=== PATIENT | female | born 1975 | race Caucasian/White ===

== ENCOUNTER 2024-06-21 20:29 | Emergency (ER) | payer OTHER, SELFPAY ==
[2024-06-21 20:49] VITALS: BP 163/98; PULSE 90; TEMP 36.3; O2SAT 97; BMI 18.0
--- NOTE | 2024-06-21 21:12 | XR_ITS ---
The [place] [id number] Patient Name: DALLAS ALFORD MRN: [id number] date: 1975 Sex: F Assigned Patient Location: ER Current Patient Location: ED.MAIN Accession/Order Number: [id number] Exam Date: 06/21/2024 21:35 Report Date: 06/21/2024 22:45 At the request of: MELINDA CRUZ Procedure: XR hand RT min 3V EXAMINATION: XR hand RT min 3V, , 06/21/2024 9:35 PM EST INDICATION: injury HISTORY: Ordering Provider Reason for Exam: injury Technologist Note: Additional: COMPARISON: None. TECHNIQUE: Right hand x-ray: 3 view(s). FINDINGS: No acute fracture. Joint alignment is anatomic. Joint spaces are preserved. Soft tissues are within normal limits. XR/XR hand RT min 3V IMPRESSION: No acute fracture or traumatic malalignment. Electronically authenticated by: LATOSHA CRUZ Date: 06/21/2024 22:45
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
[2024-06-21 22:12] LABS: Bilirubin Urine NEGATIVE (NEGATIVE); Blood Urine TRACE-I (NEGATIVE); Glucose Urine UA NEGATIVE (NEGATIVE); Ketones Urine 15 mg/dL (NEGATIVE); Leukocyte Esterase Urine MODERATE (NEGATIVE); Nitrite Urine NEGATIVE (NEGATIVE); Protein Urine 30 mg/dL (NEG/TRACE); Specific Gravity Urine >=1.030 (1.005-1.025); Urobilinogen Urine 0.2 EU/dL (0.2-1.0)
[2024-06-21 22:14] LABS: Clarity Urine SLIGHTLY CLOUDY (CLEAR); Color Urine YELLOW (YELLOW); Urine Microscopic Indicated YES
[2024-06-21 22:16] LABS: Mucus Urine LARGE (NONE SEEN); Squamous Epithelial Cell Urine MANY #/LPF (NONE/RARE)
[2024-06-21 22:17] LABS: Bacteria Urine MODERATE #/HPF (NONE SEEN); Cast Seen? NONE SEEN #/LPF (NONE SEEN); Crystals Seen? None Seen #/HPF (None Seen); RBC Urine 0-2 #/HPF (0-2); Urine Culture Indicated YES
== END 2024-06-21 22:45 | disposition home or self-care (01) ==
PROVIDERS: Emergency Provider Emergency Medicine
DX: S60.221A Contusion of right hand, initial encounter (principal); S32.009A Unspecified fracture of unspecified lumbar vertebra, initial encounter for closed fracture; S09.93XA Unspecified injury of face, initial encounter; S30.0XXA Contusion of lower back and pelvis, initial encounter; S09.90XA Unspecified injury of head, initial encounter; Y04.2XXA Assault by strike against or bumped into by another person, initial encounter
CPT/HCPCS: 70450; 72131; 73130; 81001; 87086; 99285

== ENCOUNTER 2024-06-24 12:31 | Emergency (ER) | payer OTHER, SELFPAY ==
[2024-06-24 12:35] VITALS: BP 126/86; PULSE 72; TEMP 36.6; O2SAT 100; BMI 19.6
[2024-06-24] MEDS: MORPHINE SULFATE 4 MG/ML VIAL 10 MG IM (12:52)
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
== END 2024-06-24 14:58 | disposition home or self-care (01) ==
PROVIDERS: Emergency Provider Emergency Medicine
DX: S32.009A Unspecified fracture of unspecified lumbar vertebra, initial encounter for closed fracture (principal); Y09 Assault by unspecified means; F41.9 Anxiety disorder, unspecified; M54.9 Dorsalgia, unspecified
CPT/HCPCS: 96372; 99284; J2270

== ENCOUNTER 2024-08-02 22:14 | Emergency (ER) | payer OTHER, SELFPAY ==
--- OUTSIDE RECORDS SUMMARY | 2024-08-02 22:25 | XMS_ITS | CCD ---
Author Organization [facility] Care Team Providers Care As400 Administrator Name Role Phone PROVIDER, UNKNOWN Admitting Unavailable PROVIDER, UNKNOWN Attending Unavailable PATIENT, SELF Referring Unavailable URMILA SLADE Primary Care Unavailable Dwight Grant Primary Care Provider Aleksandar Ridley Primary Care Provider Unav ailable HARLEY OLSEN Admitting Unavaila HARLEY Armendariz Attending Unavaila DELMI Ochoa Referring Unavailable DWIGHT GRANT Primary Care Unavailabl e CLIFFORD LUNA Consulting Unavailable SEA LION Consulting Unavailab le AMISHA ABIGAIL Consulting Unavailable LYNN MCMANUS Admitting Unavailable DUSTY ANDREW Referring Unavailable KHBLANKA ANDREA, ALEKSANDAR Primary Care Unavailabl e GABY DO Consulting Unavailable MERCED BUCKNER Attending Unavailable Rey Mendez Aleksandar Primary Care Provider [phone] CJORSAND ANDREA, ALEKSANDAR Primary Care Unavailabl e KHORSAND ANDREA, ALEKSANDAR Primary Care Unavailabl ORLIN Krueger Attending Unavailable FERDINAND MCGRATH Attending Unavailable KHKEVINAND ANDREA, ALEKSANDAR Primary Care UnavailDWIGHT Dodd Referring Unavailable DWIGHT GRANT Primary Care Unavailable MARTA BROWN Attending Unavailable MARTA BROWN Admitting Unavailable RADHA MENDEZ Primary Care Physician [phone] Billie Poon Unavailable Unavailable Paige Laird Unavailable Unavailable Jeanmarie Katie Unavailable Unavailable [facility] Primary Care Unava ilable GORDO, EL Attending Unavailable GORDO, EL Consulting Unavailable GORDO, EL Admitting Unavailable NATALIIA MENON Consulting Unavailable GORDO, EL Attending Unavailable GORDO, EL Consulting Unavailable GORDO, EL Admitting Unavailable [facility] Unava ilable CINDY AGUDELO Consulting Unavailable [facility] Unava ilable ALEXANDER ., ESTHER Attending Unavailable ALEXANDER ., ESTHER Admitting Unavailable Satish VALDEZ Admitting Unavailable Quincy Webb Attending Unavailable [place], Mk Consulting Unavailable [place], Mk Consulting Unavailable [place], Mk Consulting Unavailable [place], Mk Consulting Unavailable [place], Mk Consulting Unavailable [place], Mk Consulting Unavailable [place], Mk Consulting Unavailable [place], Mk Consulting Unavailable [place], Mk Consulting Unavailable Perry Bar Attending Unavailable Rey Mendez MD [facility] Primary Care Provider TC Horne Attending Provide r Lamine Horne Admitting Unava ilable [facility] Unavailabl e Lamine Horne Attending Unava ilable [facility] Unavailabl e Khurram Hercules Attending Unavailable Khurram Hercules Admitting Unavailable Filippo Garcia MD Attending Ward Wagoner MD Primary Care Unavailab Yuan Ramirez MD Admitting Unavail able Yuan Dumont MD Attending Unavail able Ward Mendez MD Primary Care Unavailab Filippo Hernandez MD Consulting Ward Wagoner MD Primary Care Unavailab najma Courtney MD, Lesa Euceda Admitting Martha Courtney MD, Lesa Euceda Attending Filippo Lindsay MD Consulting BAM Moses Admitting Unavailable BAM CAMPOS Attending Unavailable NEHA DONALDSON Attending Unavailable BAM CAMPOS Attending Unavailable BAM CAMPOS Attending Unavailable BAM CAMPOS Attending Unavailable NEHA DONALDSON Referring Unavailable FILIPPO GARCIA Referring Unavailable ESTHER PINA Primary Care Unavailable Allergies Allergy Classification Reported Allergen(s) Allergy Type Date of Onset Reaction(s) Facility (13 sources) fentaNYL; Translations: [fentanyl] Drug Allergy 02-14-20 14 Itching [facility] Phone: Comment on above: Has tolerated morphi ne and hydromorphone in the past without issue (7 sources) Ketorolac Drug Allergy 11-18-19 12 Hives [facility] Phone: (13 sources) methylPREDNISolone; Translations: [methylprednisolone] Drug Allergy 02-14-20 14 Rash [facility] Phone: (3 sources) Morphine; Translations: [MORPHINE] Drug Allergy 05-01-20 13 Rash [facility] Phone: (11 sources) Ondansetron; Translations: [ondansetron] Drug Allergy 11-18-19 12 Nausea And Vomiting [facility] Phone: (7 sources) pantoprazole Drug Allergy 12-18-19 14 Anaphylaxis [facility] Phone: (13 sources) Penicillins; Translations: [penicillins] Propensity to adverse reactions to drug 10-25-19 09 Nausea And Vomiting, Anaphylaxis (disorder) [facility] Phone: (3 sources) Blood-Group Specific Substance; Translations: [BLOOD-GROUP SPECIFIC SUBSTANCE] Propensity to adverse reactions to drug 05-20-20 13 Hives [facility] Phone: (8 sources) Iodides; Translations: [IODIDES] Propensity to adverse reactions to drug 12-17-19 18 Hives, Shortness Of Breath [facility] Phone: (2 sources) Adhesive Tape; Translations: [ADHESIVE TAPE] Propensity to adverse reactions (disorder) 01-14-20 13 [facility] (4 sources) Atropine; Translations: [ATROPINE] Drug Allergy 07-14-20 10 Hives [facility] (4 sources) Ketorolac; Translations: [Toradol] Drug Allergy 05-28-20 09 [facility] (3 sources) Ondansetron Drug Allergy 05-28-20 09 [facility] (4 sources) pantoprazole; Translations: [Protonix] Drug Allergy 12-16-19 14 [facility] (2 sources) Penicillins Drug allergy (disorder) 05-28-20 09 [facility] (3 sources) Adhesive Tape; Translations: [Tape] Drug allergy [facility] (3 sources) Contrast media; Translations: [Contrast Dye] Drug allergy difficulty breathing, [facility] (4 sources) Famotidine; Translations: [famotidine] Drug Allergy 11-18-[address] [facility] (5 sources) Ketorolac; Translations: [ketorolac] Drug Allergy 10-25-[address] [facility] Comment on above: Tolerates ibuprofen (5 sources) Nalbuphine; Translations: [nalbuphine] Drug Allergy 05-16-20 09 itching [facility] (7 sources) pantoprazole; Translations: [pantoprazole] Drug Allergy 12-18-19 14 Weal (disorder), Cutaneous eruption (morphologic abnormality) [facility] Comment on above: pt on protonix iv cu rrently-pt states is ok as long as benedryl is given (1 source) Morphine Drug Allergy [facility] (2 sources) predniSONE Drug Allergy 11-03-19 23 Hives [facility] (2 sources) Omnipaque Drug allergy (disorder) [facility] (1 source) Acetaminophen; Translations: [Ofirmev] Drug Allergy [facility] Repository (1 source) methylPREDNISolone / Neomycin; Translations: [methylprednisolone-n eomycin topical] Drug Allergy [facility] (1 source) pantoprazole; Translations: [Protonix IV] Drug Allergy [facility] (3 sources) Ondansetron; Translations: [ONDANSETRON] Drug Allergy 11-18-19 12 [facility] (1 source) Gadolinium-Containing Contrast Medi Allergy to substance 11-03-19 23 Swelling of Lip/Tongue/Thr oat [facility] (1 source) Iodinated Contrast Media Allergy to substance 11-03-19 23 Swelling of Lip/Tongue/Thr oat [facility] (1 source) MRI contrast Allergy to substance 11-03-19 23 Swelling of Lip/Tongue/Thr oat [facility] (1 source) methylPREDNISolone; Translations: [SOLU-Medrol] Drug Allergy [facility] Rep[facility] (1 source) Penicillin; Translations: [penicillin] Drug Allergy [facility] Rep[facility] (1 source) iodinated radiocontrast dyes; Translations: [iodinated radiocontrast dyes] Propensity to adverse reactions to drug (disorder) [facility] Rep[facility] (2 sources) Adhesive agent; Translations: [ADHESIVE] Propensity to adverse reactions to drug (disorder) 07-21-19 15 [facility] (2 sources) Contrast media; Translations: [DYE] Propensity to adverse reactions to drug (disorder) 11-20-19 18 [facility] (2 sources) Metoclopramide; Translations: [METOCLOPRAMIDE HCL] Drug Allergy 03-21-20 12 [facility] (2 sources) ADHESIVE TAPE-SILICONES; Translations: [ADHESIVE TAPE-SILICONES] Propensity to adverse reactions to drug (disorder) 02-04-20 17 [facility] (1 source) Ondansetron; Translations: [ONDANSETRON HCL (PF)] Drug Allergy 05-27-20 16 [facility] Medications Current Medications Medication Drug Class(es) Dates Sig (Normalized) Sig (Original) Acetaminophen (2 sources) Start: 12-03-2019 acetaminophen (TYLENOL) tablet 650 mg Start: 08-28-2019 acetaminophen (TYLENOL) tablet 650 mg ALPRAZolam 1 mg oral tablet (10 sources) Benzodiazepine Start: 08-28-2019 take 1 mg by mouth three times daily 1 mg, Oral, 3 TIMES DAILY, First dose on Tue08/28/19 at 1500 Start: 02-08-2019 End: 12-02-2019 take 0.5 mg by mouth three times daily Alprazolam (Xanax) 1 mg Tablet Discontinued 0.5 MG PO Three times daily 0 5 February 08, 2019 3:26pm December 02, 2019 8:03am Start: 02-05-2019 End: 02-08-2019 take 1 tablet by mouth three times daily Alprazolam (Xanax) 1 mg Tablet Discontinued 1 MG PO Three times daily February 05, 2019 12:00am February 08, 2019 3:31pm amLODIPine 5 mg oral tablet (3 sources) Dihydropyridine Calcium Channel Rene Start: 07-27-2022 take 1 tablet by mouth once daily Norvasc 5 mg Tab 5 mg = 1 tab(s), Oral, Daily, Refills(s) 0 Start Date: 07/27/22 Status: Ordered Start: 08-29-2019 amLODIPine (NO RVASC) tablet 5 mg apixaban 5 mg oral tablet (6 sources) Factor Xa Inhibitor Start: 12-10-2019 End: 01-09-2020 take 1 tablet by mouth twice daily apixaban (ELIQUIS) 5 MG TABS tablet Take 1 tablet by mouth 2 times daily 60 tablet 0 12/10/2019 01/09/2020 Active Start: 12-10-2019 apixaban (ELIQ UIS) tablet 5 mg Start: 12-03-2019 End: 12-10-2019 apixaban (ELIQUIS) tablet 10 mg Start: 11-29-2019 End: 12-11-2019 take 2 tablets by mouth twice daily apixaban (ELIQUIS) 5 MG TABS tablet Take 2 tablets by mouth 2 times daily for 7 days 28 tablet 0 12/04/2019 12/11/2019 Active busPIRone hydrochloride 10 mg oral tablet (8 sources) Start: 05-28-2020 take 30 mg by mouth once daily Buspirone Active 30 MG PO Daily May 28, 2020 1:00am Start: 02-05-2019 End: 05-28-2020 take 30 mg by mouth once daily in the morning Buspirone Discontinued 30 MG PO Every morning February 05, 2019 12:45pm May 28, 2020 7:15am Start: 12-04-2018 End: 02-05-2019 take 5 mg by mouth three times daily Buspirone Discontinued 5 MG PO Three times daily 90 December 04, 2018 12:00am February 05, 2019 12:45pm take 0.3 mg by mouth three times daily busPIRone HCl (BUSPAR PO) Take 0.3 mg by mouth 3 times daily 0 Active take 0.3 mg by mouth three times daily busPIRone HCl (BUSPAR PO) Take 0.3 mg by mouth 3 times daily 0 Suspended cephalexin 500 mg oral capsule (1 source) Cephalosporin Antibacterial Start: 05-28-2020 take 1 capsule by mouth four times daily Cephalexin (Keflex) 500 mg capsule Active 500 MG PO Four times daily 28 7 May 28, 2020 1:00am clotrimazole 10 mg oral lozenge (1 source) Azole Antifungal Start: 05-28-2020 take 10 mg by mouth five times daily Clotrimazole Active 10 MG PO 5 times per day May 28, 2020 1:00am diphenhydrAMINE hydrochloride 25 mg oral tablet (6 sources) Histamine-1 Receptor Antagonist Start: 12-03-2019 diphenhydrAMINE (BENADRYL) tablet 25 mg Start: 08-28-2019 End: 08-29-2019 diphenhydrAMINE (BENADRYL) i njection 25 mg Start: 08-27-2019 End: 08-27-2019 diphenhydrAMINE (BENADRYL) i njection 50 mg Start: 08-22-2019 End: 08-22-2019 diphenhydrAMINE (BENADRYL) i njection 50 mg DULoxetine 60 mg delayed release oral capsule (3 sources) Serotonin and Norepinephrine Reuptake Inhibitor Start: 03-23-2020 take 120 mg by mouth once daily at bedtime Duloxetine Active 120 MG PO Daily at bedtime March 23, 2020 12:00am Start: 02-05-2019 End: 03-23-2020 take 30 mg by mouth once daily Duloxetine Discontinued 30 MG PO Daily February 05, 2019 12:45pm March 23, 2020 7:31am Start: 12-04-2018 End: 02-05-2019 take 90 mg by mouth once daily Duloxetine Discontinued 90 MG PO Daily December 04, 2018 12:00am February 05, 2019 12:45pm ergocalciferol 92297 unt oral capsule (8 sources) Provitamin D2 Compound Start: 06-16-2016 take 1 capsule by mouth every week vitamin D (ERGOCALCIFEROL) 99801 UNITS capsule Take 1 capsule by mouth once a week for 6 doses 6 capsule 0 06/16/2016 Active estrogens, conjugated (retirement) 0.9 mg oral tablet (11 sources) Estrogen Start: 04-20-2020 take 1 tablet by mouth once daily Premarin 0.9 mg Tab 0.9 mg = 1 tab(s), Oral, Daily, # 30 tab(s), Refills(s) 0 Start Date: 11/10/20 Status: Ordered Start: 11-17-2017 End: 04-20-2020 Conjugated Estrogens (Premar in) 1.25 mg tablet Discontinued 0.9 MG PO Daily November 17, 2017 12:00am April 20, 2020 7:02pm Start: 06-16-2016 End: 12-04-2019 take 1.25 mg by mouth once daily 1.25 mg, Oral, DAILY, First dose on Tue12/03/19 at 1045 Give only if okay with vascular famotidine 20 mg oral tablet (1 source) Histamine-2 Receptor Antagonist Start: 08-28-2019 famotidine (PEPCID) tablet 20 mg ibuprofen 200 mg oral tablet (2 sources) Nonsteroidal Anti-inflammatory Drug Start: 11-10-2020 ibuprofen 200 mg Tab 400 mg = 2 tab(s), Oral, PRN Pain/Fever, Refills(s) 0 Start Date: 11/10/20 Status: Ordered labetalol hydrochloride 100 mg oral tablet (1 source) beta-Adrenergic Rene Start: 05-28-2020 take 100 mg by mouth twice daily Labetalol Active 100 MG PO Twice daily May 28, 2020 1:00am lisinopril 40 mg oral tablet (1 source) Angiotensin Converting Enzyme Inhibitor Start: 05-28-2020 take 40 mg by mouth once daily Lisinopril Active 40 MG PO Daily May 28, 2020 1:00am LORazepam 1 mg oral tablet (13 sources) Benzodiazepine Start: 12-03-2019 take 1 mg by mouth twice daily 1 mg, Oral, 2 TIMES DAILY, First dose on Tue12/03/19 at 1045 Start: 12-02-2019 take 1 tablet by wendy th three times daily LORazepam 1 mg Tab 1 mg = 1 tab(s), Oral, TID, Refills(s) 0 Start Date: 09/24/20 Status: Ordered Start: 08-28-2019 End: 08-28-2019 LORazepam (ATIVAN) injection 2 mg Start: 08-28-2019 End: 08-28-2019 LORazepam (ATIVAN) injection 0.5 mg Start: 08-27-2019 End: 08-27-2019 LORazepam (ATIVAN) injection 1 mg Start: 08-22-2019 End: 08-22-2019 LORazepam (ATIVAN) tablet 1 mg Magic Mouthwash (Miracle Mouthwash) 5 mL (1 source) Start: 12-04-2019 Magic Mouthwas h (Miracle Mouthwash) 5 mL magnesium hydroxide 80 mg/ml oral suspension (2 sources) Start: 08-28-2019 magnesium hydr oxide (MILK OF MAGNESIA) 400 MG/5ML suspension 30 mL Start: 02-08-2019 End: 12-02-2019 take 1 mL by mouth twice daily Magnesium Hydroxide (Mi lk Of Magnesia) 400 mg/5 mL Suspension Discontinued 30 ML PO Twice daily 0 February 08, 2019 12:00am December 02, 2019 8:04am 100 ml magnesium sulfate 10 mg/ml injection (2 sources) Start: 12-03-2019 take 1 mg intravenous route every hour as needed 1 g, Intravenous, at 100 mL/hr, Administ er over 1 Hours, PRN, Other, Per IV Magnesium Replacement Protocol, Starting Tue12/03/19 at 0425 Mg Lab Replacement Action 1.4- 1.6 1 gram IVPB x 2 doses &nb sp; (2 gram Total) 1.0-1.3 1 gram IVPB x 4 doses &nb sp; (4 gram Total) <1.0 CALL PHYSICIAN and &n bsp; 1 gram IVPB x 4 doses (4 gram Total) Infuse at 1 gram/hr Repeat Mag level next AM Protocol not for use in Patients with CrCl<30ml/min Start: 08-28-2019 magnesium sulf ate 1 g in dextrose 5% 100 mL IVPB 24 hr nicotine 0.875 mg/hr transdermal system (6 sources) Cholinergic Nicotinic Agonist Start: 12-03-2019 End: 09-19-2020 apply 1 dose transdermal route every twenty-four hours 1 patch, Transdermal, Administer over 24 Hours, EVERY 24 HOURS, First dose on Tue12/03/19 at 1100 Apply new patch to nonhairy, clean, dry skin on the upper body or upper outer arm. Rotate patch sites. Notify pharmacy if patient or provider prefers patch to be removed at bedtime and replaced in the morning. Hazardous Medication -- Refer to facility policy for handling and disposal. Start: 12-03-2019 apply 1 dose transde rmal route once daily as needed 1 patch, Transdermal, Administer over 24 Hours, DAILY PRN, if pateint smokes, Starting Tue12/03/19 at 0425 Apply new patch to nonhairy, clean, dry skin on the upper body or upper outer arm. Rotate patch sites. Notify pharmacy if patient or provider prefers patch to be removed at bedtime and replaced in the morning. Hazardous Medication -- Refer to facility policy for handling and disposal. Start: 12-04-2018 End: 02-08-2019 Nicotine Discontinued 1 EACH TRANSDERML Daily December 04, 2018 12:00am February 08, 2019 3:31pm 2 ml ondansetron 2 mg/ml injection (1 source) Serotonin-3 Receptor Antagonist Start: 08-28-2019 ondansetron (ZOFRAN) injection 4 mg oxybutynin chloride 5 mg oral tablet (1 source) Cholinergic Muscarinic Antagonist Start: 05-28-2020 take 5 mg by mouth once daily at bedtime Oxybutynin Chloride Active 5 MG PO Daily at bedtime May 28, 2020 1:00am pantoprazole (PROTONIX) injection 40 mg (1 source) Start: 08-29-2019 pantoprazole (PROTONIX) injection 40 mg polyethylene glycol 3350 80058 mg powder for oral solution (1 source) Osmotic Laxative Start: 12-03-2019 17 g, Oral, D AILY PRN, Constipation, Starting 12/03/19 at 0425 First line therapy for constipation Potassium Chloride (3 sources) Start: 12-03-2019 potassium chlo ride (KLOR-CON M) extended release tablet 40 mEq Start: 08-30-2019 End: 08-31-2019 potassium chloride (KLOR-CON M) extended release tablet 40 mEq Start: 08-28-2019 potassium chlo ride (KLOR-CON M) extended release tablet 40 mEq pregabalin 100 mg oral capsule (3 sources) Start: 05-28-2020 take 1 capsule by mouth three times daily pregabalin 100 mg Cap 100 mg = 1 cap(s), Oral, TID, Refills(s) 0 Start Date: 09/24/20 Status: Ordered Promethazine (5 sources) Phenothiazine Start: 12-03-2019 promethazine (PHENERGAN) tablet 12.5 mg Start: 08-29-2019 End: 08-29-2019 promethazine (PHENERGAN) inj ection 12.5 mg Start: 08-27-2019 End: 08-27-2019 promethazine (PHENERGAN) inj ection 25 mg Start: 08-22-2019 End: 08-22-2019 promethazine (PHENERGAN) inj ection 25 mg Start: 01-09-2019 End: 05-28-2020 take 25 mg by mouth every six hours Promethazine Discontinued 25 MG PO Q6H January 09, 2019 12:00am May 28, 2020 7:15am rivaroxaban 20 mg oral tablet (2 sources) Factor Xa Inhibitor Start: 05-28-2020 take 1 tablet by mouth at dinner Rivaroxaban (Xarelto Dvt-Pe Treat 30d Start) 15 mg (42)- 20 mg (9) tablets,dose pack Active 0 PO .COMPLEX 51 May 28, 2020 1:00am must administer with evening meal Start: 12-02-2019 End: 04-20-2020 take 1 tablet by mouth once daily in the evening Rivaroxaban (Xarelto) 20 mg Tablet Discontinued 20 MG PO Every evening December 02, 2019 12:00am April 20, 2020 7:04pm 3 ml sodium chloride 9 mg/ml injection (7 sources) Start: 12-03-2019 10 mL, Intrave nous, EVERY 12 HOURS SCHEDULED (2 times per day), First dose on Tue12/03/19 at 0900 Start: 12-03-2019 take 10 mL intraveno us route once as needed 10 mL, Intravenous, PRN, Line Care, After every IV line use, Starting Tue12/03/19 at 0425 Start: 12-03-2019 End: 12-03-2019 Intravenous, at 75 mL/hr, CONTINUOUS, Starting Tue12/03/19 at 0500 Start: 08-28-2019 0.9 % sodium c hloride infusion Start: 08-28-2019 sodium chlorid e flush 0.9 % injection 10 mL sucralfate 1000 mg oral tablet (4 sources) Aluminum Complex Start: 08-29-2019 sucralfate (C ARAFATE) tablet 1 g Start: 01-09-2019 End: 02-05-2019 take 1 tablet by mouth before mealtime Sucralfate (Carafate) 1 gram tablet Discontinued 1 GM PO before meals 84 January 09, 2019 12:00am February 05, 2019 12:50pm Start: 11-19-2017 End: 11-27-2018 take 1 g by mouth once before mealtime Sucralfate (Carafate) 100 mg/mL suspension Discontinued 1 GM PO 3x/Day before meals & bedtime November 19, 2017 4:33pm November 27, 2018 6:26pm Start: 11-18-2017 End: 11-19-2017 take 1 g by mouth once before mealtime Sucralfate Discontinued 1 GM PO 3x/Day before meals & bedtime November 18, 2017 12:00am November 19, 2017 4:33pm sulfamethoxazole 800 mg / trimethoprim 160 mg oral tablet (1 source) Dihydrofolate Reductase Inhibitor Antibacterial, Sulfonamide Antimicrobial Start: 05-28-2020 take 1 tablet by mouth twice daily Sulfamethoxazole-Trimethoprim (Bactrim Ds) 800-160 mg tablet Active 1 TAB PO Twice daily 28 01May 28, 2020 1:00am teriflunomide 14 mg oral tablet (1 source) Pyrimidine Synthesis Inhibitor Start: 05-28-2020 take 1 tablet by mouth once daily Teriflunomide (Aubagio) 14 mg tablet Active 14 MG PO Daily May 28, 2020 1:00am traMADol hydrochloride 50 mg oral tablet (3 sources) Opioid Agonist Start: 05-28-2020 take 1 tablet by mouth four times daily as needed for pain tramadol 50 mg oral tablet 50 mg = 1 tab(s), Oral, QID, PRN for pain, # 60 tab(s), Refills(s) 0 Start Date: 09/24/20 Status: Ordered traZODone hydrochloride 150 mg oral tablet (9 sources) Serotonin Reuptake Inhibitor Start: 12-03-2019 take 150 mg by mouth once daily 150 mg, Oral, NIGHTLY, First dose on Tue12/03/19 at 2099 Start: 08-28-2019 take 150 mg by mouth once calin y 150 mg, Oral, NIGHTLY, First dose on Tue08/28/19 at 2100 Start: 06-16-2016 End: 09-19-2020 take 1.5 tablets by mouth once daily, then take 0.5 tablet by mouth, then take 1 tablet by mouth traZODone (DESYREL) 100 MG tablet Take 1.5 tablets by mouth nightly 1/2 tab to 1 tab ; Verified by [facility] 02-13-2014 30 tablet 3 06/16/2016 09/19/2020 Discontinued (LIST CLEANUP) zolpidem tartrate 10 mg oral tablet (2 sources) gamma-Aminobutyric Acid-ergic Agonist Start: 05-28-2020 take 10 mg by mouth once daily at bedtime Zolpidem Active 10 MG PO Daily at bedtime May 28, 2020 1:00am Completed/Discontinued Medications Medication Drug Class(es) Dates Sig (Normalized) Sig (Original) acetaminophen 325 mg / HYDROcodone bitartrate 5 mg oral tablet (2 sources) Opioid Agonist Start: 08-28-2019 End: 08-30-2019 HYDROcodone-acetam inophen (NORCO) 5-325 MG per tablet 1 tablet acetaminophen 325 mg / oxyCODONE hydrochloride 5 mg oral tablet (11 sources) Opioid Agonist Start: 09-19-2020 End: 09-19-2020 oxyCODONE-acetamin ophen (PERCOCET) 5-325 MG per tablet 1 tablet Start: 12-03-2019 End: 12-03-2019 oxyCODONE-acetaminophen (PER COCET) 5-325 MG per tablet 1 tablet Start: 08-22-2019 End: 08-22-2019 oxyCODONE-acetaminophen (PER COCET) 5-325 MG per tablet 2 tablet Start: 02-14-2019 End: 12-02-2019 take 1 tablet by mouth every four to six hours Oxycodone-Acetaminophen (Percocet) 7.5-3 25 mg tablet Discontinued 1 TAB PO EVERY 4-6 HOURS 1 5 February 14, 2019 December 02, 2019 8:04am Start: 02-07-2019 End: 02-08-2019 Oxycodone-Acetaminophen Disc ontinued 1 TAB PO Q4H February 07, 2019 12:00am February 08, 2019 3:31pm 1 or 2 tabs Start: 11-17-2017 End: 11-27-2018 take 1 tablet by mouth every four hours Oxycodone-Acetaminophen (Percocet) 5-325 mg tablet Discontinued 1 TAB PO Q4H November 19, 2017 4:33pm November 27, 2018 6:26pm End: 08-30-2019 take 1 tablet by mouth every six hours as needed for pain oxyCODONE-acetaminophen (PERCOCET) 10-32 5 MG per tablet Take 1 tablet by mouth every 6 hours as needed for Pain.. 0 08/30/2019 Discontinued (Stop Taking at Discharge) aspirin 81 mg delayed release oral tablet (1 source) Platelet Aggregation Inhibitor, Nonsteroidal Anti-inflammatory Drug Start: 02-08-2019 End: 12-02-2019 take 81 mg by mouth once daily Aspirin Discontinued 81 MG PO Daily 0 February 08, 2019 12:00am December 02, 2019 8:03am bisacodyl 5 mg delayed release oral tablet (1 source) Stimulant Laxative Start: 02-08-2019 End: 04-20-2020 take 10 mg by mouth once daily Bisacodyl Discontinued 10 MG PO Daily February 08, 2019 12:00am April 20, 2020 7:01pm citalopram 20 mg oral tablet (1 source) Serotonin Reuptake Inhibitor Start: 11-17-2017 End: 11-27-2018 take 1 tablet by mouth once daily Citalopram (Celexa) 20 mg tablet Discontinued 20 MG PO Daily November 17, 2017 12:00am November 27, 2018 6:26pm 50 ml clindamycin 12 mg/ml injection (2 sources) Lincosamide Antibacterial Start: 12-03-2019 End: 12-03-2019 clindamycin (CLEOCIN) 600 mg in dextrose 5 % 50 mL IVPB Start: 12-02-2019 End: 03-22-2020 take 450 mg by mouth three times daily Clindamycin Hcl Discontinued 450 MG PO Three times daily 90 10 December 02, 2019 12:00am March 22, 2020 9:38pm 1 ml enoxaparin sodium 100 mg/ml prefilled syringe (4 sources) Low Molecular Weight Heparin Start: 12-03-2019 End: 12-03-2019 90 mg (rounded from 88.2 mg = 1 mg/kg 88.2 kg), Subcutaneous, 2 TIMES DAILY, First dose on Tue12/03/19 at 0900 Start: 11-29-2019 End: 11-29-2019 enoxaparin (LOVENOX) injecti on 120 mg Start: 02-08-2019 End: 12-02-2019 enoxaparin (LOVENOX) injecti on 40 mg escitalopram 10 mg oral tablet (1 source) Serotonin Reuptake Inhibitor Start: 12-02-2018 End: 12-04-2018 take 10 mg by mouth once daily Escitalopram Oxalate Discontinued 10 MG PO Daily December 02, 2018 12:00am December 04, 2018 9:40am ferrous sulfate 325 mg delayed release oral tablet (4 sources) Start: 12-19-2017 End: 10-23-2019 take 1 tablet by mouth twice daily at mealtime ferrous sulfate 325 (65 Fe) MG EC tablet Take 1 tablet by mouth 2 times daily (with meals) 90 tablet 3 12/19/2017 10/23/2019 Discontinued (LIST CLEANUP) gabapentin 800 mg oral tablet (3 sources) Anti-epileptic Agent Start: 05-28-2020 End: 05-28-2020 take 800 mg by mouth three times daily Gabapentin Discontinued 800 MG PO Three times daily May 28, 2020 1:00am May 28, 2020 7:15am Start: 12-02-2018 End: 05-28-2020 take 1200 mg by mouth three times daily Gabapentin Discontinued 1200 MG PO Three times daily December 02, 2018 12:00am May 28, 2020 7:15am Start: 11-17-2017 End: 11-27-2018 take 1 capsule by mouth once daily Gabapentin (Neurontin) 300 mg capsule Discontinued 300 MG PO Daily November 17, 2017 12:00am November 27, 2018 6:26pm gadoteridol (PROHANCE) injection 16 mL (1 source) Start: 08-28-2019 End: 08-28-2019 gadoteridol (PROHANCE) injection 16 mL HYDROmorphone hydrochloride 4 mg oral tablet (9 sources) Opioid Agonist Start: 12-03-2019 End: 12-03-2019 HYDROmorphone (DILAUDID) injection 1 mg Start: 12-03-2019 take 4 mg by mouth e very four hours as needed for pain 4 mg, Oral, EVERY 4 HOURS PRN, Pain Mild (1-3), Pain Moderate (4-6), Starting 12/03/19 at 1022 Start: 12-02-2019 End: 05-28-2020 Hydromorphone Discontinued T ABLET May 28, 2020 1:00am May 28, 2020 7:15am Start: 11-21-2019 take 1 tablet by wendy th every four hours as needed for pain Dilaudid 4 mg Tab 4 mg = 1 tab(s), Oral, q4hr, PRN for pain, or as needed, Refills(s) 0 Start Date: 11/21/19 Status: Ordered 1 ml ketorolac tromethamine 15 mg/ml cartridge (1 source) Nonsteroidal Anti-inflammatory Drug, Cyclooxygenase Inhibitor Start: 08-29-2019 End: 08-29-2019 ketorolac (TORADOL) injection 15 mg Magic Mouthwash (MIRACLE MOUTHWASH) (2 sources) Start: 12-04-2019 End: 09-19-2020 Magic Mouthwash (MIRACLE MOUTHWASH) Swish and spit 5 mLs 4 times daily as needed for Irritation 200 mL 0 12/04/2019 09/19/2020 Discontinued (LIST CLEANUP) Start: 12-04-2019 Magic Mouthwas h (MIRACLE MOUTHWASH) Swish and spit 5 mLs 4 times daily as needed for Irritation 200 mL 0 12/04/2019 Active methylPREDNISolone sodium (SOLU-MEDROL) 1,000 mg in sodium chloride 0.9 % 250 mL IVPB (2 sources) Start: 08-27-2019 End: 08-27-2019 methylPREDNISolone sodium (SOLU-MEDROL) 1,000 mg in sodium chloride 0.9 % 250 mL IVPB Start: 08-22-2019 End: 08-22-2019 methylPREDNISolone sodium (S COSTA-MEDROL) 1,000 mg in sodium chloride 0.9 % 250 mL IVPB methylPREDNISolone sodium (SOLU-MEDROL) 500 mg in sodium chloride 0.9 % 250 mL IVPB (2 sources) Start: 08-30-2019 End: 08-30-2019 methylPREDNISolone sodium (SOLU-MEDROL) 500 mg in sodium chloride 0.9 % 250 mL IVPB Start: 08-28-2019 End: 08-30-2019 methylPREDNISolone sodium (S COSTA-MEDROL) 500 mg in sodium chloride 0.9 % 250 mL IVPB 2 ml midazolam 1 mg/ml injection (1 source) Benzodiazepine Start: 08-28-2019 End: 08-28-2019 midazolam (VERSED) injection 0.5 mg 1 ml morphine sulfate 4 mg/ml cartridge (6 sources) Opioid Agonist Start: 09-19-2020 End: 09-19-2020 morphine injection 4 mg Start: 08-29-2019 End: 08-30-2019 morphine (PF) injection 1 mg Start: 08-27-2019 End: 08-27-2019 morphine injection 4 mg Start: 08-27-2019 End: 08-27-2019 morphine injection 4 mg Start: 08-22-2019 End: 08-22-2019 morphine injection 4 mg Start: 08-22-2019 End: 08-22-2019 morphine injection 10 mg omeprazole 20 mg delayed release oral capsule (1 source) Proton Pump Inhibitor Start: 11-18-2017 End: 11-27-2018 take 40 mg by mouth once daily Omeprazole Discontinued 40 MG PO Daily November 18, 2017 12:00am November 27, 2018 6:26pm predniSONE 50 mg oral tablet (1 source) Start: 08-28-2019 End: 08-29-2019 predniSONE (DELTASONE) tablet 50 mg sertraline 100 mg oral tablet (3 sources) Serotonin Reuptake Inhibitor Start: 06-16-2016 End: 08-30-2019 take 2 tablets by mouth once daily, then take 7-30 tablets by mouth sertraline (ZOLOFT) 100 MG tablet Take 2 tablets by mouth daily Verified by [facility] on 02-13-2014 30 tablet 3 06/16/2016 08/30/2019 Discontinued (Stop Taking at Discharge) vancomycin 1500 mg injection (1 source) Glycopeptide Antibacterial Start: 02-08-2019 End: 12-02-2019 take 1.5 g intravenously every twelve hours Vancomycin Discontinued 1.5 GM IV Q12H February 08, 2019 12:00am December 02, 2019 8:04am Problems Active Problems Problem Classification Problem Date Documented Da te Episodic/Chronic Anxiety disorders (20 sources) Anxiety; Translations: [Posttraumatic stress disorder] Onset: 3 06-24-2016 Chronic Blindness and vision defects (15 sources) Blurring of visual image; Translations: [Diplopia] 12-18-2017 Episodic Deficiency and other anemia (10 sources) Anemia; Translations: [Anemia, unspecified] Onset: 8 12-18-2017 Episodic Disorders of lipid metabolism (1 source) Hyperlipidemia; Translations: [Hyperlipidemia, unspecified] 11-30-2018 Chronic E Codes: Natural/environment (1 source) Other and unspecified overexertion or strenuous movements or postures, initial encounter; Translations: [OTH AND UNS OVREXRT/STRN MVMT/POS INT] Onset: 3 Episodic Esophageal disorders (2 sources) Gastroesophageal reflux disease without esophagitis 11-21-2019 Chronic Essential hypertension (7 sources) Essential hypertension; Translations: [Hypertensive disorder] Onset: 0 08-29-2019 Chronic Fluid and electrolyte disorders (1 source) Hypokalemia; Translations: [Hypokalemia] 11-28-2018 Episodic Gastroduodenal ulcer (except hemorrhage) (1 source) Peptic ulcer; Translations: [Peptic ulcer, site unspecified, unspecified as acute or chronic, without hemorrhage or perforation] 11-30-2018 Chronic Gastroduodenal ulcer (except hemorrhage) (1 source) H/O: peptic ulcer; Translations: [Personal history of peptic ulcer disease] 11-30-2018 Episodic Gastrointestinal hemorrhage (17 sources) Gastrointestinal hemorrhage; Translations: [Hematemesis] 06-24-2016 Episodic Inflammation; infection of eye (except that caused by tuberculosis or sexually transmitteddisease) (1 source) Optic neuritis; Translations: [Unspecified optic neuritis] Onset: 3 Chronic Malaise and fatigue (3 sources) Right hemiparesis; Translations: [Weakness] Onset: 3 11-28-2018 Episodic Miscellaneous mental health disorders (10 sources) Munchausen's syndrome; 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] Onset: 3 12-18-2017 Chronic Mood disorders (2 sources) Severe major depression, single episode; Translations: [Major depressive disorder, single episode, severe without psychotic features] 11-30-2018 Chronic Multiple sclerosis (20 sources) Exacerbation of multiple sclerosis; Translations: [Multiple sclerosis] Onset: 3 12-18-2017 Chronic Nonspecific chest pain (1 source) Chest pain; Translations: [Chest pain, unspecified] Onset: 3 Episodic Nutritional deficiencies (1 source) Deficiency of macronutrients; Translations: [Unspecified protein-calorie malnutrition] 11-30-2018 Chronic Osteoarthritis (2 sources) Unilateral primary osteoarthritis of first carpometacarpal joint, left hand; Translations: [Unilateral primary osteoarthritis of first carpometacarpal joint, left hand] Onset: 3 Chronic Other aftercare (1 source) Polypharmacy ; Translations: [Other termite control technician (current) drug therapy] 03-23-2020 Episodic Other congenital anomalies (7 sources) Disorder of extremity; Translations: [Acute extremity pain] 06-24-2016 Chronic Other connective tissue disease (2 sources) Arthrodesis status; Translations: [Arthrodesis status] Onset: 3 Episodic Other gastrointestinal disorders (10 sources) Dysphagia; Translations: [Dysphagia, unspecified] 06-27-2016 Episodic Other injuries and conditions due to external causes (8 sources) Self inflicted injury; Translations: [Self-inflicted injury] 06-24-2016 Episodic Other injuries and conditions due to external causes (1 source) Unspecified injury of left wrist, hand and finger(s), initial encounter; Translations: [UNS INJ LT WRIST HAND FINGERS INIT] Onset: 3 Episodic Other nervous system disorders (1 source) Chronic pain; Translations: [Other chronic pain] Onset: 3 Chronic Other nervous system disorders (1 source) Neuropathy; Translations: [Polyneuropathy, unspecified] 02-09-2019 Chronic Other nervous system disorders (1 source) Unable to walk; Translations: [Difficulty in walking, not elsewhere classified] 03-22-2020 Chronic Other nervous system disorders (1 source) Central pain syndrome; 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 Other non-traumatic joint disorders (1 source) Hip pain; Translations: [Chronic left hip pain] Episodic Other non-traumatic joint disorders (3 sources) Pain in left wrist; Translations: [PAIN IN LEFT WRIST] Onset: 3 Episodic Paralysis (7 sources) Left hemiparesis; Translations: [Left-sided weakness] Onset: 4 06-24-2016 Chronic Phlebitis; thrombophlebitis and thromboembolism (16 sources) H/O: Deep vein thrombosis; Translations: [Acute deep venous thrombosis of upper extremity] Onset: 6 06-24-2016 Episodic Phlebitis; thrombophlebitis and thromboembolism (3 sources) Acute deep venous thrombosis of right upper extremity; Translations: [Acute deep vein thrombosis (DVT) of right upper extremity] Onset: 0 12-04-2019 Residual codes; unclassified (2 sources) Patient encounter status; Translations: [Other specified health status] Onset: 3 Episodic Residual codes; unclassified (2 sources) Chronic pain 11-10-2020 Episodic Residual codes; unclassified (1 source) Pain; Translations: [Pain, unspecified] 02-07-2019 Episodic Residual codes; unclassified (1 source) Bilateral upper limb edema; Translations: [Localized edema] 11-28-2018 Episodic Skin and subcutaneous tissue infections (6 sources) Cellulitis; Translations: [Cellulitis, unspecified] Onset: 0 Resolved: 0 12-04-2019 Episodic Spondylosis; intervertebral disc disorders; other back problems (4 sources) Degeneration of intervertebral disc; Translations: [Other intervertebral disc degeneration, lumbar region] Onset: 3 12-27-2013 Chronic Spondylosis; intervertebral disc disorders; other back problems (17 sources) Chronic neck pain; Translations: [Chronic low back pain] Onset: 4 06-24-2016 Episodic Substance-related disorders (12 sources) Substance abuse; Translations: [Smoker] Onset: 3 12-27-2014 Chronic Comment on above: Added secondary to d ocumentation in Social History. Unclassified (7 sources) Postprocedural state finding; Translations: [Spinal cord stimulator status] Unclassified (2 sources) Patient encounter status 07-26-2022 Unclassified (1 source) Low back pain, unspecified; Translations: [Low back pain, unspecified] Onset: 3 Urinary tract infections (2 sources) Escherichia coli urinary tract infection; Translations: [Urinary tract infection, site not specified] 11-30-2018 Episodic Past or Other Problems Problem Classification Problem Date Documented Date Episodic/Chronic Diseases of mouth; excluding dental (3 sources) Stomatitis; Translations: [Oral mucositis] Onset: 12-04-2019 12-04-2019 Episodic E Codes: Fall (1 source) Unspecified fall, initial encounter; Translations: [UNSPECIFIED FALL INITIAL ENCOUNTER] Onset: 04-07-2022 Episodic Other aftercare (1 source) Other termite control technician (current) drug therapy; Translations: [OTH LONG-TERM CURRENT DRUG THERAPY] Onset: 04-07-2022 Episodic Other injuries and conditions due to external causes (1 source) History of falling; Translations: [HISTORY OF FALLING] Onset: 04-07-2022 Episodic Other nervous system disorders (7 sources) Numbness; Translations: [Numbness] Onset: 12-16-2017 12-18-2017 Episodic Other nervous system disorders (2 sources) Other acute postprocedural pain; Translations: [Other acute postprocedural pain] Onset: 12-06-2022 Episodic Other non-traumatic joint disorders (3 sources) Pain in right hip; Translations: [PAIN IN RIGHT HIP] Onset: 04-05-2022 Episodic Pulmonary heart disease (1 source) Personal history of pulmonary embolism; Translations: [PERSONAL HISTORY PULMONARY EMBOLISM] Onset: 04-07-2022 Episodic Residual codes; unclassified (8 sources) History of insertion of inferior vena caval filter; Translations: [S/P IVC filter] Onset: 06-24-2016 12-18-2017 Episodic Superficial injury; contusion (1 source) Contusion of right hip, initial encounter; Translations: [CONTUSION RIGHT HIP INITIAL ENC] Onset: 04-07-2022 Episodic Unclassified (1 source) Low back pain, unspecified; Translations: [Low back pain, unspecified] Onset: 05-06-2023 Results Test Name Value Interpretation Reference Range Facility Cortisol [Mass/Vol]on 2023 CORTISOL 9.4 ug/dL Normal [facility] Comment on above: Result Comment: Due to the diurnal variation of cortisol levels in normal subjects, all cortisol measurements should be referenced to the time of day of sample collection. AM Cortisol Age>=6 6.7-22.4 ug/dL PM Cortisol Age>=6 <10 ug/dL Performed By: #### 2 143-6 #### [facility] ([id number]) [address] [place] [address] THYROID PROFILEon 10-05-2023 Free T4 [Mass/Vol] 0.83 ng/dL Normal 0.61-1.60 [facility] Comment on above: Performed By: #### T HYR #### [facility] ([id number]) [address] [place] [address], [address] [place] [id number] TSH 0.71 uIU/mL Normal 0.49-4.67 [facility] Comment on above: Performed By: #### T HYR #### [facility] ([id number]) [address] [place] [address] [address] [place] [address] 36on 05-19-2023 36 Patient received a call from the radiology and said that she can take one benadryl before she goes and they will give her sedation as well. Her test is still being performed tomorrow. [facility] 36 States patient is allergic to the dye they cannot do the mylegram, they tried contacting patient her vm is full. She will not be getting her mylegram tomorrow. Please advise what other order she would get and send it over to radiology. They also cannot do sedation anymore. [facility] Telephoneon 05-19-2023 Telephone [phone] Heri James 1975 F Date Provider Department [place] 05/19/2023 DIXIE JACKSON MP ORTHO MPORTHO No family history on file [facility] Orders Onlyon 05-13-2023 Orders Only [id number] Heri James 1975 F Date [facility] Department [place] 05/13/[id number]-UNSXA, NICK MP ORTHO MPORTHO No family history on file [facility] Orders Only [id number] Heri James 1975 F Date Provider Department [place] 05/13/[id number] SALEH MP ORTHO MPORTHO No family history on file [facility] Follow-Upon 05-06-2023 Follow-Up [id number] Heri James 1975 Date [facility] Department [place] 05/06/2023 Pamela-NEHA DONALDSON MP ORTHO MPORTHO No family history on file Level of Service:94787 MO OFFICE/OUTPATIENT ESTABLISHED LOW MDM 20-29 MIN Reason for Visit and Comments: New Patient [632] [facility] .eGFRon 05-04-2023 GFR/1.73 sq M.predicted MDRD (S/P/Bld) [Vol rate/Area] mL/min/{1.73_m2} Normal >=60 [facility] Comment on above: Result Comment: [facility] have implemented the eGFR calculation approach that does not have a coefficient for race and that conforms to the NKF-ASN Task Force Recommendations. Stages of Chronic Kidney Disease GFR Stage 3a Mild to moderate loss of kidney function 59 to 45 Stage 3b Moderate to severe loss of kidney function 44 to 33 Stage 4 Severe loss of kidney function 29 to 15 Stage 5 Kidney failure Less than 15 GFR calculated using the CKD-Epi Creatinine Equation (2020): eGFR = 142 X min(SCr/?, 1)? X max(SCr /?, 1)-1.200 X 0.9938Age X 1.012 [if female] Abbreviations/Units: eGFR (estimated glomerular filtration rate) = mL/min/1.73 m2 SCr (standardized serum creatinine) = mg/dL ? = 0.7 (females) or 0.9 (males) ? = -0.241 (females) or -0.302 (males) min = indicates the minimum of SCr/? or 1 max = indicates the maximum of SCr/? or 1 Age = years Performed By: #### M G #### [place] [address] CBC w/ Diffon 05-04-2023 Erythrocyte distribution width (RBC) [Ratio] 13.4 % Normal 11.6-14.8 [facility] Comment on above: Performed By: #### C OMP #### [place] [address] Hematocrit (Bld) [Volume fraction] 39.2 % Normal 36.0-46.0 [facility] Comment on above: Performed By: #### C OMP #### [place] [address] Hemoglobin (Bld) [Mass/Vol] 13.4 g/dL Normal 12.0-16.0 [facility] Comment on above: Performed By: #### C OMP #### [place] [id number] MCH (RBC) [Entitic mass] 29.5 pg Normal 27.0-35.0 [facility] Comment on above: Performed By: #### C OMP #### [place] [id number] MCHC 34.1 % Normal 31.0-37.0 [facility] Comment on above: Performed By: #### C OMP #### [place] [id number] MCV (RBC) [Entitic vol] 86.3 fL Normal 80.0-100.0 [facility] Comment on above: Performed By: #### C OMP #### [address] [address] Platelet 271 x10*3/mcL Normal 150-450 [facility] Comment on above: Performed By: #### C OMP #### [address] [address] Platelet mean volume (Bld) [Entitic vol] 8.3 fL Normal 6.7-10.6 [facility] Comment on above: Performed By: #### C OMP #### [address] [address] RBC 4.54 x10*6/mcL Normal 3.80-5.20 [facility] Comment on above: Performed By: #### C OMP #### [address] [address] WBC 9.6 x10*3/mcL Normal 4.5-11.0 [facility] Comment on above: Performed By: #### C OMP #### [address] [address] CMPon 05-04-2023 Albumin [Mass/Vol] 3.3 g/dL Normal 3.2-4.9 [facility] Comment on above: Performed By: #### . Manual Diff #### [address] [address] Albumin/Globulin [Mass ratio] 1.0 {ratio} Low 1.1-2.2 [facility] Comment on above: Performed By: #### . Manual Diff #### [address] [address] Alk Phos 72 IU/L Normal 32-91 [facility] Comment on above: Performed By: #### . Manual Diff #### [address] [address] ALT [Catalytic activity/Vol] 27 U/L Normal 14-54 [facility] Comment on above: Performed By: #### . Manual Diff #### [address] [address] Anion gap [Moles/Vol] 13 mmol/L Normal 7-17 [facility] Comment on above: Performed By: #### . Manual Diff #### [address] [address] AST [Catalytic activity/Vol] 20 U/L Normal 15-41 [facility] Comment on above: Performed By: #### . Manual Diff #### [address] [address] Bili Total 0.4 mg/dL Normal 0.3-1.2 [facility] Comment on above: Performed By: #### . Manual Diff #### [address] [address] Calcium [Mass/Vol] 8.6 mg/dL Normal 8.5-10.3 [facility] Comment on above: Performed By: #### . Manual Diff #### [address] [address] Chloride [Moles/Vol] 104 mmol/L Normal 98-110 [facility] Comment on above: Performed By: #### . Manual Diff #### [address] [address] CO2 [Moles/Vol] 26 mmol/L Normal 22-32 [facility] Comment on above: Performed By: #### . Manual Diff #### [address] [address] Creatinine [Mass/Vol] 0.82 mg/dL Normal 0.44-1.03 [facility] Comment on above: Performed By: #### . Manual Diff #### [address] [address] Glucose [Mass/Vol] 175 mg/dL High 70-99 [facility] Comment on above: Performed By: #### . Manual Diff #### [address] [address] Potassium [Moles/Vol] 3.9 mmol/L Normal 3.4-4.8 [facility] Comment on above: Performed By: #### . Manual Diff #### [address] [address] Protein [Mass/Vol] 6.5 g/dL Normal 6.5-8.1 [facility] Comment on above: Performed By: #### . Manual Diff #### [address] [address] Sodium [Moles/Vol] 139 mmol/L Normal 133-142 [facility] Comment on above: Performed By: #### . Manual Diff #### [address] [address] Urea nitrogen [Mass/Vol] 25 mg/dL Normal 8-26 [facility] Comment on above: Performed By: #### . Manual Diff #### [address] [address] Urea nitrogen/Creatinine [Mass ratio] 30.5 mg/mg High 10.0-20.0 [facility] Comment on above: Performed By: #### . Manual Diff #### [address] [address] Diff Autoon 05-04-2023 Baso Absolute 0.0 x10*3/mcL Normal 0.0-0.2 [facility] Comment on above: Performed By: #### . Automated Diff #### [address] [address] Basophils/100 WBC (Bld) 0.0 % Normal 0.0-1.5 [facility] Comment on above: Performed By: #### . Automated Diff #### [address] [address] Eos Absolute 0.0 x10*3/mcL Normal 0.0-0.4 [facility] Comment on above: Performed By: #### . Automated Diff #### [address] [address] Eosinophils/100 WBC (Bld) 0.0 % Normal 0.0-5.4 [facility] Comment on above: Performed By: #### . Automated Diff #### [address] [address] Lymph Absolute 0.3 x10*3/mcL Low 1.0-4.8 [facility] Comment on above: Performed By: #### . Automated Diff #### [address] [address] Lymphocytes/100 WBC (Bld) 2.8 % Low 27.2-40.8 [facility] Comment on above: Performed By: #### . Automated Diff #### [address] [address] [place] Absolute 0.1 x10*3/mcL Normal 0.1-1.1 [facility] Comment on above: Performed By: #### . Automated Diff #### [address] [address] Monocytes/100 WBC (Bld) 0.9 % Low 3.7-11.9 [facility] Comment on above: Performed By: #### . Automated Diff #### [address] [address] Neutro Absolute 9.2 x10*3/mcL High 1.8-7.7 [facility] Comment on above: Performed By: #### . Automated Diff #### [address] [address] Neutro Auto 96.3 % High 47.2-70.8 [facility] Comment on above: Performed By: #### . Automated Diff #### [address] [address] Diff Rosemary 05-04-2023 Band form neutrophils/100 WBC (Bld) 2 % Normal 0-5 [facility] Comment on above: Performed By: #### . Manual Diff #### [address] [address] Basophils/100 WBC (Bld) 0 % Normal 0-3 [facility] Comment on above: Performed By: #### . Manual Diff #### [address] [address] Eosinophils/100 WBC (Bld) 0 % Normal 0-7 [facility] Comment on above: Performed By: #### . Manual Diff #### [address] [address] Lymphocytes/100 WBC (Bld) 3 % Low 14-42 [facility] Comment on above: Performed By: #### . Manual Diff #### [address] [address] Monocytes/100 WBC (Bld) 0 % Low 1-11 [facility] Comment on above: Performed By: #### . Manual Diff #### [address] [address] Platelet estimate Adequate Normal [facility] Comment on above: Performed By: #### . Manual Diff #### [address] [address] RBC morphology finding Nom (Bld) Normal Normal [facility] Comment on above: Performed By: #### . Manual Diff #### [address] [address] React Lymph Man 1 % Normal 0-5 [facility] [facility] Comment on above: Performed By: #### . Manual Diff #### [address] [address] Segs Man 94 % High 49-79 [facility] Comment on above: Performed By: #### . Manual Diff #### [address] [address] Inpatient Clinical Summary 05-04-2023 Inpatient Clinical Summary [address] [address] Clinical Summary Person Information Name: Dallas James Age: 48 Years : 1975 Sex: Female PCP: Andrea PATEL, Ward Sorensen Marital Status: Phone: PCP: [phone] Race: White Ethnicity: Not or Language: Ukrainian Visit Id: Visit Reason: Generalized pain; MS flare-up Speciality: Acuity: Enc Type: Inpatient Med Service: Emergency Medicine Arrival: 04/27/2023 19:54:00 Discharge: Dispo Type: Address: [place] [address] Diagnosis: 1:Multiple sclerosis exacerbation Discharged To: Home Treatments: Devices/Equipment: Professional Skilled Services: Special Services and Community Resources: Mode of Discharge Transportation: Discharge Orders Allergies fentaNYL (Headache) Toradol (Hives) Zofran (Hives) Protonix (Hives) (itchy) penicillin (Hives) SOLU-Medrol (hives) (Hives) iodinated radiocontrast dyes (Hives) Functional Status: Sensory Deficits: History of Falls: None Mobility Assistance Prior to Admission: ADLs: Independent Gait: Unable to assess Ambulation Assist: Assistive Device: Walker Special Orthopedic Devices: Current Level of Assistance for Self-Care/Mobility: Cognitive Status: Orientation: Orientation Assessment Oriented x 4 Level of Consciousness: Alert Characteristics of Speech: Clear Aspiration Risk: None Affect/Behavior: Appropriate, Calm, Cooperative Laboratory or Other Results This Visit (last charted value for your 04/27/2023 visit) Hematology 05/04/2023 4:30 AM WBC: 9.6 x10 RBC: 4.54 x10 Segs Man: 94 % -- Normal range between ( 49 and 79 ) Lymph Man: 3 % -- Normal range between ( 14 and 42 ) Neutro Auto: 96.3 % -- Normal range between ( 47.2 and 70.8 ) Lymph Auto: 2.8 % -- Normal range between ( 27.2 and 40.8 ) [place] Auto: 0.9 % -- Normal range between ( 3.7 and 11.9 ) Eos Auto: 0.0 % -- Normal range between ( 0.0 and 5.4 ) Basophil Auto: 0.0 % -- Normal range between ( 0.0 and 1.5 ) Monocyte Man: 0 % -- Normal range between ( 1 and 11 ) Eos Man: 0 % -- Normal range between ( 0 and 7 ) Basophil Man: 0 % -- Normal range between ( 0 and 3 ) Baso Absolute: 0.0 x10 MCV: 86.3 fL -- Normal range between ( 80.0 and 100.0 ) RBC Morph: Normal MCHC: 34.1 % -- Normal range between ( 31.0 and 37.0 ) Lymph Absolute: 0.3 x10 Hct: 39.2 % -- Normal range between ( 36.0 and 46.0 ) React Lymph Man: 1 % -- Normal range between ( 0 and 5 ) [place] Absolute: 0.1 x10 MCH: 29.5 pg -- Normal range between ( 27.0 and 35.0 ) Neutro Absolute: 9.2 x10 Hgb: 13.4 g/dL -- Normal range between ( 12.0 and 16.0 ) Mean Platelet Volume: 8.3 fL -- Normal range between ( 6.7 and 10.6 ) Band Man: 2 % -- Normal range between ( 0 and 5 ) Platelet: 271 x10 Eos Absolute: 0.0 x10 RDW: 13.4 % -- Normal range between ( 11.6 and 14.8 ) Platelet estimate: Adequate Urinalysis 04/27/2023 10:32 PM UA Color: Colorless UA Urobilinogen: Normal mg/dL UA Bili: Negative UA Ketones: Negative mg/dL UA Leukocyte Esterase: Negative UA Nitrite: Negative UA Glucose: Normal mg/dL UA Protein: Negative mg/dL UA Blood: Negative UA Spec Grav: 1.016 -- Normal range between ( 1.003 and 1.035 ) UA pH: 6.5 UA Clarity: Clear UA Source: Clean Catch UA Mucus: Present /LPF UA WBC Quant: 1 /HPF -- Normal range between ( 0 and 5 ) UA RBC Quant: 0 /HPF -- Normal range between ( 0 and 5 ) UA Squepi Cells Quant: 4 /HPF -- Normal range between ( 0 and 29 ) Chemistry 05/04/2023 4:30 AM Creatinine Lvl: 0.82 mg/dL -- Normal range between ( 0.44 and 1.03 ) BUN: 25 mg/dL -- Normal range between ( 8 and 26 ) Glucose Lvl: 175 mg/dL -- Normal range between ( 70 and 99 ) Potassium Lvl: 3.9 mmol/L -- Normal range between ( 3.4 and 4.8 ) AST: 20 IU/L -- Normal range between ( 15 and 41 ) ALT: 27 IU/L -- Normal range between ( 14 and 54 ) Sodium Lvl: 139 mmol/L -- Normal range between ( 133 and 142 ) Calcium Lvl: 8.6 mg/dL -- Normal range between ( 8.5 and 10.3 ) Albumin Lvl: 3.3 g/dL -- Normal range between ( 3.2 and 4.9 ) Total Protein: 6.5 g/dL -- Normal range between ( 6.5 and 8.1 ) Bili Total: 0.4 mg/dL -- Normal range between ( 0.3 and 1.2 ) Alk Phos: 72 IU/L -- Normal range between ( 32 and 91 ) Chloride: 104 mmol/L -- Normal range between ( 98 and 110 ) CO2: 26 mmol/L -- Normal range between ( 22 and 32 ) Anion Gap: 13 -- Normal range between ( 7 and 17 ) Estimated GFR: >60 mL/min/1.73m? BUN Crea Ratio: 30.5 -- Normal range between ( 10.0 and 20.0 ) AG Ratio: 1.0 -- Normal range between ( 1.1 and 2.2 ) 04/27/2023 9:44 PM CRP: 0.22 mg/dL -- Normal range between ( 0.00 and 0.75 ) Phosphorus: 3.6 mg/dL -- Normal range between ( 2.5 and 4.6 ) Magnesium Lvl: 2.0 mg/dL -- Normal range between ( 1.7 and 2.4 ) Molecular 10 (more content not included)... Normal [facility] Progress Note-Nurseon 2022 Progress Note-Nurse PT refused MRI while down in MRI because PT wanted different medication. Radha was notified as well as the hospitalist by RN. They both decided she could be discharged and follow up with Radha outpatient and have the MRI done outpatient. PT stated I am calling Radha's office myself, this is bull shit, I am not going home with no answers about my brain. Radha and hospitalist were contacted a second time by RN. RN was told to go ahead and discharge PT. RN went over discharge papers with PT and was going to discontinue lines, PT stated NO! you are not taking my lines out until I talk to Radha, it may need one to stay in until tomorrow. PT got on her personal phone to call Radha. RN notified Hospitalist of the situation. Electronically signed by Mee Casillas Carlo 05/04/23 12:26 EDT Normal [facility] .eGFRon 05-03-2023 GFR/1.73 sq M.predicted MDRD (S/P/Bld) [Vol rate/Area] mL/min/{1.73_m2} Normal >=60 [facility] Comment on above: Result Comment: [facility] have implemented the eGFR calculation approach that does not have a coefficient for race and that conforms to the NKF-ASN Task Force Recommendations. Stages of Chronic Kidney Disease GFR Stage 3a Mild to moderate loss of kidney function 59 to 45 Stage 3b Moderate to severe loss of kidney function 44 to 33 Stage 4 Severe loss of kidney function 29 to 15 Stage 5 Kidney failure Less than 15 GFR calculated using the CKD-Epi Creatinine Equation (2020): eGFR = 142 X min(SCr/?, 1)? X max(SCr /?, 1)-1.200 X 0.9938Age X 1.012 [if female] Abbreviations/Units: eGFR (estimated glomerular filtration rate) = mL/min/1.73 m2 SCr (standardized serum creatinine) = mg/dL ? = 0.7 (females) or 0.9 (males) ? = -0.241 (females) or -0.302 (males) min = indicates the minimum of SCr/? or 1 max = indicates the maximum of SCr/? or 1 Age = years Performed By: #### E GFR ####[facility] [place] [address] CBC w/ Diffon 05-03-2023 Erythrocyte distribution width (RBC) [Ratio] 13.5 % Normal 11.6-14.8 [facility] Comment on above: Performed By: #### M G #### [facility] [address] [place] [address] Hematocrit (Bld) [Volume fraction] 39.6 % Normal 36.0-46.0 [facility] Comment on above: Performed By: #### M G #### [address] [address] Hemoglobin (Bld) [Mass/Vol] 13.8 g/dL Normal 12.0-16.0 [facility] Comment on above: Performed By: #### M G #### [address] [address] MCH (RBC) [Entitic mass] 30.0 pg Normal 27.0-35.0 [facility] Comment on above: Performed By: #### M G #### [address] [address] MCHC 34.8 % Normal 31.0-37.0 [facility] Comment on above: Performed By: #### M G #### [address] [address] MCV (RBC) [Entitic vol] 86.2 fL Normal 80.0-100.0 [facility] Comment on above: Performed By: #### M G #### [address] [address] Platelet 267 x10*3/mcL Normal 150-450 [facility] Comment on above: Performed By: #### M G #### [address] [address] Platelet mean volume (Bld) [Entitic vol] 8.5 fL Normal 6.7-10.6 [facility] Comment on above: Performed By: #### M G #### [address] [address] RBC 4.60 x10*6/mcL Normal 3.80-5.20 [facility] Comment on above: Performed By: #### M G #### [address] [address] WBC 8.3 x10*3/mcL Normal 4.5-11.0 [facility] Comment on above: Performed By: #### M G #### [address] [address] CMPon 05-03-2023 Albumin [Mass/Vol] 3.3 g/dL Normal 3.2-4.9 [facility] Comment on above: Performed By: #### . Manual Diff #### [address] [address] Albumin/Globulin [Mass ratio] 1.0 {ratio} Low 1.1-2.2 [facility] Comment on above: Performed By: #### . Manual Diff #### [address] [address] Alk Phos 62 IU/L Normal 32-91 [facility] Comment on above: Performed By: #### . Manual Diff #### [address] [address] ALT [Catalytic activity/Vol] 24 U/L Normal 14-54 [facility] Comment on above: Performed By: #### . Manual Diff #### [address] [address] Anion gap [Moles/Vol] 12 mmol/L Normal 7-17 [facility] Comment on above: Performed By: #### . Manual Diff #### [address] [address] AST [Catalytic activity/Vol] 23 U/L Normal 15-41 [facility] Comment on above: Performed By: #### . Manual Diff #### [address] [address] Bili Total 0.5 mg/dL Normal 0.3-1.2 [facility] Comment on above: Performed By: #### . Manual Diff #### [address] [address] Calcium [Mass/Vol] 8.4 mg/dL Low 8.5-10.3 [facility] Comment on above: Performed By: #### . Manual Diff #### [address] [address] Chloride [Moles/Vol] 102 mmol/L Normal 98-110 [facility] Comment on above: Performed By: #### . Manual Diff #### [address] [address] CO2 [Moles/Vol] 27 mmol/L Normal 22-32 [facility] Comment on above: Performed By: #### . Manual Diff #### [address] [address] Creatinine [Mass/Vol] 0.65 mg/dL Normal 0.44-1.03 [facility] Comment on above: Performed By: #### . Manual Diff #### [address] [address] Glucose [Mass/Vol] 126 mg/dL High 70-99 [facility] Comment on above: Performed By: #### . Manual Diff #### [address] [address] Potassium [Moles/Vol] 3.7 mmol/L Normal 3.4-4.8 [facility] Comment on above: Performed By: #### . Manual Diff #### [address] [address] Protein [Mass/Vol] 6.5 g/dL Normal 6.5-8.1 [facility] Comment on above: Performed By: #### . Manual Diff #### [address] [address] Sodium [Moles/Vol] 137 mmol/L Normal 133-142 [facility] Comment on above: Performed By: #### . Manual Diff #### [address] [address] Urea nitrogen [Mass/Vol] 20 mg/dL Normal 8-26 [facility] Comment on above: Performed By: #### . Manual Diff #### [address] [address] Urea nitrogen/Creatinine [Mass ratio] 30.8 mg/mg High 10.0-20.0 [facility] Comment on above: Performed By: #### . Manual Diff #### [address] [address] Diff Autoon 05-03-2023 Baso Absolute 0.0 x10*3/mcL Normal 0.0-0.2 [facility] Comment on above: Performed By: #### . Automated Diff #### [address] [address] Basophils/100 WBC (Bld) 0.1 % Normal 0.0-1.5 [facility] Comment on above: Performed By: #### . Automated Diff #### [address] [address] Eos Absolute 0.0 x10*3/mcL Normal 0.0-0.4 [facility] Comment on above: Performed By: #### . Automated Diff #### [address] [address] Eosinophils/100 WBC (Bld) 0.0 % Normal 0.0-5.4 [facility] Comment on above: Performed By: #### . Automated Diff #### [address] [address] Lymph Absolute 0.4 x10*3/mcL Low 1.0-4.8 [facility] Comment on above: Performed By: #### . Automated Diff #### [address] [address] Lymphocytes/100 WBC (Bld) 5.3 % Low 27.2-40.8 [facility] Comment on above: Performed By: #### . Automated Diff #### [address] [address] [place] Absolute 0.1 x10*3/mcL Normal 0.1-1.1 [facility] Comment on above: Performed By: #### . Automated Diff #### [address] [address] Monocytes/100 WBC (Bld) 1.4 % Low 3.7-11.9 [facility] Comment on above: Performed By: #### . Automated Diff #### [facility] [address] [place] [address] Neutro Absolute 7.7 x10*3/mcL Normal 1.8-7.7 [facility] Comment on above: Performed By: #### . Automated Diff #### [facility] [address] [place] [address] Neutro Auto 93.2 % High 47.2-70.8 [facility] Comment on above: Performed By: #### . Automated Diff #### [address] [place] [address] Neurology Progress Noteon Neurology Progress Note Subjective Patient is still concerned about her facial symptoms. Subsequently she will be scheduled for follow-up brain MRI without and with contrast she will need Ativan 2 mg IV as well as promethazine 50 mg IV before procedure. She will require 1 more dose of IV Solu-Medrol tonight Review of Systems Constitutional: [No fevers, chills, sweats] Eye: [No recent visual problems] ENMT: [No ear pain, nasal congestion, sore throat] Respiratory: [No shortness of breath, cough] Cardiovascular: [No Chest pain, palpitations, syncope] Gastrointestinal: [No nausea, vomiting, diarrhea] Genitourinary: [No hematuria] Objective Vitals & Measurements T: 36.6 ?C (Oral) HR: 80 (Peripheral) RR: 18 BP: 138/81 SpO2: 95% HT: 169 cm WT: 73.8 kg BMI: 24.26 Additional Vitals No qualifying data available. Lab Results Test Name Test Result Date/Time WBC 8.3 x10 Hgb 13.8 g/dL 05/03/2023 04:20 EDT Hct 39.6 % 05/03/2023 04:20 EDT Platelet 267 x10 Sodium Lvl 137 mmol/L 05/03/2023 04:20 EDT Potassium Lvl 3.7 mmol/L 05/03/2023 04:20 EDT Chloride 102 mmol/L 05/03/2023 04:20 EDT CO2 27 mmol/L 05/03/2023 04:20 EDT Glucose Lvl 126 mg/dL (High) 05/03/2023 04:20 EDT BUN 20 mg/dL 05/03/2023 04:20 EDT Creatinine Lvl 0.65 mg/dL 05/03/2023 04:20 EDT Bili Total 0.5 mg/dL 05/03/2023 04:20 EDT Alk Phos 62 IU/L 05/03/2023 04:20 EDT AST 23 IU/L 05/03/2023 04:20 EDT ALT 24 IU/L 05/03/2023 04:20 EDT Microbiology - Current Encounter No qualifying data available. Diagnostic Results Computed Tomography CT Angio Chest w/ Contrast 05/01/23 17:13:38 IMPRESSION: Negative exam. No pulmonary embolism or any acute cardiopulmonary abnormality demonstrated. Signed By: Neymar Lund MD Physical Exam Alert oriented x3 normal speech no weakness cranial nerves II through XII normal motor strength is 5 MRC for the upper extremities right leg 4 MRC left leg little effort and lifting it up Medications Inpatient acetaminophen, 650 mg, Oral, q6hr, PRN acetaminophen, 650 mg, Oral, q6hr, PRN amLODIPine, 10 mg, Oral, qAM Ativan, 1 mg= 0.5 mL, IV Push, q8hr Ativan, 0.5 mg= 0.25 mL, IV Push, BID, PRN Benadryl, 25 mg= 0.5 mL, IV Push, q4hr, PRN Dilaudid, 1 mg= 1 mL, IV Push, q4hr, PRN DULoxetine, 30 mg, Oral, BID enoxaparin, 40 mg= 0.4 mL, Subcutaneous, Daily LORazepam, 2 mg= 1 mL, IV Push, Once Lyrica, 150 mg, Oral, TID methylPREDNISolone, 1000 mg, IV Push, Once naloxone, 0.4 mg= 1 mL, IV Push, q2min, PRN nicotine 10 mg inhalation device, 10 mg= 1 inh, Inhale, q1hr, PRN Normal Saline Flush 0.9% injectable solution, 10 mL, IV Push, As Indicated, PRN Normal Saline Flush 0.9% injectable solution, 10 mL, IV Push, BID oxyCODONE-acetaminophe n 10 mg-325 mg oral tablet, 1 tabs, Oral, QID, PRN ozanimod (Zeposia) 0.92mg caps, 0.92 mg= 1 caps, Oral, Daily Premarin, 0.625 mg, Oral, qAM traMADol, 50 mg, Oral, QID, PRN Assessment/Plan 1. Multiple sclerosis exacerbation IV Solu-Medrol 1 g tonight MRI of brain without and with contrast ordered will require promethazine 50 mg IV and Ativan 2 mg IV before MRI Orders: DULoxetine, 30 mg, Oral, Cap-DR, BID, First Dose: 05/02/23 21:00:00 EDT, Dispense From Location: [id number], 05/02/23 19:48:00 EDT LORazepam, 2 mg, IV Push, Injection, Once, First Dose: 05/03/23 18:16:00 EDT, Stop Date: 05/03/23 18:16:00 EDT, Dispense From Location: [id number], 05/03/23 18:16:00 EDT methylPREDNISolone, 1,000 mg, IV Push, Injection, Once, First Dose: 05/03/23 18:15:00 EDT, Stop Date: 05/03/23 18:15:00 EDT, 05/03/23 18:15:00 EDT MRI Brain w/ + w/o Contrast Electronically signed by Filippo Garcia MD 05/03/23 18:23 EDT Normal [facility] .eGFRon 05-02-2023 GFR/1.73 sq M.predicted MDRD (S/P/Bld) [Vol rate/Area] mL/min/{1.73_m2} Normal >=60 [facility] Comment on above: Result Comment: [facility] have implemented the eGFR calculation approach that does not have a coefficient for race and that conforms to the NKF-ASN Task Force Recommendations. Stages of Chronic Kidney Disease GFR Stage 3a Mild to moderate loss of kidney function 59 to 45 Stage 3b Moderate to severe loss of kidney function 44 to 33 Stage 4 Severe loss of kidney function 29 to 15 Stage 5 Kidney failure Less than 15 GFR calculated using the CKD-Epi Creatinine Equation (2020): eGFR = 142 X min(SCr/?, 1)? X max(SCr /?, 1)-1.200 X 0.9938Age X 1.012 [if female] Abbreviations/Units: eGFR (estimated glomerular filtration rate) = mL/min/1.73 m2 SCr (standardized serum creatinine) = mg/dL ? = 0.7 (females) or 0.9 (males) ? = -0.241 (females) or -0.302 (males) min = indicates the minimum of SCr/? or 1 max = indicates the maximum of SCr/? or 1 Age = years Performed By: #### . Manual Diff #### [place] [address] CBC w/ Diffon 05-02-2023 Erythrocyte distribution width (RBC) [Ratio] 13.6 % Normal 11.6-14.8 [facility] Comment on above: Performed By: #### C OMP #### [place] [id number] Hematocrit (Bld) [Volume fraction] 38.3 % Normal 36.0-46.0 [facility] Comment on above: Performed By: #### C OMP #### [place] [id number] Hemoglobin (Bld) [Mass/Vol] 12.8 g/dL Normal 12.0-16.0 [facility] Comment on above: Performed By: #### C OMP #### [address] [address] MCH (RBC) [Entitic mass] 29.0 pg Normal 27.0-35.0 [facility] Comment on above: Performed By: #### C OMP #### [address] [address] MCHC 33.4 % Normal 31.0-37.0 [facility] Comment on above: Performed By: #### C OMP #### [address] [address] MCV (RBC) [Entitic vol] 86.7 fL Normal 80.0-100.0 [facility] Comment on above: Performed By: #### C OMP #### [address] [address] Platelet 226 x10*3/mcL Normal 150-450 [facility] Comment on above: Performed By: #### C OMP #### [address] [address] Platelet mean volume (Bld) [Entitic vol] 8.5 fL Normal 6.7-10.6 [facility] Comment on above: Performed By: #### C OMP #### [address] [address] RBC 4.42 x10*6/mcL Normal 3.80-5.20 [facility] Comment on above: Performed By: #### C OMP #### [address] [address] WBC 11.3 x10*3/mcL High 4.5-11.0 [facility] Comment on above: Performed By: #### C OMP #### [address] [address] CMPon 05-02-2023 Albumin [Mass/Vol] 3.2 g/dL Normal 3.2-4.9 [facility] Comment on above: Performed By: #### C OMP #### [address] [address] Albumin/Globulin [Mass ratio] 1.1 {ratio} Normal 1.1-2.2 [facility] Comment on above: Performed By: #### C OMP #### [address] [address] Alk Phos 54 IU/L Normal 32-91 [facility] Comment on above: Performed By: #### C OMP #### [address] [address] ALT [Catalytic activity/Vol] 21 U/L Normal 14-54 [facility] Comment on above: Performed By: #### C OMP #### [address] [address] Anion gap [Moles/Vol] 11 mmol/L Normal 7-17 [facility] Comment on above: Performed By: #### C OMP #### [address] [address] AST [Catalytic activity/Vol] 22 U/L Normal 15-41 [facility] Comment on above: Performed By: #### C OMP #### [address] [address] Bili Total 0.7 mg/dL Normal 0.3-1.2 [facility] Comment on above: Performed By: #### C OMP #### [address] [address] Calcium [Mass/Vol] 8.5 mg/dL Normal 8.5-10.3 [facility] Comment on above: Performed By: #### C OMP #### [address] [address] Chloride [Moles/Vol] 105 mmol/L Normal 98-110 [facility] Comment on above: Performed By: #### C OMP #### [address] [address] CO2 [Moles/Vol] 26 mmol/L Normal 22-32 [facility] Comment on above: Performed By: #### C OMP #### [address] [address] Creatinine [Mass/Vol] 0.53 mg/dL Normal 0.44-1.03 [facility] Comment on above: Performed By: #### C OMP #### [address] [place] [address] Glucose [Mass/Vol] 82 mg/dL Normal 70-99 [facility] Comment on above: Performed By: #### C OMP #### [address] [address] Potassium [Moles/Vol] 3.7 mmol/L Normal 3.4-4.8 [facility] Comment on above: Performed By: #### C OMP #### [address] [address] Protein [Mass/Vol] 6.2 g/dL Low 6.5-8.1 [facility] Comment on above: Performed By: #### C OMP #### [address] [address] Sodium [Moles/Vol] 138 mmol/L Normal 133-142 [facility] Comment on above: Performed By: #### C OMP #### [address] [address] Urea nitrogen [Mass/Vol] 17 mg/dL Normal 8-26 [facility] Comment on above: Performed By: #### C OMP #### [address] [address] Urea nitrogen/Creatinine [Mass ratio] 32.1 mg/mg High 10.0-20.0 [facility] Comment on above: Performed By: #### C OMP #### [address] [address] Diff Autoon 05-02-2023 Baso Absolute 0.0 x10*3/mcL Normal 0.0-0.2 [facility] Comment on above: Performed By: #### . Automated Diff #### [address] [address] Basophils/100 WBC (Bld) 0.4 % Normal 0.0-1.5 [facility] Comment on above: Performed By: #### . Automated Diff #### [address] [address] Eos Absolute 0.2 x10*3/mcL Normal 0.0-0.4 [facility] Comment on above: Performed By: #### . Automated Diff #### [address] [address] Eosinophils/100 WBC (Bld) 1.4 % Normal 0.0-5.4 [facility] Comment on above: Performed By: #### . Automated Diff #### [address] [address] Lymph Absolute 2.1 x10*3/mcL Normal 1.0-4.8 [facility] Comment on above: Performed By: #### . Automated Diff #### [address] [address] Lymphocytes/100 WBC (Bld) 18.6 % Low 27.2-40.8 [facility] Comment on above: Performed By: #### . Automated Diff #### [address] [address] [place] Absolute 0.8 x10*3/mcL Normal 0.1-1.1 [facility] Comment on above: Performed By: #### . Automated Diff #### [address] [address] Monocytes/100 WBC (Bld) 7.3 % Normal 3.7-11.9 [facility] Comment on above: Performed By: #### . Automated Diff #### [address] [address] Neutro Absolute 8.2 x10*3/mcL High 1.8-7.7 [facility] Comment on above: Performed By: #### . Automated Diff #### [address] [address] Neutro Auto 72.3 % High 47.2-70.8 [facility] Comment on above: Performed By: #### . Automated Diff #### [address] [address] Diff [facility] 05-02-2023 Band form neutrophils/100 WBC (Bld) 0 % Normal 0-5 [facility] Comment on above: Performed By: #### . Manual Diff #### [address] [address] Basophils/100 WBC (Bld) 0 % Normal 0-3 [facility] Comment on above: Performed By: #### . Manual Diff #### [address] [address] Eosinophils/100 WBC (Bld) 0 % Normal 0-7 [facility] Comment on above: Performed By: #### . Manual Diff #### [address] [address] Lymphocytes/100 WBC (Bld) 21 % Normal 14-42 [facility] Comment on above: Performed By: #### . Manual Diff #### [address] [address] Monocytes/100 WBC (Bld) 8 % Normal 1-11 [facility] Comment on above: Performed By: #### . Manual Diff #### [address] [address] Platelet estimate Adequate Normal [facility] Comment on above: Performed By: #### . Manual Diff #### [address] [address] RBC morphology finding Nom (Bld) Normal Normal [facility] Comment on above: Performed By: #### . Manual Diff #### [address] [address] Segs Man 71 % Normal 49-79 [facility] Comment on above: Performed By: #### . Manual Diff #### [address] [address] Neurology Progress Noteon Neurology Progress Note Subjective Experiencing depression which makes her nerve pain worse still weakness in left leg she had a CT angiogram of the chest last night which was normal she does have a midline placed has very poor venous access. She is agreeable to starting duloxetine Review of Systems Constitutional: [No fevers, chills, sweats] Eye: [No recent visual problems] ENMT: [No ear pain, nasal congestion, sore throat] Respiratory: [No shortness of breath, cough] Cardiovascular: [No Chest pain, palpitations, syncope] Gastrointestinal: [No nausea, vomiting, diarrhea] Genitourinary: [No hematuria] Objective Vitals & Measurements T: 36.6 ?C (Oral) HR: 73 (Peripheral) RR: 18 BP: 113/76 SpO2: 98% HT: 169 cm WT: 73.4 kg BMI: 24.26 Additional Vitals No qualifying data available. Lab Results Microbiology - Current Encounter No qualifying data available. Diagnostic Results Computed Tomography CT Angio Chest w/ Contrast 05/01/23 17:13:38 IMPRESSION: Negative exam. No pulmonary embolism or any acute cardiopulmonary abnormality demonstrated. Signed By: Neymar Lund MD Physical Exam Alert tearful cranial nerves II through XII are symmetric motor strength is normal for both upper extremities able to lift right leg off the bed fairly easy does not make much effort to lift up left leg no new deficits Medications Inpatient acetaminophen, 650 mg, Oral, q6hr, PRN acetaminophen, 650 mg, Oral, q6hr, PRN amLODIPine, 10 mg, Oral, qAM Ativan, 1 mg= 0.5 mL, IV Push, q8hr Ativan, 0.5 mg= 0.25 mL, IV Push, BID, PRN Benadryl, 25 mg= 0.5 mL, IV Push, q4hr, PRN Dilaudid, 1 mg= 1 mL, IV Push, q4hr, PRN DULoxetine, 30 mg, Oral, BID enoxaparin, 40 mg= 0.4 mL, Subcutaneous, Daily Lyrica, 150 mg, Oral, TID naloxone, 0.4 mg= 1 mL, IV Push, q2min, PRN nicotine 10 mg inhalation device, 10 mg= 1 inh, Inhale, q1hr, PRN Normal Saline Flush 0.9% injectable solution, 10 mL, IV Push, As Indicated, PRN Normal Saline Flush 0.9% injectable solution, 10 mL, IV Push, BID oxyCODONE-acetaminophe n 10 mg-325 mg oral tablet, 1 tabs, Oral, QID, PRN ozanimod (Zeposia) 0.92mg caps, 0.92 mg= 1 caps, Oral, Daily Premarin, 0.625 mg, Oral, qAM traMADol, 50 mg, Oral, QID, PRN Assessment/Plan 1. Multiple sclerosis exacerbation She was started on Cymbalta 30 mg twice a day to help with nerve pain as well as depression Orders: DULoxetine, 30 mg, Oral, Cap-DR, BID, First Dose: 05/02/23 21:00:00 EDT, Dispense From Location: [address], 05/02/23 19:48:00 EDT Central Venous Line Care Measure Circumference Nurse PICC Insertion Patient Education Electronically signed by Filippo Garcia MD 05/02/23 19:50 EDT Normal [facility] VL Extremity Venous Duplex U pper Lefton 05-02-2023 VL Extremity Venous Duplex Upper Left Preliminary Technologist Report A left upper extremity venous study was performed. Appeared to be a normal venous study of the visualized veins of the left upper extremity. No evidence of acute or chronic DVT. Limited visualization of the radial and ulnar arteries due to IV and distal bandaging but appeared to be patent from proximal to mid. Limited visualization of the basilic and cephalic veins due to small vessel size but appeared to be patent. Normal comparative of the right subclavian vein. Preliminary results were called to Yue HIDALGO on 6th floor at 07:50. Pumper Head: Nina Booker RVT Radiologist Report CLINICAL HISTORY: Left arm swelling. EXAMINATION: Real-time sonogram of the left upper extremity was performed and supplemented with compression, augmentation and color flow Doppler. There is no prior study available for comparison. FINDINGS: Deep Veins: No thrombus. Compression and augmentation: Normal. Venous blood flow: Normal phasic flow. Superficial Veins: No thrombus. Varicosities: None. Collaterals: Unremarkable. Other: Unremarkable. CONCLUSIONS: No evidence of deep venous thrombosis. Final Signed by: Vishal Coreas MD Signed (Electronic Signature): 05.02.2023 4:43 pm Transcribed by: Nina Booker Transcribed DT/TM: 05.02.2023 10:46 (If Report is Signed, Electronically Signed in Other Vendor System) Normal [facility] .eGFRon 05-01-2023 GFR/1.73 sq M.predicted MDRD (S/P/Bld) [Vol rate/Area] mL/min/{1.73_m2} Normal >=60 [facility] Comment on above: Result Comment: [facility] have implemented the eGFR calculation approach that does not have a coefficient for race and that conforms to the NKF-ASN Task Force Recommendations. Stages of Chronic Kidney Disease GFR Stage 3a Mild to moderate loss of kidney function 59 to 45 Stage 3b Moderate to severe loss of kidney function 44 to 33 Stage 4 Severe loss of kidney function 29 to 15 Stage 5 Kidney failure Less than 15 GFR calculated using the CKD-Epi Creatinine Equation (2020): eGFR = 142 X min(SCr/?, 1)? X max(SCr /?, 1)-1.200 X 0.9938Age X 1.012 [if female] Abbreviations/Units: eGFR (estimated glomerular filtration rate) = mL/min/1.73 m2 SCr (standardized serum creatinine) = mg/dL ? = 0.7 (females) or 0.9 (males) ? = -0.241 (females) or -0.302 (males) min = indicates the minimum of SCr/? or 1 max = indicates the maximum of SCr/? or 1 Age = years Performed By: #### . Automated Diff #### [place] [address] CBC w/ Diffon 05-01-2023 Erythrocyte distribution width (RBC) [Ratio] 13.7 % Normal 11.6-14.8 [facility] Comment on above: Performed By: #### . Manual Diff #### [place] [address] Hematocrit (Bld) [Volume fraction] 37.0 % Normal 36.0-46.0 [facility] Comment on above: Performed By: #### . Manual Diff #### [place] [id number] Hemoglobin (Bld) [Mass/Vol] 12.7 g/dL Normal 12.0-16.0 [facility] Comment on above: Performed By: #### . Manual Diff #### [place] [id number] MCH (RBC) [Entitic mass] 30.0 pg Normal 27.0-35.0 [facility] Comment on above: Performed By: #### . Manual Diff #### [place] [address] MCHC 34.3 % Normal 31.0-37.0 [facility] Comment on above: Performed By: #### . Manual Diff #### [place] [address] MCV (RBC) [Entitic vol] 87.7 fL Normal 80.0-100.0 [facility] Comment on above: Performed By: #### . Manual Diff #### [place] [address] Platelet 203 x10*3/mcL Normal 150-450 [facility] Comment on above: Performed By: #### . Manual Diff #### [place] [address] Platelet mean volume (Bld) [Entitic vol] 8.7 fL Normal 6.7-10.6 [facility] Comment on above: Performed By: #### . Manual Diff #### [place] [address] RBC 4.22 x10*6/mcL Normal 3.80-5.20 [facility] Comment on above: Performed By: #### . Manual Diff #### [place] [address] WBC 12.5 x10*3/mcL High 4.5-11.0 [facility] Comment on above: Performed By: #### . Manual Diff #### [place] [address] CMPon 05-01-2023 Albumin [Mass/Vol] 3.5 g/dL Normal 3.2-4.9 [facility] Comment on above: Performed By: #### C BCI #### [place] [address] Albumin/Globulin [Mass ratio] 1.1 {ratio} Normal 1.1-2.2 [facility] Comment on above: Performed By: #### C BCI #### [address] [address] Alk Phos 59 IU/L Normal 32-91 [facility] Comment on above: Performed By: #### C BCI #### [address] [place] [address] ALT [Catalytic activity/Vol] 34 U/L Normal 14-54 [facility] Comment on above: Performed By: #### C BCI #### [address] [address] Anion gap [Moles/Vol] 13 mmol/L Normal 7-17 [facility] Comment on above: Performed By: #### C BCI #### [address] [address] AST [Catalytic activity/Vol] 28 U/L Normal 15-41 [facility] Comment on above: Performed By: #### C BCI #### [address] [place] [address] Bili Total 0.4 mg/dL Normal 0.3-1.2 [facility] Comment on above: Performed By: #### C BCI #### [address] [address] Calcium [Mass/Vol] 8.9 mg/dL Normal 8.5-10.3 [facility] Comment on above: Performed By: #### C BCI #### [address] [place] [address] Chloride [Moles/Vol] 108 mmol/L Normal 98-110 [facility] Comment on above: Performed By: #### C BCI #### [address] [place] [address] CO2 [Moles/Vol] 25 mmol/L Normal 22-32 [facility] Comment on above: Performed By: #### C BCI #### [address] [address] Creatinine [Mass/Vol] 0.75 mg/dL Normal 0.44-1.03 [facility] Comment on above: Performed By: #### C BCI #### [address] [address] Glucose [Mass/Vol] 137 mg/dL High 70-99 [facility] Comment on above: Performed By: #### C BCI #### [address] [address] Potassium [Moles/Vol] 3.7 mmol/L Normal 3.4-4.8 [facility] Comment on above: Performed By: #### C BCI #### [address] [address] Protein [Mass/Vol] 6.7 g/dL Normal 6.5-8.1 [facility] Comment on above: Performed By: #### C BCI #### [address] [address] Sodium [Moles/Vol] 142 mmol/L Normal 133-142 [facility] Comment on above: Performed By: #### C BCI #### [address] [address] Urea nitrogen [Mass/Vol] 22 mg/dL Normal 8-26 [facility] Comment on above: Performed By: #### C BCI #### [address] [address] Urea nitrogen/Creatinine [Mass ratio] 29.3 mg/mg High 10.0-20.0 [facility] Comment on above: Performed By: #### C BCI #### [address] [address] [address] Angio Chest w/ Contraston 05-01-2023 CT Angio Chest w/ Contrast EXAM: CT Angio Chest w/ Contrast; [id number] REASON FOR EXAM: Other (please specify), Pulmonary embolism (PE) suspected, unknown D-dimer TECHNIQUE: Helical CT images of the chest were obtained after the administration of IV contrast. Multiplanar reformats and maximum intensity projection images were created at the scanner. Dose reduction technique used: Automated exposure control and/or adjustment of the mA and/or kV according to patient size and/or use of iterative reconstruction technique. COMPARISON: None. FINDINGS: Technical quality: Good. Chest: Support devices: None. Visualized Thyroid: No nodules. Chest wall: Within normal limits. Sammie/mediastinum/esoph beka: No mass. Thoracic lymph nodes: No enlarged supraclavicular, mediastinal, hilar or axillary lymph nodes. Heart and vasculature: -No pulmonary artery filling defect to suggest pulmonary embolism. -No pericardial effusion or aortic aneurysm. Visualized portions of the upper abdomen: Within normal limits. Musculoskeletal: No acute abnormality or suspicious osseous lesion. Lungs/airways: -No significant nodule or infiltrate. -The central airways are patent. Pleura: No pleural effusion or pneumothorax. IMPRESSION: Negative exam. No pulmonary embolism or any acute cardiopulmonary abnormality demonstrated. Radiation Dose Estimate: CTDI(mGy):0.377764 / / / kVp:120.611679 / mAs:0.945476 / / / DLP(mGy-cm):2.261849Bl dy Part: Abdomen CTDI(mGy):2.363147 / / / kVp:120.383211 / mAs:39.056240 / / / DLP(mGy-cm):2.207840Mr dy Part: Abdomen CTDI(mGy):23.383306 / / / kVp:120.622036 / mAs:39.361554 / / / DLP(mGy-cm):23.626042E jose juan Part: Abdomen CTDI(mGy):4.190349 / / / kVp:100.121416 / mAs:129.468709 / / / DLP(mGy-cm):127.930274 Body Part: Abdomen Final Dictated by: Neymar Lund MD Dictated DT/TM: 05.01.2023 5:10 pm Signed by: Neymar Lund MD Signed (Electronic Signature): 05.01.2023 5:13 pm (If Report Is Signed, Electronically Signed in Other Vendor System) Normal [facility] Diff Autoon 05-01-2023 Baso Absolute 0.0 x10*3/mcL Normal 0.0-0.2 [facility] Comment on above: Performed By: #### . Manual Diff #### [address] [address] Basophils/100 WBC (Bld) 0.2 % Normal 0.0-1.5 [facility] Comment on above: Performed By: #### . Manual Diff #### [address] [address] Eos Absolute 0.0 x10*3/mcL Normal 0.0-0.4 [facility] Comment on above: Performed By: #### . Manual Diff #### [address] [address] Eosinophils/100 WBC (Bld) 0.0 % Normal 0.0-5.4 [facility] Comment on above: Performed By: #### . Manual Diff #### [address] [address] Lymph Absolute 0.5 x10*3/mcL Low 1.0-4.8 [facility] Comment on above: Performed By: #### . Manual Diff #### [address] [address] Lymphocytes/100 WBC (Bld) 4.2 % Low 27.2-40.8 [facility] Comment on above: Performed By: #### . Manual Diff #### [address] [address] [place] Absolute 0.2 x10*3/mcL Normal 0.1-1.1 [facility] Comment on above: Performed By: #### . Manual Diff #### [address] [address] Monocytes/100 WBC (Bld) 1.2 % Low 3.7-11.9 [facility] Comment on above: Performed By: #### . Manual Diff #### [address] [address] Neutro Absolute 11.8 x10*3/mcL High 1.8-7.7 [facility] Comment on above: Performed By: #### . Manual Diff #### [facility] [address] [place] [address] Neutro Auto 94.4 % High 47.2-70.8 [facility] Comment on above: Performed By: #### . Manual Diff #### [facility] [address] [place] [address] Neurology Progress Noteon Neurology Progress Note Subjective Continues to have problems with vascular access as well as left facial and extremity pain and some heaviness of her left leg she may need 2 extra days of IV Solu-Medrol. There is been no changes in her exam however some of her strength appears to be functional Review of Systems Constitutional: [No fevers, chills, sweats] Eye: [No recent visual problems] ENMT: [No ear pain, nasal congestion, sore throat] Respiratory: [No shortness of breath, cough] Cardiovascular: [No Chest pain, palpitations, syncope] Gastrointestinal: [No nausea, vomiting, diarrhea] Genitourinary: [No hematuria] Objective Vitals & Measurements T: 36.5 ?C (Oral) HR: 71 (Monitored) RR: 16 BP: 126/77 SpO2: 98% HT: 169 cm WT: 73.4 kg BMI: 24.26 Additional Vitals No qualifying data available. Lab Results Test Name Test Result Date/Time WBC 12.5 x10 Hgb 12.7 g/dL 05/01/2023 05:22 EDT Hct 37.0 % 05/01/2023 05:22 EDT Platelet 203 x10 Sodium Lvl 142 mmol/L 05/01/2023 05:22 EDT Potassium Lvl 3.7 mmol/L 05/01/2023 05:22 EDT Chloride 108 mmol/L 05/01/2023 05:22 EDT CO2 25 mmol/L 05/01/2023 05:22 EDT Glucose Lvl 137 mg/dL (High) 05/01/2023 05:22 EDT BUN 22 mg/dL 05/01/2023 05:22 EDT Creatinine Lvl 0.75 mg/dL 05/01/2023 05:22 EDT Bili Total 0.4 mg/dL 05/01/2023 05:22 EDT Alk Phos 59 IU/L 05/01/2023 05:22 EDT AST 28 IU/L 05/01/2023 05:22 EDT ALT 34 IU/L 05/01/2023 05:22 EDT Microbiology - Current Encounter No qualifying data available. Diagnostic Results Diagnostic Radiology XR Neck Soft Tissue 04/28/23 16:15:44 IMPRESSION: No radiopaque foreign body. Signed By: Vishal Coreas MD XR Chest 1 View 04/28/23 16:14:21 IMPRESSION: No acute cardiopulmonary process. Signed By: Vishal Coreas MD Physical Exam Alert oriented x3 cranial nerves II through XII are symmetric motor exam shows left-sided weakness involving the leg although she does not give great effort she moves her right leg and upper extremities well deep tendon reflexes are 1-2+ throughout toes are downgoing Medications Inpatient acetaminophen, 650 mg, Oral, q6hr, PRN acetaminophen, 650 mg, Oral, q6hr, PRN amLODIPine, 10 mg, Oral, qAM Ativan, 1 mg= 0.5 mL, IV Push, q8hr Ativan, 0.5 mg= 0.25 mL, IV Push, BID, PRN Benadryl, 25 mg= 0.5 mL, IV Push, q4hr, PRN Benadryl, 50 mg, Oral, Daily Dilaudid, 1 mg= 1 mL, IV Push, q4hr, PRN enoxaparin, 40 mg= 0.4 mL, Subcutaneous, Daily Lyrica, 150 mg, Oral, TID methylPREDNISolone naloxone, 0.4 mg= 1 mL, IV Push, q2min, PRN nicotine 10 mg inhalation device, 10 mg= 1 inh, Inhale, q1hr, PRN Normal Saline Flush 0.9% injectable solution, 10 mL, IV Push, As Indicated, PRN Normal Saline Flush 0.9% injectable solution, 10 mL, IV Push, BID oxyCODONE-acetaminophe n 10 mg-325 mg oral tablet, 1 tabs, Oral, QID, PRN ozanimod (Zeposia) 0.92mg caps, 0.92 mg= 1 caps, Oral, Daily Premarin, 0.625 mg, Oral, qAM traMADol, 50 mg, Oral, QID, PRN Assessment/Plan 1. Multiple sclerosis exacerbation Venous access awaiting placement of a midline. Problem is frequent. However when she had her first port it was infected within 48 hours and subsequently they have not been placed again Electronically signed by Filippo Garcia MD 05/01/23 13:21 EDT Normal [facility] .eGFRon 04-30-2023 GFR/1.73 sq M.predicted MDRD (S/P/Bld) [Vol rate/Area] mL/min/{1.73_m2} Normal >=60 [facility] Comment on above: Result Comment: [facility] have implemented the eGFR calculation approach that does not have a coefficient for race and that conforms to the NKF-ASN Task Force Recommendations. Stages of Chronic Kidney Disease GFR Stage 3a Mild to moderate loss of kidney function 59 to 45 Stage 3b Moderate to severe loss of kidney function 44 to 33 Stage 4 Severe loss of kidney function 29 to 15 Stage 5 Kidney failure Less than 15 GFR calculated using the CKD-Epi Creatinine Equation (2020): eGFR = 142 X min(SCr/?, 1)? X max(SCr /?, 1)-1.200 X 0.9938Age X 1.012 [if female] Abbreviations/Units: eGFR (estimated glomerular filtration rate) = mL/min/1.73 m2 SCr (standardized serum creatinine) = mg/dL ? = 0.7 (females) or 0.9 (males) ? = -0.241 (females) or -0.302 (males) min = indicates the minimum of SCr/? or 1 max = indicates the maximum of SCr/? or 1 Age = years Performed By: #### E GFR #### [facility] [address] [place] [id number] CBC w/ Diffon 04-30-2023 Erythrocyte distribution width (RBC) [Ratio] 13.6 % Normal 11.6-14.8 [facility] Comment on above: Performed By: #### C BC ####[address] [address] Hematocrit (Bld) [Volume fraction] 36.5 % Normal 36.0-46.0 [facility] Comment on above: Performed By: #### C BC ####[address] [address] Hemoglobin (Bld) [Mass/Vol] 12.1 g/dL Normal 12.0-16.0 [facility] Comment on above: Performed By: #### C BC ####[address] [address] MCH (RBC) [Entitic mass] 28.8 pg Normal 27.0-35.0 [facility] Comment on above: Performed By: #### C BC ####[address] [address] MCHC 33.3 % Normal 31.0-37.0 [facility] Comment on above: Performed By: #### C BC ####[address] [address] MCV (RBC) [Entitic vol] 86.6 fL Normal 80.0-100.0 [facility] Comment on above: Performed By: #### C BC ####[address] [address] Platelet 177 x10*3/mcL Normal 150-450 [facility] Comment on above: Performed By: #### C BC ####[address] [address] Platelet mean volume (Bld) [Entitic vol] 9.8 fL Normal 6.7-10.6 [facility] Comment on above: Performed By: #### C BC ####[address] [address] RBC 4.22 x10*6/mcL Normal 3.80-5.20 [facility] Comment on above: Performed By: #### C BC ####[address] [place] [address] WBC 15.6 x10*3/mcL High 4.5-11.0 [facility] Comment on above: Performed By: #### C BC ####[address] [address] CMPon 04-30-2023 Albumin [Mass/Vol] 3.6 g/dL Normal 3.2-4.9 [facility] Comment on above: Performed By: #### M G #### [address] [address] Albumin/Globulin [Mass ratio] 1.1 {ratio} Normal 1.1-2.2 [facility] Comment on above: Performed By: #### M G #### [address] [address] Alk Phos 61 IU/L Normal 32-91 [facility] Comment on above: Performed By: #### M G #### [address] [address] ALT [Catalytic activity/Vol] 26 U/L Normal 14-54 [facility] Comment on above: Performed By: #### M G #### [address] [address] Anion gap [Moles/Vol] 12 mmol/L Normal 7-17 [facility] Comment on above: Performed By: #### M G #### [address] [address] AST [Catalytic activity/Vol] 24 U/L Normal 15-41 [facility] Comment on above: Performed By: #### M G #### [address] [address] Bili Total 0.4 mg/dL Normal 0.3-1.2 [facility] Comment on above: Performed By: #### M G #### [address] [address] Calcium [Mass/Vol] 9.1 mg/dL Normal 8.5-10.3 [facility] Comment on above: Performed By: #### M G #### [address] [address] Chloride [Moles/Vol] 107 mmol/L Normal 98-110 [facility] Comment on above: Performed By: #### M G #### [address] [address] CO2 [Moles/Vol] 23 mmol/L Normal 22-32 [facility] Comment on above: Performed By: #### M G #### [address] [address] Creatinine [Mass/Vol] 0.72 mg/dL Normal 0.44-1.03 [facility] Comment on above: Performed By: #### M G #### [address] [address] Glucose [Mass/Vol] 135 mg/dL High 70-99 [facility] Comment on above: Performed By: #### M G #### [address] [address] Potassium [Moles/Vol] 4.1 mmol/L Normal 3.4-4.8 [facility] Comment on above: Performed By: #### M G #### [address] [address] Protein [Mass/Vol] 6.9 g/dL Normal 6.5-8.1 [facility] Comment on above: Performed By: #### M G #### [address] [address] Sodium [Moles/Vol] 138 mmol/L Normal 133-142 [facility] Comment on above: Performed By: #### M G #### [address] [address] Urea nitrogen [Mass/Vol] 21 mg/dL Normal 8-26 [facility] Comment on above: Performed By: #### M G #### [address] [address] Urea nitrogen/Creatinine [Mass ratio] 29.2 mg/mg High 10.0-20.0 [facility] Comment on above: Performed By: #### M G #### [address] [address] Diff Autoon 04-30-2023 Baso Absolute 0.1 x10*3/mcL Normal 0.0-0.2 [facility] Comment on above: Performed By: #### C OMP #### [address] [address] Basophils/100 WBC (Bld) 0.4 % Normal 0.0-1.5 [facility] Comment on above: Performed By: #### C OMP #### [address] [address] Eos Absolute 0.0 x10*3/mcL Normal 0.0-0.4 [facility] Comment on above: Performed By: #### C OMP #### [address] [address] Eosinophils/100 WBC (Bld) 0.0 % Normal 0.0-5.4 [facility] Comment on above: Performed By: #### C OMP #### [address] [address] Lymph Absolute 1.2 x10*3/mcL Normal 1.0-4.8 [facility] Comment on above: Performed By: #### C OMP #### [address] [address] Lymphocytes/100 WBC (Bld) 7.7 % Low 27.2-40.8 [facility] Comment on above: Performed By: #### C OMP #### [address] [address] [place] Absolute 0.1 x10*3/mcL Normal 0.1-1.1 [facility] Comment on above: Performed By: #### C OMP #### [address] [address] Monocytes/100 WBC (Bld) 0.6 % Low 3.7-11.9 [facility] Comment on above: Performed By: #### C OMP #### [address] [address] Neutro Absolute 14.2 x10*3/mcL High 1.8-7.7 [facility] Comment on above: Performed By: #### C OMP #### [address] [address] Neutro Auto 91.3 % High 47.2-70.8 [facility] Comment on above: Performed By: #### C OMP #### [address] [address] Diff Rosemary 04-30-2023 Band form neutrophils/100 WBC (Bld) 1 % Normal 0-5 [facility] Comment on above: Performed By: #### C OMP #### [address] [address] Basophils/100 WBC (Bld) 0 % Normal 0-3 [facility] Comment on above: Performed By: #### C OMP #### [address] [address] Eosinophils/100 WBC (Bld) 0 % Normal 0-7 [facility] Comment on above: Performed By: #### C OMP #### [address] [address] Lymphocytes/100 WBC (Bld) 13 % Low 14-42 [facility] Comment on above: Performed By: #### C OMP #### [address] [address] Monocytes/100 WBC (Bld) 1 % Normal 1-11 [facility] Comment on above: Performed By: #### C OMP #### [address] [address] Platelet estimate Adequate Normal [facility] Comment on above: Performed By: #### C OMP #### [address] [address] RBC morphology finding Nom (Bld) Normal Normal [facility] Comment on above: Performed By: #### C OMP #### [facility] [address] [place] [address] Segs Man 85 % High 49-79 [facility] Comment on above: Performed By: #### C OMP #### [facility] [address] [place] [address] Neurology Progress Noteon Neurology Progress Note Subjective No new problems still has her pain but not as severe still not moving her left leg very well she does have 2 more days of IV Solu-Medrol Review of Systems Constitutional: [No fevers, chills, sweats] Eye: [No recent visual problems] ENMT: [No ear pain, nasal congestion, sore throat] Respiratory: [No shortness of breath, cough] Cardiovascular: [No Chest pain, palpitations, syncope] Gastrointestinal: [No nausea, vomiting, diarrhea] Genitourinary: [No hematuria] Objective Vitals & Measurements T: 36.5 ?C (Oral) HR: 74 (Peripheral) RR: 16 BP: 145/98 SpO2: 95% HT: 169 cm WT: 71.6 kg BMI: 24.26 Additional Vitals No qualifying data available. Lab Results Test Name Test Result Date/Time WBC 15.6 x10 Hgb 12.1 g/dL 04/30/2023 06:21 EDT Hct 36.5 % 04/30/2023 06:21 EDT Platelet 177 x10 Sodium Lvl 138 mmol/L 04/30/2023 06:21 EDT Potassium Lvl 4.1 mmol/L 04/30/2023 06:21 EDT Chloride 107 mmol/L 04/30/2023 06:21 EDT CO2 23 mmol/L 04/30/2023 06:21 EDT Glucose Lvl 135 mg/dL (High) 04/30/2023 06:21 EDT BUN 21 mg/dL 04/30/2023 06:21 EDT Creatinine Lvl 0.72 mg/dL 04/30/2023 06:21 EDT Bili Total 0.4 mg/dL 04/30/2023 06:21 EDT Alk Phos 61 IU/L 04/30/2023 06:21 EDT AST 24 IU/L 04/30/2023 06:21 EDT ALT 26 IU/L 04/30/2023 06:21 EDT Microbiology - Current Encounter No qualifying data available. Diagnostic Results Diagnostic Radiology XR Neck Soft Tissue 04/28/23 16:15:44 IMPRESSION: No radiopaque foreign body. Signed By: Vishal Coreas MD XR Chest 1 View 04/28/23 16:14:21 IMPRESSION: No acute cardiopulmonary process. Signed By: Vishal Coreas MD Physical Exam Alert oriented x3 cranial nerves II through XII are symmetric motor exam shows giveaway strength in the right and left leg. She has difficulties raising her left leg off the bed strength in both arms is normal no new deficits Medications Inpatient acetaminophen, 650 mg, Oral, q6hr, PRN acetaminophen, 650 mg, Oral, q6hr, PRN amLODIPine, 10 mg, Oral, qAM Ativan, 1 mg= 0.5 mL, IV Push, q8hr Ativan, 0.5 mg= 0.25 mL, IV Push, BID, PRN Benadryl, 25 mg= 0.5 mL, IV Push, q4hr, PRN Dilaudid, 1 mg= 1 mL, IV Push, q4hr, PRN enoxaparin, 40 mg= 0.4 mL, Subcutaneous, Daily Lyrica, 150 mg, Oral, TID methylPREDNISolone naloxone, 0.4 mg= 1 mL, IV Push, q2min, PRN nicotine 10 mg inhalation device, 10 mg= 1 inh, Inhale, q1hr, PRN Normal Saline Flush 0.9% injectable solution, 10 mL, IV Push, As Indicated, PRN Normal Saline Flush 0.9% injectable solution, 10 mL, IV Push, BID oxyCODONE-acetaminophe n 10 mg-325 mg oral tablet, 1 tabs, Oral, QID, PRN ozanimod (Zeposia) 0.92mg caps, 0.92 mg= 1 caps, Oral, Daily Premarin, 0.625 mg, Oral, qAM traMADol, 50 mg, Oral, QID, PRN Assessment/Plan 1. Multiple sclerosis exacerbation Day #4 of IV Solu-Medrol later this evening Orders: Up ad Luna Electronically signed by Filippo Garcia MD 04/30/23 13:09 EDT Normal [facility] .eGFRon 04-29-2023 GFR/1.73 sq M.predicted MDRD (S/P/Bld) [Vol rate/Area] mL/min/{1.73_m2} Normal >=60 [facility] Comment on above: Result Comment: [facility] have implemented the eGFR calculation approach that does not have a coefficient for race and that conforms to the NKF-ASN Task Force Recommendations. Stages of Chronic Kidney Disease GFR Stage 3a Mild to moderate loss of kidney function 59 to 45 Stage 3b Moderate to severe loss of kidney function 44 to 33 Stage 4 Severe loss of kidney function 29 to 15 Stage 5 Kidney failure Less than 15 GFR calculated using the CKD-Epi Creatinine Equation (2020): eGFR = 142 X min(SCr/?, 1)? X max(SCr /?, 1)-1.200 X 0.9938Age X 1.012 [if female] Abbreviations/Units: eGFR (estimated glomerular filtration rate) = mL/min/1.73 m2 SCr (standardized serum creatinine) = mg/dL ? = 0.7 (females) or 0.9 (males) ? = -0.241 (females) or -0.302 (males) min = indicates the minimum of SCr/? or 1 max = indicates the maximum of SCr/? or 1 Age = years Performed By: #### M G #### [facility] [address] [place] [address] CBC w/ Diffon 04-29-2023 Erythrocyte distribution width (RBC) [Ratio] 13.6 % Normal 11.6-14.8 [facility] Comment on above: Performed By: #### C BCI #### [facility] [address] [place] [address] Hematocrit (Bld) [Volume fraction] 38.3 % Normal 36.0-46.0 [facility] Comment on above: Performed By: #### C BCI #### [place] [id number] Hemoglobin (Bld) [Mass/Vol] 12.9 g/dL Normal 12.0-16.0 [facility] Comment on above: Performed By: #### C BCI #### [place] [id number] MCH (RBC) [Entitic mass] 29.0 pg Normal 27.0-35.0 [facility] Comment on above: Performed By: #### C BCI #### [place] [id number] MCHC 33.6 % Normal 31.0-37.0 [facility] Comment on above: Performed By: #### C BCI #### [place] [id number] MCV (RBC) [Entitic vol] 86.2 fL Normal 80.0-100.0 [facility] Comment on above: Performed By: #### C BCI #### [address] [address] Platelet 222 x10*3/mcL Normal 150-450 [facility] Comment on above: Performed By: #### C BCI #### [address] [address] Platelet mean volume (Bld) [Entitic vol] 9.1 fL Normal 6.7-10.6 [facility] Comment on above: Performed By: #### C BCI #### [address] [address] RBC 4.45 x10*6/mcL Normal 3.80-5.20 [facility] Comment on above: Performed By: #### C BCI #### [address] [address] WBC 15.6 x10*3/mcL High 4.5-11.0 [facility] Comment on above: Performed By: #### C BCI #### [address] [place] [address] CMPon 04-29-2023 Albumin [Mass/Vol] 3.5 g/dL Normal 3.2-4.9 [facility] Comment on above: Performed By: #### C OMP #### [address] [address] Albumin/Globulin [Mass ratio] 1.0 {ratio} Low 1.1-2.2 [facility] Comment on above: Performed By: #### C OMP #### [address] [address] Alk Phos 65 IU/L Normal 32-91 [facility] Comment on above: Performed By: #### C OMP #### [address] [address] ALT [Catalytic activity/Vol] 21 U/L Normal 14-54 [facility] Comment on above: Performed By: #### C OMP #### [address] [address] Anion gap [Moles/Vol] 12 mmol/L Normal 7-17 [facility] Comment on above: Performed By: #### C OMP #### [address] [address] AST [Catalytic activity/Vol] 24 U/L Normal 15-41 [facility] Comment on above: Performed By: #### C OMP #### [address] [address] Bili Total 0.4 mg/dL Normal 0.3-1.2 [facility] Comment on above: Performed By: #### C OMP #### [address] [address] Calcium [Mass/Vol] 9.0 mg/dL Normal 8.5-10.3 [facility] Comment on above: Performed By: #### C OMP #### [address] [address] Chloride [Moles/Vol] 110 mmol/L Normal 98-110 [facility] Comment on above: Performed By: #### C OMP #### [address] [address] CO2 [Moles/Vol] 21 mmol/L Low 22-32 [facility] Comment on above: Performed By: #### C OMP #### [address] [address] Creatinine [Mass/Vol] 0.48 mg/dL Normal 0.44-1.03 [facility] Comment on above: Performed By: #### C OMP #### [address] [address] Glucose [Mass/Vol] 159 mg/dL High 70-99 [facility] Comment on above: Performed By: #### C OMP #### [address] [address] Potassium [Moles/Vol] 4.0 mmol/L Normal 3.4-4.8 [facility] Comment on above: Performed By: #### C OMP #### [address] [address] Protein [Mass/Vol] 6.9 g/dL Normal 6.5-8.1 [facility] Comment on above: Performed By: #### C OMP #### [address] [address] Sodium [Moles/Vol] 139 mmol/L Normal 133-142 [facility] Comment on above: Performed By: #### C OMP #### [address] [address] Urea nitrogen [Mass/Vol] 16 mg/dL Normal 8-26 [facility] Comment on above: Performed By: #### C OMP #### [address] [address] Urea nitrogen/Creatinine [Mass ratio] 33.3 mg/mg High 10.0-20.0 [facility] Comment on above: Performed By: #### C OMP #### [address] [address] Diff Autoon 04-29-2023 Baso Absolute 0.0 x10*3/mcL Normal 0.0-0.2 [facility] Comment on above: Performed By: #### E GFR #### [address] [address] Basophils/100 WBC (Bld) 0.2 % Normal 0.0-1.5 [facility] Comment on above: Performed By: #### E GFR #### [address] [address] Eos Absolute 0.0 x10*3/mcL Normal 0.0-0.4 [facility] Comment on above: Performed By: #### E GFR #### [address] [address] Eosinophils/100 WBC (Bld) 0.0 % Normal 0.0-5.4 [facility] Comment on above: Performed By: #### E GFR #### [address] [address] Lymph Absolute 1.3 x10*3/mcL Normal 1.0-4.8 [facility] Comment on above: Performed By: #### E GFR #### [address] [address] Lymphocytes/100 WBC (Bld) 8.0 % Low 27.2-40.8 [facility] Comment on above: Performed By: #### E GFR #### [address] [address] [place] Absolute 0.2 x10*3/mcL Normal 0.1-1.1 [facility] Comment on above: Performed By: #### E GFR #### [address] [address] Monocytes/100 WBC (Bld) 1.2 % Low 3.7-11.9 [facility] Comment on above: Performed By: #### E GFR #### [address] [address] Neutro Absolute 14.1 x10*3/mcL High 1.8-7.7 [facility] Comment on above: Performed By: #### E GFR #### [facility] [address] [place] [address] Neutro Auto 90.6 % High 47.2-70.8 [facility] Comment on above: Performed By: #### E GFR #### [place] [address] [place] [id number] Neurology Progress Noteon Neurology Progress Note Subjective Beginning to walk facial pain better since increasing Lyrica to start day 3 of IV Solu-Medrol Review of Systems Constitutional: [No fevers, chills, sweats] Eye: [No recent visual problems] ENMT: [No ear pain, nasal congestion, sore throat] Respiratory: [No shortness of breath, cough] Cardiovascular: [No Chest pain, palpitations, syncope] Gastrointestinal: [No nausea, vomiting, diarrhea] Genitourinary: [No hematuria] Objective Vitals & Measurements T: 36.7 ?C (Oral) HR: 89 (Peripheral) RR: 14 BP: 128/83 SpO2: 94% HT: 169 cm WT: 69 kg BMI: 24.26 Additional Vitals No qualifying data available. Lab Results Test Name Test Result Date/Time WBC 15.6 x10 Hgb 12.9 g/dL 04/29/2023 05:44 EDT Hct 38.3 % 04/29/2023 05:44 EDT Platelet 222 x10 Sodium Lvl 139 mmol/L 04/29/2023 05:44 EDT Potassium Lvl 4.0 mmol/L 04/29/2023 05:44 EDT Chloride 110 mmol/L 04/29/2023 05:44 EDT CO2 21 mmol/L (Low) 04/29/2023 05:44 EDT Glucose Lvl 159 mg/dL (High) 04/29/2023 05:44 EDT BUN 16 mg/dL 04/29/2023 05:44 EDT Creatinine Lvl 0.48 mg/dL 04/29/2023 05:44 EDT Bili Total 0.4 mg/dL 04/29/2023 05:44 EDT Alk Phos 65 IU/L 04/29/2023 05:44 EDT AST 24 IU/L 04/29/2023 05:44 EDT ALT 21 IU/L 04/29/2023 05:44 EDT Microbiology - Current Encounter No qualifying data available. Diagnostic Results Diagnostic Radiology XR Neck Soft Tissue 04/28/23 16:15:44 IMPRESSION: No radiopaque foreign body. Signed By: Vishal Coreas MD XR Chest 1 View 04/28/23 16:14:21 IMPRESSION: No acute cardiopulmonary process. Signed By: Vishal Coreas MD Physical Exam Alert oriented x3 cranial nerves II through XII are symmetric motor exam shows normal strength in the upper extremities right leg approximately 4 MRC left leg 2 MRC however testing for weakness only has fair effort Medications Inpatient acetaminophen, 650 mg, Oral, q6hr, PRN acetaminophen, 650 mg, Oral, q6hr, PRN amLODIPine, 10 mg, Oral, qAM Ativan, 1 mg= 0.5 mL, IV Push, q8hr Ativan, 0.5 mg= 0.25 mL, IV Push, BID, PRN Benadryl, 25 mg= 0.5 mL, IV Push, q4hr, PRN Dilaudid, 1 mg= 1 mL, IV Push, q4hr, PRN enoxaparin, 40 mg= 0.4 mL, Subcutaneous, Daily Lyrica, 150 mg, Oral, TID methylPREDNISolone naloxone, 0.4 mg= 1 mL, IV Push, q2min, PRN nicotine 10 mg inhalation device, 10 mg= 1 inh, Inhale, q1hr, PRN Normal Saline Flush 0.9% injectable solution, 10 mL, IV Push, As Indicated, PRN Normal Saline Flush 0.9% injectable solution, 10 mL, IV Push, BID oxyCODONE-acetaminophe n 10 mg-325 mg oral tablet, 1 tabs, Oral, QID, PRN Premarin, 0.625 mg, Oral, qAM traMADol, 50 mg, Oral, QID, PRN Assessment/Plan 1. Multiple sclerosis exacerbation Day #3 of IV Solu-Medrol Orders: methylPREDNISolone, 1,000 mg, IV Piggyback, Soln-IV, q24hr for 4 doses, infuse over 1 hr, First Dose: 04/28/23 18:00:00 EDT, Stop Date: 05/02/23 17:59:00 EDT, [facility] 04/28/23 18:00:00 EDT pregabalin, 150 mg, Oral, Cap, TID, First Dose: 04/28/23 14:00:00 EDT, Dispense From Location: [id number], 04/28/23 13:17:00 EDT Electronically signed by Filippo Garcia MD 04/29/23 13:06 EDT Normal [facility] .UA Microscp Aon 04-28-2023 UA Mucus Present Abnormal Absent [facility] Comment on above: Performed By: #### . Automated Diff #### [place] [address] UA RBC Quant 0 /HPF Normal 0-5 [facility] Comment on above: Performed By: #### . Automated Diff #### [place] [address] UA Squepi Cells Quant 4 /HPF Normal 0-29 [facility] Comment on above: Performed By: #### . Automated Diff #### [place] [address] UA WBC Quant 1 /HPF Normal 0-5 [facility] Comment on above: Performed By: #### . Automated Diff #### [place] [address] .eGFRon 04-28-2023 GFR/1.73 sq M.predicted MDRD (S/P/Bld) [Vol rate/Area] mL/min/{1.73_m2} Normal >=60 [facility] Comment on above: Result Comment: [facility] have implemented the eGFR calculation approach that does not have a coefficient for race and that conforms to the NKF-ASN Task Force Recommendations. Stages of Chronic Kidney Disease GFR Stage 3a Mild to moderate loss of kidney function 59 to 45 Stage 3b Moderate to severe loss of kidney function 44 to 33 Stage 4 Severe loss of kidney function 29 to 15 Stage 5 Kidney failure Less than 15 GFR calculated using the CKD-Epi Creatinine Equation (2020): eGFR = 142 X min(SCr/?, 1)? X max(SCr /?, 1)-1.200 X 0.9938Age X 1.012 [if female] Abbreviations/Units: eGFR (estimated glomerular filtration rate) = mL/min/1.73 m2 SCr (standardized serum creatinine) = mg/dL ? = 0.7 (females) or 0.9 (males) ? = -0.241 (females) or -0.302 (males) min = indicates the minimum of SCr/? or 1 max = indicates the maximum of SCr/? or 1 Age = years Performed By: #### E GFR #### [address] [address] CMPon 04-28-2023 Albumin [Mass/Vol] 3.7 g/dL Normal 3.2-4.9 [facility] Comment on above: Performed By: #### C OMP ####[address] [address] Albumin/Globulin [Mass ratio] 1.2 {ratio} Normal 1.1-2.2 [facility] Comment on above: Performed By: #### C OMP ####[address] [address] Alk Phos 74 IU/L Normal 32-91 [facility] Comment on above: Performed By: #### C OMP ####[address] [address] ALT [Catalytic activity/Vol] 22 U/L Normal 14-54 [facility] Comment on above: Performed By: #### C OMP ####[address] [address] Anion gap [Moles/Vol] 13 mmol/L Normal 7-17 [facility] Comment on above: Performed By: #### C OMP ####[address] [address] AST [Catalytic activity/Vol] 27 U/L Normal 15-41 [facility] Comment on above: Performed By: #### C OMP ####[address] [address] Bili Total 0.7 mg/dL Normal 0.3-1.2 [facility] Comment on above: Performed By: #### C OMP ####[address] [address] Calcium [Mass/Vol] 8.9 mg/dL Normal 8.5-10.3 [facility] Comment on above: Performed By: #### C OMP ####[address] [address] Chloride [Moles/Vol] 107 mmol/L Normal 98-110 [facility] Comment on above: Performed By: #### C OMP ####[address] [address] CO2 [Moles/Vol] 21 mmol/L Low 22-32 [facility] Comment on above: Performed By: #### C OMP ####[address] [address] Creatinine [Mass/Vol] 0.58 mg/dL Normal 0.44-1.03 [facility] Comment on above: Performed By: #### C OMP ####[address] [place] [address] Glucose [Mass/Vol] 93 mg/dL Normal 70-99 [facility] Comment on above: Performed By: #### C OMP ####[address] [address] Potassium [Moles/Vol] 3.9 mmol/L Normal 3.4-4.8 [facility] Comment on above: Performed By: #### C OMP ####[address] [place] [address] Protein [Mass/Vol] 6.8 g/dL Normal 6.5-8.1 [facility] Comment on above: Performed By: #### C OMP ####[place] [id number] Sodium [Moles/Vol] 137 mmol/L Normal 133-142 [facility] Comment on above: Performed By: #### C OMP ####[place] [id number] Urea nitrogen [Mass/Vol] 16 mg/dL Normal 8-26 [facility] Comment on above: Performed By: #### C OMP ####[place] [id number] Urea nitrogen/Creatinine [Mass ratio] 27.6 mg/mg High 10.0-20.0 [facility] Comment on above: Performed By: #### C OMP ####[place] [id number] COV19 Rapidon 04-28-2023 LAB ONLY Result Called? No Normal [facility] Comment on above: Performed By: #### M G #### [place] [id number] Reason for Rapid Test Inpatient Normal [facility] Comment on above: Performed By: #### M G #### [place] [id number] SARS-CoV-2 (COVID-19) RNA YANELIS+probe Ql (Unsp spec) Negative Normal Negative [facility] Comment on above: Result Comment: The 2019 novel coronavirus SARS-CoV-2 target nucleic acids are not detected. This test is for the detection of SARS-CoV-2 RNA. Positive results are indicative of active infection with SARS-CoV-2. Positive results do not rule out bacterial infection or co-infection with other viruses. Negative results should be treated as presumptive and, if inconsistent with clinical signs and symptoms or necessary for patient management, should be tested with an alternative molecular assay.Negative results do not preclude SARS-CoV-2 infection and should not be used as the sole basis for treatment or other patient management decisions. Clinical correlation with patient history and other diagnostic information is necessary to determine patient infection status. ADDITIONAL INFORMATION: Testing was performed using the ID NOW COVID-19 test by [employer], which has received Emergency Use Authorization (EUA) by the U.S. Food and Drug Administration. The [employer] ID NOW COVID-19 test performs best when patients are tested within the first 7 days of symptom onset. Results should be interpreted with caution for asymptomatic patients or those tested outside the 7 day target. Refer to CDC guidelines for further testing algorithms. Fact sheets for this Emergency Use Authorization (EUA) assay can be found at the following links: Fact Sheet for HealthCare Providers: https://www.[employer].gov/media/321587/download Fact Sheet for Patients: https://www.fda.gov/media/217855/download Performed By: #### M G #### [place] [address] CRPon 04-28-2023 CRP 0.22 mg/dL Normal 0.00-0.75 [facility] Comment on above: Result Comment: CRP measurement is useful for assessment of non-specific INFLAMMATORY RESPONSE to infection or injury AND is a sensitive MARKER of ACUTE INFLAMMATION including CARDIAC RISK ASSESSMENT. CARDIAC patients with elevated CRP are POTENTIALLY at a HIGHER RISK OF FUTURE CARDIAC EVENTS. Performed By: #### C OMP #### [place] [id number] ED Clinical Summaryon 2022 ED Clinical Summary [place] [id number] ED Clinical Summary Person Information Name: Dallas James Altagracia/[facility] Age: 48 Years : 1975 Sex: Female PCP: Ward Mendez MD Marital Status: Phone: Race: White Ethnicity: Not or Language: Ukrainian [facility]: [id number] Visit Reason: Generalized pain; MS flare-up Acuity: 3 Enc Type: Inpatient Med Service: Emergency Medicine Arrival: 04/27/2023 19:54:00 Discharge: LOS: 000 04:39 Checkin: 04/27/2023 19:54:00 Checkout: 04/28/2023 00:33:52 Dispo Type: Address: [address] [place] [address] Provider Notes: History of Present Illness Patient is a 48-year-old female with a history of MS,?avascular necrosis,?and DVTs presenting for?3 days of?left facial pain, left?eye blurriness, and left leg?weakness. ?She states the pain started at her hairline?of the left side of her scalp and progressed on the left side of her face and has since?proceeded?to cause slight blurriness in her left eye.? Today she also started losing?function of her left leg saying that she has to? lug?it around ?to be able to walk. ?She follows closely?with for her MS and has been repeatedly admitted to the hospital for MS flares?including optic neuritis.? She denies slurred speech or facial droop. ?Denies saddle paresthesias or?urinary/bowel incontinence. Review of Systems As reviewed in the HPI. All other systems reviewed are negative or normal. Physical Exam CONSTITUTIONAL: [well appearing in no acute distress] SKIN: [Warm, dry, and intact without rash] EYES: [extraocular movements are grossly intact, clear conjunctiva] HENT: [Normocephalic, atraumatic, moist mucus membranes] NECK: [no obvious swelling, normal range of motion] PULMONARY: [normal chest rise and fall, no respiratory distress or stridor CARDIOVASCULAR: [regular rate, distal extremities are warm and well perfused] GASTROINSTESTINAL: [nondistended, non-tender] GENITOURINARY: [deferred] NEUROLOGIC: [normal speech, unable to move?left leg. ?No facial droop, palsy, aphasia] MUSCULOSKELETAL: [no gross deformities, atraumatic] PSYCHIATRIC: [normal mood and affect] Reexamination/Reevalua tion Patient rested comfortably in bed during handoff, vital stable. Diagnosis: 1:Multiple sclerosis exacerbation Problems No Problems Documented Smoking Status: Smoking Status 10 or more cigarettes (1/2 pack or more)/day in last 30 days Functional Status: Sensory Deficits: History of Falls: Mobility Assistance Prior to Admission: ADLs: Current Level of Assistance for Self-Care/Mobility: Cognitive Status: Allergies fentaNYL (Headache) Toradol (Hives) Zofran (Hives) Protonix (Hives) (itchy) penicillin (Hives) iodinated radiocontrast dyes (Hives) Laboratory or Other Results This Visit (last charted value for your 04/27/2023 visit) Hematology 04/27/2023 9:44 PM WBC: 6.2 x10 RBC: 4.22 x10 Neutro Auto: 49.9 % -- Normal range between ( 47.2 and 70.8 ) Lymph Auto: 37.8 % -- Normal range between ( 27.2 and 40.8 ) [place] Auto: 9.3 % -- Normal range between ( 3.7 and 11.9 ) Eos Auto: 1.9 % -- Normal range between ( 0.0 and 5.4 ) Basophil Auto: 1.1 % -- Normal range between ( 0.0 and 1.5 ) Baso Absolute: 0.1 x10 MCV: 87.6 fL -- Normal range between ( 80.0 and 100.0 ) MCHC: 34.2 % -- Normal range between ( 31.0 and 37.0 ) Lymph Absolute: 2.4 x10 Hct: 37.0 % -- Normal range between ( 36.0 and 46.0 ) [place] Absolute: 0.6 x10 MCH: 30.0 pg -- Normal range between ( 27.0 and 35.0 ) Neutro Absolute: 3.1 x10 Hgb: 12.7 g/dL -- Normal range between ( 12.0 and 16.0 ) Mean Platelet Volume: 8.3 fL -- Normal range between ( 6.7 and 10.6 ) Platelet: 220 x10 Eos Absolute: 0.1 x10 RDW: 13.9 % -- Normal range between ( 11.6 and 14.8 ) Urinalysis 04/27/2023 10:32 PM UA Color: Colorless UA Urobilinogen: Normal mg/dL UA Bili: Negative UA Ketones: Negative mg/dL UA Leukocyte Esterase: Negative UA Nitrite: Negative UA Glucose: Normal mg/dL UA Protein: Negative mg/dL UA Blood: Negative UA Spec Grav: 1.016 -- Normal range between ( 1.003 and 1.035 ) UA pH: 6.5 UA Clarity: Clear UA Source: Clean Catch UA Mucus: Present /LPF UA WBC Quant: 1 /HPF -- Normal range between ( 0 and 5 ) UA RBC Quant: 0 /HPF -- Normal range between ( 0 and 5 ) UA Squepi Cells Quant: 4 /HPF -- Normal range between ( 0 and 29 ) Chemistry 04/27/2023 9:44 PM Creatinine Lvl: 0.58 mg/dL -- Normal range between ( 0.44 and 1.03 ) BUN: 16 mg/dL -- Normal range between ( 8 and 26 ) Glucose Lvl: 93 mg/dL -- Normal range between ( 70 and 99 ) Potassium Lvl: 3.9 mmol/L -- Normal range between ( 3.4 and 4.8 ) CRP: 0.22 mg/dL -- Normal range between ( 0.00 and 0.75 ) AST: 27 IU/L -- Normal range between ( 15 and 41 ) ALT: 22 IU/L -- Normal range between ( 14 and 54 ) Sodium Lvl: 137 (more content not included)... Normal [facility] Magnesiumon 04-28-2023 Magnesium [Mass/Vol] 2.0 mg/dL Normal 1.7-2.4 [facility] Comment on above: Performed By: #### M G #### [place] [address] Phosphoruson 04-28-2023 Phosphate [Mass/Vol] 3.6 mg/dL Normal 2.5-4.6 [facility] Comment on above: Performed By: #### C OMP #### [place] [address] UA w Culture if Indon 2022 Color (U) Colorless Normal [facility] Comment on above: Performed By: #### . Automated Diff #### [place] [id number] Ketones Ql (U) Negative Normal Negative [facility] Comment on above: Performed By: #### . Automated Diff #### [place] [id number] UA Blood Negative Normal Negative [facility] Comment on above: Performed By: #### . Automated Diff #### [place] [id number] UA Clarity Clear Normal [facility] Comment on above: Performed By: #### . Automated Diff #### [address] [address] UA Glucose Normal Normal Negative [facility] Comment on above: Performed By: #### . Automated Diff #### [address] [address] UA Leukocyte Esterase Negative Normal Negative [facility] Comment on above: Performed By: #### . Automated Diff #### [address] [address] UA Nitrite Negative Normal Negative [facility] Comment on above: Performed By: #### . Automated Diff #### [place] [address] UA pH 6.5 Normal 4.5 - 7.8 [facility] Comment on above: Performed By: #### . Automated Diff #### [place] [id number] UA Protein Negative Normal Negative [facility] Comment on above: Performed By: #### . Automated Diff #### [place] [address] UA Source Clean Catch Normal [facility] Comment on above: Performed By: #### . Automated Diff #### [place] [id number] UA Spec Grav 1.016 Normal 1.003-1.035 [facility] Comment on above: Performed By: #### . Automated Diff #### [address] [address] UA Urobilinogen Normal Normal 0.2 - 1.0 [facility] Comment on above: Performed By: #### . Automated Diff #### [place] [id number] Urobilinogen (U) [Mass/Vol] Negative Normal Negative [facility] Comment on above: Performed By: #### . Automated Diff #### [place] [address] XR Chest 1 Viewon 04-28-2023 XR Chest 1 View CLINICAL HISTORY: Feels like meat is a stuck in chest. EXAMINATION: Upright frontal image of the chest was obtained and compared to an examination dated 08/25/2022. FINDINGS: Cardiac silhouette is normal in size. The aorta is mildly tortuous. There is no focal consolidation, pleural effusion or pneumothorax. There is no radiopaque foreign body. There is fusion hardware in the cervical spine. An IVC filter is partially imaged. There are clips from previous cholecystectomy. IMPRESSION: No acute cardiopulmonary process. Final Dictated by: Vishal Coreas MD Dictated DT/TM: 04/28/2023 4:12 pm Signed by: Vishal Coreas MD Signed (Electronic Signature): 04/28/2023 4:14 pm (If Report Is Signed, Electronically Signed in Other Vendor System) Normal [facility] XR Neck Soft Tissueon 2022 XR Neck Soft Tissue CLINICAL HISTORY: Feels like a chunk of meat is in esophagus. EXAMINATION: Frontal and lateral images of the neck were obtained with attention to the soft tissues. FINDINGS: There is fusion at C5-C6. Surgical hardware is intact. Prevertebral soft tissues are unremarkable. Epiglottis is normal. There is no radiopaque foreign body. Imaged lung apices are clear. IMPRESSION: No radiopaque foreign body. Final Dictated by: Vishal Coreas MD Dictated DT/TM: 04/28/2023 4:14 pm Signed by: Vishal Coreas MD Signed (Electronic Signature): 04/28/2023 4:15 pm (If Report Is Signed, Electronically Signed in Other Vendor System) Normal [facility] CBC w/ Diffon 04-27-2023 Erythrocyte distribution width (RBC) [Ratio] 13.9 % Normal 11.6-14.8 [facility] Comment on above: Performed By: #### . Automated Diff #### [facility] [address] [place] [address] Hematocrit (Bld) [Volume fraction] 37.0 % Normal 36.0-46.0 [facility] Comment on above: Performed By: #### . Automated Diff #### [address] [address] Hemoglobin (Bld) [Mass/Vol] 12.7 g/dL Normal 12.0-16.0 [facility] Comment on above: Performed By: #### . Automated Diff #### [address] [address] MCH (RBC) [Entitic mass] 30.0 pg Normal 27.0-35.0 [facility] Comment on above: Performed By: #### . Automated Diff #### [address] [address] MCHC 34.2 % Normal 31.0-37.0 [facility] Comment on above: Performed By: #### . Automated Diff #### [address] [address] MCV (RBC) [Entitic vol] 87.6 fL Normal 80.0-100.0 [facility] Comment on above: Performed By: #### . Automated Diff #### [address] [address] Platelet 220 x10*3/mcL Normal 150-450 [facility] Comment on above: Performed By: #### . Automated Diff #### [address] [address] Platelet mean volume (Bld) [Entitic vol] 8.3 fL Normal 6.7-10.6 [facility] Comment on above: Performed By: #### . Automated Diff #### [address] [address] RBC 4.22 x10*6/mcL Normal 3.80-5.20 [facility] Comment on above: Performed By: #### . Automated Diff #### [address] [address] WBC 6.2 x10*3/mcL Normal 4.5-11.0 [facility] Comment on above: Performed By: #### . Automated Diff #### [address] [place] [address] Diff Autoon 04-27-2023 Baso Absolute 0.1 x10*3/mcL Normal 0.0-0.2 [facility] Comment on above: Performed By: #### . Automated Diff #### [address] [address] Basophils/100 WBC (Bld) 1.1 % Normal 0.0-1.5 [facility] Comment on above: Performed By: #### . Automated Diff #### [address] [address] Eos Absolute 0.1 x10*3/mcL Normal 0.0-0.4 [facility] Comment on above: Performed By: #### . Automated Diff #### [address] [address] Eosinophils/100 WBC (Bld) 1.9 % Normal 0.0-5.4 [facility] Comment on above: Performed By: #### . Automated Diff #### [address] [address] Lymph Absolute 2.4 x10*3/mcL Normal 1.0-4.8 [facility] Comment on above: Performed By: #### . Automated Diff #### [address] [address] Lymphocytes/100 WBC (Bld) 37.8 % Normal 27.2-40.8 [facility] Comment on above: Performed By: #### . Automated Diff #### [address] [address] [place] Absolute 0.6 x10*3/mcL Normal 0.1-1.1 [facility] Comment on above: Performed By: #### . Automated Diff #### [address] [address] Monocytes/100 WBC (Bld) 9.3 % Normal 3.7-11.9 [facility] Comment on above: Performed By: #### . Automated Diff #### [address] [address] Neutro Absolute 3.1 x10*3/mcL Normal 1.8-7.7 [facility] Comment on above: Performed By: #### . Automated Diff #### [facility] [address] [place] [address] Neutro Auto 49.9 % Normal 47.2-70.8 [facility] Comment on above: Performed By: #### . Automated Diff #### [facility] [address] [place] [address] ED Note-Physicianon 04-27-20 ED Note-Physician Chief Complaint PAtient states she is having MS flare up that has been [place] on for three days History of Present Illness Patient is a 48-year-old female with a history of MS, avascular necrosis, and DVTs presenting for 3 days of left facial pain, left eye blurriness, and left leg weakness. She states the pain started at her hairline of the left side of her scalp and progressed on the left side of her face and has since proceeded to cause slight blurriness in her left eye. Today she also started losing function of her left leg saying that she has to lug it around to be able to walk. She follows closely with Dr. Stephen for her MS and has been repeatedly admitted to the hospital for MS flares including optic neuritis. She denies slurred speech or facial droop. Denies saddle paresthesias or urinary/bowel incontinence. Review of Systems As reviewed in the HPI. All other systems reviewed are negative or normal. Physical Exam CONSTITUTIONAL: [well appearing in no acute distress] SKIN: [Warm, dry, and intact without rash] EYES: [extraocular movements are grossly intact, clear conjunctiva] HENT: [Normocephalic, atraumatic, moist mucus membranes] NECK: [no obvious swelling, normal range of motion] PULMONARY: [normal chest rise and fall, no respiratory distress or stridor CARDIOVASCULAR: [regular rate, distal extremities are warm and well perfused] GASTROINSTESTINAL: [nondistended, non-tender] GENITOURINARY: [deferred] NEUROLOGIC: [normal speech, unable to move left leg. No facial droop, palsy, aphasia] MUSCULOSKELETAL: [no gross deformities, atraumatic] PSYCHIATRIC: [normal mood and affect] Vitals & Measurements T: 36.4 ?C (Oral) HR: 71 (Peripheral) RR: 16 BP: 130/87 SpO2: 94% Medical Decision Making This report has been created using voice recognition software. It may contain minor errors which are inherent in voice recognition technology. History of multiple sclerosis with an episode of optic neuritis, DVT, avascular necrosis of the hip. Followed closely by Dr. Garcia. She has had multiple admits for multiple sclerosis flareups. Charles with left facial pain, left eye blurriness, and left leg weakness or known symptoms of her MS. Exam shows no facial droop, slurred speech, neurological deficits. Has received multiple MRIs in the past. CBC, CMP, CRP and UA ordered. Consulted Dr. Garcia at 2030 as he is familiar with her case and has recommended admit for her multiple times. He recommends admit once again today as she will need IV steroids as in the past she has had bad reactions to IVIG. He states he knows the patient is difficult to get a line in and if we are able to establish a line in the ED to start 1 g of IV Solu-Medrol and admit to medicine for a inpatient treatment of steroids for MS flare. I appreciate Dr. Garcia time. Patient states she is allergic to Solu-Medrol but can take as long as she receives Benadryl before hand. IV Benadryl administered before 1 g of Solu-Medrol was begun in the ED. Dr. Tone Barton with the hospitalist group consulted at 2300 for admit for IV Solu-Medrol and observation of her MS exacerbation. After reviewing the case Dr. Willingham was agreeable to admit. I appreciate Dr. Vasquez's time. Patient informed of admit to which she was agreeable to and voiced understanding of. I handed off this patient to Dr. Rosas for the night with admit orders in and admit accepted as well as IV Benadryl and Solu-Medrol started. Differential Diagnosis: Multiple sclerosis exacerbation CVA Facial palsy Data and analysis: ? Patients chart reviewed historically as needed ? Independent Historian: ? XR: ? Labs: CRP 0.22 ED Course / Patient Re-evaluation: ? Time: The results of pertinent diagnostic studies and exam findings were discussed. The patient?s provisional diagnosis and plan of care were discussed with the patient and present family. The patient and/or present family expressed understanding of the diagnosis and plan. The nurse was instructed to provide written instructions and appropriate follow-up information. The patient understands their need and responsibility to obtain additional follow-up as instructed. The risks of medications administered and prescribed were discussed with the patient and family present. Reexamination/Reevalua tion Patient rested comfortably in bed during handoff, vital stable. Assessment/Plan 1. Multiple sclerosis exacerbation IV Benadryl and Solu-Medrol Admit Orders: C-Reactive Protein Complete Blood Count w/ Differential Comprehensive Metabolic Panel Consult to Neurology Urinalysis with Culture, if indicated Refresh vitals and sections below: Problem List/Past Medical History Ongoing Avascular necrosis of bone of left hip Chronic pain Deep vein thrombosis (DVT) of right upper extremity Degenerative tear of acetabular labrum of right hip Drug-seeking behavior H/O factitious disorder Hypertension Intentional self-exposure to bleach Adriana-W (more content not included)... Normal [facility] Insurance Correspondence Off 03-14-2023 Insurance Correspondence Office [id number] [id number]#1. 00CD:127 Normal [facility] Insurance Correspondence Off [facility]02-22-2023 Insurance Correspondence Office [phone] [id number]#1. 00CD:127 Normal [facility] .eGFRon 02-05-2023 GFR/1.73 sq M.predicted MDRD (S/P/Bld) [Vol rate/Area] mL/min/{1.73_m2} Normal >=60 [facility] Comment on above: Result Comment: [facility] have implemented the eGFR calculation approach that does not have a coefficient for race and that conforms to the NKF-ASN Task Force Recommendations. Stages of Chronic Kidney Disease GFR Stage 3a Mild to moderate loss of kidney function 59 to 45 Stage 3b Moderate to severe loss of kidney function 44 to 33 Stage 4 Severe loss of kidney function 29 to 15 Stage 5 Kidney failure Less than 15 GFR calculated using the CKD-Epi Creatinine Equation (2020): eGFR = 142 X min(SCr/?, 1)? X max(SCr /?, 1)-1.200 X 0.9938Age X 1.012 [if female] Abbreviations/Units: eGFR (estimated glomerular filtration rate) = mL/min/1.73 m2 SCr (standardized serum creatinine) = mg/dL ? = 0.7 (females) or 0.9 (males) ? = -0.241 (females) or -0.302 (males) min = indicates the minimum of SCr/? or 1 max = indicates the maximum of SCr/? or 1 Age = years Performed By: #### E GFR ####[address] [address] Basic Metabolic Profileon Anion gap [Moles/Vol] 11 mmol/L Normal 7-17 [facility] Comment on above: Performed By: #### . Manual Diff #### [address] [address] Calcium [Mass/Vol] 8.9 mg/dL Normal 8.5-10.3 [facility] Comment on above: Performed By: #### . Manual Diff #### [address] [address] Chloride [Moles/Vol] 100 mmol/L Normal 98-110 [facility] Comment on above: Performed By: #### . Manual Diff #### [address] [address] CO2 [Moles/Vol] 26 mmol/L Normal 22-32 [facility] Comment on above: Performed By: #### . Manual Diff #### [address] [address] Creatinine [Mass/Vol] 0.60 mg/dL Normal 0.44-1.03 [facility] Comment on above: Performed By: #### . Manual Diff #### [address] [address] Glucose [Mass/Vol] 130 mg/dL High 70-99 [facility] Comment on above: Performed By: #### . Manual Diff #### [address] [address] Potassium [Moles/Vol] 4.1 mmol/L Normal 3.4-4.8 [facility] Comment on above: Performed By: #### . Manual Diff #### [address] [address] Sodium [Moles/Vol] 133 mmol/L Normal 133-142 [facility] Comment on above: Performed By: #### . Manual Diff #### [address] [address] Urea nitrogen [Mass/Vol] 14 mg/dL Normal 8-26 [facility] Comment on above: Performed By: #### . Manual Diff #### [address] [address] Urea nitrogen/Creatinine [Mass ratio] 23.3 mg/mg High 10.0-20.0 [facility] Comment on above: Performed By: #### . Manual Diff #### [place] [id number] CBCon 02-05-2023 Erythrocyte distribution width (RBC) [Ratio] 13.6 % Normal 11.6-14.8 [facility] Comment on above: Performed By: #### . Automated Diff #### [address] [address] Hematocrit (Bld) [Volume fraction] 39.9 % Normal 36.0-46.0 [facility] Comment on above: Performed By: #### . Automated Diff #### [address] [address] Hemoglobin (Bld) [Mass/Vol] 13.6 g/dL Normal 12.0-16.0 [facility] Comment on above: Performed By: #### . Automated Diff #### [address] [address] MCH (RBC) [Entitic mass] 28.7 pg Normal 27.0-35.0 [facility] Comment on above: Performed By: #### . Automated Diff #### [address] [address] MCHC 34.1 % Normal 31.0-37.0 [facility] Comment on above: Performed By: #### . Automated Diff #### [place] [address] MCV (RBC) [Entitic vol] 84.2 fL Normal 80.0-100.0 [facility] Comment on above: Performed By: #### . Automated Diff #### [place] [address] Platelet 303 x10*3/mcL Normal 150-450 [facility] Comment on above: Performed By: #### . Automated Diff #### [place] [address] Platelet mean volume (Bld) [Entitic vol] 8.0 fL Normal 6.7-10.6 [facility] Comment on above: Performed By: #### . Automated Diff #### [place] [address] RBC 4.73 x10*6/mcL Normal 3.80-5.20 [facility] Comment on above: Performed By: #### . Automated Diff #### [place] [address] WBC 10.1 x10*3/mcL Normal 4.5-11.0 [facility] Comment on above: Performed By: #### . Automated Diff #### [place] [address] Inpatient Clinical Summaryon 02-05-2023 [place]patient [place] [address] [place] [address] Clinical Summary Person Information Name: Dallas James Age: 47 Years : 1975 Sex: Female PCP: Ward Mendez MD Marital Status: Phone: PCP: [phone] Race: White Ethnicity: Not or Language: Ukrainian Visit Id: Visit Reason: Blurred Vision Speciality: Acuity: Enc Type: Inpatient Med Service: Emergency Medicine Arrival: 01/28/2023 08:30:57 Discharge: Dispo Type: Address: [place] [address] Diagnosis: 1:Optic neuritis, left; 2:Multiple sclerosis exacerbation; 3:Fall; 4:Hip pain; 5:Left wrist pain; 6:Left ankle pain; Oral thrush Discharged To: Home Treatments: Devices/Equipment: Professional Skilled Services: Special Services and Community Resources: Mode of Discharge Transportation: Discharge Orders Allergies fentaNYL (Headache) Toradol (Hives) Zofran (Hives) Protonix (Hives) (itchy) penicillin (Hives) iodinated radiocontrast dyes (Hives) Functional Status: Sensory Deficits: None History of Falls: None Mobility Assistance Prior to Admission: ADLs: Independent Gait: Unable to assess Ambulation Assist: Assistive Device: Gait belt, Walker Special Orthopedic Devices: Current Level of Assistance for Self-Care/Mobility: Cognitive Status: Orientation: Orientation Assessment Oriented x 4 Level of Consciousness: Alert Characteristics of Speech: Clear Aspiration Risk: None Affect/Behavior: Appropriate Laboratory or Other Results This Visit (last charted value for your 01/28/2023 visit) Hematology 02/05/2023 5:46 AM WBC: 10.1 x10 RBC: 4.73 x10 MCV: 84.2 fL -- Normal range between ( 80.0 and 100.0 ) MCHC: 34.1 % -- Normal range between ( 31.0 and 37.0 ) Hct: 39.9 % -- Normal range between ( 36.0 and 46.0 ) MCH: 28.7 pg -- Normal range between ( 27.0 and 35.0 ) Hgb: 13.6 g/dL -- Normal range between ( 12.0 and 16.0 ) Mean Platelet Volume: 8.0 fL -- Normal range between ( 6.7 and 10.6 ) Platelet: 303 x10 RDW: 13.6 % -- Normal range between ( 11.6 and 14.8 ) 01/28/2023 9:35 AM Neutro Auto: 48.7 % -- Normal range between ( 47.2 and 70.8 ) Lymph Auto: 40.1 % -- Normal range between ( 27.2 and 40.8 ) [place] Auto: 7.9 % -- Normal range between ( 3.7 and 11.9 ) Eos Auto: 2.2 % -- Normal range between ( 0.0 and 5.4 ) Basophil Auto: 1.1 % -- Normal range between ( 0.0 and 1.5 ) Baso Absolute: 0.1 x10 Lymph Absolute: 2.5 x10 [place] Absolute: 0.5 x10 Neutro Absolute: 3.0 x10 Eos Absolute: 0.1 x10 Sed Rate: 11 mm/hr -- Normal range between ( 0 and 23 ) Chemistry 02/05/2023 5:46 AM Creatinine Lvl: 0.60 mg/dL -- Normal range between ( 0.44 and 1.03 ) BUN: 14 mg/dL -- Normal range between ( 8 and 26 ) Glucose Lvl: 130 mg/dL -- Normal range between ( 70 and 99 ) Potassium Lvl: 4.1 mmol/L -- Normal range between ( 3.4 and 4.8 ) Sodium Lvl: 133 mmol/L -- Normal range between ( 133 and 142 ) Calcium Lvl: 8.9 mg/dL -- Normal range between ( 8.5 and 10.3 ) Chloride: 100 mmol/L -- Normal range between ( 98 and 110 ) CO2: 26 mmol/L -- Normal range between ( 22 and 32 ) Anion Gap: 11 -- Normal range between ( 7 and 17 ) Estimated GFR: >60 mL/min/1.73m? BUN Crea Ratio: 23.3 -- Normal range between ( 10.0 and 20.0 ) 01/29/2023 9:33 AM Phosphorus: 3.0 mg/dL -- Normal range between ( 2.5 and 4.6 ) Magnesium Lvl: 1.9 mg/dL -- Normal range between ( 1.7 and 2.4 ) 01/28/2023 9:35 AM CRP: 0.13 mg/dL -- Normal range between ( 0.00 and 0.75 ) Computed Tomography 01/29/2023 2:[address] Hip w/o Contrast Left: CT Hip w/o Contrast Left Diagnostic Radiology 01/29/2023 1:26 PM XR Ankle 2 Views Left: XR Ankle 2 Views Left 01/29/2023 8:18 AM XR Hip 2-3 Views Left: XR Hip 2-3 Views Left 01/29/2023 8:17 AM XR Wrist 3 or More Views Left: XR Wrist 3 or More Views Left Magnetic Resonance Imaging 02/02/2023 2:48 PM MRI Pelvis w/o Contrast: MRI Pelvis w/o Contrast 01/28/2023 10:45 AM MRI Orbits w/ + w/o Contrast: MRI Orbits w/ + w/o Contrast Measurements: Height: Weight: Blood Pressure: 137 mmHg / BMI: Respiratory: Respirations: Unlabored Respiratory Symptoms: None Cardiovascular: Heart Sounds: Heart Rhythm: Regular Gastrointestinal: GI Symptoms: Bowel Sounds: Present Vital Signs: Temp Axillary: Temp Temporal Artery: Temp Oral: 36.5 degC Temp Rectal: Apical Heart Rate: Peripheral Pulse Rate: 98 bpm Heart Rate: 78 bpm Respiratory Rate: 18 br/min Diet Diet: Feeding Tolerance: Appetite: Fair Ministerio Assessment: 21 Procedures No Procedures Documented Immunizations No Immunizations Documented This Visit HERE ARE THE MEDICATION CHANGES THAT OCCURRED DURING YOUR HOSPITAL STAY New Medications [id number], [address], [place] [id number], [phone] nystat (more content not included)... Normal [facility] Neurology Progress Noteon Neurology Progress Note Subjective Patient is scheduled to complete her last day of IV Solu-Medrol later this afternoon and then can be discharged. Her left leg is moving much better. Her IV Dilaudid was discontinued but she does have Percocet at home which she takes on a regular basis Review of Systems Constitutional: [No fevers, chills, sweats] Eye: [No recent visual problems] ENMT: [No ear pain, nasal congestion, sore throat] Respiratory: [No shortness of breath, cough] Cardiovascular: [No Chest pain, palpitations, syncope] Gastrointestinal: [No nausea, vomiting, diarrhea] Genitourinary: [No hematuria] Objective Vitals & Measurements T: 36.5 ?C (Oral) HR: 98 (Peripheral) RR: 18 BP: 137/86 SpO2: 99% HT: 170.2 cm WT: 66.5 kg (Dosing) BMI: 22.09 Additional Vitals No qualifying data available. Lab Results Test Name Test Result Date/Time WBC 10.1 x10 Hgb 13.6 g/dL 02/05/2023 05:46 EDT Hct 39.9 % 02/05/2023 05:46 EDT Platelet 303 x10 Sodium Lvl 133 mmol/L 02/05/2023 05:46 EDT Potassium Lvl 4.1 mmol/L 02/05/2023 05:46 EDT Chloride 100 mmol/L 02/05/2023 05:46 EDT CO2 26 mmol/L 02/05/2023 05:46 EDT Glucose Lvl 130 mg/dL (High) 02/05/2023 05:46 EDT BUN 14 mg/dL 02/05/2023 05:46 EDT Creatinine Lvl 0.60 mg/dL 02/05/2023 05:46 EDT Microbiology - Current Encounter No qualifying data available. Diagnostic Results Magnetic Resonance Imaging MRI Pelvis w/o Contrast 02/02/23 15:27:48 IMPRESSION: 1. Subtle signal abnormalities in the subchondral marrow at the superior aspect of the left femoral head, nonspecific but possible early changes of avascular necrosis. Consider follow-up with CT or MRI as clinically indicated. 2. Normal signal intensity of the right femoral head. 3. Likely postoperative atrophy with concomitant signal abnormality in the lower paraspinal muscles. Signed By: Joesph Miller MD Physical Exam Alert oriented x3 normal speech cranial nerves II through XII are symmetric motor exam shows that she is moving her left leg much better Medications Inpatient acetaminophen, 650 mg, Oral, q6hr, PRN acetaminophen, 650 mg, Oral, q6hr, PRN amLODIPine, 10 mg, Oral, qAM amoxicillin, 875 mg, Oral, BID cyclobenzaprine, 5 mg, Oral, TID diphenhydrAMINE, 50 mg= 1 mL, IV Push, q6hr, PRN docusate-senna 50 mg-8.6 mg oral tablet, 2 tabs, Oral, BID, PRN enoxaparin, 40 mg= 0.4 mL, Subcutaneous, Daily LORazepam, 1 mg, Oral, TID Lyrica, 100 mg, Oral, TID magnesium oxide, 400 mg, Oral, qAM methylPREDNISolone + Sodium Chloride 0.9% intravenous solution 250 mL midazolam, 1 mg= 1 mL, IV Push, q15min, PRN naloxone, 0.4 mg= 1 mL, IV Push, q2min, PRN nicotine 21 mg/24 hr transdermal film, extended release, 1 patches, TD, Daily, PRN Normal Saline Flush 0.9% injectable solution, 10 mL, IV Push, As Indicated, PRN Normal Saline Flush 0.9% injectable solution, 10 mL, IV Push, BID nystatin, 212714 units= 5 mL, Oral, QID oxyCODONE-acetaminophe n 10 mg-325 mg oral tablet, 1 tabs, Oral, q4hr, PRN Pepcid, 20 mg= 2 mL, IV Push, [id number] Times Phenergan, 25 mg, Oral, q4hr, PRN Premarin, 0.9 mg, Oral, qAM prochlorperazine, 5 mg= 1 mL, IV Push, q4hr, PRN Zeposia (ozanimod) capsules, 1 caps, Oral, Daily Assessment/Plan 1. Optic neuritis, left 2. Multiple sclerosis exacerbation Completes IV Solu-Medrol today was not able to tolerate IVIG on a positive note MRI of the left hip looks much better with less avascular necrosis 3. Fall 4. Hip pain 5. Left wrist pain 6. Left ankle pain Electronically signed by Filippo Garcia MD 02/05/23 12:24 EDT Normal [facility] Insurance Correspondence Off ice02-04-2023 Insurance Correspondence Office [id number] [id number]#1. [id number]:[id number] Normal [facility] Neurology Progress Noteon Neurology Progress Note Subjective Patient is scheduled to finish IV Solu-Medrol on February 06. She did have to miss a day when she had no IV access. She was not a candidate for a PICC line but she did have another line placed which appears to be working. There have been no changes in her medication regimen and affect is brighter today she is encouraged that she is moving her left leg better Review of Systems Constitutional: [No fevers, chills, sweats] Eye: [No recent visual problems] ENMT: [No ear pain, nasal congestion, sore throat] Respiratory: [No shortness of breath, cough] Cardiovascular: [No Chest pain, palpitations, syncope] Gastrointestinal: [No nausea, vomiting, diarrhea] Genitourinary: [No hematuria] Objective Vitals & Measurements T: 36.6 ?C (Oral) HR: 81 (Peripheral) RR: 18 BP: 129/84 SpO2: 97% HT: 170.2 cm WT: 66.4 kg (Dosing) BMI: 22.09 Additional Vitals No qualifying data available. Lab Results Microbiology - Current Encounter No qualifying data available. Diagnostic Results Magnetic Resonance Imaging MRI Pelvis w/o Contrast 02/02/23 15:27:48 IMPRESSION: 1. Subtle signal abnormalities in the subchondral marrow at the superior aspect of the left femoral head, nonspecific but possible early changes of avascular necrosis. Consider follow-up with CT or MRI as clinically indicated. 2. Normal signal intensity of the right femoral head. 3. Likely postoperative atrophy with concomitant signal abnormality in the lower paraspinal muscles. Signed By: Paul PATEL, Joesph Richter Physical Exam Alert oriented x3 cranial nerves II through XII are symmetric motor exam shows some persistent weakness of the left leg but she is able to lift her left leg off the bed some flexion and extension of the left leg. No dysmetria normal strength both arms and right leg Medications Inpatient acetaminophen, 650 mg, Oral, q6hr, PRN acetaminophen, 650 mg, Oral, q6hr, PRN amLODIPine, 10 mg, Oral, qAM amoxicillin, 875 mg, Oral, BID cyclobenzaprine, 5 mg, Oral, TID Dilaudid, 1 mg= 1 mL, IV Push, q2hr, PRN diphenhydrAMINE, 50 mg= 1 mL, IV Push, q6hr, PRN docusate-senna 50 mg-8.6 mg oral tablet, 2 tabs, Oral, BID, PRN enoxaparin, 40 mg= 0.4 mL, Subcutaneous, Daily LORazepam, 1 mg, Oral, TID Lyrica, 100 mg, Oral, TID magnesium oxide, 400 mg, Oral, qAM methylPREDNISolone + Sodium Chloride 0.9% intravenous solution 250 mL midazolam, 1 mg= 1 mL, IV Push, q15min, PRN naloxone, 0.4 mg= 1 mL, IV Push, q2min, PRN nicotine 21 mg/24 hr transdermal film, extended release, 1 patches, TD, Daily, PRN Normal Saline Flush 0.9% injectable solution, 10 mL, IV Push, As Indicated, PRN Normal Saline Flush 0.9% injectable solution, 10 mL, IV Push, BID nystatin, 212637 units= 5 mL, Oral, QID oxyCODONE-acetaminophe n 10 mg-325 mg oral tablet, 1 tabs, Oral, q4hr, PRN Pepcid, 20 mg= 2 mL, IV Push, [id number] Times Phenergan, 25 mg, Oral, q4hr, PRN Premarin, 0.9 mg, Oral, qAM prochlorperazine, 5 mg= 1 mL, IV Push, q4hr, PRN Zeposia (ozanimod) capsules, 1 caps, Oral, Daily Assessment/Plan 1. Optic neuritis, left 2. Multiple sclerosis exacerbation Scheduled to complete IVIG on February 06 3. Fall 4. Hip pain 5. Left wrist pain 6. Left ankle pain Electronically signed by Radha PATEL, Filippo Devine 02/04/23 19:56 EDT Normal [facility] Neurology Progress Noteon Neurology Progress Note Subjective Patient had a very emotional day with talking to relatives i.e. mother and daughter which apparently did not go well her IV infiltrated and she will need a PICC line which I will order for tomorrow on a positive note her MRIs of the hip look much better there was essentially no avascular necrosis of the right femoral head and the left femoral head was much improved however she has been off steroids for over a year and a half. I did tell her to notify her orthopedic surgeon that her studies have been done. We will work on getting a PICC line for tomorrow by radiology Review of Systems Constitutional: [No fevers, chills, sweats] Eye: [No recent visual problems] ENMT: [No ear pain, nasal congestion, sore throat] Respiratory: [No shortness of breath, cough] Cardiovascular: [No Chest pain, palpitations, syncope] Gastrointestinal: [No nausea, vomiting, diarrhea] Genitourinary: [No hematuria] Objective Vitals & Measurements T: 36.7 ?C (Oral) HR: 90 (Peripheral) RR: 18 BP: 160/95 SpO2: 95% HT: 170.2 cm WT: 62.2 kg BMI: 22.09 Additional Vitals No qualifying data available. Lab Results Test Name Test Result Date/Time WBC 12.4 x10 Hgb 13.1 g/dL 02/02/2023 05:21 EDT Hct 38.3 % 02/02/2023 05:21 EDT Platelet 272 x10 Sodium Lvl 134 mmol/L 02/02/2023 05:21 EDT Potassium Lvl 4.7 mmol/L 02/02/2023 05:21 EDT Chloride 103 mmol/L 02/02/2023 05:21 EDT CO2 24 mmol/L 02/02/2023 05:21 EDT Glucose Lvl 133 mg/dL (High) 02/02/2023 05:21 EDT BUN 21 mg/dL 02/02/2023 05:21 EDT Creatinine Lvl 0.60 mg/dL 02/02/2023 05:21 EDT Microbiology - Current Encounter No qualifying data available. Diagnostic Results Magnetic Resonance Imaging MRI Pelvis w/o Contrast 02/02/23 15:27:48 IMPRESSION: 1. Subtle signal abnormalities in the subchondral marrow at the superior aspect of the left femoral head, nonspecific but possible early changes of avascular necrosis. Consider follow-up with CT or MRI as clinically indicated. 2. Normal signal intensity of the right femoral head. 3. Likely postoperative atrophy with concomitant signal abnormality in the lower paraspinal muscles. Signed By: Joesph Miller MD Physical Exam Alert oriented x3 normal speech able to lift her left leg off the bed and move it laterally normal strength of right side and left arm no new issues Medications Inpatient acetaminophen, 650 mg, Oral, q6hr, PRN acetaminophen, 650 mg, Oral, q6hr, PRN amLODIPine, 10 mg, Oral, qAM amoxicillin, 875 mg, Oral, BID cyclobenzaprine, 5 mg, Oral, TID Dilaudid, 1 mg= 1 mL, IV Push, q2hr, PRN diphenhydrAMINE, 50 mg= 1 mL, IV Push, q6hr, PRN docusate-senna 50 mg-8.6 mg oral tablet, 2 tabs, Oral, BID, PRN enoxaparin, 40 mg= 0.4 mL, Subcutaneous, Daily LORazepam, 1 mg, Oral, TID Lyrica, 100 mg, Oral, TID magnesium oxide, 400 mg, Oral, qAM methylPREDNISolone + Sodium Chloride 0.9% intravenous solution 250 mL midazolam, 1 mg= 1 mL, IV Push, q15min, PRN naloxone, 0.4 mg= 1 mL, IV Push, q2min, PRN nicotine 21 mg/24 hr transdermal film, extended release, 1 patches, TD, Daily, PRN Normal Saline Flush 0.9% injectable solution, 10 mL, IV Push, As Indicated, PRN Normal Saline Flush 0.9% injectable solution, 10 mL, IV Push, BID oxyCODONE-acetaminophe n 10 mg-325 mg oral tablet, 1 tabs, Oral, q4hr, PRN Pepcid, 20 mg= 2 mL, IV Push, [id number] Times Phenergan, 25 mg, Oral, q4hr, PRN Premarin, 0.9 mg, Oral, qAM prochlorperazine, 5 mg= 1 mL, IV Push, q4hr, PRN Zeposia (ozanimod) capsules, 1 caps, Oral, Daily Assessment/Plan 1. Optic neuritis, left 2. Multiple sclerosis exacerbation Will place order for PICC line 3. Fall 4. Hip pain 5. Left wrist pain 6. Left ankle pain Electronically signed by Filippo Garcia MD 02/03/23 18:40 EDT Normal [facility] .eGFRon 02-02-2023 GFR/1.73 sq M.predicted MDRD (S/P/Bld) [Vol rate/Area] mL/min/{1.73_m2} Normal >=60 [facility] Comment on above: Result Comment: [facility] have implemented the eGFR calculation approach that does not have a coefficient for race and that conforms to the NKF-ASN Task Force Recommendations. Stages of Chronic Kidney Disease GFR Stage 3a Mild to moderate loss of kidney function 59 to 45 Stage 3b Moderate to severe loss of kidney function 44 to 33 Stage 4 Severe loss of kidney function 29 to 15 Stage 5 Kidney failure Less than 15 GFR calculated using the CKD-Epi Creatinine Equation (2020): eGFR = 142 X min(SCr/?, 1)? X max(SCr /?, 1)-1.200 X 0.9938Age X 1.012 [if female] Abbreviations/Units: eGFR (estimated glomerular filtration rate) = mL/min/1.73 m2 SCr (standardized serum creatinine) = mg/dL ? = 0.7 (females) or 0.9 (males) ? = -0.241 (females) or -0.302 (males) min = indicates the minimum of SCr/? or 1 max = indicates the maximum of SCr/? or 1 Age = years Performed By: #### C [id number] #### [address] [address] Basic Metabolic Profileon Anion gap [Moles/Vol] 12 mmol/L Normal 7-17 [facility] Comment on above: Performed By: #### E GFR #### [address] [address] Calcium [Mass/Vol] 9.0 mg/dL Normal 8.5-10.3 [facility] Comment on above: Performed By: #### E GFR #### [address] [address] Chloride [Moles/Vol] 103 mmol/L Normal 98-110 [facility] Comment on above: Performed By: #### E GFR #### [address] [address] CO2 [Moles/Vol] 24 mmol/L Normal 22-32 [facility] Comment on above: Performed By: #### E GFR #### [address] [address] Creatinine [Mass/Vol] 0.60 mg/dL Normal 0.44-1.03 [facility] Comment on above: Performed By: #### E GFR #### [address] [address] Glucose [Mass/Vol] 133 mg/dL High 70-99 [facility] Comment on above: Performed By: #### E GFR #### [address] [address] Potassium [Moles/Vol] 4.7 mmol/L Normal 3.4-4.8 [facility] Comment on above: Performed By: #### E GFR #### [address] [address] Sodium [Moles/Vol] 134 mmol/L Normal 133-142 [facility] Comment on above: Performed By: #### E GFR #### [address] [address] Urea nitrogen [Mass/Vol] 21 mg/dL Normal 8-26 [facility] Comment on above: Performed By: #### E GFR #### [address] [address] Urea nitrogen/Creatinine [Mass ratio] 35.0 mg/mg High 10.0-20.0 [facility] Comment on above: Performed By: #### E GFR #### [address] [address] CBCon 02-02-2023 Erythrocyte distribution width (RBC) [Ratio] 13.9 % Normal 11.6-14.8 [facility] Comment on above: Performed By: #### C BCI #### [address] [address] Hematocrit (Bld) [Volume fraction] 38.3 % Normal 36.0-46.0 [facility] Comment on above: Performed By: #### C BCI #### [address] [address] Hemoglobin (Bld) [Mass/Vol] 13.1 g/dL Normal 12.0-16.0 [facility] Comment on above: Performed By: #### C BCI #### [address] [address] MCH (RBC) [Entitic mass] 28.9 pg Normal 27.0-35.0 [facility] Comment on above: Performed By: #### C BCI #### [place] [id number] MCHC 34.3 % Normal 31.0-37.0 [facility] Comment on above: Performed By: #### C BCI #### [place] [id number] MCV (RBC) [Entitic vol] 84.4 fL Normal 80.0-100.0 [facility] Comment on above: Performed By: #### C BCI #### [place] [id number] Platelet 272 x10*3/mcL Normal 150-450 [facility] Comment on above: Performed By: #### C BCI #### [address] [address] Platelet mean volume (Bld) [Entitic vol] 8.4 fL Normal 6.7-10.6 [facility] Comment on above: Performed By: #### C BCI #### [place] [id number] RBC 4.53 x10*6/mcL Normal 3.80-5.20 [facility] Comment on above: Performed By: #### C BCI #### [place] [id number] WBC 12.4 x10*3/mcL High 4.5-11.0 [facility] Comment on above: Performed By: #### C BCI #### [address] [address] Neurology Progress Noteon Neurology Progress Note Subjective Moving left leg better able to lift off bed and move it laterally in both directions. Doing better with IV Solu-Medrol. Patient did talk to orthopedics they want her to have repeat MRIs of both hips without contrast to look for her avascular necrosis evaluate severity. Subsequently those tests were ordered she will require Versed 1 mg IV before MRI may repeat x2 Review of Systems Constitutional: [No fevers, chills, sweats] Eye: [No recent visual problems] ENMT: [No ear pain, nasal congestion, sore throat] Respiratory: [No shortness of breath, cough] Cardiovascular: [No Chest pain, palpitations, syncope] Gastrointestinal: [No nausea, vomiting, diarrhea] Genitourinary: [No hematuria] Objective Vitals & Measurements T: 36.6 ?C (Oral) HR: 80 (Monitored) RR: 16 BP: 124/78 SpO2: 96% HT: 170.2 cm WT: 64 kg BMI: 22.09 Additional Vitals No qualifying data available. Lab Results Test Name Test Result Date/Time WBC 12.4 x10 Hgb 13.1 g/dL 02/02/2023 05:21 EDT Hct 38.3 % 02/02/2023 05:21 EDT Platelet 272 x10 Sodium Lvl 134 mmol/L 02/02/2023 05:21 EDT Potassium Lvl 4.7 mmol/L 02/02/2023 05:21 EDT Chloride 103 mmol/L 02/02/2023 05:21 EDT CO2 24 mmol/L 02/02/2023 05:21 EDT Glucose Lvl 133 mg/dL (High) 02/02/2023 05:21 EDT BUN 21 mg/dL 02/02/2023 05:21 EDT Creatinine Lvl 0.60 mg/dL 02/02/2023 05:21 EDT Microbiology - Current Encounter No qualifying data available. Physical Exam Alert oriented x3 normal speech cranial nerves II through XII are symmetric motor strength is 5 MRC for both upper extremities and the right leg she is able to lift her left leg off the bed and move it laterally strength up to approximately 3+ Medications Inpatient acetaminophen, 650 mg, Oral, q6hr, PRN acetaminophen, 650 mg, Oral, q6hr, PRN amLODIPine, 10 mg, Oral, qAM amoxicillin, 875 mg, Oral, BID cyclobenzaprine, 5 mg, Oral, TID Dilaudid, 1 mg= 1 mL, IV Push, q2hr, PRN diphenhydrAMINE, 50 mg= 1 mL, IV Push, q6hr, PRN docusate-senna 50 mg-8.6 mg oral tablet, 2 tabs, Oral, BID, PRN enoxaparin, 40 mg= 0.4 mL, Subcutaneous, Daily Gammagard Liquid, 30 g= 300 mL, IV Piggyback, q24hr LORazepam, 1 mg, Oral, TID Lyrica, 100 mg, Oral, TID magnesium oxide, 400 mg, Oral, qAM methylPREDNISolone + Sodium Chloride 0.9% intravenous solution 250 mL midazolam, 1 mg= 1 mL, IV Push, q15min, PRN naloxone, 0.4 mg= 1 mL, IV Push, q2min, PRN nicotine 21 mg/24 hr transdermal film, extended release, 1 patches, TD, Daily, PRN Normal Saline Flush 0.9% injectable solution, 10 mL, IV Push, As Indicated, PRN Normal Saline Flush 0.9% injectable solution, 10 mL, IV Push, BID oxyCODONE-acetaminophe n 10 mg-325 mg oral tablet, 1 tabs, Oral, q4hr, PRN Pepcid, 20 mg= 2 mL, IV Push, [id number] Times Phenergan, 25 mg, Oral, q4hr, PRN Premarin, 0.9 mg, Oral, qAM prochlorperazine, 5 mg= 1 mL, IV Push, q4hr, PRN Zeposia (ozanimod) capsules, 1 caps, Oral, Daily Assessment/Plan 1. Optic neuritis, left 2. Multiple sclerosis exacerbation 3. Fall 4. Hip pain 5. Left wrist pain 6. Left ankle pain 7. History of avascular necrosis of both hips orthopedics i.e. [facility] is requesting bilateral repeat MRIs of both hips Orders: midazolam, 1 mg, IV Push, Injection, q15min, PRN anxiety, First Dose: 02/02/23 13:19:00 EDT, Dispense From Location: [id number], 02/02/23 13:19:00 EDT MRI Hip w/o Contrast Left MRI Hip w/o Contrast Right Electronically signed by Filippo Garcia MD 02/02/23 13:23 EDT Normal [facility] .eGFRon 02-01-2023 GFR/1.73 sq M.predicted MDRD (S/P/Bld) [Vol rate/Area] mL/min/{1.73_m2} Normal >=60 [facility] Comment on above: Result Comment: [facility] have implemented the eGFR calculation approach that does not have a coefficient for race and that conforms to the NKF-ASN Task Force Recommendations. Stages of Chronic Kidney Disease GFR Stage 3a Mild to moderate loss of kidney function 59 to 45 Stage 3b Moderate to severe loss of kidney function 44 to 33 Stage 4 Severe loss of kidney function 29 to 15 Stage 5 Kidney failure Less than 15 GFR calculated using the CKD-Epi Creatinine Equation (2020): eGFR = 142 X min(SCr/?, 1)? X max(SCr /?, 1)-1.200 X 0.9938Age X 1.012 [if female] Abbreviations/Units: eGFR (estimated glomerular filtration rate) = mL/min/1.73 m2 SCr (standardized serum creatinine) = mg/dL ? = 0.7 (females) or 0.9 (males) ? = -0.241 (females) or -0.302 (males) min = indicates the minimum of SCr/? or 1 max = indicates the maximum of SCr/? or 1 Age = years Performed By: #### M G #### [address] [address] Basic Metabolic Profileon Anion gap [Moles/Vol] 16 mmol/L Normal 7-17 [facility] Comment on above: Performed By: #### . Automated Diff #### [address] [address] Calcium [Mass/Vol] 9.3 mg/dL Normal 8.5-10.3 [facility] Comment on above: Performed By: #### . Automated Diff #### [address] [address] Chloride [Moles/Vol] 98 mmol/L Normal 98-110 [facility] Comment on above: Performed By: #### . Automated Diff #### [address] [address] CO2 [Moles/Vol] 20 mmol/L Low 22-32 [facility] Comment on above: Performed By: #### . Automated Diff #### [address] [address] Creatinine [Mass/Vol] 1.02 mg/dL Normal 0.44-1.03 [facility] Comment on above: Performed By: #### . Automated Diff #### [address] [address] Glucose [Mass/Vol] 153 mg/dL High 70-99 [facility] Comment on above: Performed By: #### . Automated Diff #### [address] [address] Potassium [Moles/Vol] 4.5 mmol/L Normal 3.4-4.8 [facility] Comment on above: Performed By: #### . Automated Diff #### [address] [address] Sodium [Moles/Vol] 130 mmol/L Low 133-142 [facility] Comment on above: Performed By: #### . Automated Diff #### [address] [address] Urea nitrogen [Mass/Vol] 27 mg/dL High 8-26 [facility] Comment on above: Performed By: #### . Automated Diff #### [address] [address] Urea nitrogen/Creatinine [Mass ratio] 26.5 mg/mg High 10.0-20.0 [facility] Comment on above: Performed By: #### . Automated Diff #### [address] [address] CBCon 02-01-2023 Erythrocyte distribution width (RBC) [Ratio] 14.1 % Normal 11.6-14.8 [facility] Comment on above: Performed By: #### M G #### [address] [address] Hematocrit (Bld) [Volume fraction] 40.9 % Normal 36.0-46.0 [facility] Comment on above: Performed By: #### M G #### [address] [address] Hemoglobin (Bld) [Mass/Vol] 14.4 g/dL Normal 12.0-16.0 [facility] Comment on above: Performed By: #### M G #### [address] [address] MCH (RBC) [Entitic mass] 29.8 pg Normal 27.0-35.0 [facility] Comment on above: Performed By: #### M G #### [address] [address] MCHC 35.2 % Normal 31.0-37.0 [facility] Comment on above: Performed By: #### M G #### [address] [address] MCV (RBC) [Entitic vol] 84.5 fL Normal 80.0-100.0 [facility] Comment on above: Performed By: #### M G #### [address] [address] Platelet 312 x10*3/mcL Normal 150-450 [facility] Comment on above: Performed By: #### M G #### [address] [address] Platelet mean volume (Bld) [Entitic vol] 7.8 fL Normal 6.7-10.6 [facility] Comment on above: Performed By: #### M G #### [address] [address] RBC 4.84 x10*6/mcL Normal 3.80-5.20 [facility] Comment on above: Performed By: #### M G #### [address] [address] WBC 4.5 x10*3/mcL Normal 4.5-11.0 [facility] Comment on above: Performed By: #### M G #### [address] [place] [address] Insurance Correspondence Off iceon 02-01-2023 Insurance Correspondence Office [phone] [id number]. [id number]:[id number] Normal [facility] Neurology Progress Noteon Neurology Progress Note Subjective He does want to do the full 5-day course of IV Solu-Medrol. She is aware to contact the orthopedic surgeon regarding fixing her left avascular necrosis of the hip given that she will need to do IV Solu-Medrol for exacerbation she could not tolerate the IVIG. On a positive note we were able to obtain approval for her Zeposia Review of Systems Constitutional: [No fevers, chills, sweats] Eye: [No recent visual problems] ENMT: [No ear pain, nasal congestion, sore throat] Respiratory: [No shortness of breath, cough] Cardiovascular: [No Chest pain, palpitations, syncope] Gastrointestinal: [No nausea, vomiting, diarrhea] Genitourinary: [No hematuria] Objective Vitals & Measurements T: 36.7 ?C (Oral) HR: 82 (Peripheral) RR: 16 BP: 117/81 SpO2: 96% HT: 170.2 cm WT: 64 kg BMI: 22.09 Additional Vitals No qualifying data available. Lab Results Test Name Test Result Date/Time WBC 4.5 x10 Hgb 14.4 g/dL 02/01/2023 05:36 EDT Hct 40.9 % 02/01/2023 05:36 EDT Platelet 312 x10 Sodium Lvl 130 mmol/L (Low) 02/01/2023 05:00 EDT Potassium Lvl 4.5 mmol/L 02/01/2023 05:00 EDT Chloride 98 mmol/L 02/01/2023 05:00 EDT CO2 20 mmol/L (Low) 02/01/2023 05:00 EDT Glucose Lvl 153 mg/dL (High) 02/01/2023 05:00 EDT BUN 27 mg/dL (High) 02/01/2023 05:00 EDT Creatinine Lvl 1.02 mg/dL 02/01/2023 05:00 EDT Microbiology - Current Encounter No qualifying data available. Diagnostic Results Computed Tomography CT Hip w/o Contrast Left 01/29/23 14:34:20 IMPRESSION: 1. Normal CT of the left hip. Signed By: Santos Myrick MD Physical Exam Alert oriented x3 cranial nerves II through XII are symmetric motor exam shows persistent weakness of her left leg she is able to lift it slightly off the bed effort for testing sometimes marginal Medications Inpatient acetaminophen, 650 mg, Oral, q6hr, PRN acetaminophen, 650 mg, Oral, q6hr, PRN amLODIPine, 10 mg, Oral, qAM amoxicillin, 875 mg, Oral, BID cyclobenzaprine, 5 mg, Oral, TID Dilaudid, 1 mg= 1 mL, IV Push, q2hr, PRN diphenhydrAMINE, 50 mg= 1 mL, IV Push, q6hr, PRN docusate-senna 50 mg-8.6 mg oral tablet, 2 tabs, Oral, BID, PRN enoxaparin, 40 mg= 0.4 mL, Subcutaneous, Daily Gammagard Liquid, 30 g= 300 mL, IV Piggyback, q24hr LORazepam, 1 mg, Oral, TID Lyrica, 100 mg, Oral, TID magnesium oxide, 400 mg, Oral, qAM methylPREDNISolone + Sodium Chloride 0.9% intravenous solution 250 mL naloxone, 0.4 mg= 1 mL, IV Push, q2min, PRN nicotine 21 mg/24 hr transdermal film, extended release, 1 patches, TD, Daily, PRN Normal Saline Flush 0.9% injectable solution, 10 mL, IV Push, As Indicated, PRN Normal Saline Flush 0.9% injectable solution, 10 mL, IV Push, BID oxyCODONE-acetaminophe n 10 mg-325 mg oral tablet, 1 tabs, Oral, q4hr, PRN Pepcid, 20 mg= 2 mL, IV Push, [id number]-[id number] Times Phenergan, 25 mg, Oral, q4hr, PRN Premarin, 0.9 mg, Oral, qAM prochlorperazine, 5 mg= 1 mL, IV Push, q4hr, PRN Zeposia (ozanimod) capsules, 1 caps, Oral, Daily Assessment/Plan 1. Optic neuritis, left 2. Multiple sclerosis exacerbation To his IV Solu-Medrol she does want a full 5 days IVIG cannot be tolerated 3. Fall 4. Hip pain 5. Left wrist pain 6. Left ankle pain Orders: cyclobenzaprine, 5 mg, Oral, Tab, TID, First Dose: 01/31/23 14:00:00 EDT, Dispense From Location: [id number], 01/31/23 13:42:00 EDT methylPREDNISolone + Sodium Chloride 0.9% intravenous solution 250 mL, 1,000 mg, IV Piggyback, Soln-IV, q24hr for 5 days, infuse over 1 hr, First Dose: 01/31/23 15:00:00 EDT, Stop Date: 02/05/23 14:59:00 EDT[facility] 15:00:00 EDT Electronically signed by Filippo Garcia MD 02/01/23 13:39 EDT Normal [facility] .eGFRon 01-31-2023 GFR/1.73 sq M.predicted MDRD (S/P/Bld) [Vol rate/Area] mL/min/{1.73_m2} Normal >=60 [facility] Comment on above: Order Comment: Order added by Discern rule Result Comment: [facility] have implemented the eGFR calculation approach that does not have a coefficient for race and that conforms to the NKF-ASN Task Force Recommendations. Stages of Chronic Kidney Disease GFR Stage 3a Mild to moderate loss of kidney function 59 to 45 Stage 3b Moderate to severe loss of kidney function 44 to 33 Stage 4 Severe loss of kidney function 29 to 15 Stage 5 Kidney failure Less than 15 GFR calculated using the CKD-Epi Creatinine Equation (2020): eGFR = 142 X min(SCr/?, 1)? X max(SCr /?, 1)-1.200 X 0.9938Age X 1.012 [if female] Abbreviations/Units: eGFR (estimated glomerular filtration rate) = mL/min/1.73 m2 SCr (standardized serum creatinine) = mg/dL ? = 0.7 (females) or 0.9 (males) ? = -0.241 (females) or -0.302 (males) min = indicates the minimum of SCr/? or 1 max = indicates the maximum of SCr/? or 1 Age = years Performed By: #### . Automated Diff #### [address] [address] Basic Metabolic Profileon Anion gap [Moles/Vol] 11 mmol/L Normal 7-17 [facility] Comment on above: Performed By: #### C [id number] ####[address] [address] Calcium [Mass/Vol] 9.1 mg/dL Normal 8.5-10.3 [facility] Comment on above: Performed By: #### C [id number] ####[address] [address] Chloride [Moles/Vol] 99 mmol/L Normal 98-110 [facility] Comment on above: Performed By: #### C [id number] ####[address] [address] CO2 [Moles/Vol] 26 mmol/L Normal 22-32 [facility] Comment on above: Performed By: #### C [id number] ####[address] [address] Creatinine [Mass/Vol] 0.92 mg/dL Normal 0.44-1.03 [facility] Comment on above: Performed By: #### C [id number] ####[address] [address] Glucose [Mass/Vol] 119 mg/dL High 70-99 [facility] Comment on above: Performed By: #### C [id number] ####[address] [address] Potassium [Moles/Vol] 3.8 mmol/L Normal 3.4-4.8 [facility] Comment on above: Performed By: #### C [id number] ####[address] [address] Sodium [Moles/Vol] 132 mmol/L Low 133-142 [facility] Comment on above: Performed By: #### C [id number] ####[address] [address] Urea nitrogen [Mass/Vol] 14 mg/dL Normal 8-26 [facility] Comment on above: Performed By: #### C [id number] ####[address] [address] Urea nitrogen/Creatinine [Mass ratio] 15.2 mg/mg Normal 10.0-20.0 [facility] Comment on above: Performed By: #### C [id number] ####[address] [address] CBCon 01-31-2023 Erythrocyte distribution width (RBC) [Ratio] 14.1 % Normal 11.6-14.8 [facility] Comment on above: Performed By: #### . Manual Diff #### [address] [address] Hematocrit (Bld) [Volume fraction] 40.2 % Normal 36.0-46.0 [facility] Comment on above: Performed By: #### . Manual Diff #### [address] [address] Hemoglobin (Bld) [Mass/Vol] 14.0 g/dL Normal 12.0-16.0 [facility] Comment on above: Performed By: #### . Manual Diff #### [address] [address] MCH (RBC) [Entitic mass] 29.5 pg Normal 27.0-35.0 [facility] Comment on above: Performed By: #### . Manual Diff #### [address] [address] MCHC 34.9 % Normal 31.0-37.0 [facility] Comment on above: Performed By: #### . Manual Diff #### [place] [id number] MCV (RBC) [Entitic vol] 84.6 fL Normal 80.0-100.0 [facility] Comment on above: Performed By: #### . Manual Diff #### [place] [id number] Platelet 318 x10*3/mcL Normal 150-450 [facility] Comment on above: Performed By: #### . Manual Diff #### [place] [id number] Platelet mean volume (Bld) [Entitic vol] 8.4 fL Normal 6.7-10.6 [facility] Comment on above: Performed By: #### . Manual Diff #### [place] [address] RBC 4.75 x10*6/mcL Normal 3.80-5.20 [facility] Comment on above: Performed By: #### . Manual Diff #### [place] [address] WBC 10.9 x10*3/mcL Normal 4.5-11.0 [facility] Comment on above: Performed By: #### . Manual Diff #### [place] [address] Neurology Progress Noteon Neurology Progress Note Subjective Patient was unable to tolerate IV Ig subsequently she will be started on IV Solu-Medrol today however she has had a favorable response she is already able to lift her left leg up some off of the bed she is having more spasticity and spasms and was agreeable to low-dose Flexeril Review of Systems Constitutional: [No fevers, chills, sweats] Eye: [No recent visual problems] ENMT: [No ear pain, nasal congestion, sore throat] Respiratory: [No shortness of breath, cough] Cardiovascular: [No Chest pain, palpitations, syncope] Gastrointestinal: [No nausea, vomiting, diarrhea] Genitourinary: [No hematuria] Objective Vitals & Measurements T: 37.4 ?C (Oral) HR: 87 (Peripheral) RR: 18 BP: 125/84 SpO2: 98% HT: 170.2 cm WT: 64 kg BMI: 22.09 Additional Vitals No qualifying data available. Lab Results Test Name Test Result Date/Time WBC 10.9 x10 Hgb 14.0 g/dL 01/31/2023 05:11 EDT Hct 40.2 % 01/31/2023 05:11 EDT Platelet 318 x10 Sodium Lvl 132 mmol/L (Low) 01/31/2023 05:11 EDT Potassium Lvl 3.8 mmol/L 01/31/2023 05:11 EDT Chloride 99 mmol/L 01/31/2023 05:11 EDT CO2 26 mmol/L 01/31/2023 05:11 EDT Glucose Lvl 119 mg/dL (High) 01/31/2023 05:11 EDT BUN 14 mg/dL 01/31/2023 05:11 EDT Creatinine Lvl 0.92 mg/dL 01/31/2023 05:11 EDT Microbiology - Current Encounter No qualifying data available. Diagnostic Results Diagnostic Radiology XR Ankle 2 Views Left 01/29/23 13:42:30 IMPRESSION: Mild soft tissue swelling. No acute osseous abnormality. Signed By: Joesph Miller MD XR Wrist 3 or More Views Left 01/29/23 11:57:10 IMPRESSION: Soft tissue swelling. No acute osseous abnormality. Signed By: Joesph Miller MD XR Hip 2-3 Views Left 01/29/23 11:04:44 IMPRESSION: No acute abnormality of the pelvis or left hip. Signed By: Joesph Miller MD Computed Tomography CT Hip w/o Contrast Left 01/29/23 14:34:20 IMPRESSION: 1. Normal CT of the left hip. Signed By: Santos Myrick MD Physical Exam Alert oriented x3 cranial nerves II through XII are symmetric motor exam shows increased movement of the left leg she can lift it off the bed Medications Inpatient acetaminophen, 650 mg, Oral, q6hr, PRN acetaminophen, 650 mg, Oral, q6hr, PRN amLODIPine, 10 mg, Oral, qAM amoxicillin, 875 mg, Oral, BID cyclobenzaprine, 5 mg, Oral, TID Dilaudid, 1 mg= 1 mL, IV Push, q2hr, PRN diphenhydrAMINE, 25 mg= 0.5 mL, IV Push, q6hr, PRN enoxaparin, 40 mg= 0.4 mL, Subcutaneous, Daily Gammagard Liquid, 30 g= 300 mL, IV Piggyback, q24hr LORazepam, 1 mg, Oral, TID Lyrica, 100 mg, Oral, TID magnesium oxide, 400 mg, Oral, qAM methylPREDNISolone, 1000 mg= 25 mL, IV Push, Daily naloxone, 0.4 mg= 1 mL, IV Push, q2min, PRN nicotine 21 mg/24 hr transdermal film, extended release, 1 patches, TD, Daily, PRN Normal Saline Flush 0.9% injectable solution, 10 mL, IV Push, As Indicated, PRN Normal Saline Flush 0.9% injectable solution, 10 mL, IV Push, BID oxyCODONE-acetaminophe n 10 mg-325 mg oral tablet, 1 tabs, Oral, q4hr, PRN Pepcid, 20 mg= 2 mL, IV Push, [id number]-[id number] Times Phenergan, 25 mg, Oral, q4hr, PRN Premarin, 0.9 mg, Oral, qAM prochlorperazine, 5 mg= 1 mL, IV Push, q4hr, PRN Zeposia (ozanimod) capsules, 1 caps, Oral, Daily Assessment/Plan 1. Optic neuritis, left 2. Multiple sclerosis exacerbation Could only tolerate 3 days of IV Ig secondary to nausea and vomiting was switched over to Solu-Medrol 1 g daily for 3 to 5 days I did add Flexeril 5 mg 3 times daily 3. Fall 4. Hip pain 5. Left wrist pain 6. Left ankle pain Orders: cyclobenzaprine, 5 mg, Oral, Tab, TID, First Dose: 01/31/23 14:00:00 EDT, Dispense From Location: [id number], 01/31/23 13:42:00 EDT methylPREDNISolone, 1,000 mg, IV Push, Injection, Daily for 5 days, First Dose: 01/31/23 15:00:00 EDT, Stop Date: 02/05/23 8:59:00 EDT, Dispense From Location: [facility], 01/31/23 15:00:00 EDT promethazine, 25 mg, Oral, Tab, q4hr, PRN nausea/vomiting, First Dose: 01/30/23 18:41:00 EDT, Dispense From Location: [address], 01/30/23 18:41:00 EDT Electronically signed by Filippo Garcia MD 01/31/23 13:44 EDT Normal [facility] .eGFRon 01-30-2023 GFR/1.73 sq M.predicted MDRD (S/P/Bld) [Vol rate/Area] mL/min/{1.73_m2} Normal >=60 [facility] Comment on above: Order Comment: Order added by Discern rule Result Comment: [facility] have implemented the eGFR calculation approach that does not have a coefficient for race and that conforms to the NKF-ASN Task Force Recommendations. Stages of Chronic Kidney Disease GFR Stage 3a Mild to moderate loss of kidney function 59 to 45 Stage 3b Moderate to severe loss of kidney function 44 to 33 Stage 4 Severe loss of kidney function 29 to 15 Stage 5 Kidney failure Less than 15 GFR calculated using the CKD-Epi Creatinine Equation (2020): eGFR = 142 X min(SCr/?, 1)? X max(SCr /?, 1)-1.200 X 0.9938Age X 1.012 [if female] Abbreviations/Units: eGFR (estimated glomerular filtration rate) = mL/min/1.73 m2 SCr (standardized serum creatinine) = mg/dL ? = 0.7 (females) or 0.9 (males) ? = -0.241 (females) or -0.302 (males) min = indicates the minimum of SCr/? or 1 max = indicates the maximum of SCr/? or 1 Age = years Performed By: #### E GFR ####[address] [address] Basic Metabolic Profileon Anion gap [Moles/Vol] 12 mmol/L Normal 7-17 [facility] Comment on above: Performed By: #### C [id number] #### [address] [address] Calcium [Mass/Vol] 8.7 mg/dL Normal 8.5-10.3 [facility] Comment on above: Performed By: #### C [id number] #### [address] [address] Chloride [Moles/Vol] 110 mmol/L Normal 98-110 [facility] Comment on above: Performed By: #### C [id number] #### [address] [address] CO2 [Moles/Vol] 22 mmol/L Normal 22-32 [facility] Comment on above: Performed By: #### C [id number] #### [address] [address] Creatinine [Mass/Vol] 0.80 mg/dL Normal 0.44-1.03 [facility] Comment on above: Performed By: #### C [id number] #### [address] [address] Glucose [Mass/Vol] 89 mg/dL Normal 70-99 [facility] Comment on above: Performed By: #### C [id number] #### [address] [address] Potassium [Moles/Vol] 4.5 mmol/L Normal 3.4-4.8 [facility] Comment on above: Performed By: #### C [id number] #### [address] [address] Sodium [Moles/Vol] 140 mmol/L Normal 133-142 [facility] Comment on above: Performed By: #### C [id number] #### [place] [id number] Urea nitrogen [Mass/Vol] 20 mg/dL Normal 8-26 [facility] Comment on above: Performed By: #### C [id number] #### [place] [id number] Urea nitrogen/Creatinine [Mass ratio] 25.0 mg/mg High 10.0-20.0 [facility] Comment on above: Performed By: #### C [id number] #### [place] [id number] CBCon 01-30-2023 Erythrocyte distribution width (RBC) [Ratio] 14.3 % Normal 11.6-14.8 [facility] Comment on above: Performed By: #### C OMP #### [place] [id number] Hematocrit (Bld) [Volume fraction] 36.1 % Normal 36.0-46.0 [facility] Comment on above: Performed By: #### C OMP #### [place] [id number] Hemoglobin (Bld) [Mass/Vol] 12.4 g/dL Normal 12.0-16.0 [facility] Comment on above: Performed By: #### C OMP #### [place] [id number] MCH (RBC) [Entitic mass] 29.9 pg Normal 27.0-35.0 [facility] Comment on above: Performed By: #### C OMP #### [place] [id number] MCHC 34.3 % Normal 31.0-37.0 [facility] Comment on above: Performed By: #### C OMP #### [place] [id number] MCV (RBC) [Entitic vol] 87.0 fL Normal 80.0-100.0 [facility] Comment on above: Performed By: #### C OMP #### [facility] [address] [place] [address] Platelet 256 x10*3/mcL Normal 150-450 [facility] Comment on above: Performed By: #### C OMP #### [address] [address] Platelet mean volume (Bld) [Entitic vol] 8.2 fL Normal 6.7-10.6 [facility] Comment on above: Performed By: #### C OMP #### [facility] [address] [place] [address] RBC 4.14 x10*6/mcL Normal 3.80-5.20 [facility] Comment on above: Performed By: #### C OMP #### [address] [address] WBC 5.1 x10*3/mcL Normal 4.5-11.0 [facility] Comment on above: Performed By: #### C OMP #### [address] [address] Neurology Progress Noteon Neurology Progress Note Subjective We will start day 3 of IVIG this afternoon no significant improvement in left leg strength other than she can flex her foot up somewhat. Did discuss diagnostic studies CT of the left hip shows no fracture. I did tell her however avascular necrosis is diagnosed by MRI and not CT and the CT was looking for fracture Review of Systems Constitutional: [No fevers, chills, sweats] Eye: [No recent visual problems] ENMT: [No ear pain, nasal congestion, sore throat] Respiratory: [No shortness of breath, cough] Cardiovascular: [No Chest pain, palpitations, syncope] Gastrointestinal: [No nausea, vomiting, diarrhea] Genitourinary: [No hematuria] Objective Vitals & Measurements T: 36.6 ?C (Oral) HR: 76 (Peripheral) RR: 20 BP: 129/76 SpO2: 95% HT: 170.2 cm WT: 67 kg BMI: 22.09 Additional Vitals No qualifying data available. Lab Results Test Name Test Result Date/Time WBC 5.1 x10 Hgb 12.4 g/dL 01/30/2023 06:03 EDT Hct 36.1 % 01/30/2023 06:03 EDT Platelet 256 x10 Sodium Lvl 140 mmol/L 01/30/2023 05:51 EDT Potassium Lvl 4.5 mmol/L 01/30/2023 05:51 EDT Chloride 110 mmol/L 01/30/2023 05:51 EDT CO2 22 mmol/L 01/30/2023 05:51 EDT Glucose Lvl 89 mg/dL 01/30/2023 05:51 EDT BUN 20 mg/dL 01/30/2023 05:51 EDT Creatinine Lvl 0.80 mg/dL 01/30/2023 05:51 EDT Microbiology - Current Encounter No qualifying data available. Diagnostic Results Diagnostic Radiology XR Ankle 2 Views Left 01/29/23 13:42:30 IMPRESSION: Mild soft tissue swelling. No acute osseous abnormality. Signed By: Joesph Miller MD XR Wrist 3 or More Views Left 01/29/23 11:57:10 IMPRESSION: Soft tissue swelling. No acute osseous abnormality. Signed By: Joesph Miller MD XR Hip 2-3 Views Left 01/29/23 11:04:44 IMPRESSION: No acute abnormality of the pelvis or left hip. Signed By: Joesph Miller MD Computed Tomography CT Hip w/o Contrast Left 01/29/23 14:34:20 IMPRESSION: 1. Normal CT of the left hip. Signed By: Santos Myrick MD Magnetic Resonance Imaging MRI Orbits w/ + w/o Contrast 01/28/23 11:49:29 IMPRESSION: 1. Questionable mild enhancement involving the left-sided optic nerve. Given the patient?s history of multiple sclerosis and left visual changes, optic neuritis can?t be excluded.. 2. Stable white matter changes. Signed By: Darian Gregorio MD Physical Exam Awake conversive cranial nerves II through XII are symmetric motor exam shows decreased range of motion of the left leg although effort at times for testing is not the best deep tendon reflexes are 2+ throughout toes are downgoing there is no significant dysmetria Medications Inpatient acetaminophen, 650 mg, Oral, q6hr, PRN acetaminophen, 650 mg, Oral, q6hr, PRN amLODIPine, 10 mg, Oral, qAM amoxicillin, 875 mg, Oral, BID Dilaudid, 1 mg= 1 mL, IV Push, q2hr, PRN diphenhydrAMINE, 25 mg= 0.5 mL, IV Push, q6hr, PRN enoxaparin, 40 mg= 0.4 mL, Subcutaneous, Daily Gammagard Liquid, 30 g= 300 mL, IV Piggyback, q24hr LORazepam, 1 mg, Oral, TID Lyrica, 100 mg, Oral, TID magnesium oxide, 400 mg, Oral, qAM naloxone, 0.4 mg= 1 mL, IV Push, q2min, PRN nicotine 21 mg/24 hr transdermal film, extended release, 1 patches, TD, Daily, PRN Normal Saline Flush 0.9% injectable solution, 10 mL, IV Push, As Indicated, PRN Normal Saline Flush 0.9% injectable solution, 10 mL, IV Push, BID oxyCODONE-acetaminophe n 10 mg-325 mg oral tablet, 1 tabs, Oral, q4hr, PRN Pepcid, 20 mg= 2 mL, IV Push, [id number]-[id number] Times Premarin, 0.9 mg, Oral, qAM Zeposia (ozanimod) capsules, 1 caps, Oral, Daily Assessment/Plan 1. Optic neuritis, left 2. Multiple sclerosis exacerbation Day #3 of IVIG 3. Fall 4. Hip pain 5. Left wrist pain 6. Left ankle pain Electronically signed by Filippo Garcia MD 07/16/23 12:05 EDT Normal [facility] Progress Note-Nurseon 2022 Progress Note-Nurse Pt reused all evenin g medications including IVIG. I asked the patient if the new order of oral Phenergan had worked and she stated it had not worked at all. I offered the patient IV Compazine since she was continuing to have nausea and she refused that as well. The pt also refused oral and IV pain medications. Electronically signed by Johny Acevedo 01/30/23 23:43 EDT Normal [facility] .eGFRon 01-29-2023 GFR/1.73 sq M.predicted MDRD (S/P/Bld) [Vol rate/Area] mL/min/{1.73_m2} Normal >=60 [facility] Comment on above: Result Comment: [facility] have implemented the eGFR calculation approach that does not have a coefficient for race and that conforms to the NKF-ASN Task Force Recommendations. Stages of Chronic Kidney Disease GFR Stage 3a Mild to moderate loss of kidney function 59 to 45 Stage 3b Moderate to severe loss of kidney function 44 to 33 Stage 4 Severe loss of kidney function 29 to 15 Stage 5 Kidney failure Less than 15 GFR calculated using the CKD-Epi Creatinine Equation (2020): eGFR = 142 X min(SCr/?, 1)? X max(SCr /?, 1)-1.200 X 0.9938Age X 1.012 [if female] Abbreviations/Units: eGFR (estimated glomerular filtration rate) = mL/min/1.73 m2 SCr (standardized serum creatinine) = mg/dL ? = 0.7 (females) or 0.9 (males) ? = -0.241 (females) or -0.302 (males) min = indicates the minimum of SCr/? or 1 max = indicates the maximum of SCr/? or 1 Age = years Performed By: #### E GFR ####[address] [address] Basic Metabolic Profileon Anion gap [Moles/Vol] 11 mmol/L Normal 7-17 [facility] Comment on above: Order Comment: guille duran pt asked us to come back around 8:00 01/29/2023 06:54:55 EDT tj Performed By: #### C [id number] ####[address] [address] Calcium [Mass/Vol] 8.3 mg/dL Low 8.5-10.3 [facility] Comment on above: Order Comment: guille tariq x2 pt asked us to come back around 8:00 01/29/2023 06:54:55 EDT tj Performed By: #### C [id number] ####[address] [address] Chloride [Moles/Vol] 107 mmol/L Normal 98-110 [facility] Comment on above: Order Comment: guille duran pt asked us to come back around 8:00 01/29/2023 06:54:55 EDT tj Performed By: #### C [id number] ####[address] [address] CO2 [Moles/Vol] 22 mmol/L Normal 22-32 [facility] Comment on above: Order Comment: guille duran pt asked us to come back around 8:00 01/29/2023 06:54:55 EDT tj Performed By: #### C [id number] ####[address] [address] Creatinine [Mass/Vol] 0.69 mg/dL Normal 0.44-1.03 [facility] Comment on above: Order Comment: guille tariq x2 pt asked us to come back around 8:00 01/29/2023 06:54:55 EDT tj Performed By: #### C [id number] ####[address] [address] Glucose [Mass/Vol] 98 mg/dL Normal 70-99 [facility] Comment on above: Order Comment: guille tariq x2 pt asked us to come back around 8:00 01/29/2023 06:54:55 EDT tj Performed By: #### C [id number] ####[address] [address] Potassium [Moles/Vol] 3.4 mmol/L Normal 3.4-4.8 [facility] Comment on above: Order Comment: guille duran pt asked us to come back around 8:00 01/29/2023 06:54:55 EDT tj Performed By: #### C [id number] ####[address] [address] Sodium [Moles/Vol] 137 mmol/L Normal 133-142 [facility] Comment on above: Order Comment: guille tariq x2 pt asked us to come back around 8:00 01/29/2023 06:54:55 EDT tj Performed By: #### C [id number] ####[address] [address] Urea nitrogen [Mass/Vol] 12 mg/dL Normal 8-26 [facility] Comment on above: Order Comment: guille tariq x2 pt asked us to come back around 8:00 01/29/2023 06:54:55 EDT tj Performed By: #### C [id number] ####[address] [address] Urea nitrogen/Creatinine [Mass ratio] 17.4 mg/mg Normal 10.0-20.0 [facility] Comment on above: Order Comment: guille duran pt asked us to come back around 8:00 01/29/2023 06:54:55 EDT tj Performed By: #### C [id number] ####[address] [address] CBCon 01-29-2023 Erythrocyte distribution width (RBC) [Ratio] 14.0 % Normal 11.6-14.8 [facility] Comment on above: Performed By: #### E GFR #### [address] [address] Hematocrit (Bld) [Volume fraction] 33.8 % Low 36.0-46.0 [facility] Comment on above: Performed By: #### E GFR #### [place] [id number] Hemoglobin (Bld) [Mass/Vol] 11.7 g/dL Low 12.0-16.0 [facility] Comment on above: Performed By: #### E GFR #### [place] [id number] MCH (RBC) [Entitic mass] 29.8 pg Normal 27.0-35.0 [facility] Comment on above: Performed By: #### E GFR #### [place] [address] MCHC 34.6 % Normal 31.0-37.0 [facility] Comment on above: Performed By: #### E GFR #### [place] [id number] MCV (RBC) [Entitic vol] 86.2 fL Normal 80.0-100.0 [facility] Comment on above: Performed By: #### E GFR #### [place] [id number] Platelet 266 x10*3/mcL Normal 150-450 [facility] Comment on above: Performed By: #### E GFR #### [place] [id number] Platelet mean volume (Bld) [Entitic vol] 8.1 fL Normal 6.7-10.6 [facility] Comment on above: Performed By: #### E GFR #### [place] [id number] RBC 3.92 x10*6/mcL Normal 3.80-5.20 [facility] Comment on above: Performed By: #### E GFR #### [address] [address] WBC 7.7 x10*3/mcL Normal 4.5-11.0 [facility] Comment on above: Performed By: #### E GFR #### [address] [address] [address] Hip w/o Contrast Lefton 0 01-29-2023 CT Hip w/o Contrast Left CT Hip w/o Contrast Left, 01/29/2023 2:14 PM EDT INDICATION: Injury. Left hip pain. COMPARISON: Plain radiographs of the left hip dated January 29, 2023. TECHNIQUE: Axial images were obtained through the left hip without intravenous contrast administration. Additional images were reconstructed in coronal and sagittal planes. DOSE OPTIMIZATION: This facility uses dose optimization techniques as appropriate to perform exams, including at least one of the following techniques: 1. Automated exposure control. 2. Adjustment of the mA and/or kV according to patient size (this includes techniques or standardized protocols for targeted exams where dose is matched to the indication/reason for exam, i.e. extremities or head). 3. Use of iterative reconstructive technique. FINDINGS: There is no acute fracture or dislocation. There is no bony destructive process. The left hip joint is normal and intact. There are no appreciable arthritic changes. There is no soft tissue mass or drainable fluid collection. IMPRESSION: 1. Normal CT of the left hip. Radiation Dose Estimate: CTDI(mGy):0.652488 / / / kVp:120.390950 / mAs:0.185032 / / / DLP(mGy-cm):2.563784Tk dy Part: Pelvis CTDI(mGy):17.926549 / / / kVp:100.231027 / mAs:313.836750 / / / DLP(mGy-cm):346.565945 Body Part: Pelvis Final Dictated by: Santos Myrick MD Dictated DT/TM: 01.29.2023 2:31 pm Signed by: Santos Myrick MD Signed (Electronic Signature): 01.29.2023 2:34 pm (If Report Is Signed, Electronically Signed in Other Vendor System) Normal [facility] Magnesiumon 01-29-2023 Magnesium [Mass/Vol] 1.9 mg/dL Normal 1.7-2.4 [facility] Comment on above: Performed By: #### . Manual Diff #### [address] [place] [address] Neurology Progress Noteon Neurology Progress Note Subjective Patient had a fall today landed on her left hip and side x-rays were negative for fracture but she is can have a CT of the left hip given her history of avascular necrosis. Remains weak in the left leg new IV placed she did have a previous port but it became infected within 72 hours under unusual circumstances Review of Systems Constitutional: [No fevers, chills, sweats] x-rays of the left ankle, hip, and leg were unremarkable for fracture Eye: [No recent visual problems] ENMT: [No ear pain, nasal congestion, sore throat] Respiratory: [No shortness of breath, cough] Cardiovascular: [No Chest pain, palpitations, syncope] Gastrointestinal: [No nausea, vomiting, diarrhea] Genitourinary: [No hematuria] Objective Vitals & Measurements T: 36.4 ?C (Oral) HR: 92 (Monitored) RR: 20 BP: 168/89 SpO2: 94% HT: 170.2 cm WT: 64 kg (Dosing) WT: 64.00 kg BMI: 22.09 Additional Vitals No qualifying data available. Lab Results Test Name Test Result Date/Time WBC 7.7 x10 Hgb 11.7 g/dL (Low) 01/29/2023 09:33 EDT Hct 33.8 % (Low) 01/29/2023 09:33 EDT Platelet 266 x10 Sodium Lvl 137 mmol/L 01/29/2023 09:33 EDT Potassium Lvl 3.4 mmol/L 01/29/2023 09:33 EDT Chloride 107 mmol/L 01/29/2023 09:33 EDT CO2 22 mmol/L 01/29/2023 09:33 EDT Glucose Lvl 98 mg/dL 01/29/2023 09:33 EDT BUN 12 mg/dL 01/29/2023 09:33 EDT Creatinine Lvl 0.69 mg/dL 01/29/2023 09:33 EDT Microbiology - Current Encounter No qualifying data available. Diagnostic Results Diagnostic Radiology XR Ankle 2 Views Left 01/29/23 13:42:30 IMPRESSION: Mild soft tissue swelling. No acute osseous abnormality. Signed By: Paul PATEL, Joesph Richter XR Wrist 3 or More Views Left 01/29/23 11:57:10 IMPRESSION: Soft tissue swelling. No acute osseous abnormality. Signed By: Joesph Miller MD XR Hip 2-3 Views Left 01/29/23 11:04:44 IMPRESSION: No acute abnormality of the pelvis or left hip. Signed By: Joesph Miller MD Magnetic Resonance Imaging MRI Orbits w/ + w/o Contrast 01/28/23 11:49:29 IMPRESSION: 1. Questionable mild enhancement involving the left-sided optic nerve. Given the patient?s history of multiple sclerosis and left visual changes, optic neuritis can?t be excluded.. 2. Stable white matter changes. Signed By: Jg PATEL, Darian Poon Physical Exam Alert oriented x3 emotionally labile some swelling of her left ankle from where she fell cranial nerves II through XII are symmetric she does have persistent weakness of the left arm and leg with the leg more involved. Medications Inpatient acetaminophen, 650 mg, Oral, q6hr, PRN acetaminophen, 650 mg, Oral, q6hr, PRN amLODIPine, 10 mg, Oral, qAM amoxicillin, 875 mg, Oral, BID Dilaudid, 1 mg= 1 mL, IV Push, q2hr, PRN diphenhydrAMINE, 25 mg= 0.5 mL, IV Push, q6hr, PRN enoxaparin, 40 mg= 0.4 mL, Subcutaneous, Daily Gammagard Liquid, 30 g= 300 mL, IV Piggyback, q24hr LORazepam, 1 mg, Oral, TID Lyrica, 100 mg, Oral, TID magnesium oxide, 400 mg, Oral, qAM naloxone, 0.4 mg= 1 mL, IV Push, q2min, PRN nicotine 21 mg/24 hr transdermal film, extended release, 1 patches, TD, Daily, PRN Normal Saline Flush 0.9% injectable solution, 10 mL, IV Push, As Indicated, PRN Normal Saline Flush 0.9% injectable solution, 10 mL, IV Push, BID oxyCODONE-acetaminophe n 10 mg-325 mg oral tablet, 1 tabs, Oral, q4hr, PRN Pepcid, 20 mg= 2 mL, IV Push, [id number] Times Premarin, 0.9 mg, Oral, qAM Zeposia (ozanimod) capsules, 1 caps, Oral, Daily Assessment/Plan 1. Optic neuritis, left 2. Multiple sclerosis exacerbation 2 of IVIG more left hip pain following her fall. CT of the left hip has already been ordered 3. Fall 4. Hip pain 5. Left wrist pain 6. Left ankle pain Orders: EKG Electronically signed by Filippo Garcia MD 01/29/23 14:11 EDT Normal [facility] Phosphoruson 01-29-2023 Phosphate [Mass/Vol] 3.0 mg/dL Normal 2.5-4.6 [facility] Comment on above: Performed By: #### M G #### [place] [id number] .eGFRon 01-28-2023 GFR/1.73 sq M.predicted MDRD (S/P/Bld) [Vol rate/Area] mL/min/{1.73_m2} Normal >=60 [facility] Comment on above: Result Comment: [facility] have implemented the eGFR calculation approach that does not have a coefficient for race and that conforms to the NKF-ASN Task Force Recommendations. Stages of Chronic Kidney Disease GFR Stage 3a Mild to moderate loss of kidney function 59 to 45 Stage 3b Moderate to severe loss of kidney function 44 to 33 Stage 4 Severe loss of kidney function 29 to 15 Stage 5 Kidney failure Less than 15 GFR calculated using the CKD-Epi Creatinine Equation (2020): eGFR = 142 X min(SCr/?, 1)? X max(SCr /?, 1)-1.200 X 0.9938Age X 1.012 [if female] Abbreviations/Units: eGFR (estimated glomerular filtration rate) = mL/min/1.73 m2 SCr (standardized serum creatinine) = mg/dL ? = 0.7 (females) or 0.9 (males) ? = -0.241 (females) or -0.302 (males) min = indicates the minimum of SCr/? or 1 max = indicates the maximum of SCr/? or 1 Age = years Performed By: #### C OMP #### [address] [address] Basic Metabolic Profileon Anion gap [Moles/Vol] 11 mmol/L Normal 7-17 [facility] Comment on above: Performed By: #### M G #### [address] [address] Calcium [Mass/Vol] 9.0 mg/dL Normal 8.5-10.3 [facility] Comment on above: Performed By: #### M G #### [address] [address] Chloride [Moles/Vol] 106 mmol/L Normal 98-110 [facility] Comment on above: Performed By: #### M G #### [address] [address] CO2 [Moles/Vol] 25 mmol/L Normal 22-32 [facility] Comment on above: Performed By: #### M G #### [address] [address] Creatinine [Mass/Vol] 0.71 mg/dL Normal 0.44-1.03 [facility] Comment on above: Performed By: #### M G #### [address] [address] Glucose [Mass/Vol] 88 mg/dL Normal 70-99 [facility] Comment on above: Performed By: #### M G #### [address] [address] Potassium [Moles/Vol] 4.1 mmol/L Normal 3.4-4.8 [facility] Comment on above: Performed By: #### M G #### [address] [address] Sodium [Moles/Vol] 138 mmol/L Normal 133-142 [facility] Comment on above: Performed By: #### M G #### [address] [address] Urea nitrogen [Mass/Vol] 18 mg/dL Normal 8-26 [facility] Comment on above: Performed By: #### M G #### [address] [address] Urea nitrogen/Creatinine [Mass ratio] 25.4 mg/mg High 10.0-20.0 [facility] Comment on above: Performed By: #### M G #### [address] [address] CBC w/ Diffon 01-28-2023 Erythrocyte distribution width (RBC) [Ratio] 13.8 % Normal 11.6-14.8 [facility] Comment on above: Performed By: #### C OMP #### [address] [address] Hematocrit (Bld) [Volume fraction] 36.7 % Normal 36.0-46.0 [facility] Comment on above: Performed By: #### C OMP #### [address] [address] Hemoglobin (Bld) [Mass/Vol] 12.7 g/dL Normal 12.0-16.0 [facility] Comment on above: Performed By: #### C OMP #### [address] [address] MCH (RBC) [Entitic mass] 30.1 pg Normal 27.0-35.0 [facility] Comment on above: Performed By: #### C OMP #### [address] [address] MCHC 34.6 % Normal 31.0-37.0 [facility] Comment on above: Performed By: #### C OMP #### [address] [address] MCV (RBC) [Entitic vol] 86.8 fL Normal 80.0-100.0 [facility] Comment on above: Performed By: #### C OMP #### [address] [address] Platelet 271 x10*3/mcL Normal 150-450 [facility] Comment on above: Performed By: #### C OMP #### [address] [address] Platelet mean volume (Bld) [Entitic vol] 8.4 fL Normal 6.7-10.6 [facility] Comment on above: Performed By: #### C OMP #### [address] [address] RBC 4.23 x10*6/mcL Normal 3.80-5.20 [facility] Comment on above: Performed By: #### C OMP #### [address] [address] WBC 6.2 x10*3/mcL Normal 4.5-11.0 [facility] Comment on above: Performed By: #### C OMP #### [address] [address] CRPon 01-28-2023 CRP 0.13 mg/dL Normal 0.00-0.75 [facility] Comment on above: Result Comment: CRP measurement is useful for assessment of non-specific INFLAMMATORY RESPONSE to infection or injury AND is a sensitive MARKER of ACUTE INFLAMMATION including CARDIAC RISK ASSESSMENT. CARDIAC patients with elevated CRP are POTENTIALLY at a HIGHER RISK OF FUTURE CARDIAC EVENTS. Performed By: #### . Manual Diff #### [address] [address] Diff Autoon 01-28-2023 Baso Absolute 0.1 x10*3/mcL Normal 0.0-0.2 [facility] Comment on above: Performed By: #### . Automated Diff ####[address] [address] Basophils/100 WBC (Bld) 1.1 % Normal 0.0-1.5 [facility] Comment on above: Performed By: #### . Automated Diff ####[address] [address] Eos Absolute 0.1 x10*3/mcL Normal 0.0-0.4 [facility] Comment on above: Performed By: #### . Automated Diff ####[address] [address] Eosinophils/100 WBC (Bld) 2.2 % Normal 0.0-5.4 [facility] Comment on above: Performed By: #### . Automated Diff ####[address] [address] Lymph Absolute 2.5 x10*3/mcL Normal 1.0-4.8 [facility] Comment on above: Performed By: #### . Automated Diff ####[address] [address] Lymphocytes/100 WBC (Bld) 40.1 % Normal 27.2-40.8 [facility] Comment on above: Performed By: #### . Automated Diff ####[address] [address] [place] Absolute 0.5 x10*3/mcL Normal 0.1-1.1 [facility] Comment on above: Performed By: #### . Automated Diff ####[address] [address] Monocytes/100 WBC (Bld) 7.9 % Normal 3.7-11.9 [facility] Comment on above: Performed By: #### . Automated Diff ####[address] [address] Neutro Absolute 3.0 x10*3/mcL Normal 1.8-7.7 [facility] Comment on above: Performed By: #### . Automated Diff ####[address] [address] Neutro Auto 48.7 % Normal 47.2-70.8 [facility] Comment on above: Performed By: #### . Automated Diff ####[facility] [place] [address] ED Clinical Summaryon 2022 ED Clinical Summary [facility] [address] [place], [place] [id number] ED Clinical Summary Person Information Name: Dallas James Altagracia/[facility] Age: 47 Years : 1975 Sex: Female PCP: Ward Mendez MD Marital Status: Phone: Race: White Ethnicity: Not or Language: Ukrainian Visit Reason: Pain in eye; Lower leg pain-swelling; Blurred Vision Acuity: 3 Enc Type: Inpatient Med Service: Emergency Medicine Arrival: 01/28/2023 08:30:57 Discharge: LOS: 000 05:59 Checkin: 01/28/2023 08:30:57 Checkout: 01/28/2023 14:29:04 Dispo Type: Address: [address] [place] [address] [facility] [address] Provider Notes: History of Present Illness 47-year-old female who is presenting with a left sided eye pain?as chief complaint. ?Patient has a history of multiple sclerosis.? She has had several flareups in the past?specifically targeting her eyes. ?States that around Tuesday?at 4 AM she woke up and started to have left eye pain specific to eye movements?no redness or erythema?no swelling?when she does feel that her eye has been tearful she also complains that the pain is behind her left eye is definitely is worse with?extraocular movements. ?She also endorsed some muscle cramping that she has been having.? She has been trying to supplement with potassium and magnesium for her muscle cramping.? She had an office visit with Dr. Garcia?who suggested that she be admitted for IVIG therapy for 5 days. ?Patient does endorse several allergies including iodine?and steroids she states that she needs to be pretreated with Benadryl before receiving these medications and then she tolerates it.? She endorses blurry vision of the left eye but no?signs of?color change?no?scotoma no?signs of actual vision loss. Physical Exam Eye Exam Method of inspection: manual Visual acuity: as measured in chart Lashes intact without discharge Lids without abrasion, edema, erythema or ptosis Conjunctiva bilateral without chemosis, erythema, hemorrhage Cornea clear Sclera clear without icterus, hemorrhage, erythema Icare pressure OS 12.5mmHg ? ? ? Diagnosis: 1:Optic neuritis, left; 2:Multiple sclerosis exacerbation Problems No Problems Documented Smoking Status: Smoking Status 10 or more cigarettes (1/2 pack or more)/day in last 30 days Functional Status: Sensory Deficits: History of Falls: Mobility Assistance Prior to Admission: ADLs: Current Level of Assistance for Self-Care/Mobility: Cognitive Status: Allergies fentaNYL (severe Headache) Toradol (Hives) Zofran (Hives) Protonix (Hives) (itchy) penicillin (Hives) iodinated radiocontrast dyes (Hives) Laboratory or Other Results This Visit (last charted value for your 01/28/2023 visit) Hematology 01/28/2023 9:35 AM WBC: 6.2 x10 RBC: 4.23 x10 Neutro Auto: 48.7 % -- Normal range between ( 47.2 and 70.8 ) Lymph Auto: 40.1 % -- Normal range between ( 27.2 and 40.8 ) [place] Auto: 7.9 % -- Normal range between ( 3.7 and 11.9 ) Eos Auto: 2.2 % -- Normal range between ( 0.0 and 5.4 ) Basophil Auto: 1.1 % -- Normal range between ( 0.0 and 1.5 ) Baso Absolute: 0.1 x10 MCV: 86.8 fL -- Normal range between ( 80.0 and 100.0 ) MCHC: 34.6 % -- Normal range between ( 31.0 and 37.0 ) Lymph Absolute: 2.5 x10 Hct: 36.7 % -- Normal range between ( 36.0 and 46.0 ) [place] Absolute: 0.5 x10 MCH: 30.1 pg -- Normal range between ( 27.0 and 35.0 ) Neutro Absolute: 3.0 x10 Hgb: 12.7 g/dL -- Normal range between ( 12.0 and 16.0 ) Mean Platelet Volume: 8.4 fL -- Normal range between ( 6.7 and 10.6 ) Platelet: 271 x10 Eos Absolute: 0.1 x10 RDW: 13.8 % -- Normal range between ( 11.6 and 14.8 ) Sed Rate: 11 mm/hr -- Normal range between ( 0 and 23 ) Chemistry 01/28/2023 9:35 AM Creatinine Lvl: 0.71 mg/dL -- Normal range between ( 0.44 and 1.03 ) BUN: 18 mg/dL -- Normal range between ( 8 and 26 ) Glucose Lvl: 88 mg/dL -- Normal range between ( 70 and 99 ) Potassium Lvl: 4.1 mmol/L -- Normal range between ( 3.4 and 4.8 ) CRP: 0.13 mg/dL -- Normal range between ( 0.00 and 0.75 ) Sodium Lvl: 138 mmol/L -- Normal range between ( 133 and 142 ) Calcium Lvl: 9.0 mg/dL -- Normal range between ( 8.5 and 10.3 ) Chloride: 106 mmol/L -- Normal range between ( 98 and 110 ) CO2: 25 mmol/L -- Normal range between ( 22 and 32 ) Anion Gap: 11 -- Normal range between ( 7 and 17 ) Estimated GFR: >60 mL/min/1.73m? BUN Crea Ratio: 25.4 -- Normal range between ( 10.0 and 20.0 ) Magnetic Resonance Imaging 01/28/2023 10:45 AM MRI Orbits w/ + w/o Contrast: MRI Orbits w/ + w/o Contrast Measurements: Height: Weight: 64 kg Blood Pressure: /87 mmHg BMI: Procedures No Procedures Documented Immunizations No Immunizations Documented This Visit Final Med List: Medications that have not changed Other Medications amLODIPine (amLODIPine 10 mg oral tablet) 1 Tabs Oral (gi (more content not included)... Normal [facility] ED Note-Nursingon 01-28-2023 ED Note-Nursing Patient was medicate d as prescribed prior to MRI. fish roe technician called nurse, patient was requesting more medication for sedation. Provider notified. 2mg of versed given as prescribed. Patient attached to pulse machine and 2liters of o2 applied. Electronically signed by Juventino October01/28/23 10:19 EDT Normal [facility] ED Note-Physicianon 01-29-20 ED Note-Physician Chief Complaint Pt states that she was Seen in Dr. Stephen yesterday and that he would like the patient to be evaluated in the ER for admission of MS exacerbation, and for a 5 day IVIG treatment. Pt complains of Blurred vision and pain in extemites. History of Present Illness 47-year-old female who is presenting with a left sided eye pain as chief complaint. Patient has a history of multiple sclerosis. She has had several flareups in the past specifically targeting her eyes. States that around Tuesday at 4 AM she woke up and started to have left eye pain specific to eye movements no redness or erythema no swelling when she does feel that her eye has been tearful she also complains that the pain is behind her left eye is definitely is worse with extraocular movements. She also endorsed some muscle cramping that she has been having. She has been trying to supplement with potassium and magnesium for her muscle cramping. She had an office visit with Dr. Garcia who suggested that she be admitted for IVIG therapy for 5 days. Patient does endorse several allergies including iodine and steroids she states that she needs to be pretreated with Benadryl before receiving these medications and then she tolerates it. She endorses blurry vision of the left eye but no signs of color change no scotoma no signs of actual vision loss. Physical Exam Eye Exam Method of inspection: manual Visual acuity: as measured in chart Lashes intact without discharge Lids without abrasion, edema, erythema or ptosis Conjunctiva bilateral without chemosis, erythema, hemorrhage Cornea clear Sclera clear without icterus, hemorrhage, erythema Icare pressure OS 12.5mmHg Vitals & Measurements T: 36.7 ?C (Oral) HR: 71 (Peripheral) RR: 15 BP: 131/87 SpO2: 99% HT: 170.2 cm WT: 64 kg (Dosing) Additional Vitals No qualifying data available. Procedure No qualifying data available. ASA Documentation Medical Decision Making 47-year-old female who is having a left eye complaint in the setting of MS I saw the patient took a history and physical examination ensuring to try to look for other differential causes besides her multiple sclerosis considered glaucoma I checked intraocular pressure of the left eye at 12.5 mmHg there is no obvious signs of glaucoma She may have optic neuritis which is the most likely diagnosis today we will obtain an MRI of the orbits to evaluate Patient does have pain with extraocular eye movements but no vision loss She was sent in by her neurologist to be admitted for IVIG therapy I will start the patient on an dexamethasone 10 mg pretreating with Benadryl due to her allergy Patient will require admission at this time for presumed MS flare optic neuritis being the chief differential diagnosis There is no obvious signs of infectious causes that I could appreciate on her physical examination Patient's MRI of the orbits shows that there is signs of possible optic neuritis Patient remains hemodynamically well she was given pain medication in the MRI machine she required 2 mg of Versed Called and spoke with Dr. Garcia who recommended admission to the hospital Spoke with hospitalist who also agreed to admit the plan was to start IVIG I will have the hospitalist start this medication Assessment/Plan Lower leg pain-swelling (Complaint of) Pain in eye (Complaint of) Orders: dexamethasone, 10 mg, IV Push, Injection, Once, First Dose: 01/28/23 9:09:00 EDT, Stop Date: 01/28/23 9:09:00 EDT, STAT, Dispense From Location: [facility] [place], 01/28/23 9:09:00 EDT diphenhydrAMINE, 50 mg, IV Push, Injection, Once, First Dose: 01/28/23 9:09:00 EDT, Stop Date: 01/28/23 9:09:00 EDT, STAT, Dispense From Location: [facility] [place], 01/28/23 9:09:00 EDT morphine, 4 mg, IV Push, Injection, Once, PRN pain, First Dose: 01/28/23 9:12:00 EDT, Dispense From Location: [facility], 01/28/23 9:12:00 EDT tetracaine ophthalmic, 2 drops, Eye-Left, Soln-Ophth, Once, First Dose: 01/28/23 8:55:00 EDT, Stop Date: 01/28/23 8:55:00 EDT, STAT, Dispense From Location: [facility], 01/28/23 8:55:00 EDT Basic Metabolic Profile C-Reactive Protein Complete Blood Count w/ Differential Erythrocyte Sedimentation Rate MRI Brain w/ + w/o Contrast MRI Orbits w/ Contrast Refresh vitals and sections below: Problem List/Past Medical History Ongoing Avascular necrosis of bone of left hip Chronic pain Deep vein thrombosis (DVT) of right upper extremity Degenerative tear of acetabular labrum of right hip Drug-seeking behavior H/O factitious disorder Hypertension Intentional self-exposure to bleach Adriana-Núñez tear Multiple gastric ulcers Multiple sclerosis Munchausen's syndrome Historical No qualifying data Procedure/Surgical History Cholecystectomy Cervical spinal fusion (07/18/1999) Esophagogastroduodenos copy (11/23/2017) Esophagogastroduodenos copy (08/26/2019) Insertion Implantable Venous Access Port (Left) (03/28/2020) Fusion Spine L (more content not included)... Normal [facility] ESRon 01-28-2023 Sed Rate 11 mm/hr Normal 0-23 [facility] Comment on above: Performed By: #### M G #### [facility] [address] [place] [address] MRI Orbits w/ + w/o Contrast on 01-28-2023 MRI Orbits w/ + w/o Contrast MR Orbits with and without contrast on 01/28/2023 Provided History: Multiple sclerosis. Visual changes in the left eye.. Comparison: MRI brain on 05/04/2021. Technical: Multiplanar and multi sequential MRI images of the orbits were obtained with and without contrast. Findings: Unremarkable bilateral eye globes, extraocular muscles and retrobulbar fat. No masses or abnormal enhancement. Unremarkable optic chiasm. The bilateral cavernous sinuses are symmetric. Normal signal voids are seen in the bilateral cavernous internal carotid arteries. The bilateral lacrimal glands are unremarkable. Questionable ill-defined enhancement involving the left-sided optic nerve. An Overall stable foci of signal abnormality in the centrum semiovale, subcortical and periventricular white matter. IMPRESSION: 1. Questionable mild enhancement involving the left-sided optic nerve. Given the patient's history of multiple sclerosis and left visual changes, optic neuritis can't be excluded.. 2. Stable white matter changes. Final Dictated by: Darian Gregorio MD Dictated DT/TM: 01/28/2023 11:34 am Signed by: Darian Gregorio MD Signed (Electronic Signature): 01/28/2023 11:49 am (If Report Is Signed, Electronically Signed in Other Vendor System) Normal [facility] Neurology Consultationon Neurology Consultation Chief Complaint Pt states that she was Seen in Dr. Stephen yesterday and that he would like the patient to be evaluated in the ER for admission of MS exacerbation, and for a 5 day IVIG treatment. Pt complains of Blurred vision and pain in extemites. Reason for Consultation Evaluate for worsening multiple sclerosis History of Present Illness Is a 47-year-old female very well-known to me who has had a history of multiple sclerosis dating back to 2014 with a history of bilateral aseptic necrosis involving the hips who did not want to pursue surgery and is on no immune mediated therapy until yesterday when she was initiated on Zeposia titration given her her worsening symptoms for approximately a week she has had some blurred vision affecting the left eye, problems with balance, and difficulties with coordination due to left leg weakness. She did come to the ER today work-up included a brain MRI without and with contrast as well as an orbital MRI she had stable white matter disease of a mild to moderate load and a questionable demyelination of her left optic nerve. Patient is being admitted for IVIG she is really not a candidate for IV Solu-Medrol anymore due to her aseptic necrosis. Patient has a longstanding history of multiple hospitalizations but has not been at [facility] since May 042020 at time she can be a little drug-seeking and histrionic in her presentation. She does suffer from a chronic pain syndrome and she currently is on a combination of Ativan 1 mg 3 times a day, Cymbalta 60 mg 2 capsules daily, Percocet 10 mg 4 times a day pregabalin 100 mg 3 times a day and tramadol 50 mg 4 times a day however upon admission she was started on as needed IV Dilaudid and [place] and this would be the medications that she will be making for now. She was already restarted on her Lyrica at 100 mg 3 times a day she is complaining of cramps. Electrolytes upon admission were normal however phosphorus and magnesium were not checked and they will be checked tomorrow pertinent labs sed rate 11 CT reactive protein 0.3 calcium 9 GFR greater than 60 Review of Systems Constitutional: [No fevers, chills, sweats] Eye: [Blurred vision left eye for greater than a week ENMT: [No ear pain, nasal congestion, sore throat] Respiratory: [No shortness of breath, cough] Cardiovascular: [No Chest pain, palpitations, syncope] Gastrointestinal: [No nausea, vomiting, diarrhea] Genitourinary: [No hematuria] Bossman/Lymph: [Negative for bruising tendency, swollen lymph glands] Endocrine: [Negative for excessive thirst, excessive hunger] Musculoskeletal: [No back pain, neck pain, joint pain, muscle pain, decreased range of motion] Integumentary: [No rash, pruritus, abrasions] Neurologic: [Alert & oriented X 4] creased difficulties with gait due to left leg weakness Psychiatric: [No anxiety Physical Exam Vitals & Measurements T: 36.4 ?C (Oral) TMIN: 36.4 ?C (Oral) TMAX: 36.7 ?C (Oral) HR: 60 (Monitored) RR: 16 BP: 130/86 SpO2: 95% HT: 170.2 cm WT: 64.00 kg WT: 64 kg (Dosing) BMI: 22.09 47-year-old white female well-developed well-nourished alert oriented x3 friendly cooperative for exam HEENT shows the head is normocephalic atraumatic pupils react to light neck is supple cranial nerves II through XII show full extraocular movements jaw and facial strength are normal hearing is intact tongue trapezius and sternocleidomastoid strength are normal motor exam shows a mild to moderate left leg weakness characterized by decreased foot flexion and extension as well as spasticity of the left leg when she walks she does have good strength of her upper extremities in the right leg deep tendon reflexes are 2-3+ throughout toes are downgoing sensory exam is intact there is no gross dysmetria Additional Vitals No qualifying data available. Assessment/Plan 1. Optic neuritis, left MRI has questionable left optic neuritis she does have a flare of her MS. She will be on IVIG 30 g daily for 5 days we did add a magnesium and phosphorus level to her work-up. Time showed patient chart electronic records 50 minutes 2. Multiple sclerosis exacerbation Orders: EKG Magnesium Level Phosphorus Level Problem List/Past Medical History Ongoing Avascular necrosis of bone of left hip Chronic pain Deep vein thrombosis (DVT) of right upper extremity Degenerative tear of acetabular labrum of right hip Drug-seeking behavior H/O factitious disorder Hypertension Intentional self-exposure to bleach Adriana-Núñez tear Multiple gastric ulcers Multiple sclerosis Munchausen's syndrome Historical No qualifying data Procedure/Surgical History Cholecystectomy Cervical spinal fusion (07/18/1999) Esophagogastroduodenos copy (11/23/2017) Esophagogastroduodenos copy (08/26/2019) Insertion Implantable Venous Access Port (Left) (03/28/2020) Fusion Spine Lumbar Posterior with Navigation (01/05/2021) Medications Inpatient acetaminophen, 650 mg, Oral, q6hr, PRN mallorie (more content not included)... [facility] 3612-24-[address] Campos pt to come in this afternoon, appt scheduled for today 3:30pm [facility] [address] I reached out to Dr. Campos, waiting on an update [facility] 36 Patient stated that she fell on the hand that she jsut had surgery on and went to the urgent care last night and found out shes broken 2 bones in that hand. She wants an appt rob. [facility] Follow-Upon 12-24-2022 Follow-Up [id number] Heri James 1975 F Date Provider Department Center 12/24/2022 [id number] CAMPOS MP ORTHO MPORTHO No family history on file Level of Service:92058 MO OFFICE/OUTPATIENT ESTABLISHED LOW MDM 20-29 MIN Reason for Visit and Comments: Follow-up [[id number]] - Pt fell last night [facility] 36on 12-23-2022 36 User informed patien t of Dr. Campos message that was noted on duplicate encounter for refill request for pain meds. Patient was informed that Dr. Campos would like for her to follow up with the physician who she have the pain contract with. Patient was very upset user informed patient by law once the pain contract is signed that she cannot not go outside of her contract and get narcotics prescribed by another physician and that it's Dr. Campos discretion, patient was upset and hung up the phone. No further action needed at this time. [facility] [address] Campos pt is t o follow up with pain management where she has a contract through. I called pt to notify her pt VM was full. [facility] 36on 12-22-2022 36 The pharmacist from [facility] pharmacy called and stated that the patient have an exsiting contract with Dr. Filippo Garcia for percocet 10/325mg qty 120 for a 30 supply and tramadol. He wanted to check and see if the office is aware of this due to patient having a pain contract agreement with this doctor. [phone]. [facility] 36 Script was fixed and sent to correct pharmacy, pt was notified [facility] 36 Patient stated that the oncall dr called in the wrong script last night. Shes supposed to get percocet 5-325 not percocet 10 [facility] Orders Onlyon 12-22-2022 Orders Only [id number] Heri James 1975 F Date Provider Department Center 12/22/2022 MIO SANFORD MP ORTHO MPORTHO No family history on file [facility] Telephoneon 12-22-2022 Telephone [id number] Heri James 1975 F Date Provider Department Center 12/22/2022 BLAZE RAYA MP ORTHO MPORTHO No family history on file Reason for Visit and Comments: assisting pain contract [Other] [facility] Office Visiton 12-21-2022 Follow-up visit [id number] Heri James 1975 F Date Provider Department Center 12/21/2022 BAM SINGH MP ORTHO MPORTHO No family history on file Level of Service:99774 MO POSTOP FOLLOW UP VISIT RELATED TO ORIGINAL PX Reason for Visit and Comments: Post-op [483] [facility] 36on 12-15-2022 36 Pt notified [facility] 36 I spoke with pt, she requested to have something called in for muscle spasms Normal [facility] Orders Onlyon 12-15-2022 Orders Only [id number] Heri James 1975 F Date Provider Department Center 12/15/2022 MIO SANFORD MP ORTHO MPORTHO No family history on file [facility] 36on 12-14-2022 36 Pt called stating th at she had surgery last week, and states that she is having muscle spasms in that area and pain. She wants to know if this is normal, or if she needs something called in to help with this issue. Please give pt a call back regarding this. [facility] XR WRIST LT MIN 3 Von 2022 XR WRIST LT MIN 3 V EXAM: XR WRIST LT NV N 3 V HISTORY: pain COMPARISON: Left wrist radiographs dated 10/28/2021. TECHNIQUE: 3 views of the left wrist were obtained. FINDINGS: A plaster splint is seen at the radial aspect of the left wrist. No acute fracture or dislocation is seen. The joint spaces are preserved. IMPRESSION: 1. No acute osseous abnormality of the left wrist is seen. Electronically authenticated by: Franchesca MENON Date: 2022-12-12 00:38 Normal [facility] Orders Onlyon 12-11-2022 Orders Only [id number] Heri James 1975 Date Provider Department Center 12/11/2022 [id number] MORRISON MP ORTHO MPORTHO No family history on file [facility] HPon 12-06-2022 HP H&P reviewed. The patient was examined and there are no changes to the H&P. She is scheduled for a left Hedrick arthroplasty today. [facility] OPNOTEon 12-06-2022 OPNOTE Operative Note Patient: Dallas James Date of Surgery: 12/06/2022 : 1975 Pre-operative Diagnosis: Carpometacarpal joint arthritis of the left thumb Post-operative Diagnosis: same Operation: Ligament reconstruction and tendon interposition arthroplasty of the left thumb (51467), Using flexor carpi radialis tendon graft harvested through a separate incision (59159) Surgeon: Bam Campos MD Vehicle Detailer: Fox Tripathi MD Staff: Faceter: Remedios Jennings RN Relief Faceter: Mio Eng Relief Scrub: Gosia Restrepo CST Scrub Person: Vianney Arrieta Anesthesia Type: Regional Indications: Dallas James is a 47 y.o. female with worsening pain at the basilar joint of the left thumb. This has been a worsening problem over time and has been treated nonoperatively. The symptoms are to a point where it is interfering with required daily activities. It was felt that a soft tissue arthroplasty is indicated for treatment at this time. The risks and benefits of the procedure were explained, and with good understanding it is agreed to proceed. Procedure: The patient is brought to the operating room and placed on the table in a supine position. An axillary block had been administered per the anesthesia service in the holding area. A tourniquet is placed around the proximal left arm. Preoperative antibiotics were given. The upper extremity is then prepped and draped out in a sterile fashion. To begin the procedure, after a standard timeout, the arm is exsanguinated with an Esmarch bandage and the tourniquet is inflated to 250 mmHg. Using a 15 blade, a curvilinear incision is made along the lateral aspect of the base of the thumb. Blunt dissection is carried out through the subcutaneous tissue. Care was taken to identify branches of the superficial radial nerve.Two Glendy rakes were used to protect the soft tissues.The APL and EPB tendons were identified. The EPB tendon was dissected free and retracted dorsally. Using a Bovie, we use the plane between the 2 tendons to expose the base of the thumb metacarpal, the CMC joint and the trapezium. Once we had adequate exposure, and the anatomic landmarks were clearly defined, the trapezium was excised in a piecemeal fashion using a small rongeur. The CMC joint had significant degenerative changes. Care was taken toavoid the FCR tendon as we resected the volar portion of the bone. Once the trapezium was resected, we looked at the STT joint. There was no arthritis seen We then made sure that there were no residual osteophytes between the base of the thumb and index metacarpals. Next, we grasped the FCR tendon with a Ragnell retractor. By placing tension on the tendon it is easily palpable at the junction of the middle and distal thirds of the forearm. The tendons it is exposed through a transverse incision at that level. The tendon is dissected free, isolated, and then transected using a Bovie. We use the Ragnell retractor to pull the tendon into the wound at the base of the thumb. The tendon is split in half longitudinally, creating two slips of tendon. We then turned our attention to the base of the thumb metacarpal. An oblique drill hole is made that is perpendicular with the thumb nail plate and exits right near the FCR tendon insertion. Using a [employer] suture passer, one slip of the FCR tendon was pulled through our drill hole. The tendon was looped around the base of the metacarpal and then tied together with, and sutured to, the other slip of tendon. The wound is irrigated thoroughly with normal saline solution. The remaining tendon from both slips is rolled up onto a forceps and sutured together into a ball. That tendon ball is used to fill the space from where the trapezium was excised. The capsule is closed with [id number] sutures of 3-0 Vicryl. The skin is closed on both incisions using 5-0 Novafil suture. A sterile dressing of Xeroflo gauze, 4 x 4 fluffs, web roll and a short arm thumb spica plaster splint is applied. The drapes were removed and the tourniquet is released. The arm was placed into a sling because of the regional block. All sponge and needle counts were correct at the time of closure. She was then brought to the recovery room in stable condition, having tolerated the procedure well. Estimate Blood Loss: Minimal Specimens: No specimens collected Implants: Complications: None; patient tolerated the procedure well. Bam Campos MD Normal [facility] POCT GLUCOSE METER UNSOLICIT ED RESULTSon 12-06-2022 Glucose [Mass/Vol] 97 mg/dL Normal 70-105 [facility] Comment on above: Result Comment: ngro kevin Performed By: #### L [id number] ####[facility] ([facility]AKER)[address] [place] [address] [id number] 11-29-2022 [id number] Additional Instructions: NPO AFTER MIDNIGHT. MUST HAVE A RETAIL SALES CONSULTANT TO TAKE YOU HOME AND SOMEONE TO STAY FOR 24 HOURS AFTER SURGERY. NO JEWELRY OR VALUABLES. HOLD THE MEDS WE SPOKE ABOUT: NONE. TAKE THE MEDS WE SPOKE ABOUT WITH A SIP OF WATER DOS:NORVASC, PREMARIN. PAIN MEDS IF NEEDED. BRING INSURANCE CARD AND PHOTO ID AND MED LIST. Normal [facility] HPon 11-17-2022 Orthopedic Surgery Subjective Chief complaint: Chief Complaint Patient presents with Left Thumb - New Patient Dallas James is a 47 y.o. year old female presenting for evaluation of pain at the basilar area of the left thumb. She states that this has been present for a little over a year. It is significantly getting worse fairly rapidly and starting to limit her ability to do her daily activities. She has tried a CMC wrap which helps a little bit she also had a corticosteroid injection which helped for about a month or so. She is done some research on this and feels as though she would like to try a soft tissue arthroplasty. Previous Treatments: Splinting and cortisone injection Patient History No past surgical history on file. Past Medical History: Diagnosis Date Diabetes mellitus ([facility] Hypertension Objective General: There is no height or weight on file to calculate BMI. No acute distress, comfortable Respiratory: Unlabored breathing with normal rate, no cough Cardiovascular: Warm well perfused extremities Psych: Appropriate mood behavior Hand/Wrist Musculoskeletal Exam Inspection Left Left hand/wrist inspection is normal. Palpation Left Left hand palpation is normal. Thumb tenderness to palpation: carpometacarpal joint Dorsal hand - 1st metacarpal tenderness to palpation: CMC Range of Motion Left Hand Left hand range of motion is normal. Strength Left Hand Left hand strength is normal. Neurovascular Left Left neurovascular exam is normal. Special Tests Left Will's test: negative CMC grind test: positive Tinel's - carpal tunnel: negative Imaging: Imaging from outside showed some mild arthritic changes with some subluxation of the joint. Assessment/Plan Dallas James is a 47 y.o. year old female with Arthritis of carpometacarpal (CMC) joint of left thumb Encounter for pre-operative laboratory testing PLAN: We discussed options for treatment. She is a little bit on the younger side for this but her physical examination is clearly consistent with CMC joint arthritis. She would very much like to proceed with surgical treatment I think that is appropriate. We will set her up for a Hedrick arthroplasty of her left thumb. The surgical procedure along with the risks and benefits were discussed today in the clinic. Consent for the surgery was reviewed and signed. We will see them back in clinic following the procedure. [facility] Office Visiton 11-17-2022 Follow-up visit [id number] Heri James 1975 F Date Provider Department Center 11/17/2022 BAM SINGH [facility] No family history on file Level of Service:05155 MO OFFICE/OUTPATIENT NEW LOW MDM 30-44 MINUTES Reason for Visit and Comments: New Patient [632] [facility] Coding Summary.on 11-05-2022 Coding Summary. CD:[id number] Ww +PGhlYWQ+YE5UATIwK33sx TOtkM2uN4XOLLrTNiwzRYW CZSeAJxFnquFnSI8rqRWcZ XJu IC8+KL2gWTDfJvwjpAFaa7 O1iYV4F60cpp7jLQbtwEQ9 WVUpAiLutoweg9dxcEs4VC cuNmluOyBt DLTopG84BCI9lH59Nb60eP CnqNAsf7iujHn5QdYoYARd JVP8eCjzMOeaf7SuJHIyK1 3mpQDtd7L7 XJByiLpwlQHqXbZyhKY4dS 8zGKdeyowyo2dxleupRtn4 ap83cFMqb2F4sYW6G7Fqas Q2SYSywSLq GknmyYMJaR5ahhrjt3bkpx qnOqBnEDJoCZb3CPk6BSTz pVzjQkUxPV30ZWH1ZBVuox BvE7ReMREm qYyvAfK7n2I6Mk2SE4DEYy alF9ESTXVDOPtqeGX+PC90 mh95A0EfWpmwSyv5YUXlUE N4kPJ0fC1l DNFlWTyuq5G2vZW3N7Ohsm Xmhc7kv3rzHUGcKCyuT28t dCBgg1V1LNYydYU2CIXzdQ rsFfQlsY13 Oyc+BGOnwXzbx8IrFrahy3 zsp8ursYa5WripQQDktmYz bBhlLBV2g9MbOb3rYWKrzR U2kLO5sT2q WvRbBtX3ZBffB314QdJvlG PfNnrxL91aC5UdfEV+PHRy Xtx5WPOxqKrhEB2sK5GnTK RpbmctbGVm mGqhUO0rFBAhoeksSRRfhQ 5aGYGbG5h7BlSpFfG4BRkg I1LvBULfrbeyJt37zU4mDg YvMxC7QGzj P0HaphG5CEXxlIByRAaaUJ C3D08qo6T8LMEoZZDsAIZ8 cDR3pN0iqPdvshcrsRSesP sgdmVydGlj JBjnZYswU163YTQfgYxtKa NvZGluZyBEYXRlOiAgMDQv MjEvMjAyMzwvdGQ+PHRkIH S4pLdbQBRx yOYbWSyiUj3iiWuslWnxFL 3oVZElkvjjFVCafS0mOBZm rZIteUvrTL1sMZWowdutl4 22GaTzQWN7 IZRrkEFzJ1FpvY6gIcXuQF BhETLmQ6ItvRSmNVtpF452 WSiwIrE6VHDkcbTqJ2XiVL FsaWduOiB0 h0P7Ev7Rr3HpgssxV1JkuB VoPhSpXejhDKv8R3MsNtbw dHI+OL61SYHgZX14FJz8KQ J9dDmrKUnr OUWmQ8BjgM1uKmZmHTYcAR RkOyc+PHRhYmxlIHdpZHRo HVwdUDVcUrIgpJndAP4yVn 9yZGVyLWNv zXwihBZoGlEvk3fzDFSwWR htYN0ecCbsO9AnzFG4BXMd b1r6Qk11O00uR7BofKG+PG QhfFC6xKX8 qG5fWuHpLfS6FBbvE594Ob OjjZSyZrzkz0amo1ahmZa2 RmR9BHPvufHpoGvlEAZ4i7 RaTw41X90a IHdpZHRoPSIxNSUiIHZhbG zbzr4mxD6nQr7+PGNvbCB3 iEY2qF5jUuDvDxK2BVvyV4 49InRvcCIv Jtlkz3mei6chrMx4CrDoHG VptwXxuJvcKZO4d4GoBj86 X1FtdJhcd8TiKjs1xl09rI Lwf9M5gTY9 V6GrMBUkturutORzxLpgIO 8zQFVloxihAXJcnW4hFCAr B9v9LvIlVzD5BPmgE2Ffat A1PEEfsXMs KDKsoRXNsN5hgkczw3suds onNoTeKPJgVJt2LDc0WKCd dUciYdKxRER7YtM0BTD6mM ZieE6znJzt ioqgsM3gZyg+XRA5fLDtaB ZNHZ5ePrbzrRR+PHRkIHN0 vAbmJUeyESVgeN4hUJDbW0 q4MbNqLrB7 JAefQ6JhhrD9BTYvzTBkUO HaaCHNsU6zgjsnr7tilcfx EqNoMEXwANe5XRy8WQGjbW duOiBsZWZ0 LiE3ISF9qHWwvV4qsCvzzm zngC9tJmc+QmlydGggRGF0 SSv3T6ScAsy1CPFapEyvNO 0ncGFkZGlu Ld9lwAsdnIypJV6iASDlhx xhd095ZjXaa3spHMXvtFAy SXmjAAX3E12gx8I7EAQeYU NqANK6sNR1 wT3mdBdiquuchDYziRnbeg SdwQgkPJwkDSupN911PCFa pJkoGmFfUAg0B1KuBjp9HE YqiXkfEJ0w rKIeXVgcNz6jvYldcTlhWU 6dASUcjrzfv658AxXwj1gg VENmhKUoCQfpQXE0X51nn4 F8XCSfHHZv VQU5oKQ0cJ4ceXazkvhhaF VmdDsgdmVydGljYWwtYWxp A656SKUswDgcFlKeeEv8P9 RzQds2CMIe bQscXV9jnQBzWXawGp5rvG zekJgrPY5jXIEvkeoma080 GdFfr6ryXSTqgTFlOJzhHZ N8L59dv2U4 AZVwHJMrCUG1xCE7hE5cyF lnbjogbGVmdDsgdmVydGlj SKkqALmlG031EIFrlLgiZm BhdGllbnQg BIuqNAm7Z1PmTqdfyBK+PC 68TJNbZP29rXAbfNNtd2tw yFz7WdOpOETdTPO2gXhcOB vsk6AlEHEz K82xwXSin2V8VETfrGgvfL VjSsIccYQ6hM0iAPwujeer h6idpczaHjnhv1qhjz94bF 21C65gFCgb ZHRoPSIzMCUiIHZhbGlnbj 7vwQ3gAp8+LYGzzBF5hDV8 qY3bLROuZyW7ZGlfE387Na RvcCIvPjxj j0dgo0odxZw8QzE1GXZogx LvdQysNRP7c6GcTc30L76s IHdpZHRoPSIyMCUiIHZhbG yyks1xlX7f Ii8+MURwyPO4tYU0cP7zDq MqDvI0WQznM708VpXrwSGo XsdlT36hB2PfuEP+PHRyPj o8QWSlaIiq OP1xjKCjICriPd6dAKT3Cl WbQoZbHHvrF0YyOPMiweje bziwjFK5CHFbWSYjsY72Oy 9udDogMTBw wIUZoL3ctjdlp7rvpylfFz WqYPDsTSw6CDd4GDMtkGix WhTeBXM4EyV7ZXU4nWDdbC 1hbGlnbjog vP0iK0XyOEMcjneeNg15eG 3eIwWyRgQ8DOraRmr+Q0FO IPMtDR6BK8sFKRIeSObwnW Q+PHRkIHN0 gLmfXDljHRKwcH2eBOGnE1 d5GqCtJyZ9IErgA1KmCCFv toevJw71fI5sBwKdTiB7XF yoJ5TmpqR2 MHIltRIwKCwvLIR9N05av7 R4WYJkZORaTBM8bEU8lD3b bGlnbjogbGVmdDsgdmVydG ljYWwtYWxp X079RWYopCacOsX3SqV1My S7RtO8W1NfXfu7KDQwjFzc HQ2opULdTEayYe4orLacpC guFY0aNDHv qomjEDDviQ5bELBeyUQweF qqSQ8yJISnhlmex717GvLg FQP9NSQlyUYzZ6SegI0uSk AjMDAwMDAw C2TgnSRcZUueE863DIctRr Q7RPZqbaGqQ9ZeJCVzrQud QnF9z7M5Me61XZDELIWkvv wvdGQ+PHRk GES4vNlwBGjwFACrdX0rJZ VaK5n1YfCaEwR6VHzfR0Ad ZBHgokkmMf16nO5iEkKfVu U5NBljB1Kx ujD0LXMvvEFcACzsOUN7U5 6xq9T4DJUiTBSjVQM7sSL4 qC7hjCmozqlneEHumYyiqe VydGljYWwt ZNciO612OEBecVfzTsCkfC FsZTwvdGQ+ZAKpBRH0fZrb CKurCOMjhT2vLFGyA7i8Rn PxRaV0ACzy M5VxGNCqehkePz02cN6dFt RtPpZ6YErgR0EwebF4VJHd iWGxGEjiQPS9I11ma3V1WO MwMDAwMDA7 xVK7pQ4ljRwtmjvvyMXtuQ ryrdMknItuLXcvYDczN750 LRVtwNsoEzFyBVSbDU1rrT wvdGQ+PC90 kz13N3IrOmzwDtp0WBXkHZ H1lHZ0aZ1aYYTtEAcqy9E0 yRY8Y6ErviSeua8kp8knFR UjVYuuY57s uJJia4L4KSKliCJ5XEZldW waZaTedV14Mos+PGNvbGdy v6OlPikkh6uba3uymZw9Hq MwJSIgdmFs dHssDUB1h2ZaKl58W96mQL dpZHRoPSIzMCUiIHZhbGln lk5xjZ9rJs7+IWRusAR8fT N8zP7kChAr JpJ8SAbgJ615RsZflSQhUz ogc0nae9xdcHx7RjOyGTIc tuJwaQsqJBO2e1LpLk69E3 MbqFfew1Ko Rsv8ya20jPQlj6Y2oQO2B7 QzNAQjnnwfyVYhySniEV5k MGSrxnvkRZGpyE3hBXIsR8 r9AoYrMvG7 UCnmL2CrmwQ4BLTdiHOqDH NmqHBJfD6tkwhhv9mghklz QdWoRTSuUQq5SHr1JUAkqR duOiBsZWZ0 QoS6NHQ7sUExtZ2ofQhpzn caqF6gHqp+HSt4u6vxxPIy DW6iqPZ6TH13KL83nSDgn4 L1oIQ7P3Tz JIWjmemcukdarMH2XWBbTN LgdJ65Vt5taRglZv9mTAMo UNE3IRHwkTHwO8QgsL4lPw AjMDAwMDAw H7YyxDWxIYfnH535JIbkYc B0OLSfonKfS3YpCUDapSdf UgH0b2V5Io3CMZ42FK78QK 90qLFtm2D5 gVN7S5FjJKFrwummdfqtwZ Y6AQXgKUThjO10Zn1qnJnc Aj0lCFSrOLI1UBXcbRHjN2 DaoD8tPuHb YMRyORDdX8LidRFkXErqK7 75NKlpObA6AYTzevEhR7Py UHTmpRbtCaJ0q8P3Jp8FRh 22QR48WW16 sCSkp1H1fWS8C8PcKOKsgm gejvvhbMV9BBDhWJIxhR52 Qs4zsLnqFv7fSHUfXAQ8LM AlaAQkN0Hm oY4bZoUsYVXcLFTkA3CxnC LeWJegN853IKqaRmC5EQXp lvIcE8OmZRMnbEedMkY5f6 I5An2DVBwg omd2N7YzCgqwkLZ+PC90YW VsIM94tENnoKKnu1oxhNk1 UqWkXOZeEUK9dZhqUPlkl0 OhIFXrO80d uHVpe6D1 (more content not included)... Normal [facility] CTA Cheston 11-03-2022 CTA Chest Exam Date/Time: 11/02/2022 21:06 EDT Reason for Exam: Pulmonary embolism (PE) suspected, high prob;Other (please specify) Report IMPRESSION: The study is negative for pulmonary emboli, aortic dissection, or aneurysm. There are no acute infiltrates or effusions. EXAM: CTA Chest History: Chest pain, SOB shortness of breath, difficulty breathing, chest pain Technique: Multiple contiguous axial images were obtained of the thorax from the thoracic inlet through the upper abdomen during dynamic administration of IV contrast. Sagittal and coronal reformats as well as 3-D MIP projection reformations have been obtained. All CT scans at this facility use dose modulation, iterative reconstruction, and/or weight based dosing when appropriate to reduce radiation dose to as low as reasonably achievable. Comparison: Findings: Visualized portion of the thyroid gland is within normal limits. There is a three-vessel aortic arch. No thoracic aortic aneurysm. Heart size is within normal limits. No significant pericardial effusion. There are no persistent filling defects within the pulmonary arteries. No axillary, mediastinal, or hilar lymphadenopathy. Esophagus is within normal limits. No pulmonary nodule or mass. No consolidation, pleural effusion, or pneumothorax. There is minimal dependent atelectasis in the posterior portions of the lungs. Visualized upper abdominal viscera appear within normal limits. There are no acute osseous changes. Report Ordering Provider: Rai Vega FINAL REPORT Dictated: 11/03/2022 9:38 am Pk Limon MD, V. Signed (Electronic Signature): 11/03/2022 9:38 am Signed by: Pk Limon MD, V. Transcribed by: CHANTEL Technologist: ALLISON Technical Comments GFR (mL/min/1/73m2) >60 Contrast: Isovue 370 Contrast amount in ml's: 71 Normal [facility] Discharge Instructionson Discharge Instructions [id number]. [id number]:127 Normal [facility] ED Clinical Summaryon 2022 ED Clinical Summary [place] [id number] ED Clinical Summary Person Information Name: DALLAS JAMES [facility]tag[facility] Age: 47 Years : 1975 Sex: Female Language: Ukrainian PCP: ANDREA PATEL, RADHA Tariq Marital Status: Phone: [phone] Visit Id: Visit Reason: Chest pain; CHEST PAIN Speciality: Acuity: 2 Enc Type: Emergency Med Service: Emergency Arrival: 11/02/2022 15:57:45 Discharge: 11/02/2022 23:37:03 LOS: 000 07:40 Checkin: 11/02/2022 15:57:45 Checkout: 11/02/2022 23:37:03 Dispo Type: Home (Routine DC) EVENTS: Event Name Event Status Request Date/Time Start Date/Time Complete Date/Time Arrive Complete 11/02/2022 15:57:45 11/02/2022 15:57:45 11/02/2022 15:57:45 Document Home Meds Request 11/02/2022 15:57:45 Triage Complete 11/02/2022 15:57:45 11/02/2022 16:08:19 11/02/2022 16:08:19 Bed Assign Complete 11/02/2022 16:01:09 11/02/2022 16:01:09 11/02/2022 16:01:09 Dr Exam Complete 11/02/2022 16:01:09 11/02/2022 16:04:03 11/02/2022 16:04:03 RN Exam Complete 11/02/2022 16:01:09 11/02/2022 16:38:57 11/02/2022 16:38:57 Registration Complete 11/02/2022 16:04:03 11/02/2022 16:43:49 11/02/2022 16:43:49 EKG Complete 11/02/2022 16:04:10 11/02/2022 16:07:07 Dr Exam Complete 11/02/2022 16:05:38 11/02/2022 16:05:38 11/02/2022 16:05:38 Pending Labs Request 11/02/2022 16:10:30 Lab Complete 11/02/2022 16:10:30 11/02/2022 17:29:37 Meds Admin Complete 11/02/2022 16:10:30 11/02/2022 16:53:07 Patient Care Request 11/02/2022 16:10:30 RT Request 11/02/2022 16:10:30 CT Complete 11/02/2022 16:10:31 11/02/2022 17:53:50 11/02/2022 21:06:35 Pending Labs Cancel 11/02/2022 16:24:56 11/02/2022 17:06:52 Lab Cancel 11/02/2022 16:24:56 11/02/2022 17:06:52 Reg Complete Request 11/02/2022 16:43:49 Reg Bed Request Complete 11/02/2022 16:43:49 11/02/2022 16:43:49 11/02/2022 16:43:49 Pending Labs Complete 11/02/2022 16:55:32 11/02/2022 16:55:32 11/02/2022 17:20:53 Lab Complete 11/02/2022 16:55:32 11/02/2022 16:55:32 11/02/2022 17:20:53 Pending Labs Complete 11/02/2022 17:07:24 11/02/2022 17:07:24 11/02/2022 17:25:15 Lab Complete 11/02/2022 17:07:24 11/02/2022 17:07:24 11/02/2022 17:25:15 Meds Admin Complete 11/02/2022 17:26:01 11/02/2022 17:35:30 Pending Labs Complete 11/02/2022 17:29:37 11/02/2022 17:29:37 11/02/2022 17:29:47 Lab Complete 11/02/2022 17:29:37 11/02/2022 17:29:37 11/02/2022 17:29:47 Meds Admin Complete 11/02/2022 17:57:03 11/02/2022 18:00:48 Meds Admin Complete 11/02/2022 19:06:30 11/02/2022 19:15:55 Dr Exam Complete 11/02/2022 19:08:03 11/02/2022 19:08:03 11/02/2022 19:08:03 Registration Request 11/02/2022 19:08:03 Meds Admin Complete 11/02/2022 20:16:28 11/02/2022 20:27:21 Meds Admin Complete 11/02/2022 20:21:55 11/02/2022 20:27:22 Meds Admin Complete 11/02/2022 20:30:09 11/02/2022 20:39:11 Discharge Complete 11/02/2022 23:25:26 11/02/2022 23:37:08 11/02/2022 23:37:08 Transfer Complete 11/02/2022 23:37:08 11/02/2022 23:37:08 11/02/2022 23:37:08 ADDRESS: [address] [place] [place] [id number] [facility] DOC NOTES: MEDICAL INFORMATION: Prescriptions Given: Medications to Continue with No Changes Other Medications amlodipine (Norvasc 5 mg Tab) 1 Tablets By Mouth every day. conjugated estrogens (Premarin 0.9 mg Tab) 1 Tablets By Mouth every day. HYDROmorphone (Dilaudid 4 mg Tab) 1 Tablets By Mouth every 4 hours as needed for pain. or as needed. ibuprofen (ibuprofen 200 mg Tab) 2 Tablets By Mouth as needed Pain/Fever. lorazepam (LORazepam 1 mg Tab) 1 Tablets By Mouth 3 times a day. pregabalin (pregabalin 100 mg Cap) 1 Capsules By Mouth 3 times a day. tramadol (tramadol 50 mg oral tablet) 1 Tablets By Mouth 4 times a day as needed for pain. PATIENT EDUCATION INFORMATION: Instructions: Nonspecific Chest Pain, Adult Follow up: With: Address: When: RADHA MENDEZ [address] [place] [id number] [employer] In 3 days 11/05/2022 Comments: Return to the emergency room if your pain gets worse or any new symptoms. DIAGNOSIS: 1:Chest pain Normal [facility] ED Note-Nursingon 11-03-2022 ED Note-Nursing Patient has been seeking for pain medicine even after multiple doses of Morphine and a dose of Dilaudid. Informed Dr. Mitchell about this matter. Normal [facility] ED Note-Physicianon 11-04-19 ED Note-Physician Basic Information Time Seen: Rai Vega PA-C 11/02/2022 16:04 Chief Complaint pt reports cp the past 4 days, seen by her family doc and told to come to ed. pt has hx of pe's. History of Present Illness 47-year-old female comes to the ED for evaluation of chest pain. For last 4 days she has had midsternal chest pain. She describes it as a sharp and a heaviness. No cough, congestion, fever, chills. No nausea or vomiting or shortness of breath. 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 She is not currently anticoagulated but does have IVC filter in place. No aggravating alleviating factors. No prior treatments. She denies any history of CAD. Review of Systems A 10 point review of systems is negative except as noted above. Medical and Surgical History: Reviewed and noted Social history: Lives at home Tobacco: Denies Physical Exam Vitals & Measurements T: 37 ?C(Oral) HR: 89(Peripheral) RR: 20 BP: 165/103 SpO2: 100% HT: 170 cm WT: 61.9 kg BMI: 21.42 Nurses notes and vital signs reviewed and patient is not hypoxic. General: Patient appears anxious but not in distress Skin: Warm, dry. Head: Atraumatic. Neck: No JVD. Eye: Normal conjunctiva. Ears, Nose, Mouth, and Throat: Moist mucous membranes. Cardiovascular: Strong distal pulses. Chest wall: Respiratory: Respirations are nonlabored. Back: Normal range of motion. Musculoskeletal: Normal ROM with no gross deformity. Gastrointestinal: Soft and nontender Urological: Neurological: Awake and alert. No focal deficits. Follows commands. Psychiatric: Cooperative. Medical Decision Making Laboratory studies reviewed and noted. EKG shows no ischemic changes. The patient presents with chest pain with a history of PE and this is her concern. I D-dimer was obtained and did return elevated. She reports a history of contrast dye, but states that she simply needs Benadryl prior to injection and then she does not have any adverse reactions. At this time her CTA scan is pending and case discussed with the oncoming physician for follow-up and disposition. The patient is seen with the PA. She has presented with left-sided chest pain. Her pain has been present for the past 4 days. Unclear etiology of her chest pain. Less likely of cardiac origin. The EKG shows no acute ischemic changes. 3 sets of troponins are negative. Less likely PE. Her D-dimer was slightly positive. CT angiography is negative for pulmonary embolism. Negative for acute intrathoracic process. The CT findings were discussed with radiologist. There is no pericardial effusion nor fluid. Her pain improved after the Dilaudid. Will discharge patient home follow-up with her primary care. She is instructed to return to the emergency room if her pain recurs or any new symptoms. Assessment/Plan 1. Chest pain (R07.9: Chest pain, unspecified) Orders: diphenhydrAMINE, 50 mg = 1 mL, Injection, IV Push, Once PRN Itching, STAT, Start date 11/02/22 17:25:00 EDT, 11/02/22 17:25:00 EDT morphine, 4 mg = 2 mL, Injection, IV Push, Once, Stop date 11/02/22 16:10:00 EDT, STAT, Start date 11/02/22 16:10:00 EDT, 11/02/22 16:10:00 EDT morphine, 4 mg = 2 mL, Injection, IV Push, Once, Stop date 11/02/22 17:56:00 EDT, STAT, Start date 11/02/22 17:56:00 EDT, 11/02/22 17:56:00 EDT Automated Diff Basic Metabolic Panel CBC w/ Auto Diff CTA Chest D-Dimer ED Cardiac Monitoring eGFR Hepatic Function Panel Lipase Level Oxygen Saturation Oxygen Therapy PT & PTT Saline Lock Insert Troponin 0 Hr. Troponin 3 Hr. Troponin 6 Hr. Troponin 9 Hr. Disposition Plan Patient Discharge Condition Stable, improved Discharge Disposition Discharged home Discharge Prescription List Prescriptions No active prescription medications Follow-up With When Contact Information RADHA MENDEZ In 3 days 11/05/2022 EDT [address] [place] [id number] [facility] (1) Additional Instructions: Return to the emergency room if your pain gets worse or any new symptoms. Patient Education Nonspecific Chest Pain, Adult Problem List/Past Medical History Ongoing Anemia Anxiety Anxiety Chronic pain GERD without esophagitis History of DVT in adulthood Multiple sclerosis PTSD (post-traumatic stress disorder) Smoker.. Historical Degenerative disc disease Gastrointestinal bleed MS (multiple sclerosis) Procedure/Surgical History MRI (11/11/2020), MRI (08/21/2019), MRI arthrography (07/16/2019), Back fusion, Carpal tunnel release, Central filter, Hysterectomy. Medications Inpatient HYDROmorphone 2 mg/mL Inj, 1 mg= 0.5 mL, IV Push, Once morphine 2 mg/mL Inj, 4 mg= 2 mL, IV Push, Once Home Dilaudid 4 mg Tab, 4 mg= 1 tab(s), Oral, q4hr, PRN ibuprofen 200 mg Tab, 400 mg= 2 tab(s), Oral, PRN LORazepam 1 mg Tab, 1 mg= 1 tab(s), Oral, TID Norvasc 5 mg Tab, 5 mg= 1 tab(s), Oral, Daily pregabalin 100 mg Cap, 100 mg= 1 cap(s), Oral, TID Premarin 0.9 mg Tab, 0.9 mg= 1 tab(s), (more content not included)... Normal [facility] Comment on above: Result Comment: Elec tronically Signed By: Rai Vega PA-C\.br\Date and Time Signed: 11/02/22 18:56 EDT\.br\Electronically Co-Signed By: Christina Mitchell M.D.\.br\Date and Time Co-Signed: 11/03/22 04:17 EDT\.br\Electronically Co-Signed By: Perry Bar DO\.br\Date and Time Co-Signed: 11/05/22 08:13 EDT ED Patient Education Noteon 11-03-2022 ED Patient Education Note Pulmonary Medicine Nonspecific Chest Pain, Adult Chest pain is an uncomfortable, tight, or painful feeling in the chest. The pain can feel like a crushing, aching, or squeezing pressure. A person can feel a burning or tingling sensation. Chest pain can also be felt in your back, neck, jaw, shoulder, or arm. This pain can be worse when you move, sneeze, or take a deep breath. Chest pain can be caused by a condition that is life-threatening. This must be treated right away. It can also be caused by something that is not life-threatening. If you have chest pain, it can be hard to know the difference, so it is important to get help right away to make sure that you do not have a serious condition. Some life-threatening causes of chest pain include: ? Heart attack. ? A tear in the body's main blood vessel (aortic dissection). ? Inflammation around your heart (pericarditis). ? A problem in the lungs, such as a blood clot (pulmonary embolism) or a collapsed lung (pneumothorax). Some non life-threatening causes of chest pain include: ? Heartburn. ? Anxiety or stress. ? Damage to the bones, muscles, and cartilage that make up your chest wall. ? Pneumonia or bronchitis. ? Shingles infection (varicella-zoster virus). Your chest pain may come and go. It may also be constant. Your health care provider will do tests and other studies to find the cause of your pain. Treatment will depend on the cause of your chest pain. Follow these instructions at home: Medicines ? Take koje-gyp-toeukht and prescription medicines only as told by your health care provider. ? If you were prescribed an antibiotic medicine, take it as told by your health care provider. Do not stop taking the antibiotic even if you start to feel better. Activity ? Avoid any activities that cause chest pain. ? Do not lift anything that is heavier than 10 lb (4.5 kg), or the limit that you are told, until your health care provider says that it is safe. ? Rest as directed by your health care provider. ? Return to your normal activities only as told by your health care provider. Ask your health care provider what activities are safe for you. Lifestyle ? Do not use any products that contain nicotine or tobacco, such as cigarettes, e-cigarettes, and chewing tobacco. If you need help quitting, ask your health care provider. ? Do not drink alcohol. ? Make healthy lifestyle changes as recommended. These may include: ? Getting regular exercise. Ask your health care provider to suggest some exercises that are safe for you. ? Eating a heart-healthy diet. This includes plenty of fresh fruits and vegetables, whole grains, low-fat (lean) protein, and low-fat dairy products. A dietitian can help you find healthy eating options. ? Maintaining a healthy weight. ? Managing any other health conditions you may have, such as high blood pressure (hypertension) or diabetes. ? Reducing stress, such as with yoga or relaxation techniques. General instructions ? Pay attention to any changes in your symptoms. ? It is up to you to get the results of any tests that were done. Ask your health care provider, or the department that is doing the tests, when your results will be ready. ? Keep all follow-up visits as told by your health care provider. This is important. ? You may be asked to go for further testing if your chest pain does not go away. Contact a health care provider if: ? Your chest pain does not go away. ? You feel depressed. ? You have a fever. ? You notice changes in your symptoms or develop new symptoms. Get help right away if: ? Your chest pain gets worse. ? You have a cough that gets worse, or you cough up blood. ? You have severe pain in your abdomen. ? You faint. ? You have sudden, unexplained chest discomfort. ? You have sudden, unexplained discomfort in your arms, back, neck, or jaw. ? You have shortness of breath at any time. ? You suddenly start to sweat, or your skin gets clammy. ? You feel nausea or you vomit. ? You suddenly feel lightheaded or dizzy. ? You have severe weakness, or unexplained weakness or fatigue. ? Your heart begins to beat quickly, or it feels like it is skipping beats. These symptoms may represent a serious problem that is an emergency. Do not wait to see if the symptoms will go away. Get medical help right away. Call your local emergency services (911 in the [place] Do not drive yourself to the hospital. Summary ? Chest pain can be caused by a condition that is serious and requires urgent treatment. It may also be caused by something that is not life-threatening. ? Your health care provider may do lab tests and other studies to find the cause of your pain. ? Follow your health care provider's instructions on taking medicines, making lifestyle changes, and getting emergency treatment if symptoms become worse. ? Keep all follow-up visits as told by your (more content not included)... Normal [facility] ED Patient Summaryon 023 ED Patient Summary [place] [id number] Patient Discharge Instructions Person Information Name: DALLAS JAMES Age: 47 Years Arrival Date: 11/02/2022 15:57:45 Discharge Diagnosis: 1:Chest pain Primary Care Physician: RADHA MENDEZ MD Provider Information Primary Provider: Perry Bar DO Advanced [facility] Home Assistant Administrator:Rai Vega PA-C The exam and treatment you received in the Emergency Department were for an urgent problem and are not intended as complete care. It is important that you follow up with a doctor, nurse practitioner, or physician?s service assistant for ongoing care. If your symptoms become worse or you do not improve as expected and you are unable to reach your usual health care provider, you should return to the Emergency Department. We are available 24 hours a day. DALLAS JAMES has been given the following list of patient education materials, prescriptions and follow-up instructions: Follow-up Instructions: With: Address: When: RADHA MENDEZ [address] [place] [address] Business (1) In 3 days 11/05/2022 Comments: Return to the emergency room if your pain gets worse or any new symptoms. In the event that this physician does not participate in your insurance network, please consult with your insurance company to find a nearby participating provider. Patient Education Materials: Nonspecific Chest Pain, Adult A MESSAGE TO ALL PATIENTS REGARDING OPIOIDS PRESCRIPTION OPIOIDS: WHAT YOU NEED TO KNOW Prescription opioids can be used to help relieve kgqirhab-sy-qlpymt pain and are often prescribed following a surgery or injury, or for certain health conditions. These medications can be an important part of the treatment but also come with serious risks. It is important to work with your healthcare provider to make sure you are getting the safest, most effective care. WHAT ARE THE RISKS AND SIDE EFFECTS OF OPIOID USE? Prescription opioids carry serious risks of addiction and overdose, especially with prolonged use. An opioid overdose, often marked by slowed breathing, can cause sudden . The use of prescription opioids can have a number of side effects as well, even when taken as directed: ? Tolerance?meaning you might need to take more of the medication for the same pain relief ? Physical dependence?meaning you have symptoms of withdrawal when a medication is stopped ? Increased sensitivity to pain ? Constipation ? Nausea, vomiting, and dry mouth ? Sleepiness and dizziness ? Confusion ? Depression ? Low levels of testosterone that can result in lower sex drive, energy, and strength ? Itching and sweating RISKS ARE GREATER WITH: ? History of drug misuse, substance use disorder, or overdose ? Mental health conditions (such as depression or anxiety) ? Sleep apnea ? Older age (65 years and older) ? Avoid alcohol while taking prescription opioids. Also, unless specifically advised by your health care provider, medications to avoid include: ? Benzodiazepines (such as Xanax or Valium) ? Muscle relaxants (such as Soma or Flexeril) ? Hypnotics (such as Ambien or Lunesta) ? Other prescription opioids KNOW YOUR OPTIONS Talk to your health care provider about ways to manage your pain that don?t involve prescription opioids. Some of these options may actually work better and have fewer risks and side effects. Options may include: ? Pain relievers such as acetaminophen, ibuprofen, and naproxen ? Some medication that are also used for depression or seizures ? Physical therapy and exercise ? Cognitive behavioral therapy, a psychological, goal-directed approach, in which patients learn how to modify physical, behavioral, and emotional triggers of pain and stress. IF YOU ARE PRESCRIBED OPIOIDS FOR PAIN: ? Never take opioids in greater amounts or more often than prescribed. ? Follow up with your primary health care provider. o Work together to create a plan on how to manage your pain. o Talk about ways to help manage your pain that don?t involve prescription opioids. o Talk about any and all concerns and side effects. ? Help prevent misuse and abuse o Never sell or share prescription opioids. o Never use another person?s prescription opioids. ? Store prescription opioids in a secure place and out of reach of others (this may include visitors, children, friends, and family). ? Safely dispose of unused prescription opioids: Find your community drug take-back program or your pharmacy mail-back program, or flush them down the toilet, following guidance from the Food and Drug Administration (www.fda.gov/Drugs/Res ourcesForYou). ? Visit www.cdc.gov/drugoverdo se to learn about the risks of opioids abuse and overdose. ? If you believe you may be struggling with addiction, tell your health home care music therapist and ask for guid (more content not included)... Normal [facility] Monitor Recordon 11-03-2022 Monitor Record [id number]. 00CD:127 Normal [facility] RAD - Preliminary Cat Scan R eporton 11-03-2022 RAD - Preliminary Cat Scan Report [id number]. 00CD:127 Normal [facility] Troponin 6 Hr.on 11-03-2022 Troponin I.cardiac [Mass/Vol] 3.70 pg/mL Low 10.10-27.10 [facility] Comment on above: Result Comment: The 95% CI (Confidence Interval) PPV (Positive Predictive Value) for myocardial infarction in females is 38 pg/mL, in males 51 pg/mL. The results should be used in conjunction with clinical conditions of myocardial infarction. (Access High Sensitivity Troponin I Instructions For Use, Lorenzo Eros, February 2018) Performed By: #### 1 [id number] ####[facility] [id number] [place] [address] Auto Diffon 11-02-2022 Basophils/100 WBC (Bld) 0.8 % Normal 0.0-2.0 [facility] Comment on above: Order Comment: Order Added by Discern Expert. Performed By: #### 2 [id number], [id number], [id number], [id number], [id number], [id number], [id number], 3690003, [id number] ####[facility] [address] [place] [address] Basophils/Leukocytes Auto (Bld) [Pure # fraction] 0.1 E9/L Normal 0.0-0.2 [facility] Comment on above: Order Comment: Order Added by Discern Expert. Performed By: #### 2 [id number], [id number], 5782755, 8774717, [id number], 18894101, [id number], 4264756, 6394101 ####[address] [address] [place] [address] Eosinophils/100 WBC (Bld) 1.2 % Normal 0.0-8.0 [facility] Comment on above: Order Comment: Order Added by Discern Expert. Performed By: #### 2 [id number], 6377979, 1627815, 7392470, 98588266, 92837271, [id number], 1115238, 2750131 ####[address] [address] Eosinophils/Leukocyte s Auto (Bld) [Pure # fraction] 0.1 E9/L Normal 0.0-0.5 [facility] Comment on above: Order Comment: Order Added by Discern Expert. Performed By: #### 2 861106, 7480039, 9277461, 6250114, [id number], [id number], 88891008, 2091069, [id number] ####[address] [place] [address] Lymphocytes/100 WBC (Bld) 37.1 % Normal 14.0-50.0 [facility] Comment on above: Order Comment: Order Added by Enoc Expert. Performed By: #### 2 419226, 6626729, 8615380, 4345699, 58519475, 79021206, 25080836, 4667766, 5470846 ####[address] [place] [address] Lymphocytes/Leukocyte s Auto (Bld) [Pure # fraction] 2.6 E9/L Normal 1.0-4.0 [facility] Comment on above: Order Comment: Order Added by Discern Expert. Performed By: #### 2 934673, 5966215, 9635892, 4451466, 66770351, 23243647, 62253294, 1124652, 8022707 ####[address] [place] [address] Monocytes/100 WBC (Bld) 4.7 % Normal 4.0-14.0 [facility] Comment on above: Order Comment: Order Added by Discern Expert. Performed By: #### 2 917669, 4578226, 4471324, 6847005, 21080463, 85207852, 41340199, 8681109, 1381735 ####[address] [address] Monocytes/Leukocytes Auto (Bld) [Pure # fraction] 0.3 E9/L Normal 0.2-1.0 [facility] Comment on above: Order Comment: Order Added by Discern Expert. Performed By: #### 2 272964, 6367376, 2048223, 0889797, 64964657, 19022234, 23664293, 7461907, 1092937 ####[address] [place] [address] Neutrophils/100 WBC (Bld) 56.2 % Normal 36.0-75.0 [facility] Comment on above: Order Comment: Order Added by Discern Expert. Performed By: #### 2 661433, 9702817, 7216230, 6694420, 21401230, 28832105, 94817652, 8582891, 2442092 ####[address] [place] [address] Neutrophils/Leukocyte s Auto (Bld) [Pure # fraction] 4.0 E9/L Normal 2.0-7.5 [facility] Comment on above: Order Comment: Order Added by Discern Expert. Performed By: #### 2 555202, 7191551, 4925320, 1448580, 47350107, 14754589, 67205414, 7925454, 8860892 ####[facility] [address] [place] [address] BMPon 11-02-2022 Creatinine [Mass/Vol] 0.7 mg/dL Normal 0.5-1.3 [facility] Comment on above: Performed By: #### 2 443800, 6598103, 9959779, 6325804, 24119251, 68985916, 48008629, 0537271, 0635498 ####[facility] [address] [place] [address] Urea nitrogen [Mass/Vol] 9 mg/dL Normal 5-21 [facility] Comment on above: Performed By: #### 2 966653, 6390128, 0267946, 7051754, 74907629, 23508874, 20942482, 0216578, 3278177 ####[facility] [address] [place] [address] Urea nitrogen/Creatinine [Mass ratio] 13 No Units Normal 10-20 [facility] Comment on above: Performed By: #### 2 331484, 5098252, 8261671, 0617398, 76653183, 16858279, 74931895, 3878161, 5179480 ####[facility] [address] [place] [address] Anion gap [Moles/Vol] 15 mmol/L Normal 6-16 [facility] Comment on above: Performed By: #### 2 855189, 4901077, 5971458, 6792578, 64395351, 81383101, 88796638, 8830366, 2668839 ####[facility] [address] [place] [address] Calcium [Mass/Vol] 9.3 mg/dL Normal 8.9-11.1 [facility] Comment on above: Performed By: #### 2 874433, 5108163, 9300090, 4744276, 69496397, 81992614, 35779539, 8210344, 5512547 ####[facility] [address] [place] [address] Chloride [Moles/Vol] 101 mmol/L Normal 101-111 [facility] Comment on above: Performed By: #### 2 109917, 6629399, 5357604, 6338784, 07677280, 40503882, 14916765, 5381623, 4681736 ####[facility] [address] [place] [address] CO2 [Moles/Vol] 23 mmol/L Normal 21-31 [facility] Comment on above: Performed By: #### 2 307037, 9519280, 6082665, 0607549, 78815206, 49095766, 80525778, 9665083, 2718325 ####[facility] [address] [place] [address] Glucose [Mass/Vol] 89 mg/dL Normal 55-199 [facility] Comment on above: Result Comment: If t his glucose result represents a fasting glucose, interpretation should refer to the following reference range: 55-99 mg/dL Performed By: #### 2 690456, 7498389, 6413104, 5521200, 08974489, 61307807, 55546641, 2130982, 2734936 ####[facility] [address] [place] [address] Potassium [Moles/Vol] 3.5 mmol/L Normal 3.5-5.3 [facility] Comment on above: Performed By: #### 2 661294, 4293949, 1389165, 7397863, 02914992, 01781999, 32040861, 9579716, 5667543 ####[facility] [address] [place] [address] Sodium [Moles/Vol] 135 mmol/L Normal 135-145 [facility] Comment on above: Performed By: #### 2 461735, 1749051, 4706037, 9942901, 85067321, 40895289, 93481612, 5788689, 2696808 ####[facility] [address] [place] [address] CBC w/ Auto Diffon Erythrocyte distribution width (RBC) [Ratio] 13.8 % Normal 10.9-14.2 [facility] Comment on above: Performed By: #### 2 464209, 8301546, 1481483, 2087805, 69975451, 25470796, 48012742, 3467064, 3515861 ####[address] [place] [address] Hematocrit (Bld) [Volume fraction] 42.8 % Normal 34.0-46.0 [facility] Comment on above: Performed By: #### 2 718500, 4002778, 4103326, 9943880, 94445689, 94980462, 25102359, 0599712, 3856778 ####[facility] [address] [place] [address] Hemoglobin (Bld) [Mass/Vol] 14.6 g/dL Normal 12.0-16.0 [facility] Comment on above: Performed By: #### 2 200564, 2798718, 5153565, 5108122, 75638551, 41886196, 86494118, 5549406, 5222853 ####[facility] [address] [place] [address] MCH (RBC) [Entitic mass] 28.7 pg Normal 27.0-34.0 [facility] Comment on above: Performed By: #### 2 135825, 4832129, 0642997, 4805694, 43343788, 96189190, 62147220, 6042580, 1708888 ####[facility] [address] [place] [address] MCHC (RBC) [Mass/Vol] 34.1 g/dL Normal 31.4-36.0 [facility] Comment on above: Performed By: #### 2 342083, 5521562, 8759271, 5659527, 58064692, 94397700, 49277753, 3263134, 4355368 ####[facility] [address] [place] [address] MCV (RBC) [Entitic vol] 84.4 fL Normal 80.0-100.0 [facility] Comment on above: Performed By: #### 2 659596, 8941156, 8263259, 6996016, 33423098, 13096225, 08063522, 2668874, 9289915 ####[address] [place] [address] Platelet mean volume (Bld) [Entitic vol] 8.0 fL Normal 6.4-10.8 [facility] Comment on above: Performed By: #### 2 181032, 9016527, 7913936, 8549517, 07183153, 80352079, 58433965, 6325481, 4529086 ####[facility] [address] [place] [address] Platelets (Bld) [#/Vol] 68.0 E9/L Low 150.0-500.0 [facility] Comment on above: Result Comment: Slid e reviewed by CAN. Platelet count verified using smear estimate Performed By: #### 2 656470, 2916990, 7056252, 7687209, 87978513, 00016860, 35176025, 4732907, 9596990 ####[facility] [address] [place] [address] RBC (Bld) [#/Vol] 5.1 E12/L Normal 4.3-5.9 [facility] Comment on above: Performed By: #### 2 894306, 3407081, 3786871, 3799391, 04523470, 55434846, 70805239, 7011054, 8845025 ####[facility] [address] [place] [address] WBC corrected for nucl RBC Auto (Bld) [#/Vol] 7.1 E9/L Normal 4.0-11.0 [facility] Comment on above: Performed By: #### 2 430081, 4353556, 7947515, 6813579, 84955615, 51784574, 48496319, 9812065, 3062463 ####[facility] [address] [place] [address] CHEMISTRYOrdered By: SYSTEM SYSTEM on 11-02-2022 Troponin I.cardiac [Mass/Vol] 3.70 pg/mL Low 10.10 - 27.10 pg/mL [facility]isol Albumin [Mass/Vol] 4.3 g/dL Normal 3.3 - 5.0 gm/dL [facility] Albumin/Globulin [Mass ratio] 1.3 {ratio} Normal 1.1 - 2.2 [facility] ALP [Catalytic activity/Vol] 122 [iU]/d High 21 - 98 Int._Unit/L [facility] ALT No additional P-5'-P [Catalytic activity/Vol] 46 [iU]/d Normal 6 - 46 Int._Unit/L [facility] Anion gap [Moles/Vol] 15 mmol/L Normal 6 - 16 mEq/L F [facility] AST [Catalytic activity/Vol] 51 [iU]/d High 5 - 43 Int._Unit/L [facility] Bilirubin [Mass/Vol] 0.6 mg/dL Normal 0.0 - 1 .1 mg/dL [facility] Bilirubin.direct [Mass/Vol] 0.2 mg/dL Normal 0.1 - 0.4 mg/dL [facility] Bilirubin.indirect [Mass or moles/Vol] 0.4 mg/dL Normal 0.1 - 0.9 mg/dL [facility] Calcium [Mass/Vol] 9.3 mg/dL Normal 8.9 - 11. 1 mg/dL [facility] Chloride [Moles/Vol] 101 mmol/L Normal 101 - 1 11 mmol/L [facility] CO2 [Moles/Vol] 23 mmol/L Normal 21 - 31 mmol/L [facility] Creatinine [Mass/Vol] 0.7 mg/dL Normal 0.5 - 1.3 mg/dL [facility] GFR/1.73 sq M.predicted among blacks MDRD (S/P/Bld) [Vol rate/Area] mL/min/1.73 m2 Normal >=59mL/min/1 .73 m2 [facility] Chem S GFR/1.73 sq M.predicted among non-blacks MDRD (S/P/Bld) [Vol rate/Area] mL/min/1.73 m2 Normal >=59mL/min/1 .73 m2 [facility] Chem S Globulin (S) [Mass/Vol] 3.4 g/dL Normal 1.4 - 4.0 gm/dL [facility] Glucose [Mass/Vol] 89 mg/dL Normal 55 - 199 mg/dL [facility] Lipase [Catalytic activity/Vol] 28 U/L Normal 13 - 58 unit/L [facility] Potassium [Moles/Vol] 3.5 mmol/L Normal 3.5 - 5.3 mmol/L [facility] Protein [Mass/Vol] 7.7 g/dL Normal 6.0 - 7.8 gm/dL [facility] Sodium [Moles/Vol] 135 mmol/L Normal 135 - 145 mmol/L [facility] Troponin I.cardiac [Mass/Vol] 4.00 pg/mL Low 10.10 - 27.10 pg/mL [facility] Urea nitrogen [Mass/Vol] 9 mg/dL Normal 5 - 21 mg/dL [facility] Urea nitrogen/Creatinine [Mass ratio] 13 mg/mg Normal 10 - 20 [facility] COAGULATIONOrdered By: Martine Sands on 11-02-2022 aPTT Coag (PPP) [Time] 25.5 s Normal 25.1 - 36.5 second(s) [facility] Auto Coag Fibrin D-dimer FEU (PPP) [Mass/Vol] 652 ng/mL FEU Invalid Interpretation Code 215 - 500 ng/mL FEU [facility] Comment on above: Result Comment: Resu lts Verified By Repeat Analysis Results Called To Rai Vega/KHALIDA By minh And Read Back For Confirmation On 11/02/2022 17:25:11 EDT . INR Coag (PPP) [Relative time] 1.0 {INR} Invalid Interpretation Code [facility] Auto Coag PT Coag (PPP) [Time] 11.1 s Normal 9.4 - 1 2.5 second(s) [facility] Auto Coag Consent for Treatmenton 10-16 Consent for Treatment [id number] 3040 [id number]#1.0 0CD:127 Normal [facility] D-Dimeron 11-02-2022 Fibrin D-dimer FEU (PPP) [Mass/Vol] 652 [id number] Abnormal 215-500 [facility] Comment on above: Result Comment: Resu lts Verified By Repeat Analysis Results Called To Rai Vega/KHALIDA By dc And Read Back For Confirmation On 11/02/2022 17:25:11 EDT . This assay is intended for use as an aid in the diagnosis of DVT or PE. These conditions cannot be excluded with certainty solely on the basis of a D-dimer concentration being within the reference range This D-Dimer assay may be used in conjunction with a non-high clinical pretest probability assessment to exclude deep-vein thrombosis(DVT). For exclusion of venous thrombosis or pulmonary embolism the analyte D-Dimer should not be used as an aid in patients with: Therapeutic dose anticoagulant therapy for >24 hours Fibrinolytic therapy within previous 7 days Trauma or surgery within previous 4 weeks Disseminated malignacies Aortic aneurysm Sepsis, severe infections, pneumonia, severe skin infections Liver cirrhosis Performed By: #### 2 117450, 5776725, 5948188, 1481720, 75834913, 18524099, 72308601, 2874989, 7204744 ####[facility] [id number] ECG 12 lead ECGon 11-02-2022 ECG 12 lead ECG [place] [address] Electrocardiograph Report Signed Patient: Dallas James MR#: [id number] [id number] : 1975 Acct:[id number] Age/Sex: 47 / F ADM Date: 11/02/22 Loc: ER Room: Type: [facility] ER Attending Dr: Ordering Provider: Khurram Hercules DO Date of Service: 11/02/22 ECG/ECG 12 lead ECG: Chest Pain Copies to: Test Reason : Blood Pressure : 133/087 mmHG Vent. Rate : 076 BPM Atrial Rate : 076 BPM P-R Int : 132 ms QRS Dur : 084 ms QT Int : 366 ms P-R-T Axes : 066 000 037 degrees QTc Int : 411 ms Normal sinus rhythm Normal ECG When compared with ECG of 22-MAR-2020 15:33, No significant change was found Confirmed by JENIFER HAHN MD ([id number]) on 11/03/2022 8:47:30 PM Referred By: Electronically Signed By:JENIFER HAHN MD Transcribed By: MUS Signed By Jenifer Hahn MD 0 11/03/222046 Normal [facility] ED Note-Nursingon 11-02-2022 ED Note-Nursing Pt states she is itc hy after morphine, states her skin is red, this rn did not nte any redness to pt. pt airway patent and vitals signs wnl. Rai GARRISON aware. Normal [facility] HEMATOLOGYOrdered By: SYSTEM SYSTEM on 11-02-2022 Basophils/100 WBC (Bld) 0.8 % Normal 0.0 - 2.0 % [facility] HemeAutoSS Basophils/Leukocytes Auto (Bld) [Pure # fraction] 0.1 E9/L Normal 0.0 - 0.2 E9/L [facility] HemeAutoSS Eosinophils/100 WBC (Bld) 1.2 % Normal 0.0 - 8.0 % [facility] HemeAutoSS Eosinophils/Leukocyte s Auto (Bld) [Pure # fraction] 0.1 E9/L Normal 0.0 - 0.5 E9/L [facility] HemeAutoSS Lymphocytes/100 WBC (Bld) 37.1 % Normal 14.0 - 50.0 % [facility] HemeAutoSS Lymphocytes/Leukocyte s Auto (Bld) [Pure # fraction] 2.6 E9/L Normal 1.0 - 4.0 E9/L [facility] HemeAutoSS Monocytes/100 WBC (Bld) 4.7 % Normal 4.0 - 14.0 % [facility] HemeAutoSS Monocytes/Leukocytes Auto (Bld) [Pure # fraction] 0.3 E9/L Normal 0.2 - 1.0 E9/L [facility] HemeAutoSS Neutrophils/100 WBC (Bld) 56.2 % Normal 36.0 - 75.0 % [facility] HemeAutoSS Neutrophils/Leukocyte s Auto (Bld) [Pure # fraction] 4.0 E9/L Normal 2.0 - 7.5 E9/L [facility] HemeAutoSS HEMATOLOGYOrdered By: Liza Randhawa on 11-02-2022 Erythrocyte distribution width (RBC) [Ratio] 13.8 % Normal 10.9 - 14.2 % [facility] HemeAutoSS Hematocrit (Bld) [Volume fraction] 42.8 % Normal 34.0 - 46.0 % [facility] HemeAutoSS Hemoglobin (Bld) [Mass/Vol] 14.6 g/dL Normal 12.0 - 16.0 gm/dL [facility] HemeAutoSS MCH (RBC) [Entitic mass] 28.7 pg Normal 27.0 - 34.0 pg [facility] HemeAutoSS MCHC (RBC) [Mass/Vol] 34.1 g/dL Normal 31.4 - 36.0 gm/dL [facility] HemeAutoSS MCV (RBC) [Entitic vol] 84.4 fL Normal 80.0 - 100.0 fL [facility] HemeAutoSS Platelet mean volume (Bld) [Entitic vol] 8.0 fL Normal 6.4 - 10.8 fL [facility] HemeAutoSS Platelets (Bld) [#/Vol] 68.0 E9/L Low 150.0 - 500.0 E9/L [facility]eAutoSS Comment on above: Result Comment: Slid e reviewed by RC. Platelet count verified using smear estimate RBC (Bld) [#/Vol] 5.1 E12/L Normal 4.3 - 5.9 E12/L [facility] HemeAutoSS WBC corrected for nucl RBC Auto (Bld) [#/Vol] 7.1 E9/L Normal 4.0 - 11.0 E9/L [facility] HemeAutoSS Hep Func Panelon 11-02-2022 Albumin [Mass/Vol] 4.3 g/dL Normal 3.3-5.0 [facility] Comment on above: Performed By: #### 2 822695, 1944888, 5477108, 0977076, 55785578, 61993486, 24985638, 8180006, 3582017 ####[address] [place] [address] Albumin/Globulin (S) [Mass conc ratio] 1.3 Normal 1.1-2.2 [facility] Comment on above: Performed By: #### 2 473971, 2169829, 2730136, 2934499, 09912589, 09110398, 76245215, 7804408, 1891319 ####[address] [place] [address] ALP [Catalytic activity/Vol] 122 Int._Unit/L High 21-98 [facility] Comment on above: Performed By: #### 2 500723, 7563355, 9697799, 1734827, 04680874, 03594981, 14305049, 4866217, 2747080 ####[address] [address] ALT No additional P-5'-P [Catalytic activity/Vol] 46 Int._Unit/L Normal 6-46 [facility] Comment on above: Performed By: #### 2 301663, 6603313, 3828927, 8349299, 29795796, 15347963, 87134096, 0004488, 2318667 ####[address] [address] AST [Catalytic activity/Vol] 51 Int._Unit/L High 5-43 [facility] Comment on above: Performed By: #### 2 936459, 1703907, 5300678, 0755053, 81584091, 26261331, 50694053, 2063030, 0709927 ####[address] [place] [address] Bilirubin [Mass/Vol] 0.6 mg/dL Normal 0.0-1.1 [facility] Comment on above: Performed By: #### 2 844435, 7503269, 0972370, 9020837, 37538808, 92563485, 54441221, 3559395, 1297620 ####[address] [place] [address] Bilirubin.direct [Mass/Vol] 0.2 mg/dL Normal 0.1-0.4 [facility] Comment on above: Performed By: #### 2 768053, 9680260, 9330581, 3449491, 65055038, 84061679, 12720680, 4747389, 6493233 ####[facility] [address] [place] [address] Bilirubin.indirect [Mass or moles/Vol] 0.4 mg/dL Normal 0.1-0.9 [facility] Comment on above: Performed By: #### 2 297465, 0899385, 6716128, 8025611, 53223909, 83080425, 44305025, 0185565, 6028061 ####[address] [place] [address] Globulin (S) [Mass/Vol] 3.4 g/dL Normal 1.4-4.0 [facility] Comment on above: Performed By: #### 2 288833, 8668743, 6750192, 4252143, 03823739, 89968222, 40499489, 7328358, 3128867 ####[address] [place] [address] Protein [Mass/Vol] 7.7 g/dL Normal 6.0-7.8 [facility] Comment on above: Performed By: #### 2 388749, 3000841, 2385453, 3096464, 41896597, 03451299, 70133436, 1661985, 9209601 ####[address] [place] [address] Lipase Levelon 11-02-2022 Lipase [Catalytic activity/Vol] 28 U/L Normal 13-58 [facility] Comment on above: Performed By: #### 2 019210, 4333445, 2643044, 8530378, 23355746, 57941934, 56628044, 1033803, 2116297 ####[facility] [address] [place] [address] PT & PTTon 11-02-2022 aPTT Coag (PPP) [Time] 25.5 second(s) Normal 25.1-36.5 [facility] Comment on above: Result Comment: Para meter 15 days - 4 weeks 1 - 5 months 6 - 11 months 1 - 5 years 6 - 10 years 11 - 17 years PTT Mean: 35.4 (27.6-45.6) Mean: 33.5 (24.8-40.7) Mean: 32.4 (25.1-40.7) Mean: 31.6 (24.0-39.2) Mean: 31.6 (26.9-38.7) Mean: 31.0 (24.6-38.4) Pediatric Reference ranges were obtained from a study by Brian Yanez et al. prepared from 1437 samples obtained at 7 different centers using the same coagulation reagent and instrumentation as [facility]. Currently there are no coagulation studies available worldwide for children to 14 days, and no normal ranges. Heparin therapeutic range (represented by Anti-Factor Xa activity of 0.2 - 0.4 U/mL) corresponds to PTT of 56.6 - 109.0 sec. Performed By: #### 2 775237, 8300141, 6111482, 5919981, 01541479, 49387372, 62755584, 9167013, 5512242 ####[facility] [address] [place] [address] INR Coag (PPP) [Relative time] 1.0 {INR} Invalid Interpretation Code [facility] Comment on above: Result Comment: INR results are specifically intended to assess patients stabilized on long-term Anticoagulation therapy suggested INR?s ?Less Intensive Anticoagulation? 2.0 ? 3.0 Conventional Range 3.0 ? 4.5 Performed By: #### 2 842994, 1750336, 7523311, 8072384, 35024538, 98410417, 37658384, 3321561, 7137698 ####[facility] [address] [place] [address] PT Coag (PPP) [Time] 11.1 second(s) Normal 9.4-12.5 [facility] Comment on above: Result Comment: 15 d ays - 4 weeks 1 - 5 months 6 -11 months 1- 5 years 6-10 years 11 -17 years Mean: 11.2 (9.5-12.6) Mean: 11.0 (9.7-12.8) Mean: 11.0 (9.8-13.0) Mean: 11.3 (9.9-13.4) Mean: 11.7 (10.0-14.6) Mean: 11.8 (10.0 - 14.1) Pediatric Reference ranges were obtained from a study by Brian Yanez et al. prepared from 1437 samples obtained at 7 different centers using the same coagulation reagent and instrumentation as [facility]. Currently there are no coagulation studies available worldwide for children to 14 days, and no normal ranges. Performed By: #### 2 006827, 4003050, 6832774, 9807371, 71875293, 80509828, 18978685, 2622019, 6707792 ####[facility] [address] [place] [address] Troponin 0 Hr.on 11-02-2022 Troponin I.cardiac [Mass/Vol] 4.00 pg/mL Low 10.10-27.10 [facility] Comment on above: Result Comment: The 95% CI (Confidence Interval) PPV (Positive Predictive Value) for myocardial infarction in females is 38 pg/mL, in males 51 pg/mL. The results should be used in conjunction with clinical conditions of myocardial infarction. (Access High Sensitivity Troponin I Instructions For Use, Lorenzo Eros, February 2018) Performed By: #### 2 371129, 1336821, 1565208, 0635960, 34972811, 75314987, 10221740, 4994265, 4756023 ####[facility] [address] [place] [address] Troponin 3 Hr.Ordered By: [employer] on 11-02-2022 Troponin I.cardiac [Mass/Vol] 3.10 pg/mL Low 10.10-27.10 [facility] Remisol Comment on above: Result Comment: The 95% CI (Confidence Interval) PPV (Positive Predictive Value) for myocardial infarction in females is 38 pg/mL, in males 51 pg/mL. The results should be used in conjunction with clinical conditions of myocardial infarction. (Access High Sensitivity Troponin I Instructions For Use, Lorenzo Eros, February 2018) Performed By: #### 1 1052592 ####[facility] [address] [place] [address] eGFRon 11-02-2022 GFR/1.73 sq M.predicted among blacks MDRD (S/P/Bld) [Vol rate/Area] mL/min/{1.73_m2} Normal >=59 [facility] Comment on above: Order Comment: Order added by Discern Expert. Result Comment: eGFR is race adjusted. AA=. Performed By: #### 2 063927, 2907779, 2162379, 2619231, 14540647, 14693063, 92920829, 3043299, 4460671 ####[facility] [address] [place] [address] GFR/1.73 sq M.predicted among non-blacks MDRD (S/P/Bld) [Vol rate/Area] mL/min/{1.73_m2} Normal >=59 [facility] Comment on above: Order Comment: Order added by Discern Expert. Result Comment: Account Manager Education jeremias kidney disease could be indicated at eGFR's of less than 60 mL/min/1.73m2. Kidney failure is indicated at less than 15 mL/min/1.73m2. Performed By: #### 2 026670, 7093159, 4659408, 1268653, 80305100, 72691725, 18254880, 7883986, 9262289 ####[facility] [address] [place] [address] XR Chest 2 Viewson 3 XR Chest 2 Views CLINICAL HISTORY: Pa in EXAMINATION: Frontal and lateral images of the chest were obtained. Comparison is made to an examination dated 07/25/2020. FINDINGS: The cardiomediastinal silhouette is unremarkable. The pulmonary vasculature is normal. There is no focal consolidation, pleural effusion or pneumothorax. No acute osseous abnormality is seen. There is fusion hardware in the cervical spine. An IVC filter is partially imaged. IMPRESSION: No acute cardiopulmonary process. Final Dictated by: Vishal Coreas MD Dictated DT/TM: 08/25/2022 1:27 pm Signed by: Vishal Coreas MD Signed (Electronic Signature): 08/25/2022 1:28 pm (If Report Is Signed, Electronically Signed in Other Vendor System) Normal [facility] Coding Summary.on 07-28-2022 Coding Summary. CD:[id number] Gh 0bWw+PGhlYWQ+JD1MOKXdL 37twORgoI4GY7mSND7FDGQ FLLFZBM9HSL2jwZI6BErhT 2VybiAv WdfjqKAsXB54TYn8EKE2hO qfJJgxkY2kdVSvS8j3WfLe XI93nM87TUabAXKrKnG1Et ZpbjsgbWFy E7owMoSdaJYlIux+PHRhYm xlIHdpZHRoPScxMDAlJyBz jKcrTX5kNo8lNFSnUCHqhV xhcHNlOiBj n9ldXPSdYIewBC9bbNwoD8 ZwrNF6KRQbt1y1Bv62dXV+ YDQdUSG0tCqqAEczp408Ah Siy8lwQQP1 pMVnKPndZSN1X95ct5T2ZS LfJARxPNP7rVC8rG2hoXru lhnrS6HxwKFgZtN7HMI0sK CcbQ8wvJzk vnoksD9jFpc+T51CNE0MKB JUMC2UJhh9W2GuYklwrAI+ VE54TACbHW86vRQxsRHqx9 psySs7NaFw OLJxNAZ3hYlnEYuyv1MwKR IpV15thMLdt7M3ZZQojKlf oGRpUkVkwTZ6wG7hCYxqjq tpe3djdjqb Ecyxr1ltjr09jT96G32uSY jpSYPeHSR7UBOvSOOljBkp wk4unU5tQp4+PDxwp7dog4 mqrPf8QuOh CAGewqGvaZbqUNI3v7JgYi 77R9NykYtff8XwQdi1zb18 vJCad8N5wES9AYkdIXDwmN 8hTEcjMvL7 QJZtJyDqkW65tDWaBMduDk 4emTyfuHwjHN1rAAFftezp WVMwuB6gLLZxaIZgmCiaID 4wNTBpbjtm k982UbGrNPU2JVXvqVKjP4 MiwI6uItRuHCHsBGTgG1Za dQReIAysN326ASpxMdQ1WE DrlgRfS7Hb TWMieLlqUrB5z3E4Sg5Lk8 IyirpuXSO9ZXoqDVFqVfVs WbHpLbX3F9JxOrv5GDVevZ olPE0eO6Kl KTPflretamegtJD7OAQiLJ LcvH05yQCsPVjtWm1nl2V9 e799YBIbAKPvwU18At0hkY ogMTBwdCBU hL9goqstb4kwgzpuPoRsNH GeFUd9HZm4PVQesXpqTpRm BHX7DpY3UDU5oEXlcK3pdD zmhohmdY3c Oyc+L49clK2pEIB1HSD9ta zkNWVnimIkFF42NW32H2Us PjwvdGFibGU+PGRpdiBzdH suQB6cTlXj o9mht1KxPGcoQ8UtKRQaRB dkBuk9AAVeSOZ2qGR2gC3i VSFeRGwsx8B9vDD8B8Bibn Dzgb8ny9nz ZLOiYUccO95naXEic8O2BB FtgNM7VLPqnEohPjMcbU33 Oyc+OPIqyCxot6XkXdcdt7 xfq8eglDk2 VkOfBOOapdYisKrlSNZ2t6 SjRh22N29oBTstXFDlNWWb OWMkUKBpcKukmr7jgG5wOb 8+PGNvbCB3 lFC7sQ1jZEJsEtD9GMjfN5 13SrXmjKLbFtovv6xrd0bh tAt7AtOuWATnctTejLaaNY Y4h5LxBk19 F43iJQthRFZpRJPpCJBfEY RwqCruho8unO6zCi1+PC9j h1nxew57aB43uKM+PHRkIH S9vXjfBKte JXUybK9aVWavUqX2LTKtUv ZsrS83aYHfXNgoHv2rdUim pRhuVP5vKBTjgyxux455Jt Joj6zaBSZl wYVjVFnpGJN8X84ve8V0YF CkUYTtTIQ6mQP6oF4uiZtx bjogbGVmdDsgdmVydGljYW hbILgcE524 IHRvcDsnPlBhdGllbnQgTm ZxKDx3W5ZvKom7LYDzzAin JN8buNVfZBouTq4yvTlauB izLJ7hXCEe yvkmp588VlXhn1irXQGndD LwFShjEOU8H22hc2O2ERWv YEIxBED9wHX7hI7jlHclpo ogbGVmdDsg nhMckDxoMRiyWNjwT105CY RvcDsnPkJpcnRoIERhdGU6 US21BQ16yIJdp2X4zXQ9Z4 BhZGRpbmct yxgxqPT1OBYcGOSpkG58Ju 0uhSemCl2mGSJlCRF2EOKl kJMmT8AckV1zTrDvHLYsKD QlJ3ZqhLUi VOprI035CMcmTdS8KISfyu PjS1CyOBJdbHdjTrZ4e7X2 Xh8NN3C3MN69TK13lBZkz5 O9hGO6E2Jn EILbuemihhrxiHO0DMPaML QkmV83Ot1szUctFi9tXVIt ZVH5LYYvxDYxK4JcmW6lHm AjMDAwMDAw T8TphPYuQPpoF292XHkkQx T1WWOuhfUwP0PzLKFkvWmp WhP9h0E1Bi5ETZi2FX50NO 63pYGim5I0 oMZ0P9EbMJLmkxgudilgzU J9MSPaYIRigR72Ph4mkSvk Pn3oOZPsOCM4YDMsgJMlX0 LijI6aQqAs GKMzIBSqR4SzeXUjCLuxC3 29IYaxYlO4YZHsprIcU3Ng MCLevEsmKsJ4h1P9Uy3KCN WuUZ67VND4 qNJ6FA88XB53V0DyRcwttP FibGU+PHRhYmxlIHdpZHRo KUifVZYfOwWimNdzYL5rGl 9yZGVyLWNv qDtdfJKgOxAov7nqFWGlZY wcMR8fsSzoO6YajPG7ZYUn w5c5Il78F44xO2LscFV+PG EkiPS8aQM2 yS4kNuYnOmA8WOmrE171Cb FkaRQyCvdjq6vlg1vqvUz6 SgY3HCGchgMswPvdAMK5n7 BuEq28E58u IHdpZHRoPSIxNSUiIHZhbG juzp5shY3oPf2+PGNvbCB3 pNJ6kJ6cGgEcLmD3AYvvH7 49InRvcCIv Fhxnc0eng4eizZz9ShQkEW VauiTmtRscFPC0o5KxYt34 N9XizGriy2VjOce2dy31vG Qkh9M1iVK8 W4YaOWPlpxozbZTxcJmyTL 9eYHLnwqnuARCnpR2hILVy S7n4FnMqQlR3EFiaD4Bszi W3TNFcaBJt TOiuFBP9K29zb7L3TTZgFC UwXZF7jWR8cI1egEzheqqj bGVmdDsgdmVydGljYWwtYW qvM363NCPk uJtrALCfaO7rZRLlbXYukM vsPH4eZMIkvxkpTpZSSsON TWIQAWOBE2nDPNs2W9OkHc z9GVNncHny SK3whBMrRKhhCm9mtBhepX kfTV4lKPMpfmgtRCAkvM1k OWHplIFicLlrXK5eHBAxbi fkt462OgAi BQN8UNXzpTFaV7EneE3aOf JsOSOwDNJeJ0GeuPKmBPhq H621EAdkBrA0MAYlayDsX1 FsLWFsaWdu RxY3j9V3Gn1sVI9gIk0eKP jtVO63RY28uBAuc2Z1jMX6 I7XaCCWijjlidrmtiII3MT CaWICkmK10 wXPpDDqlEm9ky8O8b741TN NiOWTaoA58Uo7exHgiIGJu fHLRmJ3shyajs3ikqrdnBx AwMDAwMDt0 RMm6GMUbrVyxDnStFOJ4Cm A1RDA9yOMfwK3erKyespkn nJ2gJcj+JXucWNOauhX0H4 YbNqe5XIAk tMmcNI6gbDIhANcvUx4cnH tetZhaQA7pXVQxyxkaZNDr fK2qCDGneYQocIrnUQ3iNR Wixxvfy405 IcVqNQQ8KHJylUQkB4EjiK 3bKnYjXPNiVNBbP5JkfPPj AVevJ200HQwtQbB1AOCwgw NjX5DsKXBw hCytOhU1r5X4Cj8JEG9inX S8Y7YdFvb9MCQzhNdiIA8r rZFpWYwsYt9epIawpFbxHX 4wNTBpbjtw CGQnaD9gEVPwoBXkeGghVA 6tVMFnfvjec188OgAmQFK4 YJDirFYmE7KajH0tAgOrVT WyUWAaX1Kz jSXlTMqeC649SGdvDsD3YZ YdwlUhK7RhLFVvfFlgGmL9 x7E4Xy4SuoUovVipvcT3Z7 RkPjwvdHI+ BK49RMYiEH48wSKnfWBss7 djuKu4DnUgUUWfRBK0jMkv JHria3BlFOFuC62jfZAlh0 W7DMJtuKsd lPDlHaSutXG1tO7rKRyark byk0dfjuluJxssv9mqct34 hU37L35yQDlkAOVrIPHsXL UiIHZhbGln yy0coX2mBu5+VIImpWV9oF X2pG7nOdAnTzI2TByrK764 FwPswCMdCgqku2viv4sxkI p9RiJwIFGr bcRtqGbeQKI1w5FeWo85Q6 9sIHdpZHRoPSIyMCUiIHZh iXzveh2lkF9tGy2+PC9jb2 yplf52sI65 dHI+NFHsSGZ8aUfnNNfjFV YvxZ8gYEkxGfY9DGFkFjDk wT19dMNhWTbbQz2dzGimcY moYZ9uLPTg msout129PcLgb9wiWEBlsC XjLQilSDY6O66ny4M7XARf JCFcOPJ2zJL4iV2kiQsdph ogbGVmdDsg ipQspOpsBMhbOIbhX282TO KhnSnjQaXsvOVtG6lgnwNU OW6zLuzxxVK+HJAqDFD7rE xlPSdwYWRk rP0aBZIeK4v8NlUoJdO2YX sbE9ZoyoJ7BJEszRFhFNZt vGWUtS3hvvkcd2wonjwpPa AwMDAwMDt0 HXd9VRKseImfXcCuKXL7Aj I4JFF4kGGycV3jaIoaetsz kX2jAfn+RklOOjwvdGQ+PH YsACB8zPpa ROwoNYRkrS5hUSUcR9q0Ew AqBtB1GEfaJ3IycrL9HYMu hYSvGBYndLAFeO1fwdfrb5 xvcjogIzAw CJWrDUl5OLy8WACtnJioEn UjJCB4OfF5WTY3sRGawI1s aCjozbwtpH2fTey+TVJOOj wvdGQ+PHRk GIP0oGelNOcwUHXnlK6lOX XoZ9z0NoUuQgX2VJupT1Fn vgR3UDPfkLNzTPPeqDNTiJ 1ozioet2gj oxzwVnDqEPCcWKd8IBi2CS ZsrBfeRnAmZJE3DiT1UYD0 lZVztD2vcPfdyrfbsV3tXv c+LTL3WCM1 YY23QJ92G1TfGotulQJowA U+PHRhYmxlIHdpZHRoPScx DYBbYhIdfWpqKC6bIk8kYD VyLWNvbGxh cHNl (more content not included)... Normal [facility] Discharge Instructionson Discharge Instructions [id number] 0CD:127 Normal [facility] MRA Head w/o Contraston 07-18 MRA Head w/o Contrast Exam Date/Time: 07/27/2022 15:59 EST Reason for Exam: Stroke, follow up Report IMPRESSION: SHORT SEGMENT FINDING OF THE BASILAR ARTERY, POSSIBLY A LIMITED FENESTRATED SEGMENT OF THE BASILAR ARTERY (DEVELOPMENTAL VARIANT), WITH LIMITED PLAQUE ALSO A CONSIDERATION. IF CLINICALLY WARRANTED, CTA COULD BE CONSIDERED FOR FURTHER EVALUATION. OTHERWISE NEGATIVE MRA STUDY OF THE HEAD. CLINICAL HISTORY: Stroke, follow up. Left-sided numbness. History of MS. COMMENT: Unenhanced images were obtained. The intracranial distal vertebral arteries are unremarkable. The basilar artery is a moderate size vessel. At the junction of the proximal and mid thirds of the basilar artery, there is a thin linear septation-like structure within the lumen of a short segment of the artery. This may represent a limited fenestrated segment of the basilar artery, developmental variant. Limited plaque is also a consideration, but there is no plaque elsewhere is evident on this MRA study. This does not appear to result in significant stenosis. The remainder of the basilar is unremarkable. The distal internal carotid arteries bilaterally, the vessels of the manzanita of Singh, and visualized central portions of the anterior, middle, and posterior cerebral arteries are unremarkable, without evidence of significant stenosis nor occlusion. No aneurysm of intracranial arteries is evident. FINAL REPORT Dictated: 07/28/2022 9:02 am Martin Arango M.D. Signed (Electronic Signature): 07/28/2022 9:02 am Signed by: Martin Arango M.D. Transcribed by: CHANTEL Technologist: JANI Technical Comments None Normal [facility] Pre-Certification Formon Pre-Certification Form [id number]:127 Normal [facility] Auto Diffon 07-27-2022 Basophils/100 WBC (Bld) 1.2 % Normal 0.0-2.0 [facility] Comment on above: Order Comment: Order Added by Discern Expert. Performed By: #### 2 783781, 81211244, 10621332, 77844246, 802922792, 6144463, 1904220, 47282094, 5602157, 8590052 #### [facility] [address] [place] [address] Basophils/Leukocytes Auto (Bld) [Pure # fraction] 0.1 E9/L Normal 0.0-0.2 [facility] Comment on above: Order Comment: Order Added by Discern Expert. Performed By: #### 2 347032, 50438752, 78783935, 83324340, 811698421, 5122965, 5576874, 16538654, 9375373, 4188320 #### [facility] [address] [place] [address] Eosinophils/100 WBC (Bld) 2.0 % Normal 0.0-8.0 [facility] Comment on above: Order Comment: Order Added by Discern Expert. Performed By: #### 2 413776, 29379961, 56827675, 66748779, 960333885, 3682684, 4266888, 46204891, 7574439, 2105075 #### [facility] [address] [place] [address] Eosinophils/Leukocyte s Auto (Bld) [Pure # fraction] 0.2 E9/L Normal 0.0-0.5 [facility] Comment on above: Order Comment: Order Added by Discern Expert. Performed By: #### 2 087794, 15348268, 46691252, 61285708, 631132294, 2850703, 2847781, 81410815, 0799366, 6236932 #### [facility] [address] [place] [address] Lymphocytes/100 WBC (Bld) 29.7 % Normal 14.0-50.0 [facility] Comment on above: Order Comment: Order Added by Discern Expert. Performed By: #### 2 041939, 32722831, 21309308, 56080994, 527418890, 8142709, 3014076, 19532030, 8330537, 0136641 #### [facility] [address] [place] [address] Lymphocytes/Leukocyte s Auto (Bld) [Pure # fraction] 2.6 E9/L Normal 1.0-4.0 [facility] Comment on above: Order Comment: Order Added by Discern Expert. Performed By: #### 2 286351, 87307023, 44475508, 34479749, 646883344, 0802987, 9237241, 02927863, 3886081, 6801463 #### [facility] [address] [place] [address] Monocytes/100 WBC (Bld) 5.4 % Normal 4.0-14.0 [facility] Comment on above: Order Comment: Order Added by Discern Expert. Performed By: #### 2 831742, 58999491, 09853508, 24173390, 532676900, 6762056, 0615446, 51700469, 4148033, 6614000 #### [facility] [address] [place] [address] Monocytes/Leukocytes Auto (Bld) [Pure # fraction] 0.5 E9/L Normal 0.2-1.0 [facility] Comment on above: Order Comment: Order Added by Discern Expert. Performed By: #### 2 891852, 40531305, 77830934, 12717707, 883523498, 0384944, 7386985, 52838514, 1627693, 2236167 #### [facility] [address] [place] [address] Neutrophils/100 WBC (Bld) 61.7 % Normal 36.0-75.0 [facility] Comment on above: Order Comment: Order Added by Discern Expert. Performed By: #### 2 833406, 35817135, 11878887, 24773036, 877196888, 0310750, 6644396, 41104519, 5771725, 3619179 #### [facility] [address] [place] [address] Neutrophils/Leukocyte s Auto (Bld) [Pure # fraction] 5.4 E9/L Normal 2.0-7.5 [facility] Comment on above: Order Comment: Order Added by Discern Expert. Performed By: #### 2 615023, 32270117, 84134930, 03063324, 782612161, 9843992, 3092694, 48574780, 0960194, 1197988 #### [facility] [address] [place] [address] BMPon 07-27-2022 Creatinine [Mass/Vol] 0.6 mg/dL Normal 0.5-1.3 [facility] Comment on above: Performed By: #### 2 055747, 12871311, 37116697, 40225459, 928340594, 5908993, 8591052, 87261031, 6360321, 0885880 #### [facility] [address] [place] [address] Urea nitrogen [Mass/Vol] 9 mg/dL Normal 5-21 [facility] Comment on above: Performed By: #### 2 665837, 79380175, 21929941, 00926570, 679398602, 5318228, 2325689, 80064637, 8018776, 5565224 #### [facility] [address] [place] [address] Urea nitrogen/Creatinine [Mass ratio] 15 No Units Normal 10-20 [facility] Comment on above: Performed By: #### 2 125204, 27330502, 23255686, 11163639, 035383784, 5504460, 2191055, 29615355, 7049501, 4500685 #### [facility] [address] [place] [address] Anion gap [Moles/Vol] 12 mmol/L Normal 6-16 [facility] Comment on above: Performed By: #### 2 235257, 54034644, 99313535, 90769247, 030575313, 8140611, 1665528, 04804291, 1874874, 8262283 #### [facility] [address] [place] [address] Calcium [Mass/Vol] 8.9 mg/dL Normal 8.9-11.1 [facility] Comment on above: Performed By: #### 2 018453, 22947520, 00800310, 45807813, 301053923, 3651640, 3841382, 67236508, 1634100, 6811763 #### [facility] [address] [place] [address] Chloride [Moles/Vol] 105 mmol/L Normal 101-111 [facility] Comment on above: Performed By: #### 2 849249, 39907519, 24273979, 13917073, 852704169, 6836582, 6029348, 93096218, 0981494, 3832009 #### [facility] [address] [place] [address] CO2 [Moles/Vol] 25 mmol/L Normal 21-31 [facility] Comment on above: Performed By: #### 2 163260, 39614490, 32532412, 56835059, 934198580, 9462250, 3433452, 71897048, 4561886, 0995866 #### [facility] [address] [place] [address] Glucose [Mass/Vol] 83 mg/dL Normal 55-199 [facility] Comment on above: Result Comment: If t his glucose result represents a fasting glucose, interpretation should refer to the following reference range: 55-99 mg/dL Performed By: #### 2 420014, 23582549, 13700538, 05618658, 336437202, 1705931, 5944693, 29674517, 6082683, 7759043 #### [facility] [address] [place] [address] Potassium [Moles/Vol] 3.7 mmol/L Normal 3.5-5.3 [facility] Comment on above: Performed By: #### 2 520436, 09720594, 59293769, 32745548, 689064745, 1120851, 0165685, 08397301, 1198251, 1865077 #### [facility] [address] [place] [address] Sodium [Moles/Vol] 138 mmol/L Normal 135-145 [facility] Comment on above: Performed By: #### 2 928484, 59474379, 78830444, 40156429, 211242149, 7451781, 4874804, 84054425, 0956041, 4460395 #### [facility] [address] [place] [address] CBC w/ Auto Diffon 3 Erythrocyte distribution width (RBC) [Ratio] 13.4 % Normal 10.9-14.2 [facility] Comment on above: Performed By: #### 2 904566, 47937134, 86771585, 91029431, 115083259, 4874091, 9500072, 36288027, 3308095, 3357508 #### [facility] [address] [place] [address] Hematocrit (Bld) [Volume fraction] 41.9 % Normal 34.0-46.0 [facility] Comment on above: Performed By: #### 2 444195, 85309794, 85610854, 57112190, 702041674, 4027950, 1565174, 30948174, 2278305, 6113450 #### [facility] [address] [place] [address] Hemoglobin (Bld) [Mass/Vol] 13.9 g/dL Normal 12.0-16.0 [facility] Comment on above: Performed By: #### 2 619430, 07747947, 89805966, 47645803, 162495756, 3837161, 6746121, 64872275, 3386022, 0902449 #### [facility] [address] [place] [address] MCH (RBC) [Entitic mass] 29.1 pg Normal 27.0-34.0 [facility] Comment on above: Performed By: #### 2 965698, 91972378, 68142057, 90618121, 662324310, 5346530, 3409092, 85631032, 8561564, 4922088 #### [facility] [address] [place] [address] MCHC (RBC) [Mass/Vol] 33.2 g/dL Normal 31.4-36.0 [facility] Comment on above: Performed By: #### 2 033190, 89552253, 50209655, 01138091, 820149438, 4624639, 7398985, 20225673, 4419078, 6900817 #### [facility] [address] [place] [address] MCV (RBC) [Entitic vol] 87.8 fL Normal 80.0-100.0 [facility] Comment on above: Performed By: #### 2 479603, 19306885, 60684353, 50896881, 169780973, 6412396, 2122139, 10413619, 6223079, 4922971 #### [facility] [address] [place] [address] Platelet mean volume (Bld) [Entitic vol] 7.4 fL Normal 6.4-10.8 [facility] Comment on above: Performed By: #### 2 904065, 67124473, 89801072, 83683657, 044644891, 2561533, 3726908, 84155149, 1706175, 4723591 #### [facility] [address] [place] [address] Platelets (Bld) [#/Vol] 354.0 E9/L Normal 150.0-500.0 [facility] Comment on above: Performed By: #### 2 968909, 33290192, 30824373, 91160756, 711850697, 6458122, 2975006, 51482073, 8327164, 4815700 #### [facility] [address] [place] [address] RBC (Bld) [#/Vol] 4.8 E12/L Normal 4.3-5.9 [facility] Comment on above: Performed By: #### 2 084879, 85865668, 72795453, 03463419, 248274828, 1193829, 0646160, 17612738, 3615625, 3595730 #### [facility] [address] [place] [address] WBC corrected for nucl RBC Auto (Bld) [#/Vol] 8.8 E9/L Normal 4.0-11.0 [facility] Comment on above: Performed By: #### 2 990421, 47183320, 45087961, 68775552, 538201099, 4332252, 6265661, 19004311, 1987942, 9339361 #### [facility] [address] [place] [address] CRPon 07-27-2022 CRP [Mass/Vol] 0.5 mg/dL Normal <=1.9 [facility] Comment on above: Performed By: #### 2 812098, 94298176, 88318056, 67276348, 789285019, 6136354, 9484107, 49921216, 6715777, 5966679 #### [facility] [address] [place] [address] CT Head or Brain w/o Contras ton 07-27-2022 CT Head or Brain w/o Contrast Exam Date/Time: 07/26/2022 23:01 EST Reason for Exam: Neuro deficit, acute, stroke suspected;Other (please specify) Report IMPRESSION: NO EVIDENCE OF ACUTE INTRACRANIAL HEMORRHAGE. VERY SUBTLE WHITE MATTER FINDINGS. NO SIGNIFICANT CHANGE WHEN COMPARED TO THE PRIOR EXAM. CLINICAL HISTORY: Neuro deficit, acute, stroke suspected. Left-sided numbness. COMPARISON: 11/10/2020. COMMENT: Unenhanced images were obtained. The ventricles and basal cisterns and cortical sulci appear within normal limits. There is no mass effect nor midline shift. There are small very subtle ill-defined areas of slightly decreased attenuation involving cerebral white matter bilaterally. The findings are nonspecific. Small vessel ischemic changes are a possibility. However, reportedly the patient has a history of multiple sclerosis, and demyelinating disease could also account for this appearance. There is no evidence of recent intracranial hemorrhage nor extra-axial hematoma. No mass lesion is evident. No skull fracture is noted. All CT scans at this facility use dose modulation, iterative reconstruction, and/or weight based dosing when appropriate to reduce radiation dose to as low as reasonably achievable. FINAL REPORT Dictated: 07/27/2022 8:07 am Martin Arango M.D. Signed (Electronic Signature): 07/27/2022 8:07 am Signed by: Martin Arango M.D. Transcribed by: CHANTEL Technologist: MMM Normal [facility] Capillary Glucose POCon 07-18 Glucose [Mass/Vol] 87 mg/dL Normal 55-99 [facility] Comment on above: Result Comment: Brittney canales RN/ Performed By: #### 2 [id number] ####[facility] [address] [place] [address] Consultation Noteon 07-27-19 Consultation Note Chief Complaint MS flareup; left sided numbness and tingling Reason for Consultation TIA History of Present Illness 47-year-old woman with multiple previous presentations for similar symptoms. She says at some point she was diagnosed with multiple sclerosis based on imaging studies and CSF. Based on the available MRI images here, she seems to have some white matter changes and no lesions to her cervical cord. Despite being worked up multiple times for optic neuritis and multiple sclerosis exacerbation, we have never discovered any enhancing or acute demyelinating lesions. Elsewhere she has been given IVIG because she reportedly has an allergy to steroids but she has been given steroids with some Benadryl. She says her left eye is blurry and it feels like she is seeing double but at the time of my encounter what she initially called double vision was not actually diplopia but just decreased visual acuity of the left eye. She reports red desaturation, saying red things appear pink. There is mild pain with movement of the left eye. She also says her left arm is weak and her left leg is weak to the extent she cannot bear weight. She is currently seeing Dr. Filippo Garcia MD. an office note from February 24, 2022 from him is available for review. It mentions that she was diagnosed with multiple sclerosis [place] [address] Payton. It mentions she had previously been on Aubagio. Talks about the steroid allergy and IVIG courses. She apparently had been on Xarelto for a right arm DVT. Her neuropathic pain has been attempted to be treated with gabapentin and Lyrica. She has a history of seeking care at multiple different [facility]. Physicians at times find her exam inconsistent and unreliable. She has prior history of surgery on her cervical spine and her lumbar spine, in her 20s. It looks like they are thinking about starting her on Kesimpta. Review of Systems GEN: No fevers or chills. CV/PULM: No chest pain. No shortness of breath. No palpitations. NEURO: Vision affected in left eye. Possible double vision. No dysphagia. No speech changes. Left hemibody weakness. Physical Exam Vitals & Measurements T: 36.6 ?C(Oral) TMIN: 36.5 ?C(Oral) TMAX: 36.8 ?C(Oral) HR: 79(Peripheral) RR: 17 BP: 127/71 SpO2: 97% HT: 170.18 cm WT: 61.9 kg GEN: General appearance normal. Well-kempt. No distress. No visualized deformities or trauma. CARDIO/VASC: Limbs without significant edema and appear well-perfused. PULM: Normal work of breathing. SKIN: Visualized skin is intact and without lesions aside from age-related findings. MS: Affect is normal. Patient is alert and generally oriented. Normal attention. LANG: Speech is fluent and non-dysarthric. EYES: Pupils are equal, reactive, and have a consensual response. There is no afferent pupillary defect. She reports red objects appear more like pink in the left eye only. Ocular motility full; no disconjugate gaze. No pathologic nystagmus. CN: Hearing acuity normal. Face without droop and with normal motor function. MOTOR: Muscle bulk normal. Muscle tone normal. She has immediate limb drift without any pronator drift in the left upper extremity and at other times during the encounter is using that limb without any issues whatsoever. Positive Rajput sign left lower extremity. No tremors. REFLEXES: Reflexes normoactive throughout. No pathologic reflexes. SENSORY: Light touch normal. Vibratory sensation intact in distal extremities. CEREBELLAR: No limb ataxia. Assessment/Plan ASSESSMENT: 1. Chronic cerebral white matter changes. I remain unconvinced that these are demyelinating in nature. My suspicion for her having multiple sclerosis is low, and my suspicion for an acute exacerbation of such is very low. She has had similar retro-orbital and periorbital pains and ocular problems on the left that have been worked up for optic neuritis, at least in October 2020 and in 2019 and probably other times I was unable to review, and there has never been any imaging evidence of optic neuritis. We are getting updated brain MRI images with and without contrast to ensure there is no active lesion and to make sure that her white matter changes look relatively unchanged from priors. Previous MRI of her cervical spine shows some postsurgical changes but no evidence of demyelinating lesions of the cord. 2. Left ocular pain and visual loss. Doubt optic neuritis related to demyelinating disease but we will again attempt to rule this out. This has been a recurrent issue for her. Consider other optic neuropathies. In terms of the painful sensation, cranial nerve V1 syndromes could also be considered. 3. Based on my assessment today it seems that the left hemiparesis is functional. She also has a longstanding history of what is believed to be functional neurological symptoms. We are imaging the brain regardless. PLAN: 1. MRI brain with and without contrast 2. Further recommendations to follow, but in general if the MRI is without any acute findings then (more content not included)... Normal [facility] Comment on above: Result Comment: Elec tronically Signed By: Marcela HIDALGO, Alexa Weinstein\.br\Date and Time Signed: 07/27/22 06:59 EST\.br\Electronically Co-Signed By: Pieter Aquino DO\.br\Date and Time Co-Signed: 07/27/22 10:21 EST ED Clinical Summaryon 2022 ED Clinical Summary [place] [id number] ED Clinical Summary Person Information Name: DALLAS JAMES Altagracia/[facility] Age: 47 Years : 1975 Sex: Female Language: Ukrainian PCP: ANDREA PATEL, RADHA Tariq Marital Status: Phone: [phone] Visit Id: Visit Reason: Medical screening exam; Paresthesia; Focal motor weakness; Eye pain; PT HAS MS - PAIN IN LT EYE, LT LEG NUMB Speciality: Acuity: 3 Enc Type: Observation Med Service: Emergency Arrival: 07/26/2022 21:10:04 Discharge: LOS: 000 03:12 Checkin: 07/26/2022 21:10:04 Checkout: 07/27/2022 00:22:07 Dispo Type: Admitted as IP to this [facility] EVENTS: Event Name Event Status Request Date/Time Start Date/Time Complete Date/Time Arrive Complete 07/26/2022 21:10:04 07/26/2022 21:10:04 07/26/2022 21:10:04 Document Home Meds Request 07/26/2022 21:10:04 Triage Complete 07/26/2022 21:10:04 07/26/2022 21:25:11 07/26/2022 21:25:11 Bed Assign Complete 07/26/2022 21:12:44 07/26/2022 21:12:44 07/26/2022 21:12:44 Dr Exam Complete 07/26/2022 21:12:44 07/26/2022 21:21:09 07/26/2022 21:21:09 RN Exam Complete 07/26/2022 21:12:44 07/26/2022 22:42:46 07/26/2022 22:42:46 Registration Complete 07/26/2022 21:14:50 07/26/2022 21:14:50 07/26/2022 21:14:50 Reg Complete Request 07/26/2022 21:14:50 Reg Bed Request Complete 07/26/2022 21:14:50 07/26/2022 21:14:50 07/26/2022 21:14:50 Registration Complete 07/26/2022 21:21:09 07/26/2022 23:25:40 07/26/2022 23:25:40 Dr Exam Complete 07/26/2022 21:22:10 07/26/2022 21:22:10 07/26/2022 21:22:10 EKG Complete 07/26/2022 21:23:39 07/26/2022 21:29:05 NPO Request 07/26/2022 22:32:15 Pending Labs Request 07/26/2022 22:32:15 Lab Request 07/26/2022 22:32:15 Urine Collect Request 07/26/2022 22:32:15 Patient Care Complete 07/26/2022 22:32:15 07/26/2022 22:54:38 X-Ray Complete 07/26/2022 22:32:15 07/26/2022 23:03:11 07/26/2022 23:07:56 RT Request 07/26/2022 22:32:15 CT Complete 07/26/2022 22:32:15 07/26/2022 22:35:36 07/26/2022 23:01:07 Pending Labs Cancel 07/26/2022 22:33:51 07/26/2022 23:27:13 Lab Cancel 07/26/2022 22:33:51 07/26/2022 23:27:13 Fall Risk Request 07/26/2022 22:42:46 Pending Labs Complete 07/26/2022 22:43:04 07/26/2022 22:43:04 07/26/2022 22:43:05 Meds Admin Complete 07/26/2022 23:06:20 07/26/2022 23:38:30 Wet Read Request 07/26/2022 23:07:56 Meds Admin Cancel 07/26/2022 23:14:33 07/26/2022 23:16:48 Consult Request 07/26/2022 23:25:12 Hospitalist Consult Request 07/26/2022 23:25:12 Pending Labs Complete 07/26/2022 23:27:42 07/26/2022 23:27:42 07/26/2022 23:59:52 Lab Complete 07/26/2022 23:27:42 07/26/2022 23:27:42 07/26/2022 23:57:44 Patient Care Request 07/26/2022 23:30:16 Consult Request 07/26/2022 23:30:16 Pending Labs Request 07/26/2022 23:30:16 Lab Request 07/26/2022 23:30:16 Meds Admin Request 07/26/2022 23:30:16 US Request 07/26/2022 23:30:17 RT Request 07/26/2022 23:30:17 Bed Request Request 07/26/2022 23:30:17 Reg Bed Request Request 07/26/2022 23:30:17 Admit Request 07/26/2022 23:30:17 MRI Request 07/26/2022 23:30:17 Meds Admin Request 07/26/2022 23:31:00 Pending Labs Complete 07/26/2022 23:34:13 07/26/2022 23:34:13 07/26/2022 23:57:45 Lab Complete 07/26/2022 23:34:13 07/26/2022 23:34:13 07/26/2022 23:57:45 Pending Labs Complete 07/26/2022 23:38:36 07/26/2022 23:38:36 07/26/2022 23:38:45 Lab Complete 07/26/2022 23:38:36 07/26/2022 23:38:36 07/26/2022 23:38:45 Meds Admin Request 07/27/2022 00:03:37 Inpatient Bed Ready Complete 07/27/2022 00:22:07 07/27/2022 00:22:07 07/27/2022 00:22:07 ADDRESS: [place] [place] [id number] PHYS DOC NOTES: MEDICAL INFORMATION: Prescriptions Given: Medications to Continue with No Changes Other Medications acetaminophen (Tylenol 325 mg Tab) 2 Tablets By Mouth as needed Pain/Fever. conjugated estrogens (Premarin 0.9 mg Tab) 1 Tablets By Mouth every day. duloxetine (Cymbalta 60 mg Cap-DR) 2 Capsules By Mouth once a day (in the morning). HYDROmorphone (Dilaudid 4 mg Tab) 1 Tablets By Mouth every 4 hours as needed for pain. or as needed. ibuprofen (ibuprofen 200 mg Tab) 2 Tablets By Mouth as needed Pain/Fever. lorazepam (LORazepam 1 mg Tab) 1 Tablets By Mouth 3 times a day. phentermine (phentermine 37.5 mg Tab) 1 Tablets By Mouth every day. pregabalin (pregabalin 100 mg Cap) 1 Capsules By Mouth 3 times a day. tramadol (tramadol 50 mg oral tablet) 1 Tablets By Mouth 4 times a day as needed for pain. PATIENT EDUCATION INFORMATION: Instructions: Follow up: DIAGNOSIS: 1:Multiple sclerosis exacerbation; 2:Left optic neuritis; 3:History of DVT in adulthood; 4:PTSD (post-traumatic stress disorder); 5:Anxiety; 6:Chronic pain; 7:No contraindication to deep vein thrombosis (DVT) prophylaxis [facility] ED Note-Nursingon 07-27-2022 ED Note-Nursing pt arrived to ed fro home via private car with her c/o left sided numbness with increased weakness on left side starting yesterday. pt states she has MS and this feels like a flare. pt states she also has left eye pain with blurry vision. pt states she is normally given steroids to help. VSS other than slight htn. [facility] ED Note-Physicianon 07-27-19 ED Note-Physician Basic Information Time Seen: Ellyn Rizo DO 07/26/2022 21:21 Chief Complaint left side numbness, MS flare up. left eye pain. symptoms began yesterday morning History of Present Illness Patient is a 47-year-old female presents ED for evaluation of a presumed MS flare. Patient has a history of relapsing remitting MS. Patient states that she had symptoms beginning yesterday morning (about 36 hours ago). Patient complains of pain of her left eye as well as blurring of her vision and double vision. Patient also complains of paresthesias of her left arm as well as weakness. Patient complains of complete anesthesia of her left leg as well as near total immobility. Patient states that her symptoms are identical with previous presentations. Patient reports that in the past she has been given IV Solu-Medrol as well as Benadryl due to an intolerance to Solu-Medrol on its own with great relief of her symptoms. Patient also states she normally receives pain medication. Patient also has history of chronic pain and is on an extensive list of pain medications at home from her neurologist. Patient states that she took these home medications with little relief of the pain in her left eye. Patient spouse is in the room with her, states that patient appearance and behavior similar to past MS flares. Family history: Reviewed and noncontributory Social history: Reviewed and noncontributory Review of Systems Full 10 system ROS performed. Pt denies symptoms except as noted above in the HPI. Physical Exam Vitals & Measurements T: 36.6 ?C(Oral) HR: 82(Peripheral) RR: 18 BP: 153/114 SpO2: 100% HT: 170.18 cm WT: 61.9 kg BMI: 21.37 General: Pt is in NAD, nontoxic appearing Skin: Pt skin is warm and dry, no rashes or lesions appreciated HEENT: Atraumatic, normocephalic. Clear sclera. PERRLA. Extraocular movements grossly intact. No appreciable facial droop. Pulmonary: Breathing normally, no respiratory distress, no accessory muscle usage, lungs CTAB Cardiovascular: Regular rate and rhythm, no murmurs/gallops/rubs. Distal pulses palpable in upper and lower extremities bilaterally Gastrointestinal: +BSX4. Abdomen soft, nondistended, nontender. No peritoneal signs present. Musculoskeletal: Patient has weakness and reduced sensation of her left upper extremity. Patient has flaccid paralysis of left lower extremity with no sensation. Patient has full strength in right upper and right lower extremities. Neurological: Pt is alert and oriented. Sensation abnormalities elicited musculoskeletal. Lymphatic: No lymphadenopathy appreciated. No peripheral edema appreciated Psychiatric: Pt is cooperative, communicative, appropriately reactive Medical Decision Making MEDICAL DECISION MAKING Number and Complexity of Problems Differential Diagnosis: CVA, MS flare MDM Data External documents reviewed: [] My EKG interpretation: No significant change from previous My CT interpretation: [] My X-ray interpretation: [] My Ultrasound interpretation: [] Decision rules/scores evaluated: [] Discussed with: Patient discussed with hospitalist who reported that he was familiar with the patient from her past admissions. Hospitalist agreed to admit patient due to focal nature of her findings for treatment for presumed MS flare as well as rule out CVA. Treatment and Disposition ED Course: Patient presents ED for evaluation of left lower extremity weakness, left upper extremity weakness, and pain and double vision of her left eye. Patient reports the symptoms are identical with previous MS flares. Due to focal nature of the findings, a stroke work-up was initiated in the ED. Patient was also ordered a dose of methylprednisolone which she states she is tolerated the past. Patient does report that she needs to be pretreated with diphenhydramine which was done. While awaiting results of stroke work-up, patient was discussed with hospitalist as described above. Patient was agreeable for admission to the hospital for further management and work-up. Patient admitted to hospitalist. Shared decision making: [] Code status: [] Assessment/Plan 1. Multiple sclerosis exacerbation (G35: Multiple sclerosis) Orders: diphenhydrAMINE, 12.5 mg = 0.25 mL, Injection, IV Push, Once, Stop date 07/26/22 23:06:00 EST, STAT, Start date 07/26/22 23:06:00 EST, 07/26/22 23:06:00 EST methylPREDNISolone, 125 mg = 2 mL, Injection, IV Push, Once, Stop date 07/26/22 23:05:00 EST, STAT, Start date 07/26/22 23:05:00 EST, 07/26/22 23:05:00 EST Basic Metabolic Panel C-Reactive Protein CBC w/ Auto Diff Continuous Pulse Oximetry CT Head or Brain w/o Contrast ED Cardiac Monitoring ED Physician consult Hospitalist for continued care eGFR Oxygen Therapy PT & PTT Routine Capillary Glucose POC Saline Lock Insert Sedimentation Rate Automated Stroke Quality Measures Troponin 0 Hr. UA With Cult Reflex XR Chest Single View Medications Administered Given dip (more content not included)... [facility] Comment on above: Result Comment: Elec tronically Signed By: Colby Vaughn PA-C\.br\Date and Time Signed: 07/26/22 23:41 EST\.br\Electronically Co-Signed By: Ellyn Rizo DO\.br\Date and Time Co-Signed: 07/26/22 23:52 EST ED Patient Education Noteon 07-27-2022 ED Patient Education Note [facility] ED Patient Summaryon 023 ED Patient Summary [place] [id number] Patient Discharge Instructions Person Information Name: DALLAS JAMES Age: 47 Years Arrival Date: 07/26/2022 21:10:04 Discharge Diagnosis: 1:Multiple sclerosis exacerbation; 2:Left optic neuritis; 3:History of DVT in adulthood; 4:PTSD (post-traumatic stress disorder); 5:Anxiety; 6:Chronic pain; 7:No contraindication to deep vein thrombosis (DVT) prophylaxis Primary Care Physician: RADHA MENDEZ MD Provider Information Primary Provider: Ellyn Rizo DO Advanced Nursing Home Assistant Administrator:Colby Vaughn PA-C The exam and treatment you received in the Emergency Department were for an urgent problem and are not intended as complete care. It is important that you follow up with a doctor, nurse practitioner, or physician?s service assistant for ongoing care. If your symptoms become worse or you do not improve as expected and you are unable to reach your usual health care provider, you should return to the Emergency Department. We are available 24 hours a day. DALLAS JAMES has been given the following list of patient education materials, prescriptions and follow-up instructions: Follow-up Instructions: In the event that this physician does not participate in your insurance network, please consult with your insurance company to find a nearby participating provider. Patient Education Materials: A MESSAGE TO ALL PATIENTS REGARDING OPIOIDS PRESCRIPTION OPIOIDS: WHAT YOU NEED TO KNOW Prescription opioids can be used to help relieve besmvqnq-cn-laetzb pain and are often prescribed following a surgery or injury, or for certain health conditions. These medications can be an important part of the treatment but also come with serious risks. It is important to work with your healthcare provider to make sure you are getting the safest, most effective care. WHAT ARE THE RISKS AND SIDE EFFECTS OF OPIOID USE? Prescription opioids carry serious risks of addiction and overdose, especially with prolonged use. An opioid overdose, often marked by slowed breathing, can cause sudden . The use of prescription opioids can have a number of side effects as well, even when taken as directed: ? Tolerance?meaning you might need to take more of the medication for the same pain relief ? Physical dependence?meaning you have symptoms of withdrawal when a medication is stopped ? Increased sensitivity to pain ? Constipation ? Nausea, vomiting, and dry mouth ? Sleepiness and dizziness ? Confusion ? Depression ? Low levels of testosterone that can result in lower sex drive, energy, and strength ? Itching and sweating RISKS ARE GREATER WITH: ? History of drug misuse, substance use disorder, or overdose ? Mental health conditions (such as depression or anxiety) ? Sleep apnea ? Older age (65 years and older) ? Avoid alcohol while taking prescription opioids. Also, unless specifically advised by your health care provider, medications to avoid include: ? Benzodiazepines (such as Xanax or Valium) ? Muscle relaxants (such as Soma or Flexeril) ? Hypnotics (such as Ambien or Lunesta) ? Other prescription opioids KNOW YOUR OPTIONS Talk to your health care provider about ways to manage your pain that don?t involve prescription opioids. Some of these options may actually work better and have fewer risks and side effects. Options may include: ? Pain relievers such as acetaminophen, ibuprofen, and naproxen ? Some medication that are also used for depression or seizures ? Physical therapy and exercise ? Cognitive behavioral therapy, a psychological, goal-directed approach, in which patients learn how to modify physical, behavioral, and emotional triggers of pain and stress. IF YOU ARE PRESCRIBED OPIOIDS FOR PAIN: ? Never take opioids in greater amounts or more often than prescribed. ? Follow up with your primary health care provider. o Work together to create a plan on how to manage your pain. o Talk about ways to help manage your pain that don?t involve prescription opioids. o Talk about any and all concerns and side effects. ? Help prevent misuse and abuse o Never sell or share prescription opioids. o Never use another person?s prescription opioids. ? Store prescription opioids in a secure place and out of reach of others (this may include visitors, children, friends, and family). ? Safely dispose of unused prescription opioids: Find your community drug take-back program or your pharmacy mail-back program, or flush them down the toilet, following guidance from the Food and Drug Administration (www.fda.gov/Drugs/Res ourcesForYou). ? Visit www.cdc.gov/drugoverdo se to learn about the risks of opioids abuse and overdose. ? If you believe you may be struggling with addiction, tell your health home care music therapist and ask for guidance or call [facility]S National He (more content not included)... [facility] [id number] 07-27-2022 HbA1c (Bld) [Mass fraction] 5.6 % Normal <=5.9 [facility] Comment on above: Performed By: #### 2 [id number], [id number], [id number], [id number] ####[facility] [id number] [place] [address] Inpatient Clinical Summaryon 07-27-2022 Inpatient Clinical Summary [address] [address] Clinical Summary Person Information: Name: DALLAS JAMES Age: 47 Years : 1975 Sex: Female PCP: RADHA MENDEZ MD Marital Status: Phone: [phone] Race: White Ethnicity: Non- or Language: Ukrainian Visit Id: Visit Reason: Medical screening exam; Paresthesia; Focal motor weakness; Eye pain; WEAKNESS, PARESTHESIA, MULTIPLE SCLEROSIS, EXACERBATION Speciality: Acuity: Enc Type: Inpatient Med Service: Medical Arrival: 07/26/2022 21:10:04 Discharge: Dispo Type: Admitted as IP to this Hosp Address: [address] [place] [phone] Provider Notes: Diagnosis: 1:Multiple sclerosis exacerbation; 2:Left optic neuritis; 3:History of DVT in adulthood; 4:PTSD (post-traumatic stress disorder); 5:Anxiety; 6:Chronic pain; 7:No contraindication to deep vein thrombosis (DVT) prophylaxis Problems Active History of DVT in adulthood Anxiety Chronic pain Anxiety Multiple sclerosis PTSD (post-traumatic stress disorder) GERD without esophagitis Smoker.. Anemia Smoking Status: Current Every Day Smoker Functional Status: Sensory Deficits: Other: blurring L eye History of Falls: Mobility Assistance Prior to Admission: Independent ADLs: Independent Current Level of Assistance for Self-Care/Mobility: Cognitive Status: Oriented x 3 Allergies Zofran (Hives) Toradol (Hives) penicillins (Hives) (Anaphylaxis) Tape Protonix IV (hives) (itching) Pepcid (Hives) Contrast Dye (difficulty breathing, hives) fentaNYL (Hives) Protonix () (Hives) Nubain (itching) methylPREDNISolone (hives) Measurements: Height: 170.18 cm Weight: 61.9 kg Blood Pressure: 129 mmHg / 87 mmHg BMI: 21.37 kg/m2 Procedures No Procedures Documented Immunizations No Immunizations Documented This Visit Final Med List: amlodipine (Norvasc 5 mg Tab) 1 Tablets By Mouth every day. conjugated estrogens (Premarin 0.9 mg Tab) 1 Tablets By Mouth every day. HYDROmorphone (Dilaudid 4 mg Tab) 1 Tablets By Mouth every 4 hours as needed for pain. or as needed. ibuprofen (ibuprofen 200 mg Tab) 2 Tablets By Mouth as needed Pain/Fever. lorazepam (LORazepam 1 mg Tab) 1 Tablets By Mouth 3 times a day. pregabalin (pregabalin 100 mg Cap) 1 Capsules By Mouth 3 times a day. tramadol (tramadol 50 mg oral tablet) 1 Tablets By Mouth 4 times a day as needed for pain. Care Team Members: Attending Physician: Satish VALDEZ MD Consulting Physician: Mk Frazier MD Referring Physician: Follow up: With: Address: When: RADHA MENDEZ [address] [place] [address] [facility] (1) Comments: Call for followup appointment With: Address: When: Mk Frazier MD [facility] [address] [place] [address] Within 2 to 4 weeks Patient Education Information: Multiple Sclerosis Normal [facility] Inpatient Patient Summaryon 07-27-2022 Inpatient Patient Summary DALLAS JAMES :1975 Visit Date:07/26/2022 Inpatient Discharge Instructions Your Care Team Admitting Physician - Satish VALDEZ MD Consulting Physician - Mk Frazier MD Reason for Your Visit MS flareup; left sided numbness and tingling Your Diagnosis Multiple sclerosis exacerbation Left optic neuritis History of DVT in adulthood PTSD (post-traumatic stress disorder) Anxiety Chronic pain No contraindication to deep vein thrombosis (DVT) prophylaxis Eye pain Focal motor weakness Medical screening exam Paresthesia Tests Performed Automated Diff BMP C-Reactive Protein Capillary Glucose POC CBC w/ Auto Diff eGFR HgbA1c Lipid Panel PT & PTT Sedimentation Rate Automated Troponin 0 Hr. Urinalysis with Culture Reflex -- Results Pending -- Carotid Duplex US Bilateral CT Head or Brain w/o Contrast MRA Head w/o Contrast -- Results Pending -- XR Chest Single View Please visit your patient portal for your results or contact your primary care physician. This Is Your Medications List HYDROmorphone (Dilaudid 4 mg Tab) amlodipine (Norvasc 5 mg Tab) conjugated estrogens (Premarin 0.9 mg Tab) ibuprofen (ibuprofen 200 mg Tab) lorazepam (LORazepam 1 mg Tab) pregabalin (pregabalin 100 mg Cap) tramadol (tramadol 50 mg oral tablet) [Image Removed: STOP]Stop taking these medications acetaminophen (Tylenol 325 mg Tab) duloxetine (Cymbalta 60 mg Cap-DR) phentermine (phentermine 37.5 mg Tab) Procedure History MRI (11/11/2020), MRI (08/21/2019), MRI arthrography (07/16/2019), Back fusion, Carpal tunnel release, Lavern filter, Hysterectomy. Discharge Vitals Temperature (Axillary) 36.7 ?C Heart Rate (Monitored) 73 Respiratory Rate 17 Blood Pressure 129/87 Height 170.18 cm Weight 61.9 kg BMI 21.37 What to do next Instructions From Your Doctor Event Name Event Result Discharge Activity Activity as tolerated Discharge Restrictions No restrictions Discharge Diet(s) Fat Modified- Low cholesterol Pending Diagnostic Test Results None Pharmacy Information Other: [facility] New Follow Up Appointments after Discharge Follow Up with RADHA MENDEZ When: Comments: Call for [facility]up appointment [facility] [id number] [facility] [address] [address] [place] [address]- [facility] (1) Follow Up with Freddie PATEL, JOSY Terrazas When: Within 2 to 4 weeks Where: [address] [place] [address]- Medications What How Much When Instructions Next Dose New amlodipine (Norvasc 5 mg Tab) 1 Tablets By Mouth Every day 06/27 Unchanged conjugated estrogens (Premarin 0.9 mg Tab) 1 Tablets By Mouth Every day resume Unchanged HYDROmorphone (Dilaudid 4 mg Tab) 1 Tablets By Mouth Every 4 hours as needed for for pain or as needed 06/27 @ 9pm Unchanged ibuprofen (ibuprofen 200 mg Tab) 2 Tablets By Mouth As needed for Pain/Fever resume Unchanged lorazepam (LORazepam 1 mg Tab) 1 Tablets By Mouth 3 times a day 06/26 @1130 pm Unchanged pregabalin (pregabalin 100 mg Cap) 1 Capsules By Mouth 3 times a day 06/27 @1200 am Unchanged tramadol (tramadol 50 mg oral tablet) 1 Tablets By Mouth 4 times a day as needed for for pain resume What How Much When Comments Stop Taking acetaminophen (Tylenol 325 mg Tab) 2 Tablets By Mouth As needed for Pain/Fever Stop Taking duloxetine (Cymbalta 60 mg Cap-DR) 2 Capsules By Mouth Once a day (in the morning) Stop Taking phentermine (phentermine 37.5 mg Tab) 1 Tablets By Mouth Every day Test Results CBC BMP WBC: 8.8 E9/L (07/26/22 23:24:00) Glucose Lvl: 83 mg/dL (07/26/22 23:24:00) RBC: 4.8 E12/L (07/26/22 23:24:00) BUN: 9 mg/dL (07/26/22 23:24:00) HGB: 13.9 gm/dL (07/26/22 23:24:00) Creatinine: 0.6 mg/dL (07/26/22 23:24:00) Hct: 41.9 % (07/26/22 23:24:00) BUN/Creat Ratio: 15 (07/26/22 23:24:00) MCV: 87.8 fL (07/26/22 23:24:00) Sodium Lvl: 138 mmol/L (07/26/22 23:24:00) MCH: 29.1 pg (07/26/22 23:24:00) Potassium Lvl: 3.7 mmol/L (07/26/22:24:00) MCHC: 33.2 gm/dL (07/26/22:24:00) Chloride: 105 mmol/L (07/26/22 23:24:00) RDW: 13.4 % (07/26/22:24:00) CO2: 25 mmol/L (07/26/22:24:00) Platelet: 354 E9/L (07/26/22 23:24:00) AGAP: 12 mEq/L (07/26/22:24:00) MPV: 7.4 fL (07/26/22:24:00) Calcium Lvl: 8.9 mg/dL (07/26/22 23:24:00) Allergies Contrast Dye (difficulty breathing, hives) Protonix (Hives, Rash) Nubain (itching) Pepcid (Hives) Tape Toradol (Hives) Zofran (Hives) fentaNYL (Hives) methylPREDNISolone (hives) penicillins (Anaphylaxis, Hives) Problems Ongoing - Any problem that you are currently receiving treatment for. Anemia Anxiety Anxiety Chronic pain GERD without esophagitis History of DVT in adulthood Multiple sclerosis PTSD (post-traumatic stress disorder) Smoker.. Historical - Any problem that you are no longer receiving treatment for. Degenerative disc disease Gastrointestinal bl (more content not included)... Normal [facility] Inpatient Patient Summary [place] [id number] Patient Discharge Instructions PERSON INFORMATION Name: DALLAS JAMES Date of : 1975 Current Date: 07/27/2022 16:58:24 PHYSICIANS Admitting Physician: Satish VALDEZ MD Primary Care Physician: RADHA MENDEZ MD PCP Comment: Discharge Diagnosis: 1:Multiple sclerosis exacerbation; 2:Left optic neuritis; 3:History of DVT in adulthood; 4:PTSD (post-traumatic stress disorder); 5:Anxiety; 6:Chronic pain; 7:No contraindication to deep vein thrombosis (DVT) prophylaxis Condition at Discharge: DALLAS Krishna has been given the following list of follow-up instructions, prescriptions, and patient education materials: PATIENT FOLLOW-UP INFORMATION Diet: Fat Modified- Low cholesterol Discharge Activity: Activity as tolerated Discharge Restrictions: No restrictions Wound Care Instructions: Remove Your Dressing In Days Call Your Doctor For: IF UNABLE TO CONTACT YOUR PHYSICIAN AND YOU FEEL IT IS AN EMERGENCY, GO TO THE NEAREST EMERGENCY ROOM OR CALL 911 Home Treatment: Devices/Equipment: None Special Services: Additional Instructions: Primary Care Physician to provide the following pending test results: None Follow up: With: Address: When: RADHA MENDEZ [address] [place] [address] [facility] (8) Comments: Call for followup appointment With: Address: When: [facility] [address] [place] [address] Within 2 to 4 weeks In the event that this physician does not participate in your insurance network, please consult with your insurance company to find a nearby participating provider. Comment: ROCÍO Clements NICHOLE L, have received the attached patient education materials/instructions and have verbalized understanding: Patient Signature Date Clinican/Nurse Signature ___ Date HERE ARE THE MEDICATION CHANGES THAT OCCURRED DURING YOUR HOSPITAL STAY New Medications Other Medications amlodipine (Norvasc 5 mg Tab) 1 Tablets By Mouth every day. Last Dose: ___Next Dose: ___ Medications to Continue with No Changes Other Medications conjugated estrogens (Premarin 0.9 mg Tab) 1 Tablets By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 Basophils/100 WBC (Bld) 1.2 % Normal 0.0 - 2.0 % [facility] Basophils/Leukocytes Auto (Bld) [Pure # fraction] 0.1 E9/L Normal 0.0 - 0.2 E9/L [facility] Eosinophils/100 WBC (Bld) 2.0 % Normal 0.0 - 8.0 % [facility] Eosinophils/Leukocyte s Auto (Bld) [Pure # fraction] 0.2 E9/L Normal 0.0 - 0.5 E9/L [facility] Lymphocytes/100 WBC (Bld) 29.7 % Normal 14.0 - 50.0 % [facility]Auto[facility] Lymphocytes/Leukocyte s Auto (Bld) [Pure # fraction] 2.6 E9/L Normal 1.0 - 4.0 E9/L [facility] Monocytes/100 WBC (Bld) 5.4 % Normal 4.0 - 14.0 % [facility] Monocytes/Leukocytes Auto (Bld) [Pure # fraction] 0.5 E9/L Normal 0.2 - 1.0 E9/L [facility] Neutrophils/100 WBC (Bld) 61.7 % Normal 36.0 - 75.0 % [facility] Neutrophils/Leukocyte s Auto (Bld) [Pure # fraction] 5.4 E9/L Normal 2.0 - 7.5 E9/L [facility] HEMATOLOGYOrdered By: Desmond Thao on 07-26-2022 Erythrocyte distribution width (RBC) [Ratio] 13.4 % Normal 10.9 - 14.2 % [facility] Hematocrit (Bld) [Volume fraction] 41.9 % Normal 34.0 - 46.0 % [facility] Hemoglobin (Bld) [Mass/Vol] 13.9 g/dL Normal 12.0 - 16.0 gm/dL [facility] MCH (RBC) [Entitic mass] 29.1 pg Normal 27.0 - 34.0 pg [facility] MCHC (RBC) [Mass/Vol] 33.2 g/dL Normal 31.4 - 36.0 gm/dL [facility] MCV (RBC) [Entitic vol] 87.8 fL Normal 80.0 - 100.0 fL [facility] Platelet mean volume (Bld) [Entitic vol] 7.4 fL Normal 6.4 - 10.8 fL [facility] Platelets (Bld) [#/Vol] 354.0 E9/L Normal 150.0 - 500.0 E9/L [facility] RBC (Bld) [#/Vol] 4.8 E12/L Normal 4.3 - 5.9 E12/L [facility] Sed Rate Automated 13 mm/h Normal 0 - 34 mm/hr [facility] WBC corrected for nucl RBC Auto (Bld) [#/Vol] 8.8 E9/L Normal 4.0 - 11.0 E9/L [facility] HemeAutoSS CT PELVIS WO CONon 2 CT PELVIS WO CON EXAMINATION: CT PELV IS WO CON HISTORY:The patient is a 47-year-old female. Pain COMPARISON: CT scan of the abdomen and pelvis from 02/18/2020. TECHNIQUE: CT images were obtained through the bony pelvis and both hips without intravenous contrast and reformatted in 2 dimensions. Dose reduction techniques were achieved by using automated exposure control and/or adjustment of mA and/or kV according to patient size and/or use of iterative reconstruction technique. FINDINGS: No fractures or cortical discontinuities are seen within either proximal femur or elsewhere throughout the bony pelvis. The widths and alignment of both hip joints are maintained. The sacroiliac joints are maintained. The pubic symphysis is maintained. Paired pedicle screws and an interbody bone cage are seen across the L4-L5 level. There is no solid bony fusion anteriorly or posteriorly. There is cortical irregularity and endplate sclerosis around the bone cage, and I cannot exclude the possibility of osteomyelitis/discitis at this level. This may be challenging diagnosis to confirm with MRI, due to the presence of other metallic bone cage at this site. The soft tissue images demonstrate no evidence of abnormal fluid collections or soft tissue masses on this non-contrast enhanced study. IMPRESSION: 1. No fractures or dislocations seen. 2. Cortical endplate irregularity at the site of the L4-L5 interbody bone cage, raising the concern for osteomyelitis. Electronically authenticated by: CINDY AGUDELO Date: 2022-04-05 23:22 Normal [facility] Basic Metab w/rfx MGon 12-02 (cont.) Normal [facility] Comment on above: Result Comment: Aver age GFR for 40-49 years old: 99 mL/min/1.73sq m Chronic Kidney Disease: <60 mL/min/1.73sq m Kidney failure: <15 mL/min/1.73sq m eGFR calculated using average adult body mass. Additional eGFR calculator available at: http://www.Mostro.VectorLearning/multiple_crcl_2012.htm Performed By: #### C DP, BMPX #### [facility] [address] [place] [id number] [employer] Worker: Dick Nava MD Anion gap [Moles/Vol] 10 mmol/L Normal 9-17 [facility] Comment on above: Performed By: #### C DP, BMPX #### [facility] [address] [place] [address] 84430 [employer] Worker: Dick Nava MD Calcium [Mass/Vol] 8.7 mg/dL Normal 8.6-10.4 [facility] Comment on above: Performed By: #### C DP, BMPX #### [facility] [address] [place] [address] 16263 [employer] Worker: Dick Nava MD Chloride [Moles/Vol] 99 mmol/L Normal 98-107 [facility] Comment on above: Performed By: #### C DP, BMPX #### [facility] [address] [place] [address] 02271 [employer] Worker: Dick Nava MD CO2 [Moles/Vol] 27 mmol/L Normal 20-31 [facility] Comment on above: Performed By: #### C DP, BMPX #### [facility] [address] [place] [address] 74845 [employer] Worker: Dick Nava MD Creatinine [Mass/Vol] 0.51 mg/dL Normal 0.50-0.90 [facility] Comment on above: Performed By: #### C DP, BMPX #### [facility] [address] [place] [address] 83403 [employer] Worker: Dick Nava MD GFR, Amer >60 Normal >60 [facility] Comment on above: Performed By: #### C DP, BMPX #### [facility] [address] [place] [address] 25365 [employer] Worker: Dick Nava MD GFR,non Amer >60 Normal >60 [facility] Comment on above: Performed By: #### C DP, BMPX #### [facility] [place] [address] Machine [employer] Out Worker: Dick Nava MD Glucose [Mass/Vol] 100 mg/dL High 70-99 [facility] Comment on above: Performed By: #### C DP, BMPX #### [facility] [address] [place] [address] 96223 [employer] Worker: Dick Nava MD Potassium [Moles/Vol] 4.1 mmol/L Normal 3.7-5.3 [facility] Comment on above: Performed By: #### C DP, BMPX #### [facility] [address] [place] [address] 29858 [employer] Worker: Dick Nava MD Sodium [Moles/Vol] 136 mmol/L Normal 135-144 [facility] Comment on above: Performed By: #### C DP, BMPX #### [facility] [address] [place] [address] 06493 [employer] Worker: Dick Nava MD Urea nitrogen [Mass/Vol] 12 mg/dL Normal 6-20 [facility] Comment on above: Performed By: #### C DP, BMPX #### [facility] [address] [place] [address] 20776 [employer] Worker: Dick Nava MD BUN/CRE Ratio NOT REPORTED Normal -20 [facility] Comment on above: Performed By: #### C DP, BMPX #### [facility] [address] [place] [address] 93110 Machine [employer] Worker: Dick Nava MD Staging: NOT REPORTED Normal [facility] Comment on above: Performed By: #### C DP, BMPX #### [facility] [address] [place] [address] 31957 Machine [employer] Worker: Dick Nava MD Basic Metabolic Panel w/ Ref emilee to MGon 12-03-2019 Anion gap [Moles/Vol] 10 mmol/L 9 - 17 mmol/L [place] Bun/Cre Ratio NOT REPORTED [facility] [place] Calcium [Mass/Vol] 8.7 mg/dL 8.6 - 10. 4 mg/dL [place] Chloride [Moles/Vol] 99 mmol/L 98 - 10 7 mmol/L [place] CO2 [Moles/Vol] 27 mmol/L 20 - 31 mmol/L [place] Creatinine [Mass/Vol] 0.51 mg/dL 0.5 - 0.9 mg/dL [place] GFR >60 >60 mL/min [place] GFR Non- >60 >60 mL/min [place] GFR/1.73 sq M predicted among non-blacks MDRD (S/P/Bld) [Vol rate/Area] NOT REPORTED [place] GFR/1.73 sq M predicted among non-blacks MDRD (S/P/Bld) [Vol rate/Area] [place] Comment on above: Average GFR for 40-4 9 years old: 99 mL/min/1.73sq m Chronic Kidney Disease: <60 mL/min/1.73sq m Kidney failure: <15 mL/min/1.73sq m eGFR calculated using average adult body mass. Additional eGFR calculator available at: http://www.Mostro.VectorLearning/multiple_crcl_2012.htm Glucose [Mass/Vol] 100 mg/dL High 70 - 99 mg/dL [place] Interpretation and review of laboratory results Abnormal [place] Potassium [Moles/Vol] 4.1 mmol/L 3.7 - 5.3 mmol/L [place] Sodium [Moles/Vol] 136 mmol/L 135 - 144 mmol/L [place] Urea nitrogen [Mass/Vol] 12 mg/dL 6 - 20 mg/dL [place] CBCon 12-03-2019 Erythrocyte distribution width (RBC) [Ratio] 14.0 % Normal 11.8-14.4 [facility] Comment on above: Performed By: #### C DP, BMPX #### [address] [address] Machine [employer] Worker: Dick Nava MD Hematocrit (Bld) [Volume fraction] 35.6 % Low 36.3-47.1 [facility] Comment on above: Performed By: #### C DP, BMPX #### [place] [address] [employer] Out Worker: Dick Nava MD Hemoglobin (Bld) [Mass/Vol] 11.8 g/dL Low 11.9-15.1 [facility] Comment on above: Performed By: #### C DP, BMPX #### [place] [address] [employer] Worker: Dick Nava MD MCH (RBC) [Entitic mass] 29.6 pg Normal 25.2-33.5 [facility] Comment on above: Performed By: #### C DP, BMPX #### [place] [address] [employer] Out Worker: Dick Nava MD MCHC (RBC) [Mass/Vol] 33.1 g/dL Normal 28.4-34.8 [facility] Comment on above: Performed By: #### C DP, BMPX #### [place] [address] [employer] Out Worker: Dick Nava MD MCV (RBC) [Entitic vol] 89.4 fL Normal 82.6-102.9 [facility] Comment on above: Performed By: #### C DP, BMPX #### [address] [address] [employer] Worker: Dick Nava MD NRBC Automated 0.0 per 100 WBC Normal 0.0 [facility] Comment on above: Performed By: #### C DP, BMPX #### [facility] [place] [address] Machine Lay Out Worker: Dick Nava MD Platelet mean volume (Bld) [Entitic vol] 9.7 fL Normal 8.1-13.5 [facility] Comment on above: Performed By: #### C DP, BMPX #### [facility] [address] [place] [address] 61914 Machine [employer] Out Worker: Dick Nava MD Platelets (Bld) [#/Vol] 227 10*3/uL Normal 138-453 [facility] Comment on above: Performed By: #### C DP, BMPX #### [facility] [address] [place] [address] 53382 Machine [employer] Out Worker: Dick Nava MD RBC (Bld) [#/Vol] 3.98 10*6/uL Normal 3.95-5.11 [facility] Comment on above: Performed By: #### C DP, BMPX #### [facility] [address] [place] [address] 36184 Machine [employer] Worker: Dick Nava MD WBC (Bld) [#/Vol] 8.1 10*3/uL Normal 3.5-11.3 [facility] Comment on above: Performed By: #### C DP, BMPX #### [facility] [address] [place] [address] 74743 Machine [employer] Out Worker: Dick Nava MD Erythrocyte distribution width (RBC) [Ratio] 14.0 % 11.8 - 14.4 % [place] Hematocrit (Bld) [Volume fraction] 35.6 % Low 36.3 - 47.1 % [place] Hemoglobin (Bld) [Mass/Vol] 11.8 g/dL Low 11.9 - 15.1 g/dL [place] Interpretation and review of laboratory results Abnormal [place] MCH (RBC) [Entitic mass] 29.6 pg 25.2 - 33.5 pg [place] MCHC (RBC) [Mass/Vol] 33.1 g/dL 28.4 - 34.8 g/dL [place] MCV (RBC) [Entitic vol] 89.4 fL 82.6 - 102.9 fL [place] Platelet mean volume (Bld) [Entitic vol] 9.7 fL 8.1 - 13.5 fL [place] Platelets (Bld) [#/Vol] 227 10*3/uL [place] RBC (Bld) [#/Vol] 3.98 10*6/uL 3.95 - 5.1 1 m/uL [place] WBC (Bld) [#/Vol] 0.0 10*3/uL 0.0 per 10 0 WBC [place] WBC (Bld) [#/Vol] 8.1 10*3/uL [place] Basic Metab w/rfx MGon 08-30 Potassium [Moles/Vol] 3.3 mmol/L Low 3.7-5.3 [facility] Comment on above: Performed By: #### B MPX, CDP, MG #### [employer] [facility] [employer] [facility] [address] [place] [address] [id number] Machine Lay Out Worker: Dick Nava MD (cont.) [facility] Comment on above: Result Comment: Aver age GFR for 40-49 years old: 99 mL/min/1.73sq m Chronic Kidney Disease: <60 mL/min/1.73sq m Kidney failure: <15 mL/min/1.73sq m eGFR calculated using average adult body mass. Additional eGFR calculator available at: http://www.Mostro.com/multiple_crcl_2012.htm Performed By: #### B MPX, CDP, MG #### [employer] [facility] [address] [place] [address] [phone] Machine [employer] Out Worker: Dick Nava MD Anion gap [Moles/Vol] 15 mmol/L Normal 9-17 [facility] Comment on above: Performed By: #### B MPX, CDP, MG #### [facility] [address] [place] [address] 25454 Machine [employer] Out Worker: Dick Nava MD Calcium [Mass/Vol] 7.8 mg/dL Low 8.6-10.4 [facility] Comment on above: Performed By: #### B MPX, CDP, MG #### [facility] [address] [place] [address] 28040 Machine [employer] Out Worker: Dick Nava MD Chloride [Moles/Vol] 103 mmol/L Normal 98-107 [facility] Comment on above: Performed By: #### B MPX, CDP, MG #### [facility] [address] [place] [address] 39032 Machine [employer] Out Worker: Dick Nava MD CO2 [Moles/Vol] 24 mmol/L Normal 20-31 [facility] Comment on above: Performed By: #### B MPX, CDP, MG #### [facility] [address] [place] [address] 96922 Machine [employer] Out Worker: Dick Nava MD Creatinine [Mass/Vol] 0.47 mg/dL Low 0.50-0.90 [facility] Comment on above: Performed By: #### B MPX, CDP, MG #### [facility] [address] [place] [address] 49327 Machine [employer] Worker: Dick Nava MD GFR, Amer >60 Normal >60 [facility] Comment on above: Performed By: #### B MPX, CDP, MG #### [facility] [address] [place] [address] 72895 Machine [employer] Out Worker: Dick Nava MD GFR,non Amer >60 Normal >60 [facility] Comment on above: Performed By: #### B MPX, CDP, MG #### [facility] [address] [place] [address] 44757 Machine [employer] Out Worker: Dick Nava MD Glucose [Mass/Vol] 121 mg/dL High 70-99 [facility] Comment on above: Performed By: #### B MPX, CDP, MG #### [facility] [address] [place] [address] Machine [employer] Out Worker: Dick Nava MD Sodium [Moles/Vol] 142 mmol/L Normal 135-144 [facility] Comment on above: Performed By: #### B MPX, CDP, MG #### [facility] [address] [place] [address] Machine Lay Out Worker: Dick Nava MD Urea nitrogen [Mass/Vol] 16 mg/dL Normal 6-20 [facility] Comment on above: Performed By: #### B MPX, CDP, MG #### [facility] [address] [place] [address]1454 Machine [employer] Out Worker: Dick Nava MD BUN/CRE Ratio NOT REPORTED Normal 9-20 [facility] Comment on above: Performed By: #### B MPX, CDP, MG #### [facility] [address] [place] [address] Machine Lay Out Worker: Dick Nava MD Staging: NOT REPORTED Normal [facility] Comment on above: Performed By: #### B MPX, CDP, MG #### [facility] [address] [place] [address] 14070 Machine [employer] Out Worker: Dick Nava MD Basic Metabolic Panel w/ Ref emilee to MGon 08-30-2019 Anion gap [Moles/Vol] 15 mmol/L 9 - 17 mmol/L [facility] Work Phone: Bun/Cre Ratio NOT REPORTED [facility] Work Phone: Calcium [Mass/Vol] 7.8 mg/dL Low 8.6 - 10. 4 mg/dL [facility] Work Phone: Chloride [Moles/Vol] 103 mmol/L 98 - 10 7 mmol/L [employer] Phone: CO2 [Moles/Vol] 24 mmol/L 20 - 31 mmol/L [employer] Phone: Creatinine [Mass/Vol] 0.47 mg/dL Low 0.5 - 0.9 mg/dL [employer] Phone: GFR >60 >60 mL/min [employer] Phone: GFR Non- >60 >60 mL/min [employer] Phone: GFR/1.73 sq M predicted among non-blacks MDRD (S/P/Bld) [Vol rate/Area] [employer] Phone: Comment on above: Average GFR for 40-4 9 years old: 99 mL/min/1.73sq m Chronic Kidney Disease: <60 mL/min/1.73sq m Kidney failure: <15 mL/min/1.73sq m eGFR calculated using average adult body mass. Additional eGFR calculator available at: http://www.Docurated/multiple_crcl_2012.htm GFR/1.73 sq M predicted among non-blacks MDRD (S/P/Bld) [Vol rate/Area] NOT REPORTED [employer] Phone: Glucose [Mass/Vol] 121 mg/dL High 70 - 99 mg/dL [employer] Phone: Interpretation and review of laboratory results Abnormal [employer] Phone: Potassium [Moles/Vol] 3.3 mmol/L Low 3.7 - 5.3 mmol/L [employer] Phone: Sodium [Moles/Vol] 142 mmol/L 135 - 144 mmol/L [employer] Phone: Urea nitrogen [Mass/Vol] 16 mg/dL 6 - 20 mg/dL [employer] Phone: CBC auto differentialon 08-18 Basophils (Bld) [#/Vol] 0.00 10*3/uL [employer] Phone: Basophils/100 WBC (Bld) 0 % 0 - 2 % [employer] Phone: Differential Type NOT REPORTED [employer] Phone: Eosinophils (Bld) [#/Vol] 0.00 10*3/uL [employer] Phone: Eosinophils/100 WBC (Bld) 0 % Low 1 - 4 % [employer] Phone: Erythrocyte distribution width (RBC) [Ratio] 12.7 % 11.8 - 14.4 % [employer] Phone: Hematocrit (Bld) [Volume fraction] 37.2 % 36.3 - 47.1 % [employer] Phone: Hemoglobin (Bld) [Mass/Vol] 12.4 g/dL 11.9 - 15.1 g/dL [employer] Phone: Immature granulocytes (Bld) [#/Vol] 0.00 10*3/uL [employer] Phone: Immature granulocytes (Bld) [#/Vol] 0 % 0 [employer] Phone: Interpretation and review of laboratory results Abnormal [employer] Phone: Lymphocytes (Bld) [#/Vol] 0.21 10*3/uL Low [employer] Phone: Lymphocytes/100 WBC (Bld) 2 % Low 24 - 44 % [employer] Phone: MCH (RBC) [Entitic mass] 29.3 pg 25.2 - 33.5 pg [employer] Phone: MCHC (RBC) [Mass/Vol] 33.3 g/dL 28.4 - 34.8 g/dL [employer] Phone: MCV (RBC) [Entitic vol] 87.9 fL 82.6 - 102.9 fL [employer] Phone: Monocytes (Bld) [#/Vol] 0.21 10*3/uL [employer] Phone: Monocytes/100 WBC (Bld) 2 % 1 - 7 % [employer] Phone: Morphology Guille (Bld) [Interp] Normal [employer] Work Phone: Platelet mean volume (Bld) [Entitic vol] 10.1 fL 8.1 - 13.5 fL [employer] Phone: Platelets (Bld) [#/Vol] NOT REPORTED [employer] Phone: Platelets (Bld) [#/Vol] 266 10*3/uL [employer] Phone: RBC (Bld) [#/Vol] 4.23 10*6/uL 3.95 - 5.1 1 m/uL [employer] Work Phone: RBC morphology finding Nom (Bld) NOT REPORTED [employer] Phone: Segmented neutrophils/100 WBC (Bld) 96 % High 36 - 66 % [employer] Work Phone: Segs Absolute 9.88 High VANDOLAY [facility] Work Phone: WBC (Bld) [#/Vol] 10.3 10*3/uL [employer] Work Phone: WBC (Bld) [#/Vol] 0.0 10*3/uL 0.0 per 10 0 WBC [employer] Phone: WBC Morphology NOT REPORTED [employer] [facility] Work Phone: CBC with Diffon 08-30-2019 Abs. Basophil 0.00 k/uL Normal 0.0-0.2 [facility] Comment on above: Performed By: #### B MPX, CDP, MG #### [facility] [address] [place] [address]19 Machine [employer] Out Worker: Dick Nava MD Abs.Imm.Granulocyte 0.00 k/uL Normal 0.00-0.30 [facility] Comment on above: Performed By: #### B MPX, CDP, MG #### [facility] [address] [place] [address] 29089 Machine [employer] Worker: Dick Nava MD Abs.Neutrophil (Seg) 9.88 k/uL High 1.8-7.7 [facility] Comment on above: Performed By: #### B MPX, CDP, MG #### [facility] [address] [place] [address] 39816 Machine [employer] Worker: Dick Nava MD Basophils/100 WBC (Bld) 0 % Normal 0-2 [facility] Comment on above: Performed By: #### B MPX, CDP, MG #### [facility] [address] [place] [address]113 Machine [employer] Worker: Dick Nava MD Eosinophils (Bld) [#/Vol] 0.00 10*3/uL Normal 0.0-0.4 [facility] Comment on above: Performed By: #### B MPX, CDP, MG #### [facility] [address] [place] [address] 31551 Machine [employer] Worker: Dick Nava MD Eosinophils/100 WBC (Bld) 0 % Low 1-4 [facility] Comment on above: Performed By: #### B MPX, CDP, MG #### [facility] [address] [place] [address] 12899 Machine [employer] Out Worker: Dick Nava MD Immature granulocytes (Bld) [#/Vol] 0 % Normal 0 [facility] Comment on above: Performed By: #### B MPX, CDP, MG #### [facility] [address] [place] [address] 49327 Machine [employer] Out Worker: Dick Nava MD Lymphocytes (Bld) [#/Vol] 0.21 10*3/uL Low 1.0-4.8 [facility] Comment on above: Performed By: #### B MPX, CDP, MG #### [facility] [address] [place] [address] 96092 Machine [employer] Out Worker: Dick Nava MD Lymphocytes/100 WBC (Bld) 2 % Low 24-44 [facility] Comment on above: Performed By: #### B MPX, CDP, MG #### [address] [address] Machine [employer] Worker: Dick Nava MD Monocytes (Bld) [#/Vol] 0.21 10*3/uL Normal 0.1-0.8 [facility] Comment on above: Performed By: #### B MPX, CDP, MG #### [address] [address] [employer] Worker: Dick Nava MD Monocytes/100 WBC (Bld) 2 % Normal 1-7 [facility] Comment on above: Performed By: #### B MPX, CDP, MG #### [facility] [address] [place] [address]2712 Machine [employer] Worker: Dick Nava MD Morphology Guille (Bld) [Interp] Normal Normal [facility] Comment on above: Performed By: #### B MPX, CDP, MG #### [facility] [address] [place] [address] 33243 Machine [employer] Worker: Dick Nava MD Neutrophil (Seg) 96 % High 36-66 [facility] Comment on above: Performed By: #### B MPX, CDP, MG #### [facility] [address] [place] [address] 46807 Machine [employer] Worker: Dick Nava MD Erythrocyte distribution width (RBC) [Ratio] 12.7 % Normal 11.8-14.4 [facility] Comment on above: Performed By: #### B MPX, CDP, MG #### [facility] [address] [place] [address] 48157 Machine [employer] Out Worker: Dick Nava MD Hematocrit (Bld) [Volume fraction] 37.2 % Normal 36.3-47.1 [facility] Comment on above: Performed By: #### B MPX, CDP, MG #### [facility] [address] [place] [address]1038 Machine [employer] Out Worker: Dick Nava MD Hemoglobin (Bld) [Mass/Vol] 12.4 g/dL Normal 11.9-15.1 [facility] Comment on above: Performed By: #### B MPX, CDP, MG #### [facility] [address] [place] [address] 25918 Machine [employer] Out Worker: Dick Nava MD MCH (RBC) [Entitic mass] 29.3 pg Normal 25.2-33.5 [facility] Comment on above: Performed By: #### B MPX, CDP, MG #### [facility] [address] [place] [address] 33374 Machine [employer] Out Worker: Dick Nava MD MCHC (RBC) [Mass/Vol] 33.3 g/dL Normal 28.4-34.8 [facility] Comment on above: Performed By: #### B MPX, CDP, MG #### [facility] [address] [place] [address] 14038 Machine [employer] Out Worker: Dick Nava MD MCV (RBC) [Entitic vol] 87.9 fL Normal 82.6-102.9 [facility] Comment on above: Performed By: #### B MPX, CDP, MG #### [facility] [address] [place] [address] 6[address] Machine [employer] Worker: Dick Nava MD NRBC Automated 0.0 per 100 WBC Normal 0.0 [facility] Comment on above: Performed By: #### B MPX, CDP, MG #### [facility] [address] [place] [id number] Machine Lay Out Worker: Dick Nava MD Platelet mean volume (Bld) [Entitic vol] 10.1 fL Normal 8.1-13.5 [facility] Comment on above: Performed By: #### B MPX, CDP, MG #### [facility] [address] [place] [address] Machine [employer] Worker: Dick Nava MD Platelets (Bld) [#/Vol] 266 10*3/uL Normal 138-453 [facility] Comment on above: Performed By: #### B MPX, CDP, MG #### [facility] [employer] [address] [place] [address] [employer] Worker: Dick Nava MD RBC (Bld) [#/Vol] 4.23 10*6/uL Normal 3.95-5.11 [facility] Comment on above: Performed By: #### B MPX, CDP, MG #### [facility] [address] [place] [address] 94374 Machine [employer] Worker: Dick Nava MD WBC (Bld) [#/Vol] 10.3 10*3/uL Normal 3.5-11.3 [facility] Comment on above: Performed By: #### B MPX, CDP, MG #### [facility] [address] [place] [address] 51332 [employer] Worker: Dick Nava MD Auto Diff Performed NOT REPORTED Normal [facility] Comment on above: Performed By: #### B MPX, CDP, MG #### [facility] [address] [place] [address] 19255 Machine [employer] Out Worker: Dick Nava MD Platelets (Bld) [#/Vol] NOT REPORTED Normal [facility] Comment on above: Performed By: #### B MPX, CDP, MG #### [facility] [address] [place] [address] Machine Lay Out Worker: Dick Nava MD RBC morphology finding Nom (Bld) NOT REPORTED Normal [facility] Comment on above: Performed By: #### B MPX, CDP, MG #### [facility] [address] [place] [address] Machine [employer] Out Worker: Dick Nava MD WBC Morphology NOT REPORTED Normal [facility] Comment on above: Performed By: #### B MPX, CDP, MG #### [facility] [address] [place] [address] 63827 Machine [employer] Out Worker: Dick Nava MD Magnesiumon 08-30-2019 Magnesium [Mass/Vol] 2.2 mg/dL Normal 1.6-2.6 [facility] Comment on above: Performed By: #### C DP, BMPX #### [facility] [address] [place] [address] 80334 Machine [employer] Out Worker: Dick Nava MD Magnesium [Mass/Vol] 2.2 mg/dL 1.6 - 2 .6 mg/dL [facility] [employer] Work Phone: Basic Metab w/rfx MGon 08-29 (cont.) Normal [facility] Comment on above: Result Comment: Aver age GFR for 40-49 years old: 99 mL/min/1.73sq m Chronic Kidney Disease: <60 mL/min/1.73sq m Kidney failure: <15 mL/min/1.73sq m eGFR calculated using average adult body mass. Additional eGFR calculator available at: http://www.Mostro.com/multiple_crcl_2012.htm Performed By: #### C DP, BMPX #### [facility] [address] [place] [address] Machine Lay Out Worker: Dick Nava MD Anion gap [Moles/Vol] 14 mmol/L Normal 9-17 [facility] Comment on above: Performed By: #### C DP, BMPX #### [facility] [employer] [address] [place] [address] 37870 Machine [employer] Out Worker: Dick Nava MD Calcium [Mass/Vol] 8.1 mg/dL Low 8.6-10.4 [facility] Comment on above: Performed By: #### C DP, BMPX #### [facility] [employer] [address] [place] [address] 98973 Machine [employer] Worker: Dick Nava MD Chloride [Moles/Vol] 101 mmol/L Normal 98-107 [facility] Comment on above: Performed By: #### C DP, BMPX #### [address] [address] Machine [employer] Out Worker: Dick Nava MD CO2 [Moles/Vol] 23 mmol/L Normal 20-31 [facility] Comment on above: Performed By: #### C DP, BMPX #### [address] [address] Machine Lay Out Worker: Dick Nava MD Creatinine [Mass/Vol] 0.51 mg/dL Normal 0.50-0.90 [facility] Comment on above: Performed By: #### C DP, BMPX #### [facility] [employer] [address] [place] [address] 84909 Machine [employer] Out Worker: Dick Nava MD GFR, Amer >60 Normal >60 [facility] Comment on above: Performed By: #### C DP, BMPX #### [facility] [employer] [address] [place] [address] 83301 Machine [employer] Out Worker: Dick Nava MD GFR,non Amer >60 Normal >60 [facility] Comment on above: Performed By: #### C DP, BMPX #### [facility] [employer] [address] [place] [address] 13302 Machine [employer] Out Worker: Dick Nava MD Glucose [Mass/Vol] 145 mg/dL High 70-99 [facility] Comment on above: Performed By: #### C DP, BMPX #### [facility] [address] [place] [address] 14351 Machine [employer] Out Worker: Dick Nava MD Potassium [Moles/Vol] 3.8 mmol/L Normal 3.7-5.3 [facility] Comment on above: Result Comment: SPEC IMEN MODERATELY HEMOLYZED, RESULTS MAY BE ADVERSELY AFFECTED Performed By: #### C DP, BMPX #### [address] [address] Machine Lay Out Worker: Dick Nava MD Sodium [Moles/Vol] 138 mmol/L Normal 135-144 [facility] Comment on above: Performed By: #### C DP, BMPX #### [facility] [employer] [address] [place] [address] 01722 Machine [employer] Out Worker: Dick Nava MD Urea nitrogen [Mass/Vol] 21 mg/dL High 6-20 [facility] Comment on above: Performed By: #### C DP, BMPX #### [facility] [employer] [address] [place] [address]100 Machine [employer] Out Worker: Dick Nava MD BUN/CRE Ratio NOT REPORTED Normal 9-20 [facility] Comment on above: Performed By: #### C DP, BMPX #### [facility] [employer] [address] [place] [address] 96824 Machine Lay Out Worker: Dick Nava MD Staging: NOT REPORTED Normal [facility] Comment on above: Performed By: #### C DP, BMPX #### [facility] [employer] [address] [place] [address] 63563 Machine Lay Out Worker: Dick Nava MD Basic Metabolic Panel w/ Ref emilee to MGon 08-29-2019 Anion gap [Moles/Vol] 14 mmol/L 9 - 17 mmol/L [employer] Phone: Bun/Cre Ratio NOT REPORTED [employer] Work Phone: Calcium [Mass/Vol] 8.1 mg/dL Low 8.6 - 10. 4 mg/dL [employer] Phone: Chloride [Moles/Vol] 101 mmol/L 98 - 10 7 mmol/L [employer] Phone: CO2 [Moles/Vol] 23 mmol/L 20 - 31 mmol/L [employer] Phone: Creatinine [Mass/Vol] 0.51 mg/dL 0.5 - 0.9 mg/dL [employer] Phone: GFR >60 >60 mL/min [employer] Phone: GFR Non- >60 >60 mL/min [employer] Phone: GFR/1.73 sq M predicted among non-blacks MDRD (S/P/Bld) [Vol rate/Area] [employer] Phone: Comment on above: Average GFR for 40-4 9 years old: 99 mL/min/1.73sq m Chronic Kidney Disease: <60 mL/min/1.73sq m Kidney failure: <15 mL/min/1.73sq m eGFR calculated using average adult body mass. Additional eGFR calculator available at: http://www.Mostro.VectorLearning/multiple_crcl_2012.htm GFR/1.73 sq M predicted among non-blacks MDRD (S/P/Bld) [Vol rate/Area] NOT REPORTED [employer] Phone: Glucose [Mass/Vol] 145 mg/dL High 70 - 99 mg/dL [employer] Phone: Interpretation and review of laboratory results Abnormal [employer] Phone: Potassium [Moles/Vol] 3.8 mmol/L 3.7 - 5.3 mmol/L [employer] Phone: Comment on above: SPECIMEN MODERATELY HEMOLYZED, RESULTS MAY BE ADVERSELY AFFECTED Sodium [Moles/Vol] 138 mmol/L 135 - 144 mmol/L [employer] Phone: Urea nitrogen [Mass/Vol] 21 mg/dL High 6 - 20 mg/dL [employer] Phone: CBC auto differentialon 08-18 Basophils (Bld) [#/Vol] 10*3/uL [employer] Phone: Basophils/100 WBC (Bld) 0 % 0 - 2 % [employer] Phone: Differential Type NOT REPORTED [employer] Phone: Eosinophils (Bld) [#/Vol] 10*3/uL [employer] Phone: Eosinophils/100 WBC (Bld) 0 % Low 1 - 4 % [employer] Phone: Erythrocyte distribution width (RBC) [Ratio] 13.0 % 11.8 - 14.4 % [employer] Phone: Hematocrit (Bld) [Volume fraction] 38.8 % 36.3 - 47.1 % [employer] Phone: Hemoglobin (Bld) [Mass/Vol] 12.9 g/dL 11.9 - 15.1 g/dL [employer] Phone: Immature granulocytes (Bld) [#/Vol] 0.17 10*3/uL [employer] Phone: Immature granulocytes (Bld) [#/Vol] 2 % High 0 [employer] Phone: Interpretation and review of laboratory results Abnormal [employer] Phone: Lymphocytes (Bld) [#/Vol] 0.71 10*3/uL Low [employer] Phone: Lymphocytes/100 WBC (Bld) 7 % Low 24 - 43 % [employer] Work Phone: MCH (RBC) [Entitic mass] 29.5 pg 25.2 - 33.5 pg [employer] Phone: MCHC (RBC) [Mass/Vol] 33.2 g/dL 28.4 - 34.8 g/dL [employer] Work Phone: MCV (RBC) [Entitic vol] 88.6 fL 82.6 - 102.9 fL [employer] Work Phone: Monocytes (Bld) [#/Vol] 0.35 10*3/uL [employer] Phone: Monocytes/100 WBC (Bld) 3 % 3 - 12 % [employer] Work Phone: Platelet mean volume (Bld) [Entitic vol] 10.2 fL 8.1 - 13.5 fL [employer] Work Phone: Platelets (Bld) [#/Vol] 282 10*3/uL [employer] Work Phone: Platelets (Bld) [#/Vol] NOT REPORTED [employer] Phone: RBC (Bld) [#/Vol] 4.38 10*6/uL 3.95 - 5.1 1 m/uL [employer] Work Phone: RBC morphology finding Nom (Bld) NOT REPORTED [employer] Work Phone: Segmented neutrophils/100 WBC (Bld) 88 % High 36 - 65 % [employer] Work Phone: Segs Absolute 9.48 High [employer] Work Phone: WBC (Bld) [#/Vol] 0.0 10*3/uL 0.0 per 10 0 WBC [employer] Work Phone: WBC (Bld) [#/Vol] 10.7 10*3/uL [employer] Work Phone: WBC Morphology NOT REPORTED [facility] Work Phone: CBC with Diffon 08-29-2019 Abs. Basophil <0.03 Normal 0.00-0.20 [facility] Comment on above: Performed By: #### C DP, BMPX #### [facility] [employer] [address] [place] [address] 85111 Machine Lay Out Worker: Dick Nava MD Abs.Imm.Granulocyte 0.17 k/uL Normal 0.00-0.30 [facility] Comment on above: Performed By: #### C DP, BMPX #### [facility] [employer] [address] [place] [address] Machine Lay Out Worker: Dick Nava MD Abs.Neutrophil (Seg) 9.48 k/uL High 1.50-8.10 [facility] Comment on above: Performed By: #### C DP, BMPX #### [facility] [employer] [address] [place] [address] 86645 Machine Lay Out Worker: Dick Nava MD Basophils/100 WBC (Bld) 0 % Normal 0-2 [facility] Comment on above: Performed By: #### C DP, BMPX #### [facility] [employer] [address] [place] [address] 83885 Machine Lay Out Worker: Dick Nava MD Eosinophils (Bld) [#/Vol] 10*3/uL Normal 0.00-0.44 [facility] Comment on above: Performed By: #### C DP, BMPX #### [facility] [employer] [address] [place] [address] 81525 Machine Lay Out Worker: Dick Nava MD Eosinophils/100 WBC (Bld) 0 % Low 1-4 [facility] Comment on above: Performed By: #### C DP, BMPX #### [facility] [employer] [address] [place] [address] 54918 Machine [employer] Out Worker: Dick Nava MD Erythrocyte distribution width (RBC) [Ratio] 13.0 % Normal 11.8-14.4 [facility] Comment on above: Performed By: #### C DP, BMPX #### [facility] [employer] [address] [place] [address] 87036 Machine Lay Out Worker: Dick Nava MD Hematocrit (Bld) [Volume fraction] 38.8 % Normal 36.3-47.1 [facility] Comment on above: Performed By: #### C DP, BMPX #### [facility] [employer] [address] [place] [address] 43324 Machine Lay Out Worker: Dick Nava MD Hemoglobin (Bld) [Mass/Vol] 12.9 g/dL Normal 11.9-15.1 [facility] Comment on above: Performed By: #### C DP, BMPX #### [address] [address] Machine Lay Out Worker: Dick Nava MD Immature granulocytes (Bld) [#/Vol] 2 % High 0 [facility] Comment on above: Performed By: #### C DP, BMPX #### [address] [address] Machine Lay Out Worker: Dick Nava MD Lymphocytes (Bld) [#/Vol] 0.71 10*3/uL Low 1.10-3.70 [facility] Comment on above: Performed By: #### C DP, BMPX #### [facility] [employer] [address] [place] [address] 22870 Machine Lay Out Worker: Dick Nava MD Lymphocytes/100 WBC (Bld) 7 % Low 24-43 [facility] Comment on above: Performed By: #### C DP, BMPX #### [facility] [employer] [address] [place] [address] 45934 Machine Lay Out Worker: Dick Nava MD MCH (RBC) [Entitic mass] 29.5 pg Normal 25.2-33.5 [facility] Comment on above: Performed By: #### C DP, BMPX #### [place] [address] Machine Lay Out Worker: Dick Nava MD MCHC (RBC) [Mass/Vol] 33.2 g/dL Normal 28.4-34.8 [facility] Comment on above: Performed By: #### C DP, BMPX #### [place] [address] Machine Lay Out Worker: Dick Nava MD MCV (RBC) [Entitic vol] 88.6 fL Normal 82.6-102.9 [facility] Comment on above: Performed By: #### C DP, BMPX #### [place] [address] Machine Lay Out Worker: Dick Nava MD Monocytes (Bld) [#/Vol] 0.35 10*3/uL Normal 0.10-1.20 [facility] Comment on above: Performed By: #### C DP, BMPX #### [place] [address] Machine Lay Out Worker: Dick Nava MD Monocytes/100 WBC (Bld) 3 % Normal 3-12 [facility] Comment on above: Performed By: #### C DP, BMPX #### [place] [address] Machine Lay Out Worker: Dick Nava MD Neutrophil (Seg) 88 % High 36-65 [facility] Comment on above: Performed By: #### C DP, BMPX #### [place] [address] Machine Lay Out Worker: Dick Nava MD NRBC Automated 0.0 per 100 WBC Normal 0.0 [facility] Comment on above: Performed By: #### C DP, BMPX #### [address] [address] Machine Lay Out Worker: Dick Nava MD Platelet mean volume (Bld) [Entitic vol] 10.2 fL Normal 8.1-13.5 [facility] Comment on above: Performed By: #### C DP, BMPX #### [address] [address] Machine [employer] Out Worker: Dick Nava MD Platelets (Bld) [#/Vol] 282 10*3/uL Normal 138-453 [facility] Comment on above: Performed By: #### C DP, BMPX #### [address] [address] Machine Lay Out Worker: Dick Nava MD RBC (Bld) [#/Vol] 4.38 10*6/uL Normal 3.95-5.11 [facility] Comment on above: Performed By: #### C DP, BMPX #### [address] [address] Machine Lay Out Worker: Dick Nava MD WBC (Bld) [#/Vol] 10.7 10*3/uL Normal 3.5-11.3 [facility] Comment on above: Performed By: #### C DP, BMPX #### [address] [address] Machine [employer] Out Worker: Dick Nava MD Auto Diff Performed NOT REPORTED Normal [facility] Comment on above: Performed By: #### C DP, BMPX #### [address] [address] Machine [employer] Out Worker: Dick Nava MD Platelets (Bld) [#/Vol] NOT REPORTED Normal [facility] Comment on above: Performed By: #### C DP, BMPX #### [address] [address] Machine [employer] Out Worker: Dick Nava MD RBC morphology finding Nom (Bld) NOT REPORTED Normal [facility] Comment on above: Performed By: #### C DP, BMPX #### [address] [address] Machine [employer] Out Worker: Dick Nava MD WBC Morphology NOT REPORTED Normal [facility] Comment on above: Performed By: #### C DP, BMPX #### [facility] [employer] [address] [place] [address]1995 Machine Lay Out Worker: Dick Nava MD Basic Metab w/rfx MGon 08-28 (cont.) Normal [facility] Comment on above: Result Comment: Aver age GFR for 40-49 years old: 99 mL/min/1.73sq m Chronic Kidney Disease: <60 mL/min/1.73sq m Kidney failure: <15 mL/min/1.73sq m eGFR calculated using average adult body mass. Additional eGFR calculator available at: http://www.Mostro.VectorLearning/multiple_crcl_2012.htm Performed By: #### C DP, BMPX #### [address] [address] Machine [employer] Out Worker: Dick Nava MD Anion gap [Moles/Vol] 14 mmol/L Normal 9-17 [facility] Comment on above: Performed By: #### C DP, BMPX #### [facility] [employer] [address] [place] [address] 15454 Machine Lay Out Worker: Dick Nava MD Calcium [Mass/Vol] 8.9 mg/dL Normal 8.6-10.4 [facility] Comment on above: Performed By: #### C DP, BMPX #### [facility] [employer] [address] [place] [address] 12595 Machine Lay Out Worker: Dick Nava MD Chloride [Moles/Vol] 98 mmol/L Normal 98-107 [facility] Comment on above: Performed By: #### C DP, BMPX #### [facility] [employer] [address] [place] [address] 50326 Machine [employer] Out Worker: Dick Nava MD CO2 [Moles/Vol] 25 mmol/L Normal 20-31 [facility] Comment on above: Performed By: #### C DP, BMPX #### [address] [address] Machine [employer] Out Worker: Dick Nava MD Creatinine [Mass/Vol] 0.52 mg/dL Normal 0.50-0.90 [facility] Comment on above: Performed By: #### C DP, BMPX #### [facility] [employer] [address] [place] [address] 45619 Machine [employer] Out Worker: Dick Nava MD GFR, Amer >60 Normal >60 [facility] Comment on above: Performed By: #### C DP, BMPX #### [facility] [employer] [address] [place] [address] 58371 Machine [employer] Out Worker: Dick Nava MD GFR,non Amer >60 Normal >60 [facility] Comment on above: Performed By: #### C DP, BMPX #### [facility] [employer] [address] [place] [address] 32072 Machine Lay Out Worker: Dick Nava MD Glucose [Mass/Vol] 141 mg/dL High 70-99 [facility] Comment on above: Performed By: #### C DP, BMPX #### [facility] [employer] [address] [place] [address] 10281 Machine [employer] Out Worker: Dick Nava MD Potassium [Moles/Vol] 3.9 mmol/L Normal 3.7-5.3 [facility] Comment on above: Result Comment: SPEC IMEN SLIGHTLY HEMOLYZED, RESULTS MAY BE ADVERSELY AFFECTED. Performed By: #### C DP, BMPX #### [facility] [employer] [address] [place] [address]149 Machine [employer] Out Worker: Dick Nava MD Sodium [Moles/Vol] 137 mmol/L Normal 135-144 [facility] Comment on above: Performed By: #### C DP, BMPX #### [facility] [address] [place] [address] Machine [employer] Out Worker: Dick Nava MD Urea nitrogen [Mass/Vol] 20 mg/dL Normal 6-20 [facility] Comment on above: Performed By: #### C DP, BMPX #### [facility] [address] [place] [address] Machine Lay Out Worker: Dick Nava MD BUN/CRE Ratio NOT REPORTED Normal - [facility] Comment on above: Performed By: #### C DP, BMPX #### [facility] [address] [place] [address] Machine Lay Out Worker: Dick Nava MD Staging: NOT REPORTED Normal [facility] Comment on above: Performed By: #### C DP, BMPX #### [facility] [address] [place] [address] Machine [employer] Out Worker: Dick Nava MD Basic Metabolic Panel w/ Ref emilee to [facility] 08-28-2019 Anion gap [Moles/Vol] 14 mmol/L 9 - 17 mmol/L [facility]: Bun/Cre Ratio NOT REPORTED [facility] Work Phone: Calcium [Mass/Vol] 8.9 mg/dL 8.6 - 10. 4 mg/dL [facility] Work Phone: Chloride [Moles/Vol] 98 mmol/L 98 - 10 7 mmol/L [facility] Work Phone: CO2 [Moles/Vol] 25 mmol/L 20 - 31 mmol/L [facility] Work Phone: Creatinine [Mass/Vol] 0.52 mg/dL 0.5 - 0.9 mg/dL [employer] Phone: GFR >60 >60 mL/min [employer] Phone: GFR Non- >60 >60 mL/min [employer] Phone: GFR/1.73 sq M predicted among non-blacks MDRD (S/P/Bld) [Vol rate/Area] [employer] Phone: Comment on above: Average GFR for 40-4 9 years old: 99 mL/min/1.73sq m Chronic Kidney Disease: <60 mL/min/1.73sq m Kidney failure: <15 mL/min/1.73sq m eGFR calculated using average adult body mass. Additional eGFR calculator available at: http://www.Docurated/multiple_crcl_2012.htm GFR/1.73 sq M predicted among non-blacks MDRD (S/P/Bld) [Vol rate/Area] NOT REPORTED [employer] Phone: Glucose [Mass/Vol] 141 mg/dL High 70 - 99 mg/dL [employer] Phone: Interpretation and review of laboratory results Abnormal [employer] Phone: Potassium [Moles/Vol] 3.9 mmol/L 3.7 - 5.3 mmol/L [employer] Phone: Comment on above: SPECIMEN SLIGHTLY HE MOLYZED, RESULTS MAY BE ADVERSELY AFFECTED. Sodium [Moles/Vol] 137 mmol/L 135 - 144 mmol/L [employer] Phone: Urea nitrogen [Mass/Vol] 20 mg/dL 6 - 20 mg/dL [employer] Phone: CBC auto differentialon 08-18 Basophils (Bld) [#/Vol] 10*3/uL [employer] Phone: Basophils/100 WBC (Bld) 0 % 0 - 2 % [employer] Phone: Differential Type NOT REPORTED [employer] Phone: Eosinophils (Bld) [#/Vol] 10*3/uL [employer] Phone: Eosinophils/100 WBC (Bld) 0 % Low 1 - 4 % [employer] Phone: Erythrocyte distribution width (RBC) [Ratio] 13.0 % 11.8 - 14.4 % [employer] Phone: Hematocrit (Bld) [Volume fraction] 38.9 % 36.3 - 47.1 % [employer] Phone: Hemoglobin (Bld) [Mass/Vol] 13.2 g/dL 11.9 - 15.1 g/dL [employer] Phone: Immature granulocytes (Bld) [#/Vol] 0.20 10*3/uL [employer] Phone: Immature granulocytes (Bld) [#/Vol] 2 % High 0 [employer] Phone: Interpretation and review of laboratory results Abnormal [employer] Phone: Lymphocytes (Bld) [#/Vol] 0.84 10*3/uL Low [employer] Phone: Lymphocytes/100 WBC (Bld) 8 % Low 24 - 43 % [employer] Phone: MCH (RBC) [Entitic mass] 29.8 pg 25.2 - 33.5 pg [employer] Phone: MCHC (RBC) [Mass/Vol] 33.9 g/dL 28.4 - 34.8 g/dL [employer] Phone: MCV (RBC) [Entitic vol] 87.8 fL 82.6 - 102.9 fL [employer] Phone: Monocytes (Bld) [#/Vol] 0.44 10*3/uL [employer] Phone: Monocytes/100 WBC (Bld) 4 % 3 - 12 % [employer] Work Phone: Platelet mean volume (Bld) [Entitic vol] 10.2 fL 8.1 - 13.5 fL [employer] Work Phone: Platelets (Bld) [#/Vol] NOT REPORTED [employer] Work Phone: Platelets (Bld) [#/Vol] 313 10*3/uL [employer] Work Phone: RBC (Bld) [#/Vol] 4.43 10*6/uL 3.95 - 5.1 1 m/uL [employer] Work Phone: RBC morphology finding Nom (Bld) NOT REPORTED [employer] Work Phone: Segmented neutrophils/100 WBC (Bld) 86 % High 36 - 65 % [employer] Work Phone: Segs Absolute 8.56 High [employer] Work Phone: WBC (Bld) [#/Vol] 10.1 10*3/uL [employer] Work Phone: WBC (Bld) [#/Vol] 0.0 10*3/uL 0.0 per 10 0 WBC [employer] Work Phone: WBC Morphology NOT REPORTED [employer] [facility] Work Phone: CBC with Diffon 08-28-2019 Abs. Basophil <0.03 Normal 0.00-0.20 [facility] Comment on above: Performed By: #### C DP, BMPX #### [employer] [address] [place] [phone] [employer] Worker: Dick Nava MD Abs.Imm.Granulocyte 0.20 k/uL Normal 0.00-0.30 [facility] Comment on above: Performed By: #### C DP, BMPX #### [employer] [address] [place] [address] [employer] Worker: Dick Nava MD Abs.Neutrophil (Seg) 8.56 k/uL High 1.50-8.10 [facility] Comment on above: Performed By: #### C DP, BMPX #### [address] [address] [employer] Worker: Dick Nava MD Basophils/100 WBC (Bld) 0 % Normal 0-2 [facility] Comment on above: Performed By: #### C DP, BMPX #### [address] [address] [employer] Worker: Dick Nava MD Eosinophils (Bld) [#/Vol] 10*3/uL Normal 0.00-0.44 [facility] Comment on above: Performed By: #### C DP, BMPX #### [address] [address] [employer] Worker: Dick Nava MD Eosinophils/100 WBC (Bld) 0 % Low 1-4 [facility] Comment on above: Performed By: #### C DP, BMPX #### [address] [address] [employer] Worker: Dick Nava MD Erythrocyte distribution width (RBC) [Ratio] 13.0 % Normal 11.8-14.4 [facility] Comment on above: Performed By: #### C DP, BMPX #### [facility] [employer] [address] [place] [address] [employer] Worker: Dick Nava MD Hematocrit (Bld) [Volume fraction] 38.9 % Normal 36.3-47.1 [facility] Comment on above: Performed By: #### C DP, BMPX #### [facility] [employer] [address] [place] [id number] [employer] Worker: Dick Nava MD Hemoglobin (Bld) [Mass/Vol] 13.2 g/dL Normal 11.9-15.1 [facility] Comment on above: Performed By: #### C DP, BMPX #### [address] [address] [employer] Worker: Dick Nava MD Immature granulocytes (Bld) [#/Vol] 2 % High 0 [facility] Comment on above: Performed By: #### C DP, BMPX #### [place] [address] Machine Lay Out Worker: iDck Nava MD Lymphocytes (Bld) [#/Vol] 0.84 10*3/uL Low 1.10-3.70 [facility] Comment on above: Performed By: #### C DP, BMPX #### [place] [address] Machine Lay Out Worker: Dick Nava MD Lymphocytes/100 WBC (Bld) 8 % Low 24-43 [facility] Comment on above: Performed By: #### C DP, BMPX #### [place] [address] [employer] Out Worker: Dick Nava MD MCH (RBC) [Entitic mass] 29.8 pg Normal 25.2-33.5 [facility] Comment on above: Performed By: #### C DP, BMPX #### [place] [address] Machine [employer] Out Worker: Dick Nava MD MCHC (RBC) [Mass/Vol] 33.9 g/dL Normal 28.4-34.8 [facility] Comment on above: Performed By: #### C DP, BMPX #### [address] [address] Machine [employer] Out Worker: Dick Nava MD MCV (RBC) [Entitic vol] 87.8 fL Normal 82.6-102.9 [facility] Comment on above: Performed By: #### C DP, BMPX #### [address] [address] Machine [employer] Out Worker: Dick Nava MD Monocytes (Bld) [#/Vol] 0.44 10*3/uL Normal 0.10-1.20 [facility] Comment on above: Performed By: #### C DP, BMPX #### [address] [address] Machine Lay Out Worker: Dick Nava MD Monocytes/100 WBC (Bld) 4 % Normal 3-12 [facility] Comment on above: Performed By: #### C DP, BMPX #### [address] [address] Machine Lay Out Worker: Dick Nava MD Neutrophil (Seg) 86 % High 36-65 [facility] Comment on above: Performed By: #### C DP, BMPX #### [address] [address] Machine [employer] Out Worker: Dick Nava MD NRBC Automated 0.0 per 100 WBC Normal 0.0 [facility] Comment on above: Performed By: #### C DP, BMPX #### [address] [address] Machine [employer] Out Worker: Dick Nava MD Platelet mean volume (Bld) [Entitic vol] 10.2 fL Normal 8.1-13.5 [facility] Comment on above: Performed By: #### C DP, BMPX #### [address] [address] Machine [employer] Out Worker: Dick Nava MD Platelets (Bld) [#/Vol] 313 10*3/uL Normal 138-453 [facility] Comment on above: Performed By: #### C DP, BMPX #### [address] [address] Machine Lay Out Worker: Dick Nava MD RBC (Bld) [#/Vol] 4.43 10*6/uL Normal 3.95-5.11 [facility] Comment on above: Performed By: #### C DP, BMPX #### [address] [address] Machine [employer] Out Worker: Dick Nava MD WBC (Bld) [#/Vol] 10.1 10*3/uL Normal 3.5-11.3 [facility] Comment on above: Performed By: #### C DP, BMPX #### [address] [address] Machine [employer] Out Worker: Dick Nava MD Auto Diff Performed NOT REPORTED Normal [facility] Comment on above: Performed By: #### C DP, BMPX #### [address] [address] Machine Lay Out Worker: Dick Nava MD Platelets (Bld) [#/Vol] NOT REPORTED Normal [facility] Comment on above: Performed By: #### C DP, BMPX #### [address] [address] Machine [employer] Out Worker: Dick Nava MD RBC morphology finding Nom (Bld) NOT REPORTED Normal [facility] Comment on above: Performed By: #### C DP, BMPX #### [address] [address] Machine [employer] Out Worker: Dick Nava MD WBC Morphology NOT REPORTED Normal [facility] Comment on above: Performed By: #### C DP, BMPX #### [address] [address] Machine [employer] Out Worker: Dick Nava MD FL MODIFIED BARIUM SWALLOW W VIDEOon 08-28-2019 FL MODIFIED BARIUM SWALLOW W VIDEO EXAMINATION: MODIFIED BARIUM SWALLOW WAS PERFORMED IN CONJUNCTION WITH [employer] TECHNIQUE: Fluoroscopic evaluation of the swallowing mechanism was performed with multiple consistency of barium product. FLUOROSCOPY DOSE AND TYPE OR TIME AND EXPOSURES: DAP [id number] COMPARISON: None HISTORY: ORDERING SYSTEM PROVIDED HISTORY: can't swallow TECHNOLOGIST PROVIDED HISTORY: can't swallow Reason for Exam: pt states can't swallow. 1.4min ft dap [id number] FINDINGS: Patient was given thin liquid, puree, soft solid and cookie: No laryngeal penetration or aspiration. IMPRESSION: No laryngeal penetration or aspiration. Please see separate speech pathology report for full discussion of findings and recommendations. Interpreted by: Darío Rogers MD Signed by: Darío Rogers MD 08/28/19 Final result Normal [facility] EXAMINATION: MODIFIE D BARIUM SWALLOW WAS PERFORMED IN CONJUNCTION WITH [employer] TECHNIQUE: Fluoroscopic evaluation of the swallowing mechanism was performed with multiple consistency of barium product. FLUOROSCOPY DOSE AND TYPE OR TIME AND EXPOSURES: DAP 0.338Ooeo8 COMPARISON: None HISTORY: ORDERING SYSTEM PROVIDED HISTORY: can't swallow TECHNOLOGIST PROVIDED HISTORY: can't swallow Reason for Exam: pt states can't swallow. 1.4min ft dap 0.356Zyat7 FINDINGS: Patient was given thin liquid, puree, soft solid and cookie: No laryngeal penetration or aspiration. [employer] Phone: [place], [facility] Incoming Radiant Results From [email or web address] - 08/28/2019 3:03 PM EST EXAMINATION: MODIFIED BARIUM SWALLOW WAS PERFORMED IN CONJUNCTION WITH [employer] TECHNIQUE: Fluoroscopic evaluation of the swallowing mechanism was performed with multiple consistency of barium product. FLUOROSCOPY DOSE AND TYPE OR TIME AND EXPOSURES: DAP 0.823Frmq7 COMPARISON: None HISTORY: ORDERING SYSTEM PROVIDED HISTORY: can't swallow TECHNOLOGIST PROVIDED HISTORY: can't swallow Reason for Exam: pt states can't swallow. 1.4min ft dap 0.121Onma0 FINDINGS: Patient was given thin liquid, puree, soft solid and cookie: No laryngeal penetration or aspiration. IMPRESSION: No laryngeal penetration or aspiration. Please see separate speech pathology report for full discussion of findings and recommendations. [employer] Phone: No laryngeal penetration or aspiration. Please see separate speech pathology report for full discussion of findings and recommendations. [facility] [employer] Work Phone: MRI BRAIN W WO CONTRASTon MRI BRAIN W WO CONTRAST EXAMINATION: MRI OF THE BRAIN WITHOUT AND WITH CONTRAST 08/28/2019 11:46 am TECHNIQUE: Multiplanar multisequence MRI of the head/brain was performed without and with the administration of intravenous contrast. COMPARISON: CT brain performed 08/22/2019. HISTORY: ORDERING SYSTEM PROVIDED HISTORY: MS TECHNOLOGIST PROVIDED HISTORY: MS Is the patient ?->No FINDINGS: INTRACRANIAL STRUCTURES/VENTRICLES: The sellar and suprasellar structures, optic chiasm, corpus callosum, pineal gland, tectum, and midline brainstem structures are unremarkable. The craniocervical junction is unremarkable. There is no acute intracranial hemorrhage, mass effect, or midline shift. There is satisfactory overall thomas-white matter differentiation. There are few scattered FLAIR signal abnormalities in the subcortical and periventricular white matter most pronounced in the frontal lobes. The ventricular structures are symmetric and unremarkable. The infratentorial structures including the cerebellopontine angles and internal auditory canals are unremarkable. There is no abnormal restricted diffusion. There is no abnormal blooming artifact on susceptibility weighted imaging. There is no abnormal postcontrast enhancement. ORBITS: The visualized portion of the orbits demonstrate no acute abnormality. SINUSES: The visualized paranasal sinuses and mastoid air cells are well aerated. BONES/SOFT TISSUES: The bone marrow signal intensity appears normal. The soft tissues demonstrate no acute abnormality. IMPRESSION: Scattered FLAIR signal abnormalities most pronounced in the frontal lobes that may correlate with patient's history of a demyelinating process. There is no evidence for active or acute demyelination. Interpreted by: Serafin Velez MD Signed by: Serafin Velez MD 08/28/19 Final result Normal [facility] EXAMINATION: MRI OF THE BRAIN WITHOUT AND WITH CONTRAST 08/28/2019 11:46 am TECHNIQUE: Multiplanar multisequence MRI of the head/brain was performed without and with the administration of intravenous contrast. COMPARISON: CT brain performed 08/22/2019. HISTORY: ORDERING SYSTEM PROVIDED HISTORY: MS TECHNOLOGIST PROVIDED HISTORY: MS Is the patient ?->No FINDINGS: INTRACRANIAL STRUCTURES/VENTRICLES: The sellar and suprasellar structures, optic chiasm, corpus callosum, pineal gland, tectum, and midline brainstem structures are unremarkable. The craniocervical junction is unremarkable. There is no acute intracranial hemorrhage, mass effect, or midline shift. There is satisfactory overall thomas-white matter differentiation. There are few scattered FLAIR signal abnormalities in the subcortical and periventricular white matter most pronounced in the frontal lobes. The ventricular structures are symmetric and unremarkable. The infratentorial structures including the cerebellopontine angles and internal auditory canals are unremarkable. There is no abnormal restricted diffusion. There is no abnormal blooming artifact on susceptibility weighted imaging. There is no abnormal postcontrast enhancement. ORBITS: The visualized portion of the orbits demonstrate no acute abnormality. SINUSES: The visualized paranasal sinuses and mastoid air cells are well aerated. BONES/SOFT TISSUES: The bone marrow signal intensity appears normal. The soft tissues demonstrate no acute abnormality. [employer] Work Phone: [place], [facility] Incoming Radiant Results From [email or web address] - 08/28/2019 1:44 PM EST EXAMINATION: MRI OF THE BRAIN WITHOUT AND WITH CONTRAST 08/28/2019 11:46 am TECHNIQUE: Multiplanar multisequence MRI of the head/brain was performed without and with the administration of intravenous contrast. COMPARISON: CT brain performed 08/22/2019. HISTORY: ORDERING SYSTEM PROVIDED HISTORY: MS TECHNOLOGIST PROVIDED HISTORY: MS Is the patient ?->No FINDINGS: INTRACRANIAL STRUCTURES/VENTRICLES: The sellar and suprasellar structures, optic chiasm, corpus callosum, pineal gland, tectum, and midline brainstem structures are unremarkable. The craniocervical junction is unremarkable. There is no acute intracranial hemorrhage, mass effect, or midline shift. There is satisfactory overall thomas-white matter differentiation. There are few scattered FLAIR signal abnormalities in the subcortical and periventricular white matter most pronounced in the frontal lobes. The ventricular structures are symmetric and unremarkable. The infratentorial structures including the cerebellopontine angles and internal auditory canals are unremarkable. There is no abnormal restricted diffusion. There is no abnormal blooming artifact on susceptibility weighted imaging. There is no abnormal postcontrast enhancement. ORBITS: The visualized portion of the orbits demonstrate no acute abnormality. SINUSES: The visualized paranasal sinuses and mastoid air cells are well aerated. BONES/SOFT TISSUES: The bone marrow signal intensity appears normal. The soft tissues demonstrate no acute abnormality. IMPRESSION: Scattered FLAIR signal abnormalities most pronounced in the frontal lobes that may correlate with patient's history of a demyelinating process. There is no evidence for active or acute demyelination. [employer] Phone: Scattered FLAIR sign al abnormalities most pronounced in the frontal lobes that may correlate with patient's history of a demyelinating process. There is no evidence for active or acute demyelination. [employer] Phone: MRI CERVICAL SPINE W WO CONT Jian 08-28-2019 MRI CERVICAL SPINE W WO CONTRAST EXAMINATION: MRI OF THE CERVICAL SPINE WITHOUT AND WITH CONTRAST 08/28/2019 11:46 am: TECHNIQUE: Multiplanar multisequence MRI of the cervical spine was performed without and with the administration of intravenous contrast. COMPARISON: Cervical spine performed 02/13/2014. HISTORY: ORDERING SYSTEM PROVIDED HISTORY: MS TECHNOLOGIST PROVIDED HISTORY: MS Is the patient ?->No FINDINGS: BONES/ALIGNMENT: There is anterior hardware fixation at the C5-6 level without complication. The vertebral body heights are maintained. There is age-appropriate bone marrow signal. There is multilevel degenerative disc disease with loss of disc signal. There is no spondylolisthesis. SPINAL CORD: The spinal cord is normal in caliber and signal. The visualized intracranial structures are unremarkable. There is no abnormal postcontrast enhancement. SOFT TISSUES: Posterior paraspinal soft tissues are unremarkable. The prevertebral soft tissues are unremarkable. C2-C3: There is no significant disc protrusion, spinal canal stenosis or neural foraminal narrowing. C3-C4: There is a mild disc osteophyte complex with uncovertebral and facet hypertrophy. There is canal stenosis measuring 8 mm in AP dimension. There is no significant foraminal narrowing. C4-C5: There is a mild disc osteophyte complex with uncovertebral and facet hypertrophy. There is no significant canal stenosis or foraminal narrowing. C5-C6: There is artificial disc material. There is no canal stenosis or foraminal narrowing. C6-C7: There is no significant disc protrusion, spinal canal stenosis or neural foraminal narrowing. C7-T1: There is no significant disc protrusion, spinal canal stenosis or neural foraminal narrowing. IMPRESSION: Anterior hardware fixation at C5-6 without complication. Mild multilevel degenerative disc disease with uncovertebral and facet hypertrophy resulting in canal stenosis at C3-4. Unremarkable pre and post-contrast evaluation of the spinal cord. Interpreted by: Serafin Velez MD Signed by: Serafin Velez MD 08/28/19 Final result Normal [facility] Erythrocyte distribution width (RBC) [Ratio] Anterior hardware fixation at C5-6 without complication. Mild multilevel degenerative disc disease with uncovertebral and facet hypertrophy resulting in canal stenosis at C3-4. Unremarkable pre and post-contrast evaluation of the spinal cord. [employer] Phone: EXAMINATION: MRI OF THE CERVICAL SPINE WITHOUT AND WITH CONTRAST 08/28/2019 11:46 am: TECHNIQUE: Multiplanar multisequence MRI of the cervical spine was performed without and with the administration of intravenous contrast. COMPARISON: Cervical spine performed 02/13/2014. HISTORY: ORDERING SYSTEM PROVIDED HISTORY: MS TECHNOLOGIST PROVIDED HISTORY: MS Is the patient ?->No FINDINGS: BONES/ALIGNMENT: There is anterior hardware fixation at the C5-6 level without complication. The vertebral body heights are maintained. There is age-appropriate bone marrow signal. There is multilevel degenerative disc disease with loss of disc signal. There is no spondylolisthesis. SPINAL CORD: The spinal cord is normal in caliber and signal. The visualized intracranial structures are unremarkable. There is no abnormal postcontrast enhancement. SOFT TISSUES: Posterior paraspinal soft tissues are unremarkable. The prevertebral soft tissues are unremarkable. C2-C3: There is no significant disc protrusion, spinal canal stenosis or neural foraminal narrowing. C3-C4: There is a mild disc osteophyte complex with uncovertebral and facet hypertrophy. There is canal stenosis measuring 8 mm in AP dimension. There is no significant foraminal narrowing. C4-C5: There is a mild disc osteophyte complex with uncovertebral and facet hypertrophy. There is no significant canal stenosis or foraminal narrowing. C5-C6: There is artificial disc material. There is no canal stenosis or foraminal narrowing. C6-C7: There is no significant disc protrusion, spinal canal stenosis or neural foraminal narrowing. C7-T1: There is no significant disc protrusion, spinal canal stenosis or neural foraminal narrowing. [employer] Phone: [place], [facility] Incoming Radiant Results From [email or web address] Projection for [employer] - 08/28/2019 1:50 PM EST EXAMINATION: MRI OF THE CERVICAL SPINE WITHOUT AND WITH CONTRAST 08/28/2019 11:46 am: TECHNIQUE: Multiplanar multisequence MRI of the cervical spine was performed without and with the administration of intravenous contrast. COMPARISON: Cervical spine performed 02/13/2014. HISTORY: ORDERING SYSTEM PROVIDED HISTORY: MS TECHNOLOGIST PROVIDED HISTORY: MS Is the patient ?->No FINDINGS: BONES/ALIGNMENT: There is anterior hardware fixation at the C5-6 level without complication. The vertebral body heights are maintained. There is age-appropriate bone marrow signal. There is multilevel degenerative disc disease with loss of disc signal. There is no spondylolisthesis. SPINAL CORD: The spinal cord is normal in caliber and signal. The visualized intracranial structures are unremarkable. There is no abnormal postcontrast enhancement. SOFT TISSUES: Posterior paraspinal soft tissues are unremarkable. The prevertebral soft tissues are unremarkable. C2-C3: There is no significant disc protrusion, spinal canal stenosis or neural foraminal narrowing. C3-C4: There is a mild disc osteophyte complex with uncovertebral and facet hypertrophy. There is canal stenosis measuring 8 mm in AP dimension. There is no significant foraminal narrowing. C4-C5: There is a mild disc osteophyte complex with uncovertebral and facet hypertrophy. There is no significant canal stenosis or foraminal narrowing. C5-C6: There is artificial disc material. There is no canal stenosis or foraminal narrowing. C6-C7: There is no significant disc protrusion, spinal canal stenosis or neural foraminal narrowing. C7-T1: There is no significant disc protrusion, spinal canal stenosis or neural foraminal narrowing. IMPRESSION: Anterior hardware fixation at C5-6 without complication. Mild multilevel degenerative disc disease with uncovertebral and facet hypertrophy resulting in canal stenosis at C3-4. Unremarkable pre and post-contrast evaluation of the spinal cord. [employer] Phone: MRI THORACIC SPINE W WO CONT Jian 08-28-2019 MRI THORACIC SPINE W WO CONTRAST EXAMINATION: MRI OF THE THORACIC SPINE WITHOUT AND WITH CONTRAST 08/28/2019 11:46 am TECHNIQUE: Multiplanar multisequence MRI of the thoracic spine was performed without and with the administration of intravenous contrast. COMPARISON: Thoracic spine MRI performed 01/10/2013. HISTORY: ORDERING SYSTEM PROVIDED HISTORY: ms TECHNOLOGIST PROVIDED HISTORY: ms Is the patient ?->No FINDINGS: BONES/ALIGNMENT: There is a normal thoracic kyphosis. The vertebral body heights are maintained. There is age-appropriate bone marrow signal. There is no spondylolisthesis. SPINAL CORD: The spinal cord is normal in caliber and signal. There is no abnormal postcontrast enhancement. SOFT TISSUES: Posterior paraspinal soft tissues are unremarkable. The visualized thoracic and upper abdominal soft tissues are unremarkable. DEGENERATIVE CHANGES: There is mild multilevel degenerative disc disease and mild multilevel degenerative facet hypertrophy. There is no canal stenosis or foraminal narrowing. IMPRESSION: Multilevel degenerative disc disease and multilevel degenerative facet hypertrophy without canal stenosis or foraminal narrowing. Interpreted by: Serafin Velez MD Signed by: Serafin Velez MD 08/28/19 Final result Normal [facility] EXAMINATION: MRI OF THE THORACIC SPINE WITHOUT AND WITH CONTRAST 08/28/2019 11:46 am TECHNIQUE: Multiplanar multisequence MRI of the thoracic spine was performed without and with the administration of intravenous contrast. COMPARISON: Thoracic spine MRI performed 01/10/2013. HISTORY: ORDERING SYSTEM PROVIDED HISTORY: ms TECHNOLOGIST PROVIDED HISTORY: ms Is the patient ?->No FINDINGS: BONES/ALIGNMENT: There is a normal thoracic kyphosis. The vertebral body heights are maintained. There is age-appropriate bone marrow signal. There is no spondylolisthesis. SPINAL CORD: The spinal cord is normal in caliber and signal. There is no abnormal postcontrast enhancement. SOFT TISSUES: Posterior paraspinal soft tissues are unremarkable. The visualized thoracic and upper abdominal soft tissues are unremarkable. DEGENERATIVE CHANGES: There is mild multilevel degenerative disc disease and mild multilevel degenerative facet hypertrophy. There is no canal stenosis or foraminal narrowing. [employer] Phone: Multilevel degenerative disc disease and multilevel degenerative facet hypertrophy without canal stenosis or foraminal narrowing. [employer] Phone: [place], [facility] Incoming Radiant Results From [email or web address] - 08/28/2019 1:53 PM EST EXAMINATION: MRI OF THE THORACIC SPINE WITHOUT AND WITH CONTRAST 08/28/2019 11:46 am TECHNIQUE: Multiplanar multisequence MRI of the thoracic spine was performed without and with the administration of intravenous contrast. COMPARISON: Thoracic spine MRI performed 01/10/2013. HISTORY: ORDERING SYSTEM PROVIDED HISTORY: ms TECHNOLOGIST PROVIDED HISTORY: ms Is the patient ?->No FINDINGS: BONES/ALIGNMENT: There is a normal thoracic kyphosis. The vertebral body heights are maintained. There is age-appropriate bone marrow signal. There is no spondylolisthesis. SPINAL CORD: The spinal cord is normal in caliber and signal. There is no abnormal postcontrast enhancement. SOFT TISSUES: Posterior paraspinal soft tissues are unremarkable. The visualized thoracic and upper abdominal soft tissues are unremarkable. DEGENERATIVE CHANGES: There is mild multilevel degenerative disc disease and mild multilevel degenerative facet hypertrophy. There is no canal stenosis or foraminal narrowing. IMPRESSION: Multilevel degenerative disc disease and multilevel degenerative facet hypertrophy without canal stenosis or foraminal narrowing. [employer] Phone: Basic Metabolic Panel w/ Ref emilee to MGon 08-27-2019 Anion gap [Moles/Vol] 13 mmol/L 9 - 17 mmol/L [employer] Phone: Bun/Cre Ratio 27 High [employer] Work Phone: Calcium [Mass/Vol] 8.8 mg/dL 8.6 - 10. 4 mg/dL [employer] Phone: Chloride [Moles/Vol] 94 mmol/L Low 98 - 10 7 mmol/L [employer] Phone: CO2 [Moles/Vol] 28 mmol/L 20 - 31 mmol/L [employer] Phone: Creatinine [Mass/Vol] 0.59 mg/dL 0.5 - 0.9 mg/dL [employer] Phone: GFR >60 >60 mL/min [employer] Phone: GFR Non- >60 >60 mL/min [employer] Phone: Glucose [Mass/Vol] 145 mg/dL High 70 - 99 mg/dL [employer] Phone: Interpretation and review of laboratory results Abnormal [employer] Phone: Potassium [Moles/Vol] 3.5 mmol/L Low 3.7 - 5.3 mmol/L [employer] Phone: Sodium [Moles/Vol] 135 mmol/L 135 - 144 mmol/L [employer] Phone: Urea nitrogen [Mass/Vol] 16 mg/dL 6 - 20 mg/dL [employer] Phone: C-reactive proteinon 08-27- 020 CRP [Mass/Vol] 0.7 mg/L 0 - 5 mg/L [employer] Work Phone: CBC Auto Differentialon 08-18 0-2020 Basophils (Bld) [#/Vol] 10*3/uL [employer] Phone: Basophils/100 WBC (Bld) 0 % 0 - 2 % [employer] Phone: Differential Type NOT REPORTED [employer] Phone: Eosinophils (Bld) [#/Vol] 10*3/uL [employer] Phone: Eosinophils/100 WBC (Bld) 0 % Low 1 - 4 % [employer] Phone: Erythrocyte distribution width (RBC) [Ratio] 12.8 % 11.8 - 14.4 % [employer] Phone: Hematocrit (Bld) [Volume fraction] 37.3 % 36.3 - 47.1 % [employer] Phone: Hemoglobin (Bld) [Mass/Vol] 12.6 g/dL 11.9 - 15.1 g/dL [employer] Phone: Immature granulocytes (Bld) [#/Vol] 0.19 10*3/uL [employer] Phone: Immature granulocytes (Bld) [#/Vol] 2 % High 0 [employer] Phone: Interpretation and review of laboratory results Abnormal [employer] Phone: Lymphocytes (Bld) [#/Vol] 0.73 10*3/uL Low [employer] Work Phone: Lymphocytes/100 WBC (Bld) 7 % Low 24 - 43 % [employer] Work Phone: MCH (RBC) [Entitic mass] 29.2 pg 25.2 - 33.5 pg [employer] Work Phone: MCHC (RBC) [Mass/Vol] 33.8 g/dL 28.4 - 34.8 g/dL [employer] Work Phone: MCV (RBC) [Entitic vol] 86.5 fL 82.6 - 102.9 fL [employer] [employer] Work Phone: Monocytes (Bld) [#/Vol] 0.26 10*3/uL [employer] Work Phone: Monocytes/100 WBC (Bld) 2 % Low 3 - 12 % [employer] Work Phone: Platelet mean volume (Bld) [Entitic vol] 9.6 fL 8.1 - 13.5 fL [employer] Work Phone: Platelets (Bld) [#/Vol] 287 10*3/uL [employer] Work Phone: Platelets (Bld) [#/Vol] NOT REPORTED [employer] Phone: RBC (Bld) [#/Vol] 4.31 10*6/uL 3.95 - 5.1 1 m/uL [employer] Work Phone: RBC morphology finding Nom (Bld) NOT REPORTED [employer] Work Phone: Segmented neutrophils/100 WBC (Bld) 89 % High 36 - 65 % [employer] Work Phone: Segs Absolute 9.55 High [employer] Work Phone: WBC (Bld) [#/Vol] 10.7 10*3/uL [employer] Work Phone: WBC (Bld) [#/Vol] 0.0 10*3/uL 0.0 per 10 0 WBC [employer] Work Phone: WBC Morphology NOT REPORTED [employer] [facility] Work Phone: Magnesiumon 08-27-2019 Magnesium [Mass/Vol] 2.1 mg/dL 1.6 - 2 .6 mg/dL [employer] Work Phone: Metabolic Panelon 08-27-2019 GFR/1.73 sq M predicted among non-blacks MDRD (S/P/Bld) [Vol rate/Area] [employer] Work Phone: Comment on above: Average GFR for 40-4 9 years old: 99 mL/min/1.73sq m Chronic Kidney Disease: <60 mL/min/1.73sq m Kidney failure: <15 mL/min/1.73sq m eGFR calculated using average adult body mass. Additional eGFR calculator available at: http://www.Docurated/multiple_crcl_2012.htm Stage 1: Some kidney damage normal GFR Stage 2: Mild kidney damage GFR 60-89 Stage 3: Moderate kidney damage GFR 30-59 Stage 4: Severe kidney damage GFR 15-29 Stage 5: Severe kidney damage GFR <15 ESRD - chronic treatment by dialysis or transplant Sedimentation Rateon 020 Sed Rate 12 mm 0 - 20 mm [employer] Work Phone: Urinalysis, reflex to micros copicon 08-27-2019 Bilirubin Urine Negative NEGATIVE [employer] [facility] Work Phone: Color, UA YELLOW YELLOW [employer] Work Phone: Glucose, Ur Negative NEGATIVE [employer] Work Phone: Ketones Ql (U) Negative NEGATIVE [employer] Work Phone: Leukocyte esterase Test strip Ql (U) Negative NEGATIVE [employer] Work Phone: Nitrite, Urine Negative NEGATIVE [employer] Work Phone: pH, UA 7.0 [employer] Work Phone: Protein (U) [Mass/[facility]] [facility]GATIVE [facility] Phone: Specific Tensed, UA 1.015 [facility] [employer] Work Phone: Turbidity UA CLEAR CLEAR [facility] Work Phone: Urinalysis Comments NOT REPORTED [facility] [employer] Work Phone: Urine Hgb Negative NEGATIVE [facility] Work Phone: Urobilinogen, Urine Normal Normal [facility] Work Phone: Basic Metabolic Panelon -0 Anion gap [Moles/Vol] 14 mmol/L 9 - 17 mmol/L [facility] Work Phone: Bun/Cre Ratio 19 [facility] Work Phone: Calcium [Mass/Vol] 9.1 mg/dL 8.6 - 10. 4 mg/dL [employer] Work Phone: Chloride [Moles/Vol] 101 mmol/L 98 - 10 7 mmol/L [facility] Work Phone: CO2 [Moles/Vol] 23 mmol/L 20 - 31 mmol/L [facility] Work Phone: Creatinine [Mass/Vol] 0.64 mg/dL 0.5 - 0.9 mg/dL [employer] Phone: GFR >60 >60 mL/min [facility] [employer] Work Phone: GFR Non- >60 >60 mL/min [facility] Work Phone: Glucose [Mass/Vol] 110 mg/dL High 70 - 99 mg/dL [facility] Work Phone: Interpretation and review of laboratory results Abnormal [facility] Work Phone: Potassium [Moles/Vol] 4.4 mmol/L 3.7 - 5.3 mmol/L [employer] Work Phone: Sodium [Moles/Vol] 138 mmol/L 135 - 144 mmol/L [employer] Phone: Urea nitrogen [Mass/Vol] 12 mg/dL 6 - 20 mg/dL [employer] Phone: CBC Auto Differentialon 02-0 5-2020 Basophils (Bld) [#/Vol] 0.00 10*3/uL [employer] Phone: Basophils/100 WBC (Bld) 0 % 0 - 2 % [employer] Phone: Differential Type NOT REPORTED [employer] Phone: Eosinophils (Bld) [#/Vol] 0.00 10*3/uL [employer] Phone: Eosinophils/100 WBC (Bld) 0 % Low 1 - 4 % [employer] Phone: Erythrocyte distribution width (RBC) [Ratio] 13.2 % 11.8 - 14.4 % [employer] Phone: Hematocrit (Bld) [Volume fraction] 41.2 % 36.3 - 47.1 % [employer] Phone: Hemoglobin (Bld) [Mass/Vol] 13.5 g/dL 11.9 - 15.1 g/dL [employer] Phone: Immature granulocytes (Bld) [#/Vol] 0 % 0 [employer] Phone: Immature granulocytes (Bld) [#/Vol] 0.00 10*3/uL [employer] Phone: Interpretation and review of laboratory results Abnormal [employer] Phone: Lymphocytes (Bld) [#/Vol] 1.50 10*3/uL [employer] Phone: Lymphocytes/100 WBC (Bld) 16 % Low 24 - 43 % [employer] Phone: MCH (RBC) [Entitic mass] 29.2 pg 25.2 - 33.5 pg [employer] Phone: MCHC (RBC) [Mass/Vol] 32.8 g/dL 28.4 - 34.8 g/dL [employer] Phone: MCV (RBC) [Entitic vol] 89.0 fL 82.6 - 102.9 fL [employer] Phone: Monocytes (Bld) [#/Vol] 0.28 10*3/uL [employer] Phone: Monocytes/100 WBC (Bld) 3 % 3 - 12 % [employer] Phone: Morphology Guille (Bld) [Interp] Platelet clumps present, count appears adequate. [employer] Phone: Platelet mean volume (Bld) [Entitic vol] NOT REPORTED 8.1 - 13.5 fL [employer] Phone: Platelets (Bld) [#/Vol] NOT REPORTED [employer] Phone: Platelets (Bld) [#/Vol] See Reflexed IPF Result [employer] Phone: RBC (Bld) [#/Vol] 4.63 10*6/uL 3.95 - 5.1 1 m/uL [employer] Phone: RBC morphology finding Nom (Bld) NOT REPORTED [employer] Phone: Segmented neutrophils/100 WBC (Bld) 81 % High 36 - 65 % [employer] Phone: Segs Absolute 7.62 [employer] Work Phone: WBC (Bld) [#/Vol] 0.0 10*3/uL 0.0 per 10 0 WBC [employer] Phone: WBC (Bld) [#/Vol] 9.4 10*3/uL [employer] Phone: WBC Morphology NOT REPORTED [employer] Work Phone: CT Head WO Contraston 2019 No acute intracrania l abnormality. [employer] Phone: EXAMINATION: CT OF [place] CANT[place] HEAD WITHOUT CONTRAST 08/22/2019 7:28 pm TECHNIQUE: CT of the head was performed without the administration of intravenous contrast. Dose modulation, iterative reconstruction, and/or weight based adjustment of the mA/kV was utilized to reduce the radiation dose to as low as reasonably achievable. COMPARISON: CT head 12/17/2017 HISTORY: ORDERING SYSTEM PROVIDED HISTORY: L sided weakness TECHNOLOGIST PROVIDED HISTORY: L sided weakness Is the patient ?->No FINDINGS: BRAIN/VENTRICLES: There is no acute intracranial hemorrhage, mass effect or midline shift. No abnormal extra-axial fluid collection. The thomas-white differentiation is maintained without evidence of an acute infarct. There is no evidence of hydrocephalus. ORBITS: The visualized portion of the orbits demonstrate no acute abnormality. SINUSES: The visualized paranasal sinuses and mastoid air cells demonstrate no acute abnormality. SOFT TISSUES/SKULL: No acute abnormality of the visualized skull or soft tissues. [employer] Phone: [employer], [employer] Incoming Radiant Results From [email or web address] [employer] - 08/22/2019 8:02 PM EST EXAMINATION: CT OF THE HEAD WITHOUT CONTRAST 08/22/2019 7:28 pm TECHNIQUE: CT of the head was performed without the administration of intravenous contrast. Dose modulation, iterative reconstruction, and/or weight based adjustment of the mA/kV was utilized to reduce the radiation dose to as low as reasonably achievable. COMPARISON: CT head 12/17/2017 HISTORY: ORDERING SYSTEM PROVIDED HISTORY: L sided weakness TECHNOLOGIST PROVIDED HISTORY: L sided weakness Is the patient ?->No FINDINGS: BRAIN/VENTRICLES: There is no acute intracranial hemorrhage, mass effect or midline shift. No abnormal extra-axial fluid collection. The thomas-white differentiation is maintained without evidence of an acute infarct. There is no evidence of hydrocephalus. ORBITS: The visualized portion of the orbits demonstrate no acute abnormality. SINUSES: The visualized paranasal sinuses and mastoid air cells demonstrate no acute abnormality. SOFT TISSUES/SKULL: No acute abnormality of the visualized skull or soft tissues. IMPRESSION: No acute intracranial abnormality. [employer] Phone: Immature Platelet Fractionon 08-22-2019 Platelet, Fluorescence 168 [employer] Phone: Platelet, Immature Fraction 4.5 % 1.1 - 10.3 % [employer] Phone: Metabolic Panelon 08-22-2019 GFR/1.73 sq M predicted among non-blacks MDRD (S/P/Bld) [Vol rate/Area] [employer] Phone: Comment on above: Average GFR for 40-4 9 years old: 99 mL/min/1.73sq m Chronic Kidney Disease: <60 mL/min/1.73sq m Kidney failure: <15 mL/min/1.73sq m eGFR calculated using average adult body mass. Additional eGFR calculator available at: http://www.Docurated/multiple_crcl_2012.htm Stage 1: Some kidney damage normal GFR Stage 2: Mild kidney damage GFR 60-89 Stage 3: Moderate kidney damage GFR 30-59 Stage 4: Severe kidney damage GFR 15-29 Stage 5: Severe kidney damage GFR <15 ESRD - chronic treatment by dialysis or transplant SPECIMEN REJECTIONon 020 Ordered Test CDP,SED [employer] Phone: Reason for Rejection Unable to perform testing: Specimen clotted. [employer] Phone: Specimen source Nom (Unsp spec) .BLOOD [employer] Phone: - NOT REPORTED [employer] Phone: Sedimentation Rateon 020 Sed Rate 6 mm 0 - 20 mm [employer] Phone: Vital Signs Date Time Vital Sign Value Performing Clinician Faci lity 11-02-2022 23:12-0400 Body temperature 97.52 [degF] [facility] 11-02-2022 23:12-0400 Diastolic blood pressure 93 mm[Hg] [facility] 11-02-2022 23:12-0400 Heart rate 68 /min Perry Dipika [facility] 11-02-2022 23:12-0400 Hourly Rounding Perry Dipika [facility] 11-02-2022 23:12-0400 Mean blood pressure 104 mm[Hg] Perry Dipika [facility] 11-02-2022 23:12-0400 Respiratory rate 19 /min Perry Dipika [facility] 11-02-2022 23:12-0400 SaO2% (BldA) [Mass fraction] 97 % Perry Dipika [facility] 11-02-2022 23:12-0400 Systolic blood pressure 127 mm[Hg] Perry Dipika [facility] 11-02-2022 22:00-0400 Diastolic blood pressure 85 mm[Hg] Perry Dipika [facility] 11-02-2022 22:00-0400 Heart rate 65 /min Perry Dipika [facility] 11-02-2022 22:00-0400 Hourly Rounding Perry Santose [facility] 11-02-2022 22:00-0400 Mean blood pressure 100 mm[Hg] Perry Dipika [facility] 11-02-2022 22:00-0400 Respiratory rate 22 /min Perry Dipika [facility] 11-02-2022 22:00-0400 Systolic blood pressure 129 mm[Hg] Perry Dipika [facility] 11-02-2022 21:46-0400 Body temperature 97.7 [degF] Perry Dipika [facility] 11-02-2022 21:46-0400 Diastolic blood pressure 97 mm[Hg] [facility] 11-02-2022 21:46-0400 Heart rate 77 /min [facility] 11-02-2022 21:46-0400 Mean blood pressure 110 mm[Hg] [facility] 11-02-2022 21:46-0400 Respiratory rate 26 /min [facility] 11-02-2022 21:46-0400 SaO2% (BldA) [Mass fraction] 96 % [facility] 11-02-2022 21:46-0400 Systolic blood pressure 135 mm[Hg] [facility] 11-02-2022 20:00-0400 Hourly Rounding [facility] 11-02-2022 16:04-0400 Body temperature 98.6 [degF] [facility] 11-02-2022 16:04-0400 Heart rate 89 /min [facility] 11-02-2022 16:04-0400 Respiratory rate 20 /min [facility] 07-27-2022 18:00-0500 Hourly Rounding [facility] 07-27-2022 18:00-0500 Promise to Return [facility] 07-27-2022 17:43-0500 Hourly Rounding [facility] 07-27-2022 17:43-0500 Promise to Return [facility] 07-27-2022 16:00-0500 Hourly Rounding [facility] 07-27-2022 16:00-0500 Promise to Return [facility] 07-27-2022 12:11-0500 Heart rate 73 /min [facility] 07-27-2022 12:11-0500 SaO2% (BldA) [Mass fraction] 96 % [facility] 07-27-2022 12:10-0500 Body temperature 98.06 [degF] [facility] 07-27-2022 12:10-0500 Respiratory rate 17 /min [facility] 07-27-2022 12:10-0500 Diastolic blood pressure 87 mm[Hg] [facility] 07-27-2022 12:10-0500 Mean blood pressure 101 mm[Hg] [facility] 07-27-2022 12:10-0500 Systolic blood pressure 129 mm[Hg] [facility] 07-27-2022 08:51-0500 Heart rate 82 /min [facility] 07-27-2022 08:51-0500 SaO2% (BldA) [Mass fraction] 100 % [facility] 07-27-2022 08:50-0500 Body temperature 97.88 [degF] [facility] 07-27-2022 08:50-0500 Respiratory rate 18 /min [facility] 07-27-2022 08:50-0500 Diastolic blood pressure 109 mm[Hg] [facility] 07-27-2022 08:50-0500 Mean blood pressure 124 mm[Hg] [facility] 07-27-2022 08:50-0500 Systolic blood pressure 155 mm[Hg] [facility] 07-27-2022 07:44-0500 SaO2% (BldA) [Mass fraction] 96 % [facility] 07-27-2022 03:00-0500 Blood Pressure Location [facility] 07-27-2022 03:00-0500 Diastolic blood pressure 71 mm[Hg] [facility] 07-27-2022 03:00-0500 Heart rate 79 /min [facility] 07-27-2022 03:00-0500 Systolic blood pressure 127 mm[Hg] [facility] 07-27-2022 00:30-0500 Blood Pressure Location [facility] 07-27-2022 00:30-0500 Body temperature 97.7 [degF] [facility] 07-27-2022 00:30-0500 Heart rate 75 /min [facility] 07-27-2022 00:00-0500 Body temperature 98.24 [degF] [facility] 07-27-2022 00:00-0500 Heart rate 72 /min [facility] 07-27-2022 00:00-0500 Mean blood pressure 127 mm[Hg] [facility] 07-27-2022 00:00-0500 Respiratory rate 14 /min [facility] 07-26-2022 23:00-0500 Mean blood pressure 134 mm[Hg] [facility] 07-26-2022 23:00-0500 Respiratory rate 12 /min [facility] 07-26-2022 22:00-0500 Heart rate 82 /min [facility] 07-26-2022 22:00-0500 Mean blood pressure 122 mm[Hg] [facility] 07-26-2022 22:00-0500 Respiratory rate 17 /min [facility] 07-26-2022 21:20-0500 gluc 87 mg/dL [facility] 07-26-2022 21:20-0500 gluc [facility] 09-19-2020 19:09-0500 BP Diastolic 109 mm[Hg] Aleksandar Joiner Work Phone: 09-19-2020 19:09-0500 BP Systolic 147 mm[Hg] Aleksandar Caint h Work Phone: 09-19-2020 18:33-0500 Pulse (Heart Rate) 76 /min Aleksandar Moyer [facility] Work Phone: 09-19-2020 18:33-0500 Pulse Oximetry 99 % [facility] Work Phone: 09-19-2020 16:41-0500 BMI (Body Mass Index) 26.63 kg/m2 Aleksandar Moyer [facility] Work Phone: 09-19-2020 16:41-0500 Body Temperature 98.91 [degF] Aleksandar Moyer [facility] Work Phone: 09-19-2020 16:41-0500 Body weight 77.11 kg [facility] Work Phone: 09-19-2020 16:41-0500 Respiratory Rate 16 /min Aleksandar Moyer [facility] Work Phone: 12-04-2019 09:19-0400 Body Temperature 98.8 [degF] [facility] [place] 12-04-2019 09:19-0400 BP Diastolic 94 mm[Hg] [facility] [place] , [place] 12-04-2019 09:19-0400 BP Systolic 139 mm[Hg] [facility] [place] , [place] 12-04-2019 09:19-0400 Pulse (Heart Rate) 87 /min [facility] [place] 12-04-2019 09:19-0400 Pulse Oximetry 100 % [facility] [place] [facility] [place] 12-04-2019 09:19-0400 Respiratory Rate 17 /min [facility] [place] 12-03-2019 03:50-0400 BMI (Body Mass Index) 30.46 kg/m2 [facility] [place] 12-03-2019 03:50-0400 Body weight 88.22 kg [facility] , [place] 12-03-2019 03:50-0400 Height 170.2 cm [facility] [place] 11-29-2019 01:51-0400 BMI (Body Mass Index) 26.62 kg/m2 Orlin Moyer [facility], [place] 11-29-2019 01:51-0400 Body weight 77.11 kg [facility] [place] 11-28-2019 23:17-0400 Body Temperature 97.39 [degF] [facility] [place] 11-28-2019 23:17-0400 Pulse (Heart Rate) 102 /min Orlin [facility], [place] 11-28-2019 23:17-0400 Pulse Oximetry 96 % Orlin [facility] , [place] 11-28-2019 23:17-0400 Respiratory Rate 16 /min [facility] [place] 10-23-2019 10:47-0400 BMI (Body Mass Index) 28.19 kg/m2 Ferdinand Mcgrath [facility], [place] 10-23-2019 10:47-0400 Body Temperature 97.5 [degF] [facility] [place] 10-23-2019 10:47-0400 Body weight 81.65 kg [facility] [place] 10-23-2019 10:47-0400 BP Diastolic 115 mm[Hg] [facility] , [place] 10-23-2019 10:47-0400 BP Systolic 162 mm[Hg] [facility] [place] 10-23-2019 10:47-0400 Pulse (Heart Rate) 88 /min [facility] [place] 10-23-2019 10:47-0400 Pulse Oximetry 98 % [place] [facility] [place] 10-23-2019 10:47-0400 Respiratory Rate 16 /min [facility] [place] 08-30-2019 11:18-0500 Body Temperature 98.01 [degF] Harley Moyer [employer] Work Phone: 08-30-2019 11:18-0500 BP Diastolic 84 mm[Hg] Harley Moyer [facility] Work Phone: 08-30-2019 11:18-0500 BP Systolic 145 mm[Hg] Harley Moyer [employer] Work Phone: 08-30-2019 11:18-0500 Pulse (Heart Rate) 64 /min Harley Moyer [employer] Work Phone: 08-30-2019 11:18-0500 Pulse Oximetry 98 % Harley Olsen [employer] Work Phone: 08-30-2019 11:18-0500 Respiratory Rate 20 /min Harley Moyer [employer] Work Phone: 08-30-2019 04:39-0500 BMI (Body Mass Index) 28.31 kg/m2 Harley Moyer [facility] Work Phone: 08-30-2019 04:39-0500 Body weight 82 kg Harley Moyer [employer] Work Phone: 08-30-2019 04:39-0500 Height 170.2 cm Harley Moyer [employer] Work Phone: 08-28-2019 01:43-0500 BP Diastolic 114 mm[Hg] Dwight Grant [employer] Work Phone: 08-28-2019 01:43-0500 BP Systolic 172 mm[Hg] Dwight Juju [employer] Work Phone: 08-28-2019 01:43-0500 Pulse (Heart Rate) 77 /min Dwight Borismaricruz Comfort [employer] Work Phone: 08-28-2019 01:43-0500 Pulse Oximetry 97 % Dwight Moyer [facility] Work Phone: 08-28-2019 01:43-0500 Respiratory Rate 18 /min Dwight Moyer [facility] Work Phone: 08-27-2019 14:47-0500 BMI (Body Mass Index) 28.19 kg/m2 Dwight Moyer [facility] Work Phone: 08-27-2019 14:47-0500 Body Temperature 98.4 [degF] Dwight Moyer [facility] Work Phone: 08-27-2019 14:47-0500 Body weight 81.65 kg Dwight Grant [employer] Work Phone: 08-22-2019 22:41-0500 BP Diastolic 116 mm[Hg] [facility] Work Phone: 08-22-2019 22:41-0500 BP Systolic 168 mm[Hg] [facility] Work Phone: 08-22-2019 22:41-0500 Pulse (Heart Rate) 77 /min Orlin Moyer [facility] Work Phone: 08-22-2019 22:41-0500 Pulse Oximetry 95 % Orlin [facility] Work Phone: 08-22-2019 22:41-0500 Respiratory Rate 20 /min Orlin Moyer [facility] Work Phone: 08-22-2019 15:50-0500 BMI (Body Mass Index) 28.19 kg/m2 [facility] Work Phone: 08-22-2019 15:50-0500 Body Temperature 99.7 [degF] Orlin Moyer [facility] Work Phone: 08-22-2019 15:50-0500 Body weight 81.65 kg [facility] Work Phone: 08-22-2019 [id number] Height 170.2 cm Orlin Moyer [employer] Work Phone: Encounters Encounter Date Encounter Type Care Provider Facility Start: 10-05-2023 End: 10-06-2023 ambulatory FILIPPO Sho GARCIA [facility] Start: 05-06-2023 End: 05-07-2023 ambulatory NEHA PENAJackie [facility] Start: 04-27-2023 End: 05-04-2023 Evaluation and management of inpatient Goitom Andom Julia PATEL Facility:[facility] Start: 04-18-2023 End: 04-18-2023 ambulatory Lamine Horne Facility:[facility] Start: 04-18-2023 End: 04-18-2023 ambulatory MD Aleksandar Mendez Work Phone: [facility] Work Phone: Start: 04-18-2023 End: 04-18-2023 Discharged Recurring MD Aleksandar Mendez Work Phone: [facility] - [facility] Work Phone: Start: 01-28-2023 End: 02-05-2023 Evaluation and management of inpatient Ward Mendez MD Facility:[facility] Start: 12-24-2022 ambulatory [facility] Start: 12-21-2022 End: 12-21-2022 ambulatory [facility] Start: 12-12-2022 End: 12-12-2022 ambulatory [facility] Facility: Start: 12-06-2022 End: 12-06-2022 ambulatory [facility] Start: 11-17-2022 ambulatory [facility] Start: 11-17-2022 Encounter for preprocedural laboratory examination [facility] Start: 11-02-2022 End: 11-03-2022 Emergency department patient visit Perry Bar Facility[facility] Start: 11-02-2022 End: 11-02-2022 Emergency department patient visit [facility] Start: 08-25-2022 End: 08-26-2022 ambulatory Filippo Garcia MD Facility:[facility] Start: 08-03-2022 ambulatory [facility] Facility: Start: 07-27-2022 End: 07-27-2022 Evaluation and management of inpatient Satish VALDEZ Facility[facility] Start: 07-26-2022 End: 07-27-2022 Evaluation and management of inpatient Satish Fraser JOSÉ MIGUEL [facility] Start: 04-05-2022 End: 04-06-2022 ambulatory EL MCKENZIE Facility: Start: 02-03-2021 End: 02-16-2021 ambulatory DWIGHT GRANT Facility:[facility] Start: 09-19-2020 End: 09-19-2020 Emergency department patient visit [facility] Start: 09-19-2020 End: 09-19-2020 Emergency department patient visit [facility] ED Comment on above: Chronic left hip eb n (Primary Dx) Start: 12-03-2019 End: 12-04-2019 Evaluation and management of inpatient LYNN MCMANUS [facility] Start: 12-03-2019 End: 12-04-2019 Evaluation and management of inpatient Lynn Mcmanus Work Phone: [address] Onc/Med Surg Start: 11-29-2019 End: 11-29-2019 Emergency department patient visit [facility] Start: 11-28-2019 End: 11-29-2019 Emergency department patient visit Orlin Gates Work Phone: [facility] ED Comment on above: Acute deep vein thro mbosis (DVT) of brachial vein of right upper extremity (HCC) (Primary Dx) Start: 10-23-2019 End: 10-23-2019 Emergency department patient visit FERDINAND MCGRATH [facility] Start: 10-23-2019 End: 10-23-2019 Emergency department patient visit Ferdinand Mcgrath Work Phone: [facility] Start: 08-28-2019 End: 08-30-2019 Evaluation and management of inpatient HARLEY OLSEN [facility] Start: 08-28-2019 End: 08-30-2019 Evaluation and management of inpatient Harley Olsen Work Phone: [address] Neuro Start: 08-27-2019 End: 08-28-2019 Emergency department patient visit Dwight Grant [facility] ED Comment on above: Multiple sclerosis ( HCC) (Primary Dx) Start: 08-22-2019 End: 08-22-2019 Emergency department patient visit Orlin Stiener Laith [facility] ED Comment on above: Multiple sclerosis ( HCC) (Primary Dx) Start: 09-20-2018 Patient encounter procedure UNKNOWN PROVIDER Facility:[facility] Procedures Date Procedure Procedure Detail Performing Clinician Start: 11-11-2020 Magnetic resonance imaging Satish VALDEZ Comment on above: W/ SEDATION Start: 12-04-2019 DISCHARGE PATIENT VIVEK DO OLSEN Start: 12-04-2019 PULSE OXIMETRY, CONTINUOUS HARLEY OLSEN Start: 12-04-2019 PULSE OXIMETRY, CONTINUOUS HARLEY OLSEN Start: 12-04-2019 INITIATE OXYGEN THER APY PROTOCOL HARLEY OLSEN Start: 12-04-2019 PULSE OXIMETRY, CONTINUOUS HARLEY OLSEN Start: 12-04-2019 PULSE OXIMETRY, CONTINUOUS HARLEY OLSEN Start: 12-04-2019 INTAKE AND OUTPUT VIVEK DO OLSEN Start: 12-04-2019 PULSE OXIMETRY, CONTINUOUS HARLEY OLSEN Start: 12-03-2019 PULSE OXIMETRY, CONTINUOUS HARLEY OLSEN Start: 12-03-2019 IP CONSULT TO IV TEAM E DUARDO OLSEN Start: 12-03-2019 PULSE OXIMETRY, CONTINUOUS HARLEY OLSEN Start: 12-03-2019 PULSE OXIMETRY, CONTINUOUS HARLEY OLSEN Start: 12-03-2019 INITIATE OXYGEN THER APY PROTOCOL HARLEY OLSEN Start: 12-03-2019 PULSE OXIMETRY, CONTINUOUS HARLEY OLSEN Start: 12-03-2019 Blood count complete automated HARLEY OLSEN Start: 12-03-2019 Comprehensive metabo lic panel HARLEY OLSEN Start: 12-03-2019 IP CONSULT TO VASCUL AR SURGERY HARLEY OLSEN Start: 12-03-2019 IP CONSULT TO IV TEAM E LAKEISHA OLSEN Start: 12-03-2019 ADVANCE DIET TOLERATED (NURSING COMMUNICATION) HARLEY OLSEN Start: 12-03-2019 Cul bact xcpt urine blood/stool aerobic isol HARLEY OLSEN Start: 12-03-2019 DAILY WEIGHTS HARLEY ROJAS Start: 12-03-2019 DIET GENERAL HARLEY ROYERON Start: 12-03-2019 ELEVATE EXTREMITY VIVEK DO OLSEN Start: 12-03-2019 FULL CODE HARLEY ROYERON Start: 12-03-2019 INITIATE OXYGEN THER APY PROTOCOL HARLEY OLSEN Start: 12-03-2019 INTAKE AND OUTPUT VIVEK VALDIVIA Start: 12-03-2019 NOTIFY PHYSICIAN (SPECIFY) HARLEY OLSEN Start: 12-03-2019 PLACE INTERMITTENT PNEUMATIC COMPRESSION DEVICE HARLEY OLSEN Start: 12-03-2019 PULSE OXIMETRY, CONTINUOUS HARLEY OLSEN Start: 12-03-2019 Smr prim src gram/gi emsa stain bct fungi/cell HARLEY OLSEN Start: 12-03-2019 TOBACCO CESSATION EDUCATION HARLEY OLSEN Start: 12-03-2019 VITAL SIGNS HARLEY ROYERON Start: 12-03-2019 BASIC METABOLIC PANE L W/ REFLEX TO MG FOR LOW K Stephanie Campa [place] Work Phone: Start: 12-03-2019 Blood count complete automated Stephanie Campa [place] Work Phone: Start: 12-03-2019 PATIENT STATUS (DIRECT) HARLEY OLSEN Start: 12-03-2019 PATIENT STATUS (DIRECT) HARLEY OLSEN Start: 10-23-2019 Basic metabolic pane l calcium total ALEKSANDAR REY ANDREA Start: 10-23-2019 Blood count complete auto&auto difrntl wbc ALEKSANDAR NENAAND ANDREA Start: 10-23-2019 Urnls dip stick/tabl et rgnt auto w/o microscopy ALEKSANDAR REY ANDREA Start: 08-30-2019 DISCHARGE PATIENT VIVEK KEENAN OLSEN Start: 08-30-2019 IP CONSULT TO HOME C ARE NEEDS HARLEYMARK OLSEN Start: 08-30-2019 INITIATE OXYGEN THER APY PROTOCOL HARLEYMARK CARTAGENAON Start: 08-30-2019 DIET NPO, NOW HARLEY C ALDERON Start: 08-30-2019 Assay of magnesium ANABELLE CARTAGENAON Start: 08-30-2019 Blood count complete auto&auto difrntl wbc HARLEY CARTAGENAON Start: 08-30-2019 Comprehensive metabo lic panel HARLEY OLSEN Start: 08-30-2019 Assay of magnesium Moha mmad Mickey Work Phone: Start: 08-30-2019 BASIC METABOLIC PANE L W/ REFLEX TO MG FOR LOW K Mohammad Mickey Work Phone: Start: 08-30-2019 Blood count complete auto&auto difrntl wbc Mohammad Mickey Work Phone: Start: 08-30-2019 INTAKE AND OUTPUT VIVEK DO ZEPEDAOLSEN Start: 08-29-[address] PL[address] INTERMITTENT PNEUMATIC COMPRESSION DEVICE HARLEY ZEPEDADERON Start: 08-29-2019 IP CONSULT TO GI PATRICIA OLSEN Start: 08-29-2019 IP CONSULT TO SERVICE ARCHITECT AL MEDICINE HARLEY CARTAGENAON Start: 08-29-2019 INITIATE OXYGEN THER APY PROTOCOL HARLEY OLSEN Start: 08-29-2019 Blood count complete auto&auto difrntl wbc HARLEY OLSEN Start: 08-29-2019 Comprehensive metabo lic panel HARLEY OLSEN Start: 08-29-2019 BASIC METABOLIC PANE L W/ REFLEX TO MG FOR LOW K Mohammad Mickey Work Phone: Start: 08-29-2019 Blood count complete auto&auto difrntl wbc Mohammad Mickey Work Phone: Start: 08-29-2019 INTAKE AND OUTPUT VIVEK DO OLSEN Start: 08-28-2019 Mri brain brain stem w/o w/contrast material HARLEY CARTAGENAON Start: 08-28-2019 Mri spinal canal cervical w/o & w/contr matrl HARLEY OLSEN Start: 08-28-2019 Mri spinal canal thoracic w/o & w/contr matrl HARLEY OLSEN Start: 08-28-2019 Mri brain brain stem w/o w/contrast material Mya Arevalo Work Phone: Start: 08-28-2019 Mri spinal canal cervical w/o & w/contr matrl Mya Arevalo Work Phone: Start: 08-28-2019 Mri spinal canal thoracic w/o & w/contr matrl Rach Vasquez Work Phone: Start: 08-28-2019 Swallowing funcj w/cineradiograpy/vidradi og HARLEY OLSEN Start: 08-28-2019 OT EVAL AND TREAT VIVEK DO OLSEN Start: 08-28-2019 PT EVAL AND TREAT VIVEK DO OLSEN Start: 08-28-2019 Swallowing funcj w/cineradiograpy/vidradi og Mya Arevalo Work Phone: Start: 08-28-2019 INITIATE OXYGEN THER APY PROTOCOL HARLEY OLSEN Start: 08-28-2019 Blood count complete auto&auto difrntl wbc HARLEY OLSEN Start: 08-28-2019 Comprehensive metabo lic panel HARLEY OLSEN Start: 08-28-2019 ELEVATE EXTREMITY VIVEK DO OLSEN Start: 08-28-2019 ELEVATE HOB HARLEY CA LDERON Start: 08-28-2019 ENCOURAGE DEEP BREAT SHAUN AND COUGHING HARLEY OLSEN Start: 08-28-2019 INITIATE OXYGEN THER APY PROTOCOL HARLEY OLSEN Start: 08-28-2019 IP CONSULT TO SOCIAL WORK HARLEY OLSEN Start: 08-28-2019 OT EVAL AND TREAT VIVEK DO OLSEN Start: 08-28-2019 PULSE OXIMETRY SPOT CHECK HARLEY OLSEN Start: 08-28-2019 REASON FOR NO MECHAN ICAL VTE PROPHYLAXIS HARLEY OLSEN Start: 08-28-2019 DAILY WEIGHTS HARLEY Berkowitz ALDERON Start: 08-28-2019 FULL CODE HARLEY CA LDERON Start: 08-28-2019 INTAKE AND OUTPUT VIVEK DO OLSEN Start: 08-28-2019 NOTIFY PHYSICIAN (SPECIFY) HARLEY OLSEN Start: 08-28-2019 VITAL SIGNS HARLEY CHEUNG LDERON Start: 08-28-2019 BASIC METABOLIC PANE L W/ REFLEX TO MG FOR LOW K Mya Arevalo Work Phone: Start: 08-28-2019 Blood count complete auto&auto difrntl wbc Mya Arevalo Work Phone: Start: 08-27-2019 Urnls dip stick/tabl et rgnt auto w/o microscopy Delmi Stephensth Work Phone: Start: 08-27-2019 PATIENT STATUS (DIRECT) HARLEY OLSEN Start: 08-27-2019 Assay of magnesium Haider s P Napoleon Work Phone: Start: 08-27-2019 BASIC METABOLIC PANE L W/ REFLEX TO MG FOR LOW K Delmi P Napoleon Work Phone: Start: 08-27-2019 Blood count complete auto&auto difrntl wbc Delmi P Napoleon Work Phone: Start: 08-27-2019 C-reactive protein Haider s P Napoleon Work Phone: Start: 08-27-2019 Sedimentation rate r bc automated Delmi Bender Work Phone: Start: 08-22-2019 Ct head/brain w/o contrast material Edwin Mott Work Phone: Start: 08-22-2019 Blood count complete auto&auto difrntl wbc Orlin Ozuna Start: 08-22-2019 IMMATURE PLATELET FRACTION Orlin Ozuna Start: 08-22-2019 Sedimentation rate r bc automated Orlin Ozuna Start: 08-22-2019 Basic metabolic pane l calcium total Orlin Ozuna Start: 08-22-2019 SPECIMEN REJECTION Landen patricio Ozuna Start: 08-21-2019 Magnetic resonance imaging Satish VALDEZ Comment on above: with sedation Start: 07-16-2019 MRI arthrography Satish VALDEZ Comment on above: MRI W/ SEDATION Back fusion Satish VALDEZ Decompression of med jonathan nerve Satish VALDEZ Central filter, device (physical object) Satish VALDEZ H/O: surgery S/P dilatation o f esophageal stricture MD Aleksandar Mendez Work Phone: Hysterectomy Satish JOSÉ MIGUEL Plan of Treatment Date Care Activity Detail Author Start: 2023 Shingles Vaccine (1 of 2) Ortiz gles Vaccine (1 of 2) [facility] [employer] Phone: Start: 12-02-2020 Creatinine measurement Creatinine mo [place] Start: 12-02-2020 Potassium monitoring Potassium monit [place], [place] Start: 08-30-2020 Creatinine measurement Creatinine mo [place] Start: 08-30-2020 Creatinine monitoring Creatinine mon [place], [place] Start: 08-30-2020 Potassium monitoring Potassium monit [place], [place] Start: 08-29-2020 Creatinine monitoring Creatinine mon [facility] [employer] Phone: Start: 08-29-2020 Potassium monitoring Potassium monit [facility] Work Phone: Start: 03-18-2020 Influenza vaccination M [place], [place] Start: 03-03-2020 Hospital Encounter 03/03/2020 Hospital Encounter Lynn Mcmanus MD [address] [place] [address] [place], [place] Start: 03-18-2019 Influenza vaccination Flu vaccine (# 1) [facility] [employer] Phone: Start: 02-13-2017 Diabetes screen Diabetes screen [facility] [employer] Phone: Start: 06-05-2016 Lipid panel Lipid screen [place], [place] Start: 06-05-2016 Lipid screen Lipid screen [facility] Work Phone: Start: 1994 Cervical cancer screen Cervical canc er screen [facility] [employer] Phone: Start: 1994 Screening for malign ant neoplasm of cervix Cervical cancer screen [place], [place] Start: 02-21-1992 DTaP/Tdap/Td vaccine (1 - Tdap) DTaP/Tdap/Td vaccine (1 - Tdap) [place], [place] Start: 02-21-1988 HIV screen HIV screen [facility] Work Phone: Start: 02-21-1988 [facility] [place] [place] Start: 02-21-1984 DTaP/Tdap/Td vaccine (1 - Tdap) DTaP/Tdap/Td vaccine (1 - Tdap) [facility] [employer] Phone: End: 10-23-2019 Basic metabolic 2000 panel Basic Metabolic Panel Lab STAT One Time for 1 Occurrences starting 10/23/2019 until 10/23/2019 [place], [place] Comment on above: One Time for 1 Occur rences starting 10/23/2019 until 10/23/2019 Basic Metabolic Pane l w/ Reflex to MG Basic Metabolic Panel w/ Reflex to MG Lab Routine Daily until discontinued starting 08/28/2019, [facility] Comment on above: Daily until disconti nued starting 08/28/2019, 3 completed CBC auto differential CBC auto d ifferential Lab Routine Daily until discontinued starting 08/28/2019, 3 completed [employer] Phone: Comment on above: Daily until disconti nued starting 08/28/2019, 3 completed End: 10-23-2019 CBC Auto Differential CBC Auto Differential Lab STAT One Time for 1 Occurrences starting 10/23/2019 until 10/23/2019 [place], [place] Comment on above: One Time for 1 Occur rences starting 10/23/2019 until 10/23/2019 End: 08-22-2019 CRP [Mass/Vol] C-Reactive Protein Lab STAT One Time for 1 Occurrences starting 08/22/2019 until 08/22/2019 [employer] Phone: Comment on above: One Time for 1 Occur rences starting 08/22/2019 until 08/22/2019 CRP [Mass/Vol] C-Reactive Prote in Lab STAT 08/22/2019 5:15 PM EST [facility] [employer] Phone: Initiate Oxygen Ther apy Protocol [employer] Phone: Comment on above: Daily until disconti nued starting 08/28/2019 Daily until disconti nued starting 12/03/2019 End: 08-28-2019 Pulse Oximetry Spot Check Pulse Oximetry Spot Check Respiratory Care Routine One Time for 1 Occurrences starting 08/28/2019 until 08/28/2019 [employer] Phone: Comment on above: One Time for 1 Occur rences starting 08/28/2019 until 08/28/2019 Pulse oximetry, continuous Pulse oximetry, continuous Respiratory Care Routine Every 4hr until discontinued [facility]/03/2019 [facility]: Every 4hr until disc ontinued starting 12/03/2019 End: 10-23-2019 Urinalysis Reflex to Culture Urinalysis Reflex to Culture Lab STAT One Time for 1 Occurrences starting 10/23/2019 until 10/23/2019 [facility] Comment on above: One Time for 1 Occur rences starting 10/23/2019 until 10/23/2019 End: 12-03-2019 Wound Culture Wound Culture Microbiology Routine One Time for 1 Occurrences starting 12/03/2019 until 12/03/2019 [facility] Comment on above: One Time for 1 Occur rences starting 12/03/2019 until 12/03/2019 End: 12-03-2019 Wound Gram stain Wound Gram stain Microbiology Routine One Time for 1 Occurrences starting 12/03/2019 until 12/03/2019 [facility] Comment on above: One Time for 1 Occur rences starting 12/03/2019 until 12/03/2019 Payers Date Payer Category Payer Unknown 2016 Unknown [facility] MEDICA[facility] xxxxxxxxxxx 2016-Present [phone] CLAIMS DEPARTMENT [address] [place] [address] xxxxxxxxxxx [id number] 1973 Unknown [id number] 1973 Unknown [id number] [id number] 1973 Unknown [id number] [id number] 1973 Unknown [id number] [id number] 1973 Unknown [id number] [id number] 1973 Unknown [id number] [id number] 1973 Unknown [id number] [id number] 1973 Unknown [id number] [id number] 1973 Unknown [id number] [id number] 1973 Unknown [id number] [id number] 1973 Unknown [id number] [id number] 1973 Unknown [id number] [id number] 1973 Unknown [id number] [id number] 1973 Unknown [id number] [id number] 1973 Unknown [id number] [id number] 1973 Unknown [id number] [id number] 1959 Self-pay [id number] 1959 Unknown [id number] 1959 Unknown [id number] Self-pay Self Pay [id number] Social History Date Type Detail Facility Start: 12-17-2017 End: 10-23-2019 Tobacco smoking status NHIS Current every day smoker [employer] Phone: History of tobacco use Cigarette Smoker M [place] Phone: Start: 12-17-2017 End: 09-19-2020 Cigarettes smoked current (pack per day) - Reported [employer] Phone: Start: 12-17-2017 End: 09-19-2020 Alcohol intake Current non-drinker of alcohol (finding) [employer] Phone: Sex Assigned At Not on file [employer] Phone: Start: 11-28-2019 End: 09-19-2020 Tobacco smoking status NHIS Former smoker resmio Exposure to SARS-CoV -2 (event) Unable to assess resmio Start: 09-19-2020 Tobacco use and exposure Former user [employer] Phone: End: 10-13-2015 History of tobacco use User of smokeless tobacco [employer] Phone: Exposure to SARS-CoV -2 (event) Not sure [employer] Phone: Start: 08-18-2020 Tobacco smoking status Heavy t obacco smoker (finding) [facility] Sex Assigned At Female [facility] Start: 11-02-2022 [facility] Start: 1975 Sex Assigned At Female F [facility] Functional Status Date Assessment Result Facility 11-02-2022 Functional Status N/A [facility] 07-27-2022 Functional Status No [facility] 07-26-2022 Functional Status [facility] Clinical Notes 07-27-2022 to 05-06-2023 Note Date & Type Note Facility 05-06-2023 Note Chief Complaint: lbp History of MS HPI When did this problem begin: Long time Timing/frequency of occurrence: Constant Pain description: dull ache Pain severity: 8 Radicular pain: No Numbness/tingling: Yes from MS Pain is getting: gradually worsening Weakness: No What improves symptoms: Rest What makes symptoms worse: Activity Gait disturbance: No Fine hand dexterity problem: No Previous treatment for this problem: L5-S1 fusion 2 years ago ROS Constitutional: Fatigue: No Weight loss: No Fever: No Chills: No Past Surgical History: Procedure Laterality Date BACK SURGERY CAGE IMPLANTED CARPAL TUNNEL RELEASE CERVICAL FUSION SECTION, LOW TRANSVERSE COLONOSCOPY HYSTERECTOMY PORTACATH PLACEMENT MULTIPLE PORTS PLACED. SPINAL CORD STIMULATOR IMPLANT AND REMOVAL TONSILLECTOMY UPPER GASTROINTESTINAL ENDOSCOPY Past Medical History: Diagnosis Date Chronic pain disorder NECK / LOWER BACK Diabetes mellitus ([facility]) DVT (deep venous thrombosis) ([facility]) GERD (gastroesophageal reflux disease) GI (gastrointestinal bleed) Hypertension Left-sided weakness Multiple sclerosis ([facility]) Munchausen syndrome PTSD (post-traumatic stress disorder) Pulmonary embolism ([facility]) S/P IVC filter Substance abuse ([facility]) Past Surgical History: Procedure Laterality Date BACK SURGERY CAGE IMPLANTED CARPAL TUNNEL RELEASE CERVICAL FUSION SECTION, LOW TRANSVERSE COLONOSCOPY HYSTERECTOMY PORTACATH PLACEMENT MULTIPLE PORTS PLACED. SPINAL CORD STIMULATOR IMPLANT AND REMOVAL TONSILLECTOMY UPPER GASTROINTESTINAL ENDOSCOPY Allergies Allergen Reactions Blood-Group Specific Substance Hives Welts and hives to FFP Welts and hives to FFP Iodides Hives and Shortness of breath MRI Pantoprazole Anaphylaxis and Hives Other reaction(s): Hives, other, Rash Patient denies hx throat swelling/SOB with this. Tolerates with benadryl. Patient denies hx throat swelling/SOB with this. Tolerates with benadryl. Patient denies hx throat swelling/SOB with this. Tolerates with benadryl. pt on protonix iv currently-pt states is ok as long as benedryl is given Penicillins Anaphylaxis, Hives and Nausea And Vomiting Other reaction(s): other Methylprednisolone Rash Other reaction(s): hives Adhesive Itching Adhesive Tape-Silicones Itching Atropine Hives Dye MRI and CT contrast Famotidine Other reaction(s): Hives Ketorolac Hives Other reaction(s): other Tolerates ibuprofen Metoclopramide Hcl Hives and Itching Nalbuphine Hives Other reaction(s): itching Ondansetron Nausea Only and Nausea And Vomiting Other reaction(s): Hives Other reaction(s): Nausea And Vomiting Current Outpatient Medications: amLODIPine (Norvasc) 10 mg tablet, Take 10 mg by mouth in the morning., Disp: , Rfl: LORazepam (Ativan) 1 mg tablet, Take 1 mg by mouth every 6 (six) hours if needed., Disp: , Rfl: pregabalin (Lyrica) 100 mg capsule, Take 100 mg by mouth every 4 (four) hours if needed., Disp: , Rfl: Premarin 0.9 mg tablet, Take 0.9 mg by mouth in the morning., Disp: , Rfl: traMADol (Ultram) 50 mg tablet, Take 150 mg by mouth every 6 (six) hours if needed., Disp: , Rfl: cyclobenzaprine (Flexeril) 5 mg tablet, Take 1 tablet (5 mg) by mouth if needed in the morning, at noon, and at bedtime for muscle spasms., Disp: 30 tablet, Rfl: 0 Social History Socioeconomic History Marital status: Spouse name: Not on file Number of children: Not on file Years of education: Not on file Highest education level: Not on file Occupational History Not on file Tobacco Use Smoking status: Every Day Packs/day: 1.00 Types: Cigarettes Smokeless tobacco: Never Vaping Use Vaping Use: Never used Substance and Sexual Activity Alcohol use: Not Currently 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 Drug use: Yes Types: Marijuana Comment: GUMMIES Sexual activity: Not on file Other Topics Concern Not on file Social History Narrative Not on file Social Determinants of Health Financial Resource Strain: Not on file Food Insecurity: Not on file Transportation Needs: Not on file Physical Activity: Not on file Stress: Not on file Social Connections: Not on file Intimate Partner Violence: Not At Risk (05/06/2023) Humiliation, Afraid, Rape, and Kick questionnaire Fear of Current or Ex-Partner: No Emotionally Abused: No Physically Abused: No Sexually Abused: No Housing Stability: Not on file No family history on file. Physical Exam There were no vitals taken for this visit. Musculoskeletal Ortho spine musculoskeletal examination: Alignment spine: normal Tenderness: lumbar paraspinal Range of motion Cervical spine: normal Range of motion lumbar spine: limited \ Neurological Biceps strength: 5 Wrist extension: 5 Triceps strength: 5 Finger flexor: 5 Finger abduction strength: 5 Flexion at the hip (more content not included)... [facility] 05-04-2023 Note Admission Informatio n Patient: [place] James : 1975 Date of Admission: 04/27/2023 19:54:00 Date of Discharge: 05/04/2023 13:09:00 Code Status: Full Resuscitation PCP: Wrad Mendez MD Consult: Filippo Garcia MD Follow Up with Provider: With: Address: When: Filippo Garcia MD [address] [place] [address] [phone] Within 1 month With: Address: When: Ward Mendez MD [address] [place] [id number] [phone] Within 1 to 2 weeks Brief Hospital Course Summary: This is a 48-year-old female with a history of multiple sclerosis on ozanimod, avascular necrosis of the left hip, DVT, Adriana-Núñez tear, multiple gastric ulcers, chronic pain, drug-seeking behavior, factitious disorder and Munchhausen syndrome who presents the ED complaining of relapsing multiple sclerosis symptoms for the last 3 days. In the ED vital signs were stable. UA shows a WBC of 1 and RBC of 0. ED physician spoke with neurologist on-call Dr. Garcia. He recommends IV methylprednisone 1 g. Patient received 4 days of 1 g daily methylprednisolone per neurology. Patient symptoms improved. Additionally a left upper arm venous duplex was completed to rule out DVT and CT angio ruled out pulmonary embolism while hospitalized. Plan of care was discussed with patient she verbalized understanding and denied any further questions at this time. The patient was advised to follow-up with Dr. Garcia within 1 to [address] Garcia assessed the patient on 05/03 and recommended another MRI of brain. The patient refused MRI on 05/04 and requested several anxiolytics and pain medication/sedation prior to MRI exam. The patient was explained that she can obtain MRI outpatient. The patient spoke to Dr. Garcia on the phone herself. The patient is agreeable for discharge at this time. Assessment: Relapsing multiple sclerosis symptoms History of avascular necrosis of the left hip History of deep vein thrombosis History of Adriana-Núñez tear and multiple gastric ulcers Chronic pain history of drug-seeking behavior, factitious disorder and Munchhausen syndrome refused to discharge. Medically stable for discharge Medications New Medications [id number], [address], [place] [id number], [phone] DULoxetine (DULoxetine 30 mg oral delayed release capsule) 30 Milligram Oral (given by mouth) 2 times a day for 30 Days. Refills: 0. Last Dose: Medications That Were Updated - Follow Current Instructions [id number], [address], [place] [id number], [phone] Current pregabalin (Lyrica 150 mg oral capsule) 150 Milligram Oral (given by mouth) 3 times a day for 30 Days. Refills: 0. Last Dose: Medications that have not changed Other Medications amLODIPine (amLODIPine 10 mg oral tablet) 1 Tabs Oral (given by mouth) once a day (in the morning). Last Dose: conjugated estrogens (Premarin 0.625 mg oral tablet) 1 Tabs Oral (given by mouth) once a day (in the morning). Last Dose: DME Refills: 0. Last Dose: LORazepam (LORazepam 1 mg oral tablet) 1 Tabs Oral (given by mouth) 3 times a day. pt takes scheduled. Last Dose: oxyCODONE-acetaminophen (oxyCODONE-acetaminophen 10 mg-325 mg oral tablet) 1 Tabs Oral (given by mouth) 4 times a day as needed as needed for pain. Last Dose: ozanimod (Zeposia 0.92 mg oral capsule) 1 Capsules Oral (given by mouth) every day. Last Dose: traMADol (traMADol 50 mg oral tablet) 1 Tabs Oral (given by mouth) 4 times a day as needed as needed for pain. Last Dose: Patient Discharge Condition stable Discharge Disposition home Objective Physical Exam General: Alert oriented x3, patient appears in no acute cardiorespiratory distress. Eye: normal conjunctiva HENT: Normocephalic, moist oral mucosa, no scleral icterus. Neck: Supple, non-tender. Lungs: Clear to auscultation, no crepitations or wheeze. Heart: S1-S2 is normal. No rubs or gallops. Abdomen: Soft, non-tender, non-distended, normal bowel sounds, no palpable masses Extremities: No cyanosis clubbing or edema Skin: no open sores or wounds Neurologic: strength 5/5 extremity. Psychiatric: Calm and cooperative Vitals & Measurements T: 36.7 ?C (Oral) HR: 77 (Peripheral) RR: 16 BP: 122/73 SpO2: 95% HT: 169 cm WT: 75.5 kg BMI: 24.26 Additional Vitals No qualifying data available. Lab Results Labs (Last four charted values) WBC 9.6 (APR 18) 8.3 (APR 17) H 11.3 (APR 16) H 12.5 (APR 15) Hgb 13.4 (APR 18) 13.8 (APR 17) 12.8 (OCT 16) 12.7 (OCT 15) Hct 39.2 (APR 18) 39.6 (OCT 17) 38.3 (OCT 16) 37.0 (OCT 15) Plt 271 (APR 18) 267 (OCT 17) 226 (OCT 16) 203 (OCT 15) Na 139 (APR 18) 137 (OCT 17) 138 (OCT 16) 142 (OCT 15) K 3.9 (APR 18) 3.7 (more content not included)... [facility] 05-03-2023 Note Admission Informatio n Admission Information Patient: Dallas James : 1975 Date of Admission: 04/27/2023 19:54:00 Date of Discharge: Code Status: Full Resuscitation PCP: Andrea PATEL, Ward Sorensen Consult: Radha PATEL, Filippo [facility] Hospital Course Summary: This is a 48-year-old female with a history of multiple sclerosis on ozanimod, avascular necrosis of the left hip, DVT, Adriana-Núñez tear, multiple gastric ulcers, chronic pain, drug-seeking behavior, factitious disorder and Munchhausen syndrome who presents the ED complaining of relapsing multiple sclerosis symptoms for the last 3 days. In the ED vital signs were stable. UA shows a WBC of 1 and RBC of 0. ED physician spoke with neurologist on-call Dr. Garcia. He recommends IV methylprednisone 1 g. Assessment: Relapsing multiple sclerosis symptoms History of avascular necrosis of the left hip History of deep vein thrombosis History of Adriana-Núñez tear and multiple gastric ulcers Chronic pain history of drug-seeking behavior, factitious disorder and Munchhausen syndrome Plan: continue care on 6th floor venous doppler pending patient getting a new midline placed currently to receive the rest of her solumedrol 2 more doses according to review of Dr. Garcia's note Continues on Dilaudid every 4 hours for breakthrough pain as well as her Percocet and tramadol. Neurochecks and fall precautions DVT prophylaxis--enoxaparin Medical necessity for ongoing hospitalization: ongoing symptom management Total Time Spent in patient care: approximately 25 minutes. Medications New Medications [id number], [address], [place] [id number], [phone] DULoxetine (DULoxetine 30 mg oral delayed release capsule) 30 Milligram Oral (given by mouth) 2 times a day for 30 Days. Refills: 0. Last Dose: Medications That Were Updated - Follow Current Instructions [id number], [address], [place] [id number], [phone] Current pregabalin (Lyrica 150 mg oral capsule) 150 Milligram Oral (given by mouth) 3 times a day for 30 Days. Refills: 0. Last Dose: Medications that have not changed Other Medications amLODIPine (amLODIPine 10 mg oral tablet) 1 Tabs Oral (given by mouth) once a day (in the morning). Last Dose: conjugated estrogens (Premarin 0.625 mg oral tablet) 1 Tabs Oral (given by mouth) once a day (in the morning). Last Dose: DME Refills: 0. Last Dose: LORazepam (LORazepam 1 mg oral tablet) 1 Tabs Oral (given by mouth) 3 times a day. pt takes scheduled. Last Dose: oxyCODONE-acetaminophen (oxyCODONE-acetaminophen 10 mg-325 mg oral tablet) 1 Tabs Oral (given by mouth) 4 times a day as needed as needed for pain. Last Dose: ozanimod (Zeposia 0.92 mg oral capsule) 1 Capsules Oral (given by mouth) every day. Last Dose: traMADol (traMADol 50 mg oral tablet) 1 Tabs Oral (given by mouth) 4 times a day as needed as needed for pain. Last Dose: Discharge Plan Patient was discharged home independently with medication changes as listed above she can follow-up Dr. Garcia in the outpatient setting Patient Discharge Condition Stable Procedure/Surgical History Cholecystectomy Cervical spinal fusion (07/18/1999) Esophagogastroduodenoscopy (11/23/2017) Esophagogastroduodenoscopy (08/26/2019) Insertion Implantable Venous Access Port (Left) (03/28/2020) Fusion Spine Lumbar Posterior with Navigation (01/05/2021) Electronically signed by Joel STAUFFER, Ivet Wise 05/03/23 16:56 EDT [facility] Comment on above: Order Comment: Pt di d not leave 04-28-2023 Note Chief Complaint Multiple sclerosis symptoms Reason for Consultation Evaluate for worsening of multiple sclerosis associated with more pain and weakness in the legs left greater than right History of Present Illness This is a 48-year-old female well-known to me with a history of multiple sclerosis dating back to 2014 and a history of bilateral aseptic necrosis involving both hips with significant improvement from MRIs in January but only mild disease now on the left and no disease seen on the right who just was in the hospital from January 28, 2022 for exacerbation of MS being readmitted because of increased weakness in her left leg associated with shooting pain behind the eyes as well as into the arms associated with increased inability to walk. She presented to the emergency room late last night she will receive their first dose of IV Solu-Medrol last night and will receive 4 more doses at a gram a day for 5 days. When she was in the hospital in January she initially had IVIG for 3 days which she was unable to tolerate but given that her MRIs of her hip look much better we did give her a course of IV Solu-Medrol a gram a day for 5 days. Her last brain MRI was in January 2023 and it was done without and with contrast and it also included the orbits and it did show stable mild to moderate white matter disease and some questionable demyelination of her left optic nerve. She has had multiple hospitalizations for her MS although at times some of her weakness does not appear organic. She does suffer from a chronic pain syndrome she is using Lyrica 100 mg 3 times a day Cymbalta 60 mg 2 capsules daily Percocet 10 mg every 4 hours as needed and tramadol 50 mg 4 times a day. She has on a pain contract and is always passed her toxicology screens. Pertinent labs UA 1 WBC no RBCs GFR greater than 60 calcium 8.9 phosphorus 3.6 magnesium 2 C-reactive protein 0.22 COVID-19 negative she does have very poor venous access she already has a line placed by ultrasound guidance last night. She is alert and coherent she is afebrile she has been using Zeposia 0.92 mg daily for her MS previous medicines have included Aubagio and Gilenya. She is receptive to 4 more days of IV Solu-Medrol it was very encouraging that her MRI of the hip showed significant improvement. She also required a previous lumbar surgery in December 2020 when she presented with radicular symptoms with good results. Review of Systems Constitutional: [No fevers, chills, sweats] Eye: [No recent visual problems] ENMT: [No ear pain, nasal congestion, sore throat] Respiratory: [No shortness of breath, cough] Cardiovascular: [No Chest pain, palpitations, syncope] Gastrointestinal: [No nausea, vomiting, diarrhea] Genitourinary: [No hematuria] Bossman/Lymph: [Negative for bruising tendency, swollen lymph glands] Endocrine: [Negative for excessive thirst, excessive hunger] Musculoskeletal: has had diffuse muscle pain Integumentary: [No rash, pruritus, abrasions] Neurologic: [Alert & oriented X 4] Psychiatric: [No anxiety, depression] Physical Exam Vitals & Measurements T: 36.7 ?C (Oral) TMIN: 36.4 ?C (Oral) TMAX: 36.7 ?C (Oral) HR: 77 (Peripheral) RR: 16 BP: 125/83 SpO2: 94% HT: 169 cm WT: 67.9 kg BMI: 24.26 48-year-old female well-developed well-nourished alert oriented x3 friendly cooperative for exam HEENT shows the head is normocephalic atraumatic pupils react to light neck is supple there is no papilledema. Cranial nerves II through XII show full extraocular movements jaw and facial strength are normal hearing is intact tongue trapezius and sternocleidomastoid strength are normal motor exam shows good strength in her upper extremity she has giveaway strength in her left leg some minimal weakness in the right leg deep tendon reflexes are 1+ throughout toes are downgoing there is no gross dysmetria Additional Vitals No qualifying data available. Assessment/Plan 1. Multiple sclerosis exacerbation I did increase her Lyrica to 150 mg 3 times a day I did order her methylprednisolone at a gram a day for 4 more days. Time spent with patient chart electronic records 55 minutes Orders: diphenhydrAMINE, 25 mg, IV Push, Injection, q4hr, PRN itching, First Dose: 04/28/23 9:08:00 EDT, Dispense From Location: [id number], 04/28/23 9:08:00 EDT pregabalin, 150 mg, Oral, Cap, TID, First Dose: 04/28/23 14:00:00 EDT, Dispense From Location: [id number], 04/28/23 13:17:00 EDT Problem List/Past Medical History Ongoing Avascular necrosis of bone of left hip Chronic pain Deep vein thrombosis (DVT) of right upper extremity Degenerative tear of acetabular labrum of right hip Drug-seeking behavior H/O factitious disorder Hypertension Intentional self-exposure to bleach Adriana-Núñez tear Multiple gastric ulcers Multiple sclerosis Munchausen's syndrome Historical No qualifying data Procedure/Surgical History Cholecystectomy Cervical spinal fusion (07/18/1999) Esophagogastroduodenoscopy (11/23/2017) Esoph (more content not included)... [facility] 04-28-2023 Note Chief Complaint Multiple sclerosis symptoms Assessment/Plan Brief Hospital Course Summary: This is a 48-year-old female with a history of multiple sclerosis on ozanimod, avascular necrosis of the left hip, DVT, Adriana-Núñez tear, multiple gastric ulcers, chronic pain, drug-seeking behavior, factitious disorder and Munchhausen syndrome who presents the ED complaining of relapsing multiple sclerosis symptoms for the last 3 days. In the ED vital signs were stable. UA shows a WBC of 1 and RBC of 0. ED physician spoke with neurologist on-call Dr. Garcia. He recommends IV methylprednisone 1 g. Assessment: _ Relapsing multiple sclerosis symptoms History of avascular necrosis of the left hip History of deep vein thrombosis History of Adriana-Núñez tear and multiple gastric ulcers Chronic pain history of drug-seeking behavior, factitious disorder and Munchhausen syndrome Plan: _ In the ED vital signs were stable. UA shows a WBC of 1 and RBC of 0. ED physician spoke with neurologist on-call Dr. Garcia. He recommends IV methylprednisone 1 g. Continue other home medications Neurochecks and fall precautions Monitor vital signs and letting her food DVT prophylaxis Medical necessity for ongoing hospitalization: _ Total Time Spent in patient care: approximately 45_ minutes. Code Status: Full Resuscitation History of Present Illness This is a 48-year-old female with a history of multiple sclerosis on ozanimod, avascular necrosis of the left hip, DVT, Adriana-Núñez tear, multiple gastric ulcers, chronic pain, drug-seeking behavior, factitious disorder and Munchhausen syndrome who presents the ED complaining of multiple sclerosis symptoms. Patient reports that her multiple sclerosis symptoms are back. She reports left eye blurry vision, left-sided facial numbness and tingling and left lower extremity weakness. This have been going on for the last 3 days. She denies any other weakness numbness or tingling in other areas. She denies any dizziness dysarthria or dysphagia. Patient has been taking her medication ozanimod regularly. Otherwise patient denies any fever chills or sweating. She denies any nausea vomiting abdominal pain change in bowel habit or color. No urinary complaints. No skin rash. She denies any cough shortness of breath chest pain wheezing orthopnea or leg swelling. In the ED vital signs were stable. UA shows a WBC of 1 and RBC of 0. ED physician spoke with neurologist on-call Dr. Garcia. He recommends IV methylprednisone 1 g. Review of systems All 10 systems have been reviewed Objective Physical Exam General: Alert oriented x3, patient appears in no acute cardiorespiratory distress. Eye: normal conjunctiva HENT: Normocephalic, moist oral mucosa, no scleral icterus. Neck: Supple, non-tender, no lymphadenopathy. Lungs: Clear to auscultation, no crepitations or wheeze. Heart: S1-S2 is normal. No rubs or gallops. Abdomen: Soft, non-tender, non-distended, normal bowel sounds, no masses Extremities: No cyanosis clubbing or edema Skin: no open sores or wounds Neurologic: Decreased sensation on the left facial area. Strength 3 out of 5 left lower extremity. Decreased sensation left lower extremity. Rest intact strength and sensation. Deep tendon reflex 2+ throughout. Psychiatric: Calm and cooperative Vitals & Measurements T: 36.4 ?C (Oral) HR: 73 (Peripheral) RR: 16 BP: 141/91 SpO2: 97% HT: 169 cm WT: 69.3 kg BMI: 24.26 Additional Vitals No qualifying data available. Problem List/Past Medical History Ongoing Avascular necrosis of bone of left hip Chronic pain Deep vein thrombosis (DVT) of right upper extremity Degenerative tear of acetabular labrum of right hip Drug-seeking behavior H/O factitious disorder Hypertension Intentional self-exposure to bleach Adriana-Núñez tear Multiple gastric ulcers Multiple sclerosis Munchausen's syndrome Procedure/Surgical History Cholecystectomy Cervical spinal fusion (07/18/1999) Esophagogastroduodenoscopy (11/23/2017) Esophagogastroduodenoscopy (08/26/2019) Insertion Implantable Venous Access Port (Left) (03/28/2020) Fusion Spine Lumbar Posterior with Navigation (01/05/2021) Medications Inpatient acetaminophen, 650 mg, Oral, q6hr, PRN acetaminophen, 650 mg, Oral, q6hr, PRN enoxaparin, 40 mg= 0.4 mL, Subcutaneous, Daily morphine, 2 mg= 1 mL, IV Push, q2hr, PRN naloxone, 0.4 mg= 1 mL, IV Push, q2min, PRN Normal Saline Flush 0.9% injectable solution, 10 mL, IV Push, As Indicated, PRN Normal Saline Flush 0.9% injectable solution, 10 mL, IV Push, BID Home amLODIPine 10 mg oral tablet, 10 mg= 1 tabs, Oral, qAM amoxicillin 875 mg oral tablet, 875 mg= 1 tabs, Oral, BID DME, See Instructions LORazepam 1 mg oral tablet, 1 mg= 1 tabs, Oral, TID Lyrica 100 mg oral capsule, 100 mg= 1 caps, Oral, TID magnesium oxide 250 mg oral tablet, 500 mg= 2 tabs, Oral, qAM potassium chloride 99 mg oral tablet, 99 mg= 1 tabs, Oral, qAM Premari (more content not included)... [facility] 02-05-2023 Note Admission Informatio n Patient: Dallas James : 1975 Date of Admission: 01/28/2023 08:30:57 Date of Discharge: 02/05/2023 13:25:00 Code Status: Full Resuscitation PCP: Ward Mendez MD Consult: Filippo Garcia MD Follow Up with Provider: With: Address: When: Filippo Garcia MD In 1 month Comments: Call for followup appointment With: Address: When: Ward Mendez MD [address] [place] [id number] [phone] Within 1 week Comments: Call for followup appointment Brief Hospital Course Summary: This is a 47 Years old Female with pertinent history of it DVT, avascular necrosis of the hip bone hypertension, MS along with multiple medical problems brought in from Home with eye pain. Patient is admitted for optic neuritis from her MS. she was initially treated with IVIG however developed severe nausea vomiting and headache she was then switched to Solu-Medrol. Patient finished 5-day course of 1 g Solu-Medrol. Patient was discharged home independently flare resolved patient may follow-up with Dr. Garcia at discharge no additional narcotics were prescribed at discharge Assessment: Optic neuritis versus MS flare History of DVT, avascular necrosis of the hip bone hypertension, MS Fall Medications New Medications [id number], [address], [place] [id number], [phone] nystatin (nystatin 100,000 units/mL oral suspension) 5 Milliliter Oral (given by mouth) 4 times a day for 7 Days. Refills: 0. Last Dose: Medications That Have Not Changed Other Medications amLODIPine (amLODIPine 10 mg oral tablet) 1 Tabs Oral (given by mouth) once a day (in the morning). Last Dose: amoxicillin (amoxicillin 875 mg oral tablet) 1 Tabs Oral (given by mouth) 2 times a day for 10 Days. Last Dose: conjugated estrogens (Premarin 0.9 mg oral tablet) 1 Tabs Oral (given by mouth) once a day (in the morning). Last Dose: DME Refills: 0. Last Dose: LORazepam (LORazepam 1 mg oral tablet) 1 Tabs Oral (given by mouth) 3 times a day. pt takes scheduled. Last Dose: magnesium oxide (magnesium oxide 250 mg oral tablet) 2 Tabs Oral (given by mouth) once a day (in the morning). for spasms. Last Dose: ozanimod (Zeposia 0.23 mg-0.46 mg oral capsule) 1 Capsules Oral (given by mouth) once a day (in the morning). Last Dose: potassium chloride (potassium chloride 99 mg oral tablet) 1 Tabs Oral (given by mouth) once a day (in the morning). for spasms. Last Dose: pregabalin (Lyrica 100 mg oral capsule) 1 Capsules Oral (given by mouth) 3 times a day. Last Dose: traMADol (traMADol 50 mg oral tablet) 1 Tabs Oral (given by mouth) 4 times a day as needed as needed for pain. Last Dose: Discharge Plan Patient was discharged home independently with no medication changes Patient Discharge Condition Stable Procedure/Surgical History Cholecystectomy Cervical spinal fusion (07/18/1999) Esophagogastroduodenoscopy (11/23/2017) Esophagogastroduodenoscopy (08/26/2019) Insertion Implantable Venous Access Port (Left) (03/28/2020) Fusion Spine Lumbar Posterior with Navigation (01/05/2021) Electronically signed by Ivet Kirkland 02/05/23 14:50 [facility] 02-02-2023 Note Procedure: MRI of th e bony pelvis without contrast. Sequences: Coronal, sagittal, and axial inversion recovery; coronal and axial T1. Clinical Information: 47-year-old female with bilateral hip pain and chronic steroid use for multiple sclerosis. Suspected osteonecrosis. Comparison: CT left hip 01/29/2023. CT pelvis 04/05/2022. Findings: Bones: Sagittal STIR hyperintensity within the superior left femoral head and the subchondral marrow. Corresponding linear T1 hypointensity slightly displaced from the subchondral marrow and paralleling the articular surface. Normal signal intensity of the right femoral head. Joints: No substantial chondromalacia, marginal osteophytes, or effusion. Muscles/tendons: Severe STIR hyperintensity within the paraspinal muscles at the level of the sacrum caudal to prior multilevel lumbar spine fusion, likely postoperative atrophy. Body wall: Scarring of the midline lower back. No discrete mass or pathologic lymph node enlargement. Intrapelvic viscera: Surgically absent uterus. Colonic diverticulosis. IMPRESSION: 1. Subtle signal abnormalities in the subchondral marrow at the superior aspect of the left femoral head, nonspecific but possible early changes of avascular necrosis. Consider follow-up with CT or MRI as clinically indicated. 2. Normal signal intensity of the right femoral head. 3. Likely postoperative atrophy with concomitant signal abnormality in the lower paraspinal muscles. Final Dictated by: Joesph Miller MD Dictated DT/TM: 02/02/2023 3:15 pm Signed by: Joesph Miller MD Signed (Electronic Signature): 02/02/2023 3:27 pm (If Report Is Signed, Electronically Signed in Other Vendor System) [facility] 01-30-2023 Note While receiving repo rt I was informed pt refused IVIG despite education during the day. I assessed and educated the patient at 1815 and recommended the pt allow me to start her IVIG. The patient refused the IVIG stating that since she is experiencing nausea and vomiting she is refusing the IVIG. Electronically signed by Johny Acevedo 01/30/23 18:31 EDT [facility] 01-29-2023 Note Procedure: AP and la teral views of the left ankle. Clinical information: 47-year-old female with pain. Comparison: None. Findings: Bones: No acute fracture, dislocation, or aggressive abnormality. Joints: Intact spaces. No tibiotalar effusion. Soft tissues: Mild soft tissue swelling. IMPRESSION: Mild soft tissue swelling. No acute osseous abnormality. Final Dictated by: Joesph Miller MD Dictated DT/TM: 01/29/2023 1:41 pm Signed by: Joesph Miller MD Signed (Electronic Signature): 01/29/2023 1:42 pm (If Report Is Signed, Electronically Signed in Other Vendor System) [facility] 01-29-2023 Note Procedure: AP, obliq ue, and lateral views of the left wrist. Clinical Information: 47-year-old female fell. Left wrist soreness. Comparison: From the [facility] 12/11/2022. Findings: Bones: Probable prior high-grade partial resection of the trapezium. Osteopenia. No acute fracture, dislocation, or aggressive lesion. Joints: Mild triscaphe degenerative joint disease (DJD). Soft tissues: Swelling about the carpus. IMPRESSION: Soft tissue swelling. No acute osseous abnormality. Final Dictated by: Joesph Miller MD Dictated DT/TM: 01/29/2023 11:55 am Signed by: Joesph Miller MD Signed (Electronic Signature): 01/29/2023 11:57 am (If Report Is Signed, Electronically Signed in Other Vendor System) [facility] 01-29-2023 Note Procedure: AP view o f the pelvis and frog-leg lateral view of the left hip. Clinical Information: 47-year-old female with fall. Bilateral hip pain, mostly on the left. Comparison: 05/04/2021. Findings: Bones: Osteopenia. No acute fracture, dislocation, or aggressive abnormality. Joints: Minimal sacroiliac (SI) degenerative changes. Prior posterior lumbar interbody fusion (PLIF) at L5-S1. No gross evidence for hardware failure or loosening. Soft tissues: Unremarkable. IMPRESSION: No acute abnormality of the pelvis or left hip. Final Dictated by: Joesph Miller MD Dictated DT/TM: 01/29/2023 11:02 am Signed by: Joesph Miller MD Signed (Electronic Signature): 01/29/2023 11:04 am (If Report Is Signed, Electronically Signed in Other Vendor System) [facility] 01-28-2023 Note Chief Complaint Pt states that she was Seen in Dr. Stephen yesterday and that he would like the patient to be evaluated in the ER for admission of MS exacerbation, and for a 5 day IVIG treatment. Pt complains of Blurred vision and pain in extemites. Assessment/Plan Brief Hospital Course Summary: This is a 47 Years old Female with pertinent history of it DVT, avascular necrosis of the hip bone hypertension, MS along with multiple medical problems brought in from Home with eye pain. Patient is admitted for optic neuritis. Assessment: Optic neuritis versus MS flare History of DVT, avascular necrosis of the hip bone hypertension, MS Plan: Admit to 6 floor Pain control Consult neurology neurology has recommended IVIG for 5 days IVIG as ordered Regular diet No further labs unless neurology wants them Vitals every 4 Medical necessity for ongoing hospitalization: ongoing workup for active diagnosis Total Time Spent in patient care: approximately 55 minutes. Code Status: Full Resuscitation History of Present Illness This is a 47-year-old female with past medical history significant for MS, DVT, avascular necrosis of the hip, Munchhausen syndrome, hypertension, gastric ulcers. She states that she allegedly saw Dr. Garcia yesterday and he told her to come to the emergency department for a 5-day IVIG treatment for an MS exacerbation. She complains of blurred vision and pain in her extremities. She states that approximately 4 AM on Tuesday she woke up started having left eye pain specific to eye movements there is no erythema or edema noted she does state that she feels that her eye has been tearful she is also having mild muscle cramping. According to ED physician ocular pressures normal and no abnormal findings.. Should not is still currently complaining of severe pain in her left eye no improvement since she was admitted. Review of Systems 10 point ROS completed and negative except what is mentioned subjective interview Objective General: Alert and oriented, well nourished, no acute distress. Eye: PERRL, EOMI, normal conjunctiva. HENT: Normocephalic, moist oral mucosa, no scleral icterus. Neck: Supple, non-tender, no carotid bruits, no JVD, no lymphadenopathy. Lungs: Clear to auscultation, non-labored respiration on room air Heart: Normal rate, regular rhythm, no murmur, gallop or edema. Abdomen: Soft, non-tender, non-distended, normal bowel sounds Musculoskeletal: Normal range of motion and strength, no tenderness or swelling. Skin: Skin is warm, dry and pink, no rashes or lesions. Neurologic: Awake, alert, and oriented X3. Psychiatric: Cooperative, appropriate mood and affect. Vitals & Measurements T: 36.5 ?C (Oral) TMIN: 36.5 ?C (Oral) TMAX: 36.7 ?C (Oral) HR: 79 (Peripheral) HR: 70 (Monitored) RR: 16 BP: 147/93 SpO2: 98% HT: 170.2 cm WT: 64.00 kg WT: 64 kg (Dosing) BMI: 22.09 Problem List/Past Medical History Ongoing Avascular necrosis of bone of left hip Chronic pain Deep vein thrombosis (DVT) of right upper extremity Degenerative tear of acetabular labrum of right hip Drug-seeking behavior H/O factitious disorder Hypertension Intentional self-exposure to bleach Adriana-Núñez tear Multiple gastric ulcers Multiple sclerosis Munchausen's syndrome Historical No qualifying data Procedure/Surgical History Cholecystectomy Cervical spinal fusion (07/18/1999) Esophagogastroduodenoscopy (11/23/2017) Esophagogastroduodenoscopy (08/26/2019) Insertion Implantable Venous Access Port (Left) (03/28/2020) Fusion Spine Lumbar Posterior with Navigation (01/05/2021) Medications Inpatient acetaminophen, 650 mg, Oral, q6hr, PRN acetaminophen, 650 mg, Oral, q6hr, PRN amLODIPine, 10 mg, Oral, qAM amoxicillin, 875 mg, Oral, BID Dilaudid, 1 mg= 1 mL, IV Push, q4hr, PRN diphenhydrAMINE, 25 mg= 0.5 mL, IV Push, q6hr, PRN enoxaparin, 40 mg= 0.4 mL, Subcutaneous, Daily Gammagard Liquid, 30 g= 300 mL, IV Piggyback, q24hr hydrocodone-acetaminophen 5 mg-325 mg oral tablet, 1 tabs, Oral, q4hr, PRN hydrocodone-acetaminophen 5 mg-325 mg oral tablet, 2 tabs, Oral, q4hr, PRN LORazepam, 1 mg, Oral, TID Lyrica, 100 mg, Oral, TID magnesium oxide, 400 mg, Oral, qAM naloxone, 0.4 mg= 1 mL, IV Push, q2min, PRN Normal Saline Flush 0.9% injectable solution, 10 mL, IV Push, As Indicated, PRN Normal Saline Flush 0.9% injectable solution, 10 mL, IV Push, BID Pepcid, 20 mg= 2 mL, IV Push, [id number] Times Premarin, 0.9 mg, Oral, qAM traMADol, 50 mg, Oral, QID, PRN Home amLODIPine 10 mg oral tablet, 10 mg= 1 tabs, Oral, qAM amoxicillin 875 mg oral tablet, 875 mg= 1 tabs, Oral, BID DME, See Instructions LORazepam 1 mg oral tablet, 1 mg= 1 tabs, Oral, TID Lyrica 100 mg oral capsule, 100 mg= 1 caps, Oral, TID magnesium oxide 250 mg oral tablet, 500 mg= 2 tabs, Oral, qAM potassium chloride 99 mg oral tablet, 99 mg= 1 tabs, Oral, qAM Premarin 0.9 mg oral tablet, 0.9 mg= 1 tabs, Ora (more content not included)... [facility] 12-24-2022 Note Orthopedic Surgery Subjective Chief complaint: Chief Complaint Patient presents with Left Hand - Follow-up Pt fell last night Dallas James is a 47 y.o. year old female presenting for evaluation of A new injury to her left hand. We just saw her a couple days ago for her first postoperative visit after Hedrick arthroplasty on the left palm. She states that she was walking down a very steep hill going [place] the river last night when she lost her balance and fell onto an outstretched left arm. She was seen at [facility] where x-rays were taken. There was concern about a fracture of the trapezium and the base of the thumb metacarpal. She was placed into a short arm thumb spica fiberglass splint. She comes in today complaining of pain and swelling in the hand. Previous Treatments: Splinting Patient History Past Surgical History: Procedure Laterality Date BACK SURGERY CAGE IMPLANTED CARPAL TUNNEL RELEASE CERVICAL FUSION SECTION, LOW TRANSVERSE COLONOSCOPY HYSTERECTOMY PORTACATH PLACEMENT MULTIPLE PORTS PLACED. SPINAL CORD STIMULATOR IMPLANT AND REMOVAL TONSILLECTOMY UPPER GASTROINTESTINAL ENDOSCOPY Past Medical History: Diagnosis Date Chronic pain disorder NECK / LOWER BACK Diabetes mellitus (CMS/HCC) DVT (deep venous thrombosis) (CMS/HCC) GERD (gastroesophageal reflux disease) GI (gastrointestinal bleed) Hypertension Left-sided weakness Multiple sclerosis (CMS/HCC) Munchausen syndrome PTSD (post-traumatic stress disorder) Pulmonary embolism (CMS/HCC) S/P IVC filter Substance abuse (CMS/HCC) Objective General: There is no height or weight on file to calculate BMI. No acute distress, comfortable Respiratory: Unlabored breathing with normal rate, no cough Cardiovascular: Warm well perfused extremities Psych: Appropriate mood behavior Examination of the left hand shows her to have considerable swelling over the dorsum of the hand. Some of this may be just the Mallorie bandage being tight. I removed her splint. The wound is healing well. She did not open that. Despite all the swelling she has no tenderness of the ulnar aspect of the hand over the small, ring or long fingers. There is mild tenderness of the base of the index finger. She does have some tenderness along the base of the thumb and thenar eminence and area of the previous surgery. Today on stressing the thumb is stable to axial load and lateral subluxation. Sensation is intact to light touch, and there is no capillary refill. Imaging: the radiology report was available, but I could not see the actual images today. The report states a possible small fracture of the trapezium and possibly something at the base of the thumb metacarpal. Assessment/Plan Dallas James is a 47 y.o. year old female with Acute postoperative pain Arthritis of carpometacarpal (CMC) joint of left thumb PLAN: I am pretty sure that the radiology findings are just consistent with previous surgery with resection of the trapezium, and drilling hole through the base of the thumb metacarpal. I do not think it is worth repeating x-rays, and I will try to access those over the weekend or on Tuesday. I am going to place her into a removable thumb spica splint to protect this. If the x-ray shows something concerning, I will call her. Otherwise, we will see her back in 4 weeks as scheduled. [facility] 12-21-2022 Note Orthopedic Surgery Subjective Chief complaint: Chief Complaint Patient presents with Left Hand - Post-op Dallas James is a 47 y.o. year old female presenting for follow-up post hedrick's arthroplasty on the left hand on 12/06/22. 5 days post-op her granddaughter fell on her left arm, she heard a pop in her forearm and has been experiencing a constant sharp and crampy pain since then. Previous Treatments: Perc-5 for breakthrough pain, Muscle relaxer Patient History Past Surgical History: Procedure Laterality Date BACK SURGERY CAGE IMPLANTED CARPAL TUNNEL RELEASE CERVICAL FUSION SECTION, LOW TRANSVERSE COLONOSCOPY HYSTERECTOMY PORTACATH PLACEMENT MULTIPLE PORTS PLACED. SPINAL CORD STIMULATOR IMPLANT AND REMOVAL TONSILLECTOMY UPPER GASTROINTESTINAL ENDOSCOPY Past Medical History: Diagnosis Date Chronic pain disorder NECK / LOWER BACK Diabetes mellitus (CMS/HCC) DVT (deep venous thrombosis) ([facility]/HCC) GERD (gastroesophageal reflux disease) GI (gastrointestinal bleed) Hypertension Left-sided weakness Multiple sclerosis ([facility]/HCC) Munchausen syndrome PTSD (post-traumatic stress disorder) Pulmonary embolism ([facility]) S/P IVC filter Substance abuse ([facility]) Objective General: There is no height or weight on file to calculate BMI. No acute distress, comfortable Respiratory: Unlabored breathing with normal rate, no cough Cardiovascular: Warm well perfused extremities Psych: Appropriate mood behavior On examination there is: -Numbness in palmar aspect of left hand, -Fingers of left hand are intact to sensation -Tenderness on palpation of medial aspect of wrist to medial aspect of forearm Assessment/Plan Dallas James is a 47 y.o. year old female presenting for follow up post left hedrick's arthroplasty on 12/06/22. PLAN: The sutures were removed in the clinic today. I instructed her on how to do scar massage and then apply lotion to the incisional site. A removable splint was applied, which can be removed for bathing and gentle range of motion. Instructions were given on activity restrictions until the next appointment. We will see her back in the clinic 4 wks. As the teaching physician, I have personally performed or re-performed the history of present illness, physical exam and medical decision-making activities of the encounter and verified the medical student's documentation. I made pertinent changes as necessary to ensure accurate documentation. Additional Comments: Agree with above [facility] 12-07-2022 Note Attempted to reach p atient on both listed numbers (Home and Mobile) regarding recent procedure with Dr. Campos (12/06) as well as to confirm her post-operative appointment on 12/21. Patient was unavailable and voicemail box was full (Home number) and listed Mobile number is not in service. [facility] 12-06-2022 Note Patient: Dallas James Procedure Summary Date: 12/06/22 Room / Location: [facility] OR [address] [place] [address] GIS OR Anesthesia Start: 951 Anesthesia Stop: 1121 Procedure: BURTONS ARTHROPLASTY (Left: Thumb) Diagnosis: Arthritis of carpometacarpal (CMC) joint of left thumb (Arthritis of carpometacarpal (CMC) joint of left thumb [M18.12]) Surgeons: Bam Campos MD Responsible Provider: Minh Kimball MD Anesthesia Type: regional ASA Status: 2 Anesthesia Type: regional Vitals Value Taken Time BP 140/87 12/06/22 1120 Temp 36.2 ???C (97.2 ???F) 12/06/22 1120 Pulse 70 12/06/22 1120 Resp 16 12/06/22 1120 SpO2 100 % 12/06/22 1120 Anesthesia Post Evaluation Patient location during evaluation: PACU Patient participation: complete - patient participated Level of consciousness: awake Pain score: 1 Pain management: adequate Airway patency: patent Cardiovascular status: acceptable Respiratory status: acceptable Patient is hemodynamically stable and is able to be discharged from PACU per anesthesia protocol. No notable events documented. [facility] 12-06-2022 Note Patient: Dallas James Procedure Summary Date: 12/06/22 Room / Location: [facility] OR [address] [place] [address] [facility] OR Anesthesia Start: 951 Anesthesia Stop: 1121 Procedure: BURTONS ARTHROPLASTY (Left: Thumb) Diagnosis: Arthritis of carpometacarpal (CMC) joint of left thumb (Arthritis of carpometacarpal (CMC) joint of left thumb [M18.12]) Surgeons: Bam Campos MD Responsible Provider: Minh Kimball MD Anesthesia Type: regional ASA Status: 2 Anesthesia Post [facility] Patient Monitor: direct observation Transport: uneventful Patient condition is: stable [facility] 12-06-2022 Note Central Venous Line: Date/Time: 12/06/2022 10:06 AM A central venous line was placed in the pre-op for the following indication(s): central venous access. Sterility preparation included the following: provider hand hygiene performed prior to central venous catheter insertion, all 5 sterile barriers used (gloves, gown, cap, mask, large sterile drape) during central venous catheter insertion, antiseptic used during central venous catheter insertion and skin prep agent completely dried prior to procedure. The patient was placed in Trendelenburg position. Right internal jugular vein was prepped. The site was prepped with Chlorhexidine. Catheter size: 20g angiocath 5in. Number of Lumens: single lumen During the procedure, the following specific steps were taken: target vein identified, needle advanced into vein and blood aspirated and guidewire advanced into vein. Seldinger technique used Procedure performed using ultrasound guidance. Sterile gel and probe cover used in ultrasound-guided central venous catheter insertion. Intravenous verification was obtained by ultrasound and venous blood return. Post insertion care included: all ports aspirated, all ports flushed easily, guidewire removed intact and dressing applied. During the procedure the patient experienced: patient tolerated procedure well with no complications. Staffing Performed: resident/EMBEDDED SOFTWARE DEVELOPER/CAA Anesthesiologist: Minh Kimball MD Resident/EMBEDDED SOFTWARE DEVELOPER: Jeronimo Barron MD [facility] 12-06-2022 Note Peripheral Block Patient location during procedure: pre-op Start time: 12/06/2022 9:29 AM End time: 12/06/2022 9:44 AM Reason for block: primary anesthetic Staffing Performed: anesthesiologist Anesthesiologist: Minh Kimball MD Preanesthetic Checklist Completed: patient identified, IV checked, site marked, risks and benefits discussed, surgical consent, monitors and equipment checked and pre-op evaluation Peripheral Block Patient position: supine Prep: ChloraPrep Patient monitoring: continuous pulse ox Block type: supraclavicular brachial plexus Laterality: left Injection technique: single-shot Guidance: ultrasound guided Local infiltration: bupivicaine Infiltration strength: 0.5 % Dose: 20 mL Needle Needle gauge: 22 G Needle length: 2 in Needle localization: ultrasound guidance Medications Administered Midazolam (VERSED) IV, 2 mg fentaNYL (SUBLIMAZE) IV, 100 mcg Assessment Injection assessment: negative aspiration for heme, no paresthesia on injection and incremental injection Heart rate change: no Slow fractionated injection: yes [facility] 12-06-2022 Note Patient: Dallas James Procedure Information Date/Time: 12/06/22 1000 Procedure: BURTONS ARTHROPLASTY (Left: Thumb) Location: [facility] OR [address] [place] [address] OR Surgeons: Bam Campos MD Relevant Problems Anesthesia (within normal limits) Cardio > 4 METS denies chest pain/SOB Neuro/Psych multiple sclerosis Pulmonary (within normal limits) Other (+) Arthritis of carpometacarpal (CMC) joint of left thumb Clinical information reviewed: Tobacco Allergies Meds Med Hx Surg Hx Fam Hx Physical Exam Airway Mallampati: II TM distance: >3 FB Neck ROM: full Cardiovascular - normal exam Dental Pulmonary - normal exam Abdominal Anesthesia Plan ASA 2 regional The patient is not a current smoker. Patient was not previously instructed to abstain from smoking on day of procedure. Patient did not smoke on day of procedure. intravenous induction Anesthetic plan and risks discussed with patient. Plan discussed with resident. Additional Equipment Requests [facility] 11-17-2022 Note Orthopedic Surgery Subjective Chief complaint: Chief Complaint Patient presents with Left Thumb - New Patient Dallas James is a 47 y.o. year old female presenting for evaluation of pain at the basilar area of the left thumb. She states that this has been present for a little over a year. It is significantly getting worse fairly rapidly and starting to limit her ability to do her daily activities. She has tried a CMC wrap which helps a little bit she also had a corticosteroid injection which helped for about a month or so. She is done some research on this and feels as though she would like to try a soft tissue arthroplasty. Previous Treatments: Splinting and cortisone injection Patient History No past surgical history on file. Past Medical History: Diagnosis Date Diabetes mellitus ([facility]) Hypertension Objective General: There is no height or weight on file to calculate BMI. No acute distress, comfortable Respiratory: Unlabored breathing with normal rate, no cough Cardiovascular: Warm well perfused extremities Psych: Appropriate mood behavior Hand/Wrist Musculoskeletal Exam Inspection Left Left hand/wrist inspection is normal. Palpation Left Left hand palpation is normal. Thumb tenderness to palpation: carpometacarpal joint Dorsal hand - 1st metacarpal tenderness to palpation: CMC Range of Motion Left Hand Left hand range of motion is normal. Strength Left Hand Left hand strength is normal. Neurovascular Left Left neurovascular exam is normal. Special Tests Left Will's test: negative CMC grind test: positive Tinel's - carpal tunnel: negative Imaging: Imaging from outside showed some mild arthritic changes with some subluxation of the joint. Assessment/Plan Dallas James is a 47 y.o. year old female with Arthritis of carpometacarpal (CMC) joint of left thumb Encounter for pre-operative laboratory testing PLAN: We discussed options for treatment. She is a little bit on the younger side for this but her physical examination is clearly consistent with CMC joint arthritis. She would very much like to proceed with surgical treatment I think that is appropriate. We will set her up for a Hedrick arthroplasty of her left thumb. The surgical procedure along with the risks and benefits were discussed today in the clinic. Consent for the surgery was reviewed and signed. We will see them back in clinic following the procedure. [facility] 11-03-2022 Hospital Discharge instructions Patient Education 11/02/2022 23:37:09 Nonspecific Chest Pain, Adult Nonspecific Chest Pain, Adult Chest pain is an uncomfortable, tight, or painful feeling in the chest. The pain can feel like a crushing, aching, or squeezing pressure. A person can feel a burning or tingling sensation. Chest pain can also be felt in your back, neck, jaw, shoulder, or arm. This pain can be worse when you move, sneeze, or take a deep breath. Chest pain can be caused by a condition that is life-threatening. This must be treated right away. It can also be caused by something that is not life-threatening. If you have chest pain, it can be hard to know the difference, so it is important to get help right away to make sure that you do not have a serious condition. Some life-threatening causes of chest pain include: Heart attack. A tear in the body's main blood vessel (aortic dissection). Inflammation around your heart (pericarditis). A problem in the lungs, such as a blood clot (pulmonary embolism) or a collapsed lung (pneumothorax). Some non life-threatening causes of chest pain include: Heartburn. Anxiety or stress. Damage to the bones, muscles, and cartilage that make up your chest wall. Pneumonia or bronchitis. Shingles infection (varicella-zoster virus). Your chest pain may come and go. It may also be constant. Your health care provider will do tests and other studies to find the cause of your pain. Treatment will depend on the cause of your chest pain. Follow these instructions at home: Medicines Take [id number] and prescription medicines only as told by your health care provider. If you were prescribed an antibiotic medicine, take it as told by your health care provider. Do not stop taking the antibiotic even if you start to feel better. Activity Avoid any activities that cause chest pain. Do not lift anything that is heavier than 10 lb (4.5 kg), or the limit that you are told, until your health care provider says that it is safe. Rest as directed by your health care provider. Return to your normal activities only as told by your health care provider. Ask your health care provider what activities are safe for you. Lifestyle Do not use any products that contain nicotine or tobacco, such as cigarettes, e-cigarettes, and chewing tobacco. If you need help quitting, ask your health care provider. Do not drink alcohol. Make healthy lifestyle changes as recommended. These may include: ?Getting regular exercise. Ask your health care provider to suggest some exercises that are safe for you. ?Eating a heart-healthy diet. This includes plenty of fresh fruits and vegetables, whole grains, low-fat (lean) protein, and low-fat dairy products. A dietitian can help you find healthy eating options. ?Maintaining a healthy weight. ?Managing any other health conditions you may have, such as high blood pressure (hypertension) or diabetes. ?Reducing stress, such as with yoga or relaxation techniques. General instructions Pay attention to any changes in your symptoms. It is up to you to get the results of any tests that were done. Ask your health care provider, or the department that is doing the tests, when your results will be ready. Keep all follow-up visits as told by your health care provider. This is important. You may be asked to go for further testing if your chest pain does not go away. Contact a health care provider if: Your chest pain does not go away. You feel depressed. You have a fever. You notice changes in your symptoms or develop new symptoms. Get help right away if: Your chest pain gets worse. You have a cough that gets worse, or you cough up blood. You have severe pain in your abdomen. You faint. You have sudden, unexplained chest discomfort. You have sudden, unexplained discomfort in your arms, back, neck, or jaw. You have shortness of breath at any time. You suddenly start to sweat, or your skin gets clammy. You feel nausea or you vomit. You suddenly feel lightheaded or dizzy. You have severe weakness, or unexplained weakness or fatigue. Your heart begins to beat quickly, or it feels like it is skipping beats. These symptoms may represent a serious problem that is an emergency. Do not wait to see if the symptoms will go away. Get medical help right away. Call your local emergency services (911 in the [place] Do not drive yourself to the hospital. Summary Chest pain can be caused by a condition that is serious and requires urgent treatment. It may also be caused by something that is not life-threatening. Your health care provider may do lab tests and other studies to find the cause of your pain. Follow your health care provider's instructions on taking medicines, making lifestyle changes, and getting emergency treatment if symptoms become worse. Keep all follow-up visits as told by your health care provider. This includes visits for any further testing if your chest pain does not go away. This information is not intended to replace advice given to you by your health care provider. Make sure you discuss any questions you have with your health care provider. Document Revised: 09/17/2021 Document Reviewed: 09/17/2021 [employer] Patient Education 2022 [employer]. Follow Up Care 11/02/2022 15:59:01 With:RADHA MENDEZ Address: [id number] [place], [place] [id number] [facility] (1) When:11/05/2022 Comments:Return to the emergency room if your pain gets worse or any new symptoms. [facility] 07-27-2022 Note Admission and Discha rge Information Admit Date/Time:07/26/2022 23:29 Admitting Physician - Satish VALDEZ MD Consulting Physician - Mk Frazier MD Admitting Diagnoses: Discharge Order Date Discharge Patient - Ordered -- 07/27/22 16:59:00 EST Discharge Diagnoses 1. Multiple sclerosis exacerbation, 07/26/2022 2. Left optic neuritis, 07/26/2022 3. History of DVT in adulthood, 07/26/2022 4. PTSD (post-traumatic stress disorder), 07/26/2022 5. Anxiety, 07/26/2022 6. Chronic pain, 07/26/2022 7. No contraindication to deep vein thrombosis (DVT) prophylaxis, 07/26/2022 Eye pain, 07/26/2022 Focal motor weakness, 07/26/2022 Medical screening exam, 07/26/2022 Paresthesia, 07/26/2022 Procedure History MRI (11/11/2020), MRI (08/21/2019), MRI arthrography (07/16/2019), Back fusion, Carpal tunnel release, Lavern filter, Hysterectomy. Hospital Course 47-year-old female admitted to the hospital with possible MS exacerbation. CT of the head showed no acute findings. Carotid ultrasound was negative for stenosis. Patient was seen by neurology on consultation for MS exacerbation with questionable left optic neuritis. Patient was to undergo an MRI/MRA of the brain but was unable to do even with sedation. During hospitalization patient was restarted on home medications. Vitals and labs during hospitalization have been normotensive. Patient with frequent requests for home Dilaudid with additional doses of IV request as well as Ativan. I did discuss refusal for MRI/MRA with Dr. Esteban who cleared patient for discharge home with intent for patient to follow with her own neurologist. Case was discussed with Dr. Aquino and Dr. Webb who are in agreement with current discharge plan. Above was discussed with patient who verbalizes understanding and agreeable to discharge home. Services Consulted Consult to Dietitian Adult - Ordered -- 07/27/22 8:54:05 EST Consult to Neurology - Ordered -- 07/26/22 23:29:00 EST, TIA, Consult and Co-manage Physical Exam Vitals & Measurements T: 36.7 ?C(Axillary) TMIN: 36.5 ?C(Oral) TMAX: 36.8 ?C(Oral) HR: 73(Monitored) RR: 17 BP: 129/87 SpO2: 96% HT: 170.18 cm WT: 61.9 kg General: alert, no acute distress ENMT: oral mucosa moist, no pharyngeal erythema or exudate; Pupils PERRLA 3mm. non icteric. Cardiovascular: regular rate and rhythm, normal peripheral perfusion Respiratory: Lungs CTA, respirations non labored Abdomen: Soft, nontender, without rebound or rigidity, positive bowel sounds Skin: No pallor, warm, dry and Intact Hematological: No signs of large bruising/ecchymosis or petechiae Neurological: oriented x 4, LOC appropriate for age, CN II-XII intact, motor strength equal & normal bilaterally, sensation decreased on left, speech normal Psych: Denies suicidal ideation or homicidal ideation; anxious and tearful at times. Laboratory Results Automated Diff (07/26/2022) Neutro Auto - 61.7 % Lymph Auto - 29.7 % [place] Auto - 5.4 % Eos Auto - 2.0 % Basophil Auto - 1.2 % Neutro Absolute - 5.4 E9/L Lymph Absolute - 2.6 E9/L [place] Absolute - 0.5 E9/L Eos Absolute - 0.2 E9/L Basophil Absolute - 0.1 E9/L BMP (07/26/2022) Glucose Lvl - 83 mg/dL BUN - 9 mg/dL Creatinine - 0.6 mg/dL BUN/Creat Ratio - 15 Sodium Lvl - 138 mmol/L Potassium Lvl - 3.7 mmol/L Chloride - 105 mmol/L CO2 - 25 mmol/L AGAP - 12 mEq/L Calcium Lvl - 8.9 mg/dL C-Reactive Protein (07/26/2022) CRP - 0.5 mg/dL Capillary Glucose POC (07/26/2022) Glucose Cap - 87 mg/dL POC Device SN - [id number] POC User ID - [id number] POC Username - JOHNY WARD CBC w/ Auto Diff (07/26/2022) WBC - 8.8 E9/L RBC - 4.8 E12/L Hgb - 13.9 gm/dL Hct - 41.9 % MCV - 87.8 fL MCH - 29.1 pg MCHC - 33.2 gm/dL RDW - 13.4 % Platelet - 354.0 E9/L MPV - 7.4 fL eGFR (07/26/2022) eGFR - >60 mL/min/1.73 m2 eGFR AA - >60 mL/min/1.73 m2 HgbA1c (07/26/2022) Hgb A1C % - 5.6 % Lipid Panel (07/26/2022) Chol - 212 mg/dL Trig - 180 mg/dL HDL - 62 mg/dL LDL Direct - 115 mg/dL VLDL - 36 mg/dL PT & PTT (07/26/2022) PT - 10.9 second(s) INR - 1.0 PTT - 38.5 second(s) Sedimentation Rate Automated (07/26/2022) Sed Rate Automated - 13 mm/hr Troponin 0 Hr. (07/26/2022) Troponin - 9.30 pg/mL Tests Performed Automated Diff BMP C-Reactive Protein Capillary Glucose POC CBC w/ Auto Diff eGFR HgbA1c Lipid Panel PT & PTT Sedimentation Rate Automated Troponin 0 Hr. Urinalysis with Culture Reflex -- Results Pending -- Carotid Duplex US Bilateral CT Head or Brain w/o Contrast MRA Head w/o Contrast -- Results Pending -- XR Chest Single View Please visit your patient portal for your results or contact your primary care physician. Discharge Plan Discharge Disposition Discharged to - Home with family care Discharge Diet Discharge Diet(s): Fat Modified- Low cholesterol (07/27/22 16:57:00) Discharge Medication List Prescriptions No active prescription (more content not included)... [facility] Comment on above: Result Comment: Elec tronically Signed By: Michelle HAMPTON\.br\Date and Time Signed: 07/27/22 17:04 EST\.br\Electronically Co-Signed By: Quincy Webb MD\.br\Date and Time Co-Signed: 07/27/22 17:05 EST 07-27-2022 Hospital Discharge instructions Patient Education 07/27/2022 16:58:23 Multiple Sclerosis Multiple Sclerosis Multiple sclerosis (MS) is a disease of the brain, spinal cord, and optic nerves (central nervous system). It causes the body's disease-fighting (immune) system to destroy the protective covering (myelin sheath) around nerves in the brain. When this happens, signals (nerve impulses) going to and from the brain and spinal cord do not get sent properly or may not get sent at all. There are several types of MS: Relapsing-remitting MS. This is the most common type. This causes sudden attacks of symptoms. After an attack, you may recover completely until the next attack, or some symptoms may remain permanently. Secondary progressive MS. This usually develops after the onset of relapsing-remitting MS. Similar to relapsing-remitting MS, this type also causes sudden attacks of symptoms. Attacks may be less frequent, but symptoms slowly get worse (progress) over time. Primary progressive MS. This causes symptoms that steadily progress over time. This type of MS does not cause sudden attacks of symptoms. The age of onset of MS varies, but it often develops between 20 40 years of age. MS is a lifelong (chronic) condition. There is no cure, but treatment can help slow down the progression of the disease. What are the causes? The cause of this condition is not known. What increases the risk? You are more likely to develop this condition if: You are a woman. You have a relative with MS. However, the condition is not passed from parent to child (inherited). You have a lack (deficiency) of vitamin D. You smoke. MS is more common in the [place] than in the [place]. What are the signs or symptoms? Relapsing-remitting and secondary progressive MS cause symptoms to occur in episodes or attacks that may last weeks to months. There may be long periods between attacks in which there are almost no symptoms. Primary progressive MS causes symptoms to steadily progress after they develop. Symptoms of MS vary because of the many different ways it affects the central nervous system. The main symptoms include: Vision problems and eye pain. Numbness. Weakness. Inability to move your arms, hands, feet, or legs (paralysis). Balance problems. Shaking that you cannot control (tremors). Muscle spasms. Problems with thinking (cognitive changes). MS can also cause symptoms that are associated with the disease, but are not always the direct result of an MS attack. They may include: Inability to control urination or bowel movements (incontinence). Headaches. Fatigue. Inability to tolerate heat. Emotional changes. Depression. Pain. How is this diagnosed? This condition is diagnosed based on: Your symptoms. A neurological exam. This involves checking central nervous system function, such as nerve function, reflexes, and coordination. MRIs of the brain and spinal cord. Lab tests, including a lumbar puncture that tests the fluid that surrounds the brain and spinal cord (cerebrospinal fluid). Tests to measure the electrical activity of the brain in response to stimulation (evoked potentials). How is this treated? There is no cure for MS, but medicines can help decrease the number and frequency of attacks and help relieve nuisance symptoms. Treatment options may include: Medicines that reduce the frequency of attacks. These medicines may be given by injection, by mouth (orally), or through an IV. Medicines that reduce inflammation (steroids). These may provide short-term relief of symptoms. Medicines to help control pain, depression, fatigue, or incontinence. Vitamin D, if you have a deficiency. Using devices to help you move around (assistive devices), such as braces, a cane, or a walker. Physical therapy to strengthen and stretch your muscles. Occupational therapy to help you with everyday tasks. Alternative or complementary treatments such as exercise, massage, or acupuncture. Follow these instructions at home: Take [id number]-zwbcycn and prescription medicines only as told by your health care provider. Do not drive or use heavy machinery while taking prescription pain medicine. Use assistive devices as recommended by your physical therapist or your health care provider. Exercise as directed by your health care provider. Return to your normal activities as told by your health care provider. Ask your health care provider what activities are safe for you. Reach out for support. Share your feelings with friends, family, or a support group. Keep all follow-up visits as told by your health care provider and therapists. This is important. Where to find more information National Multiple Sclerosis Society: https://www.nationalmssociety.org Contact a health care provider if: You feel depressed. You develop new pain or numbness. You have tremors. You have problems with sexual function. Get help right away if: You develop paralysis. You develop numbness. You have problems with your bladder or bowel function. You develop double vision. You lose vision in one or both eyes. You develop suicidal thoughts. You develop severe confusion. If you ever feel like you may hurt yourself or others, or have thoughts about taking your own life, get help right away. You can go to your nearest emergency department or call: Your local emergency services (911 in the [place] A suicide crisis helpline, such as the National Suicide Prevention Lifeline at . This is open 24 hours a day. Summary Multiple sclerosis (MS) is a disease of the central nervous system that causes the body's immune system to destroy the protective covering (myelin sheath) around nerves in the brain. There are 3 types of MS: relapsing-remitting, secondary progressive, and primary progressive. Relapsing-remitting and secondary progressive MS cause symptoms to occur in episodes or attacks that may last weeks to months. Primary progressive MS causes symptoms to steadily progress after they develop. There is no cure for MS, but medicines can help decrease the number and frequency of attacks and help relieve nuisance symptoms. Treatment may also include physical or occupational therapy. If you develop numbness, paralysis, vision problems, or other neurological symptoms, get help right away. This information is not intended to replace advice given to you by your health care provider. Make sure you discuss any questions you have with your health care provider. Document Released: 07/01/2001 Document Revised: 06/16/2018 Document Reviewed: 09/12/2017 [place] Patient Education [employer]. Follow Up Care 07/26/2022 21:12:03 With:RADHA MENDEZ Address: [address] [place] [address]- Business (1) When: Unknown Comments:Call for followup appointment With:Mk Frazier MD, [facility] Address: [address] [place] [address]- When:2 to 4 weeks [facility] 07-27-2022 Evaluation + Plan note Extrac edelmira from: Title:Discharge Note Author:Kell HAMPTON Date:07/27/22 Discharged to - Home with family care Discharge Diet(s): Fat Modified- Low cholesterol (07/27/22 16:57:00) Prescriptions No active prescription medications Home Dilaudid 4 mg Tab, 4 mg= 1 tab(s), Oral, q4hr, PRN ibuprofen 200 mg Tab, 400 mg= 2 tab(s), Oral, PRN LORazepam 1 mg Tab, 1 mg= 1 tab(s), Oral, TID Norvasc 5 mg Tab, 5 mg= 1 tab(s), Oral, Daily pregabalin 100 mg Cap, 100 mg= 1 cap(s), Oral, TID Premarin 0.9 mg Tab, 0.9 mg= 1 tab(s), Oral, Daily tramadol 50 mg oral tablet, 50 mg= 1 tab(s), Oral, QID, PRN With When Contact Information RADHA MENDEZ [address] [place] [address]- Business (1) Additional Instructions: Call for followup appointment Mk Frazier MD, [facility] Within 2 to 4 weeks [address] [place] [address]- Additional Instructions: Multiple Sclerosis Extracted from: Title:APSO Note Author:Nely HAMPTON Date:07/27/22 PLAN: 47-year-old female with past medical history of multiple sclerosis, anxiety, history of DVT x2 status post IVC filter, 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 1. Multiple sclerosis exacerbation (G35: Multiple sclerosis) We will get MRI brain with and without contrast--pending. Neurology consultation--appreciated. -Await MRI of the brain if no changes or acute will not require IVIG or Methylprednisolone. PT OT evaluation--refused Fall precaution 2. Left optic neuritis (H46.9: Unspecified optic neuritis) -See #1 Per neurology no optic neuritis. 3. History of DVT in adulthood (Z86.718: Personal history of other venous thrombosis and embolism) We will wait for final home med recs and continue with that 4. PTSD (post-traumatic stress disorder) (F43.10: Post-traumatic stress disorder, unspecified) Continue home meds once verified 5. Anxiety (F41.9: Anxiety disorder, unspecified) Continue home meds once verified 6. Chronic pain (G89.29: Other chronic pain) Will order morphine for breakthrough pain for right now 7. No contraindication to deep vein thrombosis (DVT) prophylaxis (Z78.9: Other specified health status) Heparin twice a day Extracted from: Title:Consult Note- Neurology Author:Alexa Medrano RN Date:07/27/22 ASSESSMENT: 1. Chronic cerebral white matter changes. I remain unconvinced that these are demyelinating in nature. My suspicion for her having multiple sclerosis is low, and my suspicion for an acute exacerbation of such is very low. She has had similar retro-orbital and periorbital pains and ocular problems on the left that have been worked up for optic neuritis, at least in October 2020 and in 2019 and probably other times I was unable to review, and there has never been any imaging evidence of optic neuritis. We are getting updated brain MRI images with and without contrast to ensure there is no active lesion and to make sure that her white matter changes look relatively unchanged from priors. Previous MRI of her cervical spine shows some postsurgical changes but no evidence of demyelinating lesions of the cord. 2. Left ocular pain and visual loss. Doubt optic neuritis related to demyelinating disease but we will again attempt to rule this out. This has been a recurrent issue for her. Consider other optic neuropathies. In terms of the painful sensation, cranial nerve V1 syndromes could also be considered. 3. Based on my assessment today it seems that the left hemiparesis is functional. She also has a longstanding history of what is believed to be functional neurological symptoms. We are imaging the brain regardless. PLAN: 1. MRI brain with and without contrast 2. Further recommendations to follow, but in general if the MRI is without any acute findings then there would be no need for IVIG or IV methylprednisolone and she could be discharged to follow-up with her outpatient neurologist. 1. Multiple sclerosis exacerbation (G35: Multiple sclerosis) 2. Left optic neuritis (H46.9: Unspecified optic neuritis) 3. History of DVT in adulthood (Z86.718: Personal history of other venous thrombosis and embolism) 4. PTSD (post-traumatic stress disorder) (F43.10: Post-traumatic stress disorder, unspecified) 5. Anxiety (F41.9: Anxiety disorder, unspecified) 6. Chronic pain (G89.29: Other chronic pain) 7. 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 1. Multiple sclerosis exacerbation (G35: Multiple sclerosis) We will get MRI brain with and without contrast Neurology consultation Patient will likely benefit from systemic high-dose steroids once determined by neurology Admit under inpatient level of care as anticipate she will require greater than 2 midnight stay PT OT evaluation Fall precaution Patient has no difficulty swallowing and should be able to eat Bedside dysphagia screen done by me 2. Left optic neuritis (H46.9: Unspecified optic neuritis) Once MRI with and without contrast is performed we will start treatment as per neurology 3. History of DVT in adulthood (Z86.718: Personal history of other venous thrombosis and embolism) We will wait for final home med recs and continue with that 4. PTSD (post-traumatic stress disorder) (F43.10: Post-traumatic stress disorder, unspecified) Continue home meds once verified 5. Anxiety (F41.9: Anxiety disorder, unspecified) Continue home meds once verified 6. Chronic pain (G89.29: Other chronic pain) Will order morphine for breakthrough pain for right now 7. No contraindication to deep vein thrombosis (DVT) prophylaxis (Z78.9: Other specified health status) Heparin twice a day Orders: acetaminophen, 650 mg = 2 tab(s), Tab, Oral, q6hr PRN Pain, Routine, Start date 07/26/22 23:30:00 EST, 07/26/22 23:30:00 EST Al hydroxide/Mg hydroxide/simethicone, 30 mL, Susp-Oral, Oral, q6hr PRN Indigestion, Routine, Start date 07/26/22 23:30:00 EST aspirin, 81 mg = 1 tab(s), Tab-EC, Oral, Daily, Routine, Start date 07/27/22 9:00:00 EST, 07/26/22 23:30:00 EST heparin, 5,000 unit(s) = 1 mL, Injection, SubCutaneous, q12hr, Routine, Start date 07/27/22 0:00:00 EST, 07/26/22 23:29:00 EST hydrALAZINE, 10 mg = 0.5 mL, Injection, IV Push, q6hr PRN Other (see comment), Routine, Start date 07/26/22 23:29:00 EST, 07/26/22 23:29:00 EST Ambulate with Assistance Below the Knee Intermittent Pneumatic Compression Device Cardiac Monitoring Communication Order Communication Order Physician to Nursing Consult to Neurology Dysphagia Screen Evaluate Need For Continued Telemetry HgbA1c Intake and Output Lipid Panel MRA Head w/o Contrast MRI Brain w/ + w/o Contrast Notify Provider Vital Signs Notify Provider Vital Signs Occupational Therapy Evaluate Patient, Develop a Plan of Care and Implement Plan Oxygen Protocol Physical Therapy Evaluate Patient, Develop a Plan of Care and Implement Plan Place in Status Precautions Pulse Oximetry Stroke Education Stroke Quality Measures US Carotid Duplex Bilateral Vital Signs Weight Plan discussed with patient at bedside in ER bed #5 Full code as per patient 52 minutes spent in addressing above issue and in medical decision making This report was transcribed using voice recognition software. Every effort was made to ensure accuracy, however, inadvertently computerized mechanical pencils assembler mistakes may be present. Dr. Satish Valdez Hospitalist at [facility] Extracted from: Title:ED Note Author:Johana GARRISON, Colby Berkowitz Juan e:07/26/22 1. Multiple sclerosis exacer bation (G35: Multiple sclerosis) Orders: diphenhydrAMINE, 12.5 mg = 0.25 mL, Injection, IV Push, Once, Stop date 07/26/22 23:06:00 EST, STAT, Start date 07/26/22 23:06:00 EST, 07/26/22 23:06:00 EST methylPREDNISolone, 125 mg = 2 mL, Injection, IV Push, Once, Stop date 07/26/22 23:05:00 EST, STAT, Start date 07/26/22 23:05:00 EST, 07/26/22 23:05:00 EST Basic Metabolic Panel C-Reactive Protein CBC w/ Auto Diff Continuous Pulse Oximetry CT Head or Brain w/o Contrast ED Cardiac Monitoring ED Physician consult Hospitalist for continued care eGFR Oxygen Therapy PT & PTT Routine Capillary Glucose POC Saline Lock Insert Sedimentation Rate Automated Stroke Quality Measures Troponin 0 Hr. UA With Cult Reflex XR Chest Single View Diagnostic Tests Pending * UA With Cult Reflex 07/26/22 [facility]01-10-2023 NoteAttempted PT Evaluation, but pt defers PT needs. No [facility] Note Basic Information Accompanied by: No Accompaniment Source of History: Self Present at Bedside: Medical personnel Referral Source: ED History Limitation: None Chief Complaint left side numbness, MS flare up. left eye pain. 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 Patient states that symptoms started yesterday and today she cannot put any weight on her left lower extremity. That was not the most difficult to deal with but today she is having blurry vision and difficulty seeing out of left eye with pain behind her left eyeball which is the reason she presented to emergency department. Patient was worked up with a CT scan and referred to hospitalist service for further management. Review of Systems Constitutional: no fever, no chills, no sweats, mild weakness Respiratory: no shortness of breath, no cough, no orthopnea, no wheezing Cardiovascular: no chest pain, no palpitations, no edema Additional ROS info: Except as noted in the above Review of Systems and in the History of Present Illness all other systems have been reviewed and are negative or noncontributory. Scoring Mortensen Fall Risk Score: 45 (07/26/22) Physical Exam Vitals & Measurements T: 36.6 ?C(Oral) HR: 82(Peripheral) RR: 18 BP: 153/114 SpO2: 100% HT: 170.18 cm WT: 61.9 kg General: alert, no acute distress on Room air ENMT: TM's clear, oral mucosa moist, no pharyngeal erythema or exudate Cardiovascular: regular rate and rhythm, normal peripheral perfusion Respiratory: Lungs CTA, respirations non labored Abdomen: Soft, nontender, without rebound or rigidity, positive bowel sounds Extremities: no deformity, no trauma Genitourinary: Deferred Skin: Intact Hematological: No signs of large bruising/ecchymosis or petechiae Neurological: oriented x 4, LOC appropriate for age, CN II-XII intact, motor strength equal & normal bilaterally, sensation decreased on left, speech normal Psych: Denies suicidal ideation or homicidal ideation Lab Results WBC: 8.8 E9/L (07/26/22 23:24:00) RBC: 4.8 E12/L (07/26/22 23:24:00) HGB: 13.9 gm/dL (07/26/22 23:24:00) Hct: 41.9 % (07/26/22 23:24:00) MCV: 87.8 fL (07/26/22 23:24:00) MCH: 29.1 pg (07/26/22 23:24:00) MCHC: 33.2 gm/dL (07/26/22 23:24:00) RDW: 13.4 % (07/26/22 23:24:00) Platelet: 354 E9/L (07/26/22 23:24:00) MPV: 7.4 fL (07/26/22 23:24:00) Neutro Auto: 61.7 % (07/26/22:24:00) Lymph Auto: 29.7 % (07/26/22:24:00) [place] Auto: 5.4 % (07/26/22:24:00) Eos Auto: 2 % (07/26/22:24:00) Basophil Auto: 1.2 % (07/26/22::00) Neutro Absolute: 5.4 E9/L (07/26/22:24:00) Lymph Absolute: 2.6 E9/L (07/26/22:24:00) [place] Absolute: 0.5 E9/L (07/26/22::00) Eos Absolute: 0.2 E9/L (07/26/22:24:00) Basophil Absolute: 0.1 E9/L (07/26/22:24:00) Glucose Lvl: 83 mg/dL (07/26/22 23:24:00) Sodium Lvl: 138 mmol/L (07/26/22 23:24:00) Potassium Lvl: 3.7 mmol/L (07/26/22 23:24:00) Chloride: 105 mmol/L (07/26/22:24:00) CO2: 25 mmol/L (07/26/22:24:00) AGAP: 12 mEq/L (07/26/22:24:00) Calcium Lvl: 8.9 mg/dL (07/26/22:24:00) Glucose Cap: 87 mg/dL (07/26/22 22:41:00) POC Device SN: [id number] (07/26/22 22:41:00) POC User ID: [id number] (07/26/22 22:41:00) POC Username: [email or web address] (07/26/22 22:41:00) Images XR Chest Single View * Preliminary * 07/26/22 23:42:09 NEGATIVE: No infiltrate, mass or other acute cardiopulmonary abnormality Read By: Ellyn Rizo DO Assessment/Plan 47-year-old female with past medical history of multiple sclerosis, anxiety, history of DVT x2 status post IVC filter, 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 1. Multiple sclerosis exacerbation (G35: Multiple sclerosis) We will get MRI brain with and without contrast Neurology consultation Patient will likely benefit from systemic high-dose steroids once determined by neurology Admit under inpatient level of care as anticipate she will require greater than 2 midnight stay PT OT evaluation Fall precaution Patient has no difficulty swallowing and should be able to eat Bedside dysphagia screen done by me 2. Left optic neuritis (H46.9: Unspecified optic neuritis) Once MRI with and without contrast is performed we will start treatment as per neurology 3. History of DVT in adulthood (Z86.718: Personal history of other venous thrombosis and embolism) We will wait for final home med recs and continue with that 4. PTSD (post-traumatic stress disorder) (F43.10: Post-traumatic stress disorde (more content not included)...[facility]:Result Comment: Electronically Signed By: Satish VALDEZ MD\.br\Date and Time Signed: 07/27/22 00:04 ESTEvaluation noteNo assessment information availableUniversity [facility] Work Phone: Hospital course Narrative No data available for this section [facility] No data available for this section [facility] Summary Purpose Family History No Family History Records Found Relationship Condition Age at Onset Recorded Date/T kacy brother Diabetes mellitus Unknown grandparent Malignant neoplasm of throat Unknown Advance Directives No Advanced Directives Records FoundDocuments on File Type Date Recorded Patient Union Representative Expl anation Advance Directives and Living Will Power of Elementary [employer] Band Director Latest Code Status on File Code Status Date Activated Date Inactivated Comments Full Code 12/17/2017 9:53 PM 12/19/2017 4:32 PM Full Code 12/17/2017 9:53 PM 12/17/2017 9:53 PM Full Code 06/24/2016 11:21 AM 06/28/2016 8:51 PM Full Code 06/15/2016 10:17 AM 06/16/2016 7:01 PM Full Code 12/28/2014 8:09 AM 12/28/2014 4:21 PM Documents on File Type Date Recorded Patient Union Representative Expl anation Advance Directives and Living Will Power of Elementary School Band Director Latest Code Status on File Code Status Date Activated Date Inactivated Comments Full Code 08/28/2019 6:01 AM Full Code 12/17/2017 9:53 PM 12/19/2017 4:32 PM Full Code 12/17/2017 9:53 PM 12/17/2017 9:53 PM Full Code 06/24/2016 11:21 AM 06/28/2016 8:51 PM Full Code 06/15/2016 10:17 AM 06/16/2016 7:01 PM Latest Code Status on File Code Status Date Activated Date Inactivated Comments Full Code 08/28/2019 6:01 AM 08/30/2019 3:55 PM Full Code 12/17/2017 9:53 PM 12/19/2017 4:32 PM Latest Code Status on File Code Status Date Activated Date Inactivated Comments Full Code 12/03/2019 4:42 AM Full Code 08/28/2019 6:01 AM 08/30/2019 3:55 PM Documents on File Type Date Recorded Patient Union Representative Expl anation ACP-Advance Directive ACP-Power of Elementary School Band Director Latest Code Status on File Code Status Date Activated Date Inactivated Comments Full Code 12/03/2019 4:42 AM 12/04/2019 8:09 PM Full Code 08/28/2019 6:01 AM 08/30/2019 3:55 PM Advance Directive Response Recorded Date/ Time Advance Directives No November 17, 2017 6:04pm Assessments Diagnosis Multiple sclerosis (HCC)- Primary Multiple sclerosis Diagnosis Multiple sclerosis (HCC)- Primary Multiple sclerosis Diagnosis Multiple sclerosis exacerbation (HCC)- Primary Multiple sclerosis Hematemesis without nausea M 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 hx of Self-inflicted injury Essential hypertension Unspecified essential hypertension Diagnosis Acute deep vein thrombosis (DVT) of brachial vein of right upper extremity (HCC) Diagnosis Cellulitis Cellulitis and abscess of unspecified site Multiple sclerosis (HCC) Multiple sclerosis Post traumatic stress disorder Posttraumatic stress disorder M 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 S/P IVC filter Other postprocedural status Acute deep vein thrombosis (DVT) of right upper extremity (HCC) Oral mucositis Stomatitis and mucositis, unspecified Diagnosis Cellulitis Cellulitis and abscess of unspecified site Diagnosis Chronic left hip pain- Primary Pain in joint, pelvic region and thigh Discharge Instructions * Discharge Instr - CIRILO* Aminata Lizzy Obdulia, RN - 08/30/2019 1:21 PM EST Continuity of Care Form Patient Name: Dallas James : 1975 Admit date: 08/28/2019 Discharge date: Code Status Order: Full Code Advance Directives: Admitting Physician: Harley Olsen MD PCP: Dwight Grant MD Discharging Nurse: Discharging Hospital Unit/Room#: 0543/0543-01 Discharging Unit Phone Number: Emergency Contact: Extended Emergency Contact Information Primary Emergency Contact: Dayanara Parikh [facility] Relation: Parent Past Surgical History: Past Surgical History: Procedure Laterality Date ABDOMEN SURGERY BACK SURGERY CARPAL TUNNEL RELEASE CERVICAL FUSION SECTION COLONOSCOPY ENDOSCOPY, COLON, DIAGNOSTIC HYSTERECTOMY LYMPHADENECTOMY TONSILLECTOMY VASCULAR SURGERY VENA CAVA FILTER PLACEMENT 03/2011 GFF Placed in 2010 Immunization History: There is no immunization history on file for this patient. Active Problems: Patient Active Problem List Diagnosis Code Substance abuse ([facility]) F19.10 Anxiety F41.9 Post traumatic stress disorder F43.10 Multiple sclerosis (HCC) G35 M nchausen's syndrome F68.10 S/P IVC filter Z95.828 Spinal cord stimulator status Z96.89 hx of Self-inflicted injury Z72.89 Left-sided weakness R53.1 Chronic neck pain M54.2, G89.29 Chronic low back pain M54.5, G89.29 Multiple sclerosis exacerbation (HCC) G35 Acute extremity pain M79.609 hx of GI bleeding K92.2 History of DVT (deep vein thrombosis) Z86.718 Diplopia H53.2 Dysphagia R13.10 Blurry vision, left eye H53.8 Numbness R20.0 Anemia D64.9 Hematemesis without nausea K92.0 Essential hypertension I10 Isolation/Infection: Isolation No Isolation Patient Infection Status None to display Nurse Assessment: Last Vital Signs: BP (!) 145/84 Pulse 64 Temp 98 F (36.7 C) (Oral) Resp 20 Ht 5' 7.01 (1.702 m) Wt 180 lb 12.4 oz (82 kg) SpO2 98% BMI 28.31 kg/m Last documented pain score (0-10 scale): Pain Level: 8 Last Weight: Wt Readings from Last 1 Encounters: 08/30/19 180 lb 12.4 oz (82 kg) Mental Status: oriented IV Access: - None Nursing Mobility/ADLs: Walking Assisted Transfer Assisted Bathing Independent Dressing Independent Toileting Independent Feeding Independent Utility Service Worker Independent Med Delivery whole Wound Care Documentation and Therapy: Elimination: Continence: Bowel: Yes Bladder: Yes Urinary Catheter: None Colostomy/Ileostomy/Ileal Conduit: No Date of Last BM: No intake or output data in the 24 hours ending 08/30/19 1321 No intake/output data recorded. Safety Concerns: None Impairments/Disabilities: None Nutrition Therapy: Current Nutrition Therapy: - Oral Diet: General Routes of Feeding: Oral Liquids: No Restrictions Daily Fluid Restriction: no Last Modified Barium Swallow with Video (Video Swallowing Test): not done Treatments at the Time of Hospital Discharge: Respiratory Treatments: Oxygen Therapy: is not on home oxygen therapy. Ventilator: - No ventilator support Rehab Therapies: Physical Therapy Weight Bearing Status/Restrictions: No weight bearing restirctions Other Medical Equipment (for information only, NOT a DME order): Other Treatments: Patient's personal belongings (please select all that are sent with patient): None RN SIGNATURE: MANAGEMENT/SOCIAL WORK SECTION Inpatient Status Date: Readmission Risk Assessment Score: Readmission Risk Risk of Unplanned Readmission: 17 Discharging to Facility/ Agency Name: Address: Phone: Fax: Dialysis Facility (if applicable) Name: Address: Dialysis Schedule: Phone: Fax: Natural Gas Technician/Rail Car Welder signature: {Esignature:[id number]} PHYSICIAN SECTION Prognosis: Fair Condition at Discharge: Stable Rehab Potential (if transferring to Rehab): Good Recommended Labs or Other Treatments After Discharge: Physician Certification: I certify the above information and transfer of Dallas James is necessary for the continuing treatment of the diagnosis listed and that she requires Home Care for less 30 days. Update Admission H&P: No change in H&P PHYSICIAN SIGNATURE: documented in this encounter* Attachments The following attachments cannot be sent through Care Everywhere. * DVT (Deep Vein Thrombosis): General Info (Ukrainian) documented in this encounter* Discharge Instr - Activity* Sydney Scanlon APRN - NP - 12/04/2019 8:42 AM EDT Activity as tolerated * Discharge Instr - Diet* Sydney Scanlon APRN - NP - 12/04/2019 8:42 AM EDT ? Good nutrition is important when healing from an illness, injury, or surgery. Follow any nutrition recommendations given to you during your hospital stay. ? If you were given an oral nutrition supplement while in the hospital, continue to take this supplement at home. You can take it with meals, in-between meals, and/or before bedtime. These supplements can be purchased at most local grocery stores, pharmacies, and [employer]. ? If you have any questions about your diet or nutrition, call the hospital and ask for the dietitian. * Attachments The following attachments cannot be sent through Care Everywhere. * apixaban (Ukrainian) * DVT (Deep Vein Thrombosis) (Ukrainian) documented in this encounter* Attachments The following attachments cannot be sent through Care Everywhere. * Hip Pain (Ukrainian) documented in this encounter History of Present Illness * Lizzy Coates RN - 08/30/2019 12:58 PM EST Patient stated that she wanted to leave AMA. Physician notified....Lizzy Coates RN * Todd Zuleika - 08/30/2019 11:48 AM EST Physical Therapy Facility/Department: [address] [facility] Initial Assessment NAME: Dallas James : 1975 Date of Service: 08/30/2019 Discharge Recommendations: Further therapy recommended at discharge. PT Equipment Recommendations Equipment Needed: No Other: pt reports having equiptment at baseline Assessment Body structures, Functions, Activity limitations: Decreased functional mobility ;Decreased ROM;Decreased strength;Decreased safe awareness;Decreased balance;Decreased endurance;Decreased sensation Assessment: Pt is supervision to MOD I with bed mobility from flattened position without use of bedrails. Has inconsistencies in ROM and strength testing, initially demos tremoring in R UE and inability to lift past 30 deg then reaches out to grab for water on traytable; LE demos significantly reduced strength when sitting EOB and then has no buckling during amb. Amb x 15 ft RW with CGA for safety with varying inconsistencies in gait mechanics pertaining to R ankle and LE, no LOB noted. Pt perseverates throughout session on steriods helping her and thinking getting more will help fix her problems. Based on presentation pt is currently unsafe to return to home setting. Pt would benefit from acute PT services at this time to address deficits. Prognosis: Good Decision Making: Medium Complexity PT Education: PT Role;Plan of Care;General Safety;Gait Training;Transfer Training;Equipment REQUIRES PT FOLLOW UP: Yes Activity Tolerance Activity Tolerance: Patient limited by fatigue;Patient limited by endurance;Patient limited by pain Patient Diagnosis(es): There were no encounter diagnoses. has a past medical history of Blood transfusion reaction, Essential hypertension, GERD (gastroesophageal reflux disease), Lavern filter in place, manchu, Movement disorder, MS (multiple sclerosis) (HCC), Neuromuscular disorder (HCC), Optic neuritis due to multiple sclerosis (HCC), Psychiatric pr oblem, Seizures (HCC), Self inflicted injury, and Spinal cord stimulator status. has a past surgical history that includes section; cervical fusion; Tonsillectomy; lymphadenectomy; Carpal tunnel release; Hysterectomy; back surgery; Endoscopy, colon, diagnostic; Colonoscopy; vascular surgery; Abdomen surgery; and Vena Cava Filter Placement (03/2011). Restrictions Restrictions/Precautions Restrictions/Precautions: General Precautions, Fall Risk, Up as Tolerated Required Braces or Orthoses?: No Position Activity Restriction Other position/activity restrictions: Inconsistent symptoms in R extremities noted, sitter in room Vision/Hearing Vision: Within Functional Limits Hearing: Within functional limits Subjective General Chart Reviewed: Yes Patient assessed for rehabilitation services?: Yes Response To Previous Treatment: Not applicable Family / Caregiver Present: No Follows Commands: Within Functional Limits General Comment Comments: co-eval with OT Subjective Subjective: RN reports pt is agreeable to therapy. Pt is lying in bed upon arrival and reports she has been waiting for therapy to come she knows she has to do it. Pain Screening Patient Currently in Pain: Yes Pain Assessment Pain Assessment: 0-10 Pain Level: 9(no grimaces or evidence of distress during session) Pain Type: Acute pain Pain Location: Generalized( whole R side from my face and tongue to toes ) Pain Orientation: Right Pain Descriptors: Aching;Discomfort;Tingling;Numbness Pain Frequency: Continuous Non-Pharmaceutical Pain Intervention(s): Ambulation/Increased Activity;Distraction;Emotional support Response to Pain Intervention: Patient Satisfied Vital Signs Patient Currently in Pain: Yes Pre Treatment Pain Screening Intervention List: Patient able to continue with treatment Orientation Orientation Overall Orientation Status: Within Functional Limits Social/Functional History Social/Functional History Lives With: Significant other Type of Home: Mobile home Home Layout: One level Home Access: Stairs to enter with rails Entrance Stairs - Number of Steps: 4 CALVIN (sometimes scoots on bottom) Entrance Stairs - Rails: Left Bathroom Shower/Tub: Tub/Shower unit Bathroom Toilet: Standard Bathroom Equipment: Grab bars in shower Bathroom Accessibility: Accessible Home Equipment: Rolling walker(uses during MS exacerbations) ADL Assistance: Independent Homemaking Assistance: Independent Homemaking Responsibilities: Yes Ambulation Assistance: Independent Transfer Assistance: Independent Active Education Reporter: Yes( On good days ) Mode of Transportation: Car Occupation: On disability Leisure & Hobbies: movies, hang with sig other Additional Comments: Sig other home often Cognition Cognition Overall Cognitive Status: WFL Cognition Comment: Pt has a hx of anxiety/depression, per chart pt has been diagnosed with Munchausen's syndrome, pt cooperative with therapy Objective AROM RLE (degrees) RLE General AROM: hip flex <90, trace ankle DF, lacking 45 deg knee ext though all WFL when moved passively AROM LLE (degrees) LLE AROM : WFL AROM RUE (degrees) RUE General AROM: shoulder flex/abd ~35 deg (with visible tremoring), trace wrist flex/ext, elbow flex ~75 deg, cannot oppose to 4th and 5th digits; ; then does reach out to grab water glass from tryand itch ear during session AROM LUE (degrees) LUE AROM : WFL Strength RLE Comment: inconsistent results; grossly 3+/5 based on observed functional mobility Strength LLE Strength LLE: WFL Strength RUE Comment: at least 3+/5 based on observed fuctional mobility; per MMT unable to move antigravity Strength LUE Comment: at least 3+/5 based on observed fuctional mobility Strength Other Other: demos inconsistent testing with MMT - felt resistance when moving into LAQ then unable to hold HS positioning for testing, PF's activated when moving actively in DF Tone RLE RLE Tone: Normotonic Tone LLE LLE Tone: Normotonic Motor Control Gross Motor?: WFL Sensation Overall Sensation Status: Impaired(reports N/T R side face, tongue, UE/LE) Bed mobility Supine to Sit: Supervision Sit to Supine: Supervision Scooting: Modified independent Comment: completed with bed in flattened position and without use of bedrails Transfers Sit to Stand: Contact guard assistance Stand to sit: Contact guard assistance Comment: trasnfers to RW, CGA for safety; proper hand placement with transfers Ambulation Ambulation?: Yes More Ambulation?: No Ambulation 1 Surface: level tile Device: Rolling Walker Assistance: Contact guard assistance Quality of Gait: narrow DAFNE, inconsistent R foot placement with amb - sometimes dragging foot sometimes able to lift and advance it, sometimes crossing midline though no LOB instance occur Distance: 15ft Comments: pt has inconsistencies in gait mechanics when amb; ankle moves from excessive supination to pronation, able to DF ~25% of the time. stands on L LE with L UE support on RW with R ankle crossed behind L without any evidence of imbalance Stairs/Curb Stairs?: Yes Wheelchair Activities Level of Assistance for pressure relief activities: Contact guard assistance Balance Sitting - Static: Good Sitting - Dynamic: Good Standing - Static: Fair Standing - Dynamic: Fair Comments: standing balance assessed with RW Plan Plan Times per week: 5-6x/wk Current Treatment Recommendations: Strengthening, ROM, Balance Training, Functional Mobility Training, Transfer Training, Safety Education & Training, Home Exercise Program, Endurance Training, Pain Management, Equipment Evaluation, Education, & procurement, Stair training, Gait Training, Pa tient/Caregiver Education & Training Safety Devices Type of devices: All fall risk precautions in place, Sitter present, Nurse notified, Gait belt, Left in bed, Patient at risk for falls, Call light within reach Restraints Initially in place: No AM-PAC Score AM-PAC Inpatient Mobility Raw Score : 21 (08/30/19 114) AM-PAC Inpatient T-Scale Score : 50.25 (08/30/19 114) Mobility Inpatient CMS 0-100% Score: 28.97 (08/30/19 114) Mobility Inpatient CMS G-Code Modifier : CJ (08/30/191148) Goals Short term goals Time Frame for Short term goals: 12 visits Short term goal 1: Complete x6 steps with supervision using L handrail ascending for safe home entry/exit Short term goal 2: Amb x100ft with supervision using RW or least restrictive device for increased independence in home/community Short term goal 3: Improve standing static and dynamic balance to good to reduce risk of falls and injury Short term goal 4: Tolerate 30 minutes of activity to increase tolerance to therapy interventions Short term goal 5: Participate in AROM ther-ex to build strength to aide in return to prior level Therapy Time Individual Concurrent Group Co-treatment Time In 1020 Time Out 1050 Minutes 30 Timed Code Treatment Minutes: 12 Minutes Zuleika Brooks This treatment/evaluation completed by signing SPT. Signing PT agrees with treatment and documentation. * Joesph Mcclure OT - 08/30/2019 11:32 AM EST Occupational Therapy Occupational Therapy Initial Assessment Date: 08/30/2019 Patient Name: Dallas James : 1975 Date of Service: 08/30/2019 Discharge Recommendations: Further therapy recommended at discharge. Based on the symptoms pt is demonstrating, pt is unsafe to go home, however, inconsistencies noted in R symptoms, CTA. OT Equipment Recommendations Equipment Needed: Yes Mobility Devices: Walker;ADL Assistive Devices Walker: Rolling ADL Assistive Devices: Transfer Tub Bench Assessment Performance deficits / Impairments: Decreased functional mobility ;Decreased high-level IADLs;Decreased ADL status;Decreased endurance;Decreased sensation;Decreased strength;Decreased balance;Decreased safe awareness;Decreased coordination Prognosis: Good Decision Making: Medium Complexity OT Education: Plan of Care;OT Role;ADL Adaptive Strategies;Transfer Training REQUIRES OT FOLLOW UP: Yes Activity Tolerance Activity Tolerance: Patient limited by pain;Patient limited by fatigue Safety Devices Safety Devices in place: Yes Type of devices: All fall risk precautions in place;Left in bed;Call light within reach;Nurse notified;Gait belt(Sitter in room) Restraints Initially in place: No Patient Diagnosis(es): There were no encounter diagnoses. has a past medical history of Blood transfusion reaction, Essential hypertension, GERD (gastroesophageal reflux disease), Central filter in place, manchu, Movement disorder, MS (multiple sclerosis) ([facility]), Neuromuscular disorder ([facility]), Optic neuritis due to multiple sclerosis ([facility]), Psychiatric pr oblem, Seizures ([facility]), Self inflicted injury, and Spinal cord stimulator status. has a past surgical history that includes section; cervical fusion; Tonsillectomy; lymphadenectomy; Carpal tunnel release; Hysterectomy; back surgery; Endoscopy, colon, diagnostic; Colonoscopy; vascular surgery; Abdomen surgery; and Vena Cava Filter Placement (03/2011). Restrictions Restrictions/Precautions Restrictions/Precautions: General Precautions, Fall Risk, Up as Tolerated Required Braces or Orthoses?: No Position Activity Restriction Other position/activity restrictions: Inconsistent symptoms in R extremities noted, sitter in room Subjective General Patient assessed for rehabilitation services?: Yes Family / Caregiver Present: No Diagnosis: MS exacerbation, Munchhausen's syndrome, R weakness/numbness/pain Patient Currently in Pain: Yes Pain Assessment Pain Assessment: 0-10 Pain Level: 9(no grimaces or evidence of distress during session) Pain Type: Acute pain Pain Location: Generalized( whole R side from my face and tongue to toes ) Pain Orientation: Right Pain Descriptors: Aching;Discomfort;Tingling;Numbness Pain Frequency: Continuous Non-Pharmaceutical Pain Intervention(s): Ambulation/Increased Activity;Distraction;Emotional support Response to Pain Intervention: Patient Satisfied Vital Signs Temp: 98 F (36.7 C) Temp Source: Oral Pulse: 64 Heart Rate Source: Monitor Resp: 20 BP: (!) 145/84 BP Location: Left lower arm BP Upper/Lower: Lower MAP (mmHg): 95 Patient Position: Supine Patient Currently in Pain: Yes Oxygen Therapy SpO2: 98 % O2 Device: None (Room air) Social/Functional History Social/Functional History Lives With: Significant other Type of Home: Mobile home Home Layout: One level Home Access: Stairs to enter with rails Entrance Stairs - Number of Steps: 4 CALVIN (sometimes scoots on bottom) Entrance Stairs - Rails: Left Bathroom Shower/Tub: Tub/Shower unit Bathroom Toilet: Standard Bathroom Equipment: Grab bars in shower Bathroom Accessibility: Accessible Home Equipment: Rolling walker(uses during MS exacerbations) ADL Assistance: Independent Homemaking Assistance: Independent Homemaking Responsibilities: Yes Ambulation Assistance: Independent Transfer Assistance: Independent Active Education Reporter: Yes( On good days ) Mode of Transportation: Car Occupation: On disability Leisure & Hobbies: movies, hang with sig other Additional Comments: Sig other home often Objective Vision: Within Functional Limits Hearing: Within functional limits Orientation Overall Orientation Status: Within Functional Limits Balance Sitting Balance: Supervision Standing Balance: Contact guard assistance Standing Balance Time: 9 min Activity: Pt stood bedside, short func mob around room, required 1 seated rest break d/t unsteadiness mainly Functional Mobility Functional - Mobility Device: Rolling Walker Activity: Other Assist Level: Moderate assistance Functional Mobility Comments: Pt's R foot was internally rotating, sliding behind L foot, and moving in inconsistent ways this date, pt observed to be able to dorsiflex ankle at times-other times pt dragging foot and taking both arms from RW handles seperately, fall risk ADL Feeding: Stand by assistance;Setup;Increased time to complete Grooming: Setup;Increased time to complete;Contact guard assistance UE Bathing: Minimal assistance;Setup;Increased time to complete LE Bathing: Moderate assistance;Setup;Increased time to complete UE Dressing: Moderate assistance;Setup;Increased time to complete LE Dressing: Setup;Increased time to complete;Moderate assistance Toileting: Setup;Increased time to complete;Moderate assistance Additional Comments: Pt donned socks sitting up in bed-had to use LUE to bring foot to opposite thigh to reach foot d/t weakness/numbness, inconsistencies noted throughout session were pt would scratch ear with RUE and then later hand would fall off RW handle, pt was provided a built-up handle, pt's ADL's graded based on current deficits shown to writer producer this date Tone RUE RUE Tone: Normotonic Tone LUE LUE Tone: Normotonic Coordination Movements Are Fluid And Coordinated: No Coordination and Movement description: Fine motor impairments;Gross motor impairments;Right UE;Decreased speed;Decreased accuracy Bed mobility Supine to Sit: Supervision Sit to Supine: Supervision Scooting: Modified independent Transfers Sit to stand: Contact guard assistance Stand to sit: Contact guard assistance Transfer Comments: Pt educated on pushing through LUE during transfers, able to reach back with LUEwhen sitting onto EOB appropriately Cognition Overall Cognitive Status: [facility] Cognition Comment: Pt has a hx of anxiety/depression, per chart pt has been diagnosed with Munchausen's syndrome, pt cooperative with therapy Sensation Overall Sensation Status: Impaired(reports N/T R side face, tongue, UE/LE) Light Touch: Partial deficits in the RLE;Partial deficits in the RUE(And R side of face/tongue) LUE AROM (degrees) LUE AROM : WFL RUE AROM (degrees) RUE AROM : Exceptions R Shoulder Flexion 0-180: Observed to 90 degrees, during official MMT only able to acheive ~40 degrees,later observed reaching for cup on table, pt dropping RUE quickly as if the arm is weak and giving out R Elbow Flexion 0-145: WFL's R Elbow Extension 145-0: WFL's Right Hand AROM (degrees) Right Hand AROM: L Right Hand General AROM: Slow coordination, later in session pt demo'd inability to grasp RW handleproperly, pt mentioned not being able to feel it d/t numbness, pt observed to make full composite fist this date LUE Strength Gross LUE Strength: [facility] RUE Strength Gross RUE Strength: Exceptions to WF R Shoulder Flex: 3-/5 R Elbow Flex: 4-/5 R Elbow Ext: 4-/5 R Hand General: 4/5 RUE Strength Comment: Inconsistent symptoms noted this date, pt demo's tremors at times at times Plan Plan Times per week: 3-4x Current Treatment Recommendations: Functional Mobility Training, Balance Training, Endurance Training, Home Management Training, Equipment Evaluation, Education, & procurement, Safety Education & Training, Self-Care / ADL, Patient/Caregiver Education & Training, Pain Management, Strengthening, Neuromuscular Re-education [facility] Inpatient Daily Activity Raw Score: 17 (08/30/191118) AM-[facility] Inpatient ADL T-Scale Score : 37.26 (08/30/191118) ADL Inpatient CMS 0-100% Score: 50.11 (08/30/191118) ADL Inpatient CMS G-Code Modifier : CK (08/30/191118) Goals Short term goals Time Frame for Short term goals: Pt will by discharge Short term goal 1: demo ADL UB/LB dressing/bathing activity with adaptive tech's, increased time and SUP Short term goal 2: demo good safety awareness during func mob around room using LRD and SBA Short term goal 3: demo RUE strength of 5/5 grossly for use in ADL completion Short term goal 4: demo standing during func activity for 11 min with 1 seated rest break PRN, LRD,and CGA Therapy Time Individual Concurrent Group Co-treatment Time In 1020 Time Out 1050 Minutes 30 Timed Code Treatment Minutes: 19 Minutes Joesph Mcclure OTR/L * Lizzy Coates RN - 08/30/2019 10:02 AM EST Patient called out stated that she was throwing up blood. Patient appeared to be spitting out a small amount of. Physician notified. Sitter at bedside stated it appeared that the patient had her hands in her mouth scratching the inside of her mouth. Patient no longer spitting out blood. It was a one time occurrence. Will continue to monitor..Lizzy Coates RN * Lizzy Coates RN - 08/30/2019 9:04 AM EST Patient is refusing to take her morning medications till she speaks to her doctor. She would like her medications to be changed so that she receives stronger pain medication and phenergan...Lizzy Coates RN * Hai Curran RN - 08/30/2019 12:57 AM EST 2316- Paged Neuro Resident Dr. Arevalo to inform him pt is throwing up blood. The vomit in the sanchez appeared to be strictly blood. Resident Mickey arrived at bedside. Pt refusing to take PO medications. Pt stated, I want all of my medications to be IV. I cannot take oral medications they upset my stomach. Also I have taken 50 of benadryl for 5 years before my steroid and I want it that way. Pt refused to accept teaching provided by Dr. Arevalo stating, I will talk to my doctor in the morning. RN will continue to monitor. * Raymond Ac MD - 08/29/2019 9:42 PM EST This is a 44 y.o. female admitted 08/28/2019 for Multiple sclerosis exacerbation (HCC) [G35]. Patient admitted for chief complaint of face numbness and difficulty swallowing with bilateral lower extremity weakness, concern for MS exacerbation. Patient was admitted under neurology and was receiving high-dose Solu-Medrol. Patient today started complaining of nausea and bright red blood hematemesis in the central medicine was consulted. Patient also complains of severe pain throughout her body. Patient has had similar history of throwing up bright red blood, concern of munchausen syndrome. Inthe past patient has self-inflicted throat cuts, she has even sucked up her IV line blood to throw back as hematemesis. She has history of significant opioid use. Patient has had EGD in July 2018 which was negative. BMP: Recent Labs 08/27/19 1632 08/28/19 0648 08/29/19 0503 NA 135 137 138 K 3.5* 3.9 3.8 CL 94* 98 101 CO2 28 25 23 BUN 16 20 21* CREATININE 0.59 0.52 0.51 GLUCOSE 145* 141* 145* CBC: ) Recent Labs 08/27/19 1632 08/28/19 0648 08/29/19 0503 WBC 10.7 10.1 10.7 HGB 12.6 13.2 12.9 HCT 37.3 38.9 38.8 PLT 287 313 282 Assessment Principal Problem: Multiple sclerosis exacerbation (HCC) Active Problems: M nchausen's syndrome hx of Self-inflicted injury Hematemesis without nausea Resolved Problems: * No resolved hospital problems. * Plan Start Protonix 40 mg IV Daily and Pepcid 20 mg twice a day as patient is on high-dose Solu-Medrol Start Carafate Sitter at bedside GI consulted by neurology, no acute intervention Hypertension start amlodipine 5 mg MS treatment as per neurology on Solu-Medrol Hold Lovenox as concern for hematemesis, put on EPC cuffs. Raymond Ac MD Department of Internal Medicine [facility] [place] 08/29/2019, 9:51 PM * Rosario Morrell RCP - 08/29/2019 3:05 PM EST Smoking Cessation - topics covered [] Health Risks [] Benefits of Quitting [] Smoking Cessation [] Patient has no history of tobacco use per note in significant history. [] Patient is former smoker per note in significant history. Patient quit in [] No need for tobacco cessation education. [] Booklet given [x] Patient verbalizes understanding. [x] Patient denies need for tobacco cessation education. [] Unable to meet with patient today. Will follow up as able. ROSARIO MORRELL 3:05 PM * Tessy Page - 08/29/2019 11:14 AM EST NEUROLOGY INPATIENT PROGRESS NOTE 08/29/2019 Subjective: Dallas James is a 44 y.o. female admitted on 08/28/2019 with Multiple sclerosis exacerbation (HCC) [G35] Briefly, this is a 44 y.o. female admitted on 08/28/2019 with c/o MS exacerbation, last known flare-up was 5 days ago. She initially presented to [facility] from home with 3 days of bilateral face, tongue, and mouth numbness. The tongue and mouth numbness made it where she cannot swallow and she has notbeen eat/drinking for 3 days d/t fear of choking. She also endorses left sided arm and leg numbnessand weakness, she cannot bear weight and needs a walker to ambulate. Additionally, she has left sided eye pain with movement and blurry vision, stating that it feels like I have vaseline covering myeye . These symptoms are worse than her flare-up 5 days ago, which is what brought her back to the hospital so soon after discharge. Between flare-ups she is completely symptom free. She does not seea neurologist outpatient, and last received outpatient treatment with [facility] over [address] Frazier 6 months ago, but does not want to pursue treatment there. Of note, she was admited to [facility] in 2011 where she was diagnosed with Factitious Disorder Imposed on Self. She has a past medical history significant for PTSD, anxiety, and chronic pain syndrome. Overnight, the patient repeatedly asked for pain medication, requesting narcotics. She was was toldshe could not get any narcotics, she settled for benadryl and Toradol. This morning she was once again asking for pain medication and c/o non-specific pain. A few minutes later she began to vomit blood. The blood was bright red with some large, dark clots. There was no food or bile mixed with the blood. She has experienced this before several years ago, but does not remember the cause of hematemesis at that time. Prior to the episode she was in the bathroom and the nurse notes that there was blood in the IV. She has a documented history of multiple EGD's which showed evidence of swallowed blood and no acute causes of the bleeding. She has a documented history of swallowing blood from her central line and then coughing it up in the presence of nurses. She later had another episode of hematemesis and her IV was found to be uncapped and bloody. The IV was wrapped by the nurse and a sitter was placed in the room. GI was consulted and we will wait on their guidance as how to proceed. In regards to the MS flare, pt reports no improvement of symptoms. She is still experiencing facialnumbness, throat and mouth numbness, left eye pain with movement, and left sided arm and leg weakness. She states that she is no better than she was when she was admitted. She is still experiencing severe anxiety and requesting versed for the symptoms. She has xanax TID ordered. She is requesting to be placed back on her salu-medrol and IV benadryl, which was being held d/t hematemesis. No current facility-administered medications on file prior to encounter. Current Outpatient Medications on File Prior to Encounter Medication Sig Dispense Refill busPIRone HCl (BUSPAR PO) Take 0.3 mg by mouth 3 times daily ferrous sulfate 325 (65 Fe) MG EC tablet Take 1 tablet by mouth 2 times daily (with meals) (Patientnot taking: Reported on 08/28/2019) 90 tablet 3 oxyCODONE-acetaminophen (PERCOCET) 10-325 MG per tablet Take 1 tablet by mouth every 6 hours as needed for Pain.. ALPRAZolam (XANAX) 1 MG tablet Take 1 mg by mouth 3 times daily vitamin D (ERGOCALCIFEROL) 09685 UNITS capsule Take 1 capsule by mouth once a week for 6 doses 6 capsule 0 sertraline (ZOLOFT) 100 MG tablet Take 2 tablets by mouth daily Verified by [facility] on 02-13-2014 30 tablet 3 estrogens, conjugated, (PREMARIN) 1.25 MG tablet Take 1 tablet by mouth daily 21 tablet 3 traZODone (DESYREL) 100 MG tablet Take 1.5 tablets by mouth nightly 1/2 tab to 1 tab ; Verified by [facility] on02-13-2014 30 tablet 3 Allergies: Dallas James is allergic to iv dye [iodides]; protonix [pantoprazole sodium]; fentanyl; solu-medrol [methylprednisolone]; ketorolac tromethamine; pcn [penicillins]; and zofran. Past Medical History: Diagnosis Date Blood transfusion reaction GERD (gastroesophageal reflux disease) [place] filter in place manchu Movement disorder MS (multiple sclerosis) (HCC) Neuromuscular disorder (HCC) Optic neuritis due to multiple sclerosis (HCC) Psychiatric problem depression Seizures (HCC) Self inflicted injury Spinal cord stimulator status placement and removal Past Surgical History: Procedure Laterality Date ABDOMEN SURGERY BACK SURGERY CARPAL TUNNEL RELEASE CERVICAL FUSION SECTION COLONOSCOPY ENDOSCOPY, COLON, DIAGNOSTIC HYSTERECTOMY LYMPHADENECTOMY TONSILLECTOMY VASCULAR SURGERY VENA CAVA FILTER PLACEMENT 03/2011 GFF Placed in 2010 Medications: pantoprazole 40 mg Intravenous Daily And sodium chloride (PF) 10 mL Intravenous Daily sucralfate 1 g Oral 4 times per day sodium chloride flush 10 mL Intravenous 2 times per day famotidine 20 mg Oral BID enoxaparin 40 mg Subcutaneous Daily [Held by provider] methylPREDNISolone 500 mg Intravenous Q12H diphenhydrAMINE 50 mg Oral Once ALPRAZolam 1 mg Oral TID traZODone 150 mg Oral Nightly PRN Meds include: sodium chloride flush, potassium chloride OR potassium alternative oral replacement OR potassium chloride, magnesium sulfate, magnesium hydroxide, ondansetron, [Held by provider] acetaminophen, sodium chloride flush, [Held by provider] HYDROcodone 5 mg - acetaminophen, diph enhydrAMINE Objective: BP (!) 149/97 Pulse 80 Temp 97.1 F (36.2 C) (Oral) Resp 20 Ht 5' 7 (1.702 m) Wt 180 lb 8.9 oz (81.9 kg) SpO2 100% BMI 28.28 kg/m Blood pressure range: Systolic (24hrs), Av , Min:125 , Max:177 ; Diastolic (24hrs), Av, Min:81, Max:97 ROS: CONSTITUTIONAL: Positive fatigue and malaise EYES: Positive for painful EOM and blurred vision on the left HEENT: Positive for numb throat RESPIRATORY: negative for cough, shortness of breath CARDIOVASCULAR: negative for chest pain, palpitations, or syncope GASTROINTESTINAL: Positive for midepigastric pain. Positive for hematemesis. GENITOURINARY: negative for incontinence or retention MUSCULOSKELETAL: Positive for neck and back pain NEUROLOGICAL: Positive for weakness and numbness. PSYCHIATRIC: Positive for agitation and anxiety SKIN Negative for spontaneous contusions, rashes, or lesions NEUROLOGIC EXAMINATION GENERAL In anxious distress. HEENT NC/ AT. Left eye: 20/400, right eye: 20/50. HEART S1 and S2 heard; palpation of pulses: radial pulse NECK Supple and no bruits heard MENTAL STATUS: Alert, oriented, intact memory, no confusion, normal speech, normal language, no hallucination or delusion CRANIAL NERVES: II - Decreases confrontation on the left side. III,IV, - PERR, EOMs full but painful on the left, no ptosis V - Normal facial sensation VII - Normal facial symmetry VIII - Intact hearing IX,X - Symmetrical palate XI - Symmetrical shoulder shrug XII - Midline tongue, no atrophy MOTOR FUNCTION: Difficult to assess d/t poor patient effort. Normal bulk, normal tone and no involuntary movements, no tremor SENSORY FUNCTION: Decreased sensation to touch and pinprick on face b/l and lower extremities b/l. CEREBELLAR FUNCTION: Intact fine motor control over upper limbs and lower limbs REFLEX FUNCTION: Symmetric in upper and lower extremities. STATION and GAIT Gait normal Data: Lab Results: CBC: Recent Labs 08/27/19 1632 08/28/19 0648 08/29/19 0503 WBC 10.7 10.1 10.7 HGB 12.6 13.2 12.9 PLT 287 313 282 BMP: Recent Labs 08/27/19 1632 08/28/19 0648 08/29/19 0503 NA 135 137 138 K 3.5* 3.9 3.8 CL 94* 98 101 CO2 28 25 23 BUN 16 20 21* CREATININE 0.59 0.52 0.51 GLUCOSE 145* 141* 145* Lab Results Component Value Date CHOL 163 06/05/2011 LDLCHOLESTEROL 83 06/05/2011 HDL 38 (L) 06/05/2011 TRIG 211 (H) 06/05/2011 ALT 8 12/18/2017 AST 14 12/18/2017 TSH 0.25 (L) 06/16/2016 INR 1.0 11/22/2017 LABA1C 4.5 02/13/2014 [id number] 446 06/16/2016 No results found for: PHENYTOIN, PHENYTOIN, VALPROATE, CBMZ IMAGING CT Head WO Contrast 08/22/2019: No acute intracranial abnormality. MRI THORACIC SPINE W WO CONTRAST 08/28/2019: Multilevel degenerative disc disease and multilevel degenerative facet hypertrophy without canal stenosis or foraminal narrowing. MRI CERVICAL SPINE W WO CONTRAST 08/28/2019: Anterior hardware fixation at C5-6 without complication. Mild multilevel degenerative disc disease with uncovertebral and facet hypertrophy resulting in canal stenosis at C3-4. Unremarkable pre and post-contrast evaluation of the spinal cord. MRI BRAIN 08/28/2019: Scattered FLAIR signal abnormalities most pronounced in the frontal lobes that may correlate with patient's history of a demyelinating process. There is no evidence for active or acute demyelination. Assessment and Plan This is a 44 year old female with a pmh significant for MS, PTSD, and anxiety who presents to the ED for left UE and LE extremity weakness and tingling associated with b/l facial numbness, tongue numbness, and mouth numbness. She believes that she is having a MS flare. Pt is having lots of anxiety and is requesting versed and morphine. MS Flare: MRI studies show no acute demyelinating processes. Continue IV salu-medrol Encourage her to participate in PT/OT Dysphagia: Pt passed swallow study and can have a normal diet Anxiety: .5 mg Ativan q6 PRN RANDOLPH May 08/29/2019 11:15 AM Associated attestation - Harley Olsenas, MD - 08/29/2019 5:39 PM EST I have seen and examined the patient and the bravo elements of all parts of the encounter have been performed by me. I agree with the assessment, plan and orders as documented by the fellow/resident, after I modified exam findings and plan of treatments, and the final version is my approved version of the assessment. Active problem possible multiple sclerosis exacerbation . The condition is MRI of Head with nonspecific white matter intensities . MRI cervical spine with anterior fixation C5-6 with C3-4 disc osteophyte complex with mild canal stenosis , MRI of thoracic spine with multi level degenerative changes . She has received total solumedrol 1500 mg IVPB 500 mg IVPB q 12 hours x 6 . She began vomiting blood with nausea vomiting today .There is concern that she has bene ingesting own blood from IV havingdone this in the past with multiple prior EGD's seen by GI with question of Munchausen's syndrome .She has been cleared by GI for continues IV solumedrol . Left eye acuety remains at 20/400. Left arm 4/5 with giveway left leg 3-/ 5 right leg 4-/5 with giveway . Decreased sensation left face , leftarm and left leg. She has been refusing PT . She is complaining of bilateral face throat and right side pain with percocet making her nauseous . She passed swallow study . She presents with numbness of face and throat , trouble swallowing with numbness left arm and leg with bilateral lower extremity weakness . She has history of possible multiple sclerosis with question of somatic overlay in the past . She has seen multiple local neurologist along with lately Dr Frazier in [place] area . She has been on gilenya having stopped this [address] Payton closed his practice . She reports to have intermittent exacerbation every six months usually with left side numbness , weakness of legs getting IV solumedrol having nomal exam in between . She reports that she is being consideredfor possible tecfidera . Patient was at [facility] this past week with weakness of both legs , left side numbness, weakness of left arm with left eye pain and blurriness .She was pulsed with IV solumedrol for 4 days noting partial improvement sent home although gain developed greaterweakness of legs left more schofield right with trouble sustaining weight only walking few steps with walker . There was also numbness in bilateral face and throat unable to swallow not eating anything thepast 3 days . She went to [facility] yesterday requesting to be seen at another neurological facility . MRI of Head in 2013 at [facility] with bilateral frontal nonspecific white matter intensities CSF analysis non inflammatory 0 RBC, 0 WBC , total protein 108 , glucose 27 , IgG synthesis oligoclonal bands negative She has PTSD and bipolar disease On exam she is alert ad oriented x 3. Right eye 20/50 , left eye 20/400 There is decreased sensation left face . Left arm 4/5 with giveway left leg 3-/ 5 right leg 4-/5 with giveway . Decreased sensation left arm and left leg . Reflexes symmetrical Impression Possible multiple sclerosis exacerbation . 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 PT/OT * Joesph Mcclure OT - 08/29/2019 8:30 AM EST Occupational Therapy Occupational Therapy Not Seen Note DATE: 08/29/2019 Name: Dallas James : 1975 Patient not available for Occupational Therapy due to: Patient Declined: D/t pancho, RN informed and states pt just received pain meds, hold OT eval. Next Scheduled Treatment: Attempt in pm as time allows. * Zuleika Brooks - 08/29/2019 8:30 AM EST Physical Therapy DATE: 08/29/2019 NAME: Dallas James : 1975 Patient not seen this date for Physical Therapy due to: [] Blood transfusion in progress [] Hemodialysis [] Patient Declined [] Spine Precautions [] Strict Bedrest [] Surgery/ Procedure [] Testing [x] Other: pt refused at this time d/t pain, nursing notified; ck back in pm as able or 08/30/19 [] PT being discontinued at this time. Patient independent. No further needs. [] PT being discontinued at this time as the patient has been transferred to palliative care. No further needs. Zuleika Brooks This treatment/evaluation completed by signing SPT. Signing PT agrees with treatment and documentation. * Rosario Morrell RCP - 08/28/2019 3:20 PM EST Smoking Cessation - topics covered [] Health Risks [] Benefits of Quitting [] Smoking Cessation [] Patient has no history of tobacco use per note in significant history. [] Patient is former smoker per note in significant history. Patient quit in [] No need for tobacco cessation education. [] Booklet given [] Patient verbalizes understanding. [] Patient denies need for tobacco cessation education. [x] Unable to meet with patient today despite several attempts to do so. Will follow up as able. ROSARIO MORRELL 3:20 PM * Joesph Mcclure OT - 08/28/2019 10:03 AM EST Occupational Therapy Occupational Therapy Not Seen Note DATE: 08/28/2019 Name: Dallas James : 1975 Patient not available for Occupational Therapy due to: Patient Declined: D/t pain and anxiety, RN informed. Next Scheduled Treatment: Attempt in pm as time allows. documented in this encounter* Lizzy Roche RN - 12/04/2019 5:57 PM EDT Loudly talking on phone saying that we are discharging her when she has an infection in her blood. Discharged per ambulatory. * Sydney Scanlon APRN - JANI - 12/04/2019 8:33 AM EDT [facility] IN-PATIENT SERVICE [facility] Progress Note 12/04/2019 10:54 AM Name: Dallas James Acct: [id number] Room: [facility]0435- Day: 1 Admit Date: 12/03/2019 3:46 AM PCP: Aleksandar Mendez MD Code Status: Full Code Subjective: C/C: Right upper extremity/hand swelling Interval History Status: not changed. Patient seen and evaluated in room tearful at bedside but in no acute distress. Her vitals are stable. Right upper extremity continues to exhibit significant redness with swelling. IV access is stillnot been obtained. Patient states she cannot tolerate p.o. medications/intake due to mucositis Brief History: Per records: Dallas James is a 44 y.o. Non-/non female who presents with No chief complaint onfile. and is admitted to the hospital for the management of Cellulitis. This is a 44 yr old female with a very complex past medical history including M nchhausen, PTSD, Anxiety, MS, hx: DVT/PE s/p IVC filter (uncertain if diagnosed with factor v leiden), and chronic pain Patient initially presents to [facility] on 10/30 with complaints of RUE swelling and 'leakingfrom IV site'. Patient has history of MS with a reported recent flare and had midline placed for 'IV infusions by her neurologist'. On the , she began noticing 'leaking clear fluid from the IV site' and associated swelling. She was found to have a RUE DVT and was discharged home on Xarelto. It seems for the last few days, the patient has been bouncing back and forth to [facility] with the same presentation requesting pain medications. It is also documented the patient has been noncompliant with her Xarelto. Today, the patient returned to [place] ER with increased redness and swelling of the RUE, along with mild erythema and swelling to the left hand. She was started on Clindamycin and transferred to our facility for further abx therapy for suspected cellulitis and vascular surgery consultation given RUE DVT. Vascular evaluation without intervention Started on eliquis for anticoagulation Pt refusing abx therapy Review of Systems: Constitutional: negative for chills, fevers, sweats Respiratory: negative for cough, dyspnea on exertion, shortness of breath, wheezing Cardiovascular: negative for chest pain, chest pressure/discomfort, lower extremity edema, palpitations Gastrointestinal: negative for abdominal pain, constipation, diarrhea, nausea, vomiting Neurological: negative for dizziness, headache Medications: Allergies: Allergies Allergen Reactions Iv Dye [Iodides] Hives and Shortness Of Breath MRI Protonix [Pantoprazole Sodium] Anaphylaxis Fentanyl Itching Solu-Medrol [Methylprednisolone] Rash Ketorolac Tromethamine Hives Pcn [Penicillins] Nausea And Vomiting Zofran Nausea And Vomiting Current Meds: Scheduled Meds: sodium chloride flush 10 mL Intravenous 2 times per day nicotine 1 patch Transdermal Q24H traZODone 150 mg Oral Nightly vitamin D 50,000 Units Oral Weekly LORazepam 1 mg Oral BID apixaban 10 mg Oral BID [START ON 12/10/2019] apixaban 5 mg Oral BID Continuous Infusions: PRN Meds: Magic Mouthwash, sodium chloride flush, potassium chloride OR potassium alternative oral replacement OR potassium chloride, magnesium sulfate, acetaminophen OR acetaminophen, polyethylene glycol, promethazine OR ondansetron, nicotine, HYDROmorphone, diphenhydrAMINE Data: Past Medical History: has a past medical history of Blood transfusion reaction, Essential hypertension, GERD (gastroesophageal reflux disease), [employer] 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 Social History: reports that she has quit smoking. Her smoking use included cigarettes. She has a 6.50 pack-year smoking history. She quit smokeless tobacco use about 4 years ago. She reports that she does not drink alcohol or use drugs. Family History: Family History Problem Relation Age of Onset Cancer Mother High Blood Pressure Father Diabetes Brother Vitals: BP (!) 139/94 Pulse 87 Temp 98.8 F (37.1 C) Resp 17 Ht 5' 7 (1.702 m) Wt 194 lb 8 oz (88.2 kg) SpO2 100% BMI 30.46 kg/m Temp (24hrs), Av.8 F (37.1 C), Min:98.8 F (37.1 C), Max:98.8 F (37.1 C) No results for input(s): POCGLU in the last 72 hours. I/O (24Hr): No intake or output data in the 24 hours ending 12/04/19 1054 Labs: Hematology: Recent Labs 12/03/19 0638 WBC 8.1 RBC 3.98 HGB 11.8* HCT 35.6* MCV 89.4 MCH 29.6 MCHC 33.1 RDW 14.0 PLT 227 MPV 9.7 Chemistry: Recent Labs 12/03/19 0638 NA 136 K 4.1 CL 99 CO2 27 GLUCOSE 100* BUN 12 CREATININE 0.51 ANIONGAP 10 LABGLOM >60 GFRAA >60 CALCIUM 8.7 No results for input(s): PROT, LABALBU, LABA1C, Y1TKFKP, B7WZKCS, FT4, TSH, AST, ALT, LDH, GGT, ALKPHOS, LABGGT, BILITOT, BILIDIR, AMMONIA, AMYLASE, LIPASE, LACTATE, CHOL, HDL, LDLCHOLESTEROL, CHOLHDLRATIO, TRIG, VLDL, PFA19UL, PHENYTOIN, PHENYF, URICACID, POCGLU in the last 72 hours. ABG: Lab Results Component Value Date PH 7.46 12/16/2013 PCO2 30 12/16/2013 HCO3 21.5 12/16/2013 Lab Results Component Value Date/Time SPECIAL L WRIST 1ML 06/15/2016 01:51 PM SPECIAL L WRIST 1ML 06/15/2016 01:51 PM Lab Results Component Value Date/Time CULTURE NO GROWTH 6 DAYS 06/15/2016 01:51 PM CULTURE 06/15/2016 01:51 PM [employer] [address] [place] [address] [phone] ([phone] CULTURE NO GROWTH 6 DAYS 06/15/2016 01:51 PM CULTURE 06/15/2016 01:51 PM [employer] [address] [place] [id number] Radiology: No results found. Physical Examination: General appearance: alert, cooperative and no distress Mental Status: oriented to person, place and time and normal affect Lungs: clear to auscultation bilaterally, normal effort Heart: regular rate and rhythm, no murmur Abdomen: soft, nontender, nondistended, normal bowel sounds, no masses, hepatomegaly, splenomegaly Extremities: Upper extremity edema with associated redness, no tenderness in the calves Skin: Right upper extremity swelling, no gross lesions, rashes, induration. 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 Right upper extremity DVT: Vascular surgery was consulted, patient started on Eliquis. Status post IVC filter. 2. Cellulitis: Ruled out. Patient has been refusing clindamycin. Redness/swelling most likely sequelae of right upper extremity DVT. discontinue all abx for now 3. MS: Chronic without exacerbation. 4. Oral mucositis: Magic mouthwash 4 times daily as needed 5. Discharge planning: Home once tolerating po intake ZOE Mgaana NP 12/04/2019 10:54 AM * Fermin Cordero RN - 12/03/2019 8:28 PM EDT Pt refusing oral clindamycin; pt states: it upsets my stomach . Discussed risks of regimen non-compliance; pt continues to refuse. * Fermin Cordero RN - 12/03/2019 5:30 AM EDT Poor IV access, await IV team to start PIV in AM. * Fermin Cordero RN - 12/03/2019 4:32 AM EDT Pt hands over pill bottle labeled lorazepam with two pills in it. Pt reports one is ativan and one is dilaudid. Pill bottle given to Elvin; pharmacist for verification and safe keeping. documented in this encounter Chief Complaint and Reason for Visit Chief Complaint abscess tooth Additional Source Comments INFORMATION SOURCE (unrecogn ized section and content) DATE CREATED AUTHOR 09/21/2018 [employer] DATE CREATED AUTHOR AUTHOR'S ORGANIZ ATION 12/05/2019 [facility] DATE CREATED AUTHOR AUTHOR'S ORGANIZ ATION 09/30/2020 [facility] DATE CREATED AUTHOR AUTHOR'S ORGANIZ ATION 02/17/2022 [facility] DATE CREATED AUTHOR AUTHOR'S ORGANIZ ATION 12/28/2022 [facility] DATE CREATED AUTHOR AUTHOR'S ORGANIZ ATION 03/14/2023 [facility] DATE CREATED AUTHOR AUTHOR'S ORGANIZ ATION 04/23/2023 [facility] DATE CREATED AUTHOR AUTHOR'S ORGANIZ ATION 05/09/2023 [facility] DATE CREATED AUTHOR AUTHOR'S ORGANIZ ATION 05/23/2023 [facility] DATE CREATED AUTHOR AUTHOR'S ORGANIZ ATION 10/07/2023 [facility] Reason for Visit (unrecogniz ed section and content) Reason Comments Other patient reports MS f lare-up onset two days ago and worsening Reason Comments Multiple Sclerosis pt states she starte d having a flare three days ago Status Reason Specialty Diagnoses / Procedures Referre d By Contact Referred To Contact Diagnoses Multiple sclerosis exacerbation (HCC) MS flare up Harley Olsen MD [address] [facility], [address] [place] [address] [facility] Reason Comments Other pt states had midlin e in right upper arm taken out 3 hours ago, Dr. Hastings told to come to ER for blood clot Status Reason Specialty Diagnoses / Procedures Referre d By Contact Referred To Contact Diagnoses Cellulitis Cellulitis Cellulitis Lynn Mcmanus MD [address] [id number] [facility] Reason Comments Joint Swelling pt states she is hav ing a flare of her MS Reason Comments Hip Pain pt states she has william ne loss due to steroid use with her MS. Pt states her bilateral hip pain started getting worse 2 days ago Patient Care team informatio n (unrecognized section and content) Team Status: Active Member Role Status Dates Aleksandar Mendez MD Primary Care Provider Active Team Status: Inactive Member Role Status Dates Aleksandar Mendez MD Primary Care Provider Active Lamine Horne DDS Attending Provider Act radha Goals (unrecognized section and content) Goals may be documented in a n alternate section FOR RECORDS PERTAINING TO PATIENTS WHO ARE OR HAVE BEEN ENROLLED IN A CHEMICAL DEPENDENCY/SUBSTANCEABUSE PROGRAM, SOME INFORMATION MAY BE OMITTED. This clinical summary was aggregated from multiple sources. Caution should be exercised in using it in the provision of clinical care. This summary normalizes information from multiple sources, and as a consequence, information in this document may materially change the coding, format and clinical context of patient data. In addition, data may be omitted in some cases. CLINICAL DECISIONS SHOULD BE BASED ON THE PRIMARY CLINICAL RECORDS. [facility] [employer] provides no warranty or guarantee of the accuracy or completeness of information in this document.
--- NOTE | 2024-08-03 00:37 | ED.GENADUL1 ---
HPI HPI - General Adult General Stated complaint: fever, old port pain Related Data Home Medications ?Medication ?Instructions ?Recorded ?Confirmed amlodipine 10 mg tablet mg 06/21/24 clonazepam 1 mg tablet mg 06/21/24 oxycodone-acetaminophen 10 mg-325 tab 06/21/24 mg tablet pregabalin 150 mg capsule mg 06/21/24 tramadol 50 mg tablet mg 06/21/24 Previous Rx's ?Medication ?Instructions ?Recorded clonazepam 1 mg tablet (Klonopin) 1 mg PO Q8H 1 day #3 tabs 06/24/24 oxycodone-acetaminophen 10 mg-325 1 tab PO Q8H PRN pain #3 tabs 06/24/24 mg tablet (Percocet) Allergies Allergy/AdvReac Type Severity Reaction Status Date / Time Penicillins Allergy Severe Anaphylaxis Verified 06/21/24 20:58 ketorolac (From Toradol) Allergy Intermediate Hives Verified 06/21/24 20:58 ondansetron (From Zofran) Allergy Intermediate Hives Verified 06/21/24 20:58 Opioid HPI Opioid Management Most Recent Opioid Data: No Data to Display PFSH PFSH Social History Little interest or pleasure in doing things: not at all Feeling down, depressed, or hopeless: not at all Medical Decision Making MDM Narrative Medical decision making narrative: Patient LWBS. Discharge Plan Discharge Patient Disposition: Left Without Being Seen Discharge Date/Time: 08/02/24 22:40
== END 2024-08-02 22:40 | disposition left against medical advice (07) ==
LOC: ER 22:21
PROVIDERS: Emergency Provider Student in an Organized Health Care Education/Training Program
DX: Z53.21 Procedure and treatment not carried out due to patient leaving prior to being seen by health care provider (principal)